=== PATIENT | female | born 1980 | race Caucasian/White ===

== ENCOUNTER 2016-12-23 12:50 | Outpatient (CLI) | payer BC ==
[~2016-12-23] VITALS: Ht 165.1 cm; Wt 92.6 kg
[~2016-12-23 12:50] MED LIST: AC500T PO; ALBU17AE23 IH; AMOX500C2 PO; BPR75T PO; CEFD300C3 PO; CYCL10TA9 PO; D-ME118S7; FERR-57 PO; FRS325T PO; GABA600T2 PO; GBPN300C; HYDR1TAB PO; IBP600T1 PO; LRT10T PO; MMT17NA NS; NITR-65 PO; ONDAN4ODT PO; OXYC-12 PO; PREN1TAB39 PO; TRAM-21 PO; [UNRECOGNIZED DRUG - CODE] PO; [UNRECOGNIZED DRUG - OTHER] INH
[2016-12-23 13:03] VITALS: BP 130/94
[2016-12-23] MEDS ORDERED: FEXO180T84 PO (13:10)
[2016-12-23] MEDS ORDERED: PHEN37.53 PO (13:10)
[2016-12-23 13:37] LABS: BILIRUBIN,URINE NEGATIVE (NEGATIVE); KETONES,URINE NEGATIVE (NEGATIVE); LEUKOCYTE ESTERASE ,URINE NEGATIVE (NEGATIVE); NITRITE,URINE NEGATIVE (NEGATIVE); PH,URINE 7 (5-9); PROTEIN,URINE NEGATIVE (NEGATIVE); UROBILINOGEN,URINE NORMAL (NORMAL)
[2016-12-23 13:38] LABS: BASOPHILS % (AUTO) 0 % (0-10); EOSINOPHILS # (AUTO) 0.1 10^3/uL (0.0-0.3); EOSINOPHILS % (AUTO) 2 % (0-10); LYMPHOCYTES # (AUTO) 2.2 X 10^3 (1.0-4.0); LYMPHOCYTES % (AUTO) 31 % (12-44); MEAN CORPUSCULAR HEMOGLOBIN 33 PG (25-34); MEAN CORPUSCULAR HGB CONC 34 G/DL (32-36); MEAN CORPUSCULAR VOLUME 96 FL (80-99); MEAN PLATELET VOLUME 10.2 FL (7.4-10.4); MONOCYTES # (AUTO) 0.4 X 10^3 (0.0-1.0); MONOCYTES % (AUTO) 6 % (0-12); NEUTROPHILS # (AUTO) 4.5 X 10^3 (1.8-7.8); NEUTROPHILS % (AUTO) 61 % (42-75); PLATELET COUNT 243 10^3/uL (130-400); RED BLOOD COUNT 4.59 10^6/uL (4.35-5.85); RED CELL DISTRIBUTION WIDTH 13.1 % (10.0-14.5); WHITE BLOOD COUNT 7.3 10^3/uL (4.3-11.0)
[2016-12-23] MEDS ORDERED: ALPR0.254 PO (14:00)
[2016-12-23] MEDS ORDERED: ESCI20TA45 PO (14:00)
[2016-12-28] MEDS ORDERED: OXYC-471 PO (16:10)
[2016-12-28] MEDS ORDERED: DOCU100C37 PO (16:10)
[2016-12-28] MEDS ORDERED: IBUP-1773 PO (16:10)
== END 2016-12-23 13:30 | disposition home or self-care (01) ==
LOC: PREOP 12:50
PROVIDERS: ATTEND Obstetrics & Gynecology
DX: Z01.812 Encounter for preprocedural laboratory examination (principal); Z11.2 Encounter for screening for other bacterial diseases; N92.0 Excessive and frequent menstruation with regular cycle
CPT/HCPCS: 36415; 81000; 85025; 86850; 86900; 86901; 87081

== ENCOUNTER 2016-12-28 06:10 | Day surgery (SDC) | payer BC ==
[2016-12-28] VITALS (8 sets, daily range): BP systolic 106–126; BP diastolic 68–81
[~2016-12-28] VITALS: Ht 165.1 cm; Wt 92.6 kg
[~2016-12-28 06:10] MED LIST changes: +ALPR0.254 PO; +ESCI20TA45 PO; +FEXO180T84 PO; +PHEN37.53 PO
[2016-12-28] MEDS ORDERED: ONDANSETRON 4 MG/2 ML (SDV) Z0FRAN IV ONE (06:45)
[2016-12-28] MEDS ORDERED: SCOPOLAMINE 1.5 MG (TRANSDERM-SCOP) PATCH TOP ONE (06:45)
[2016-12-28] MEDS ORDERED: FAMOTIDINE 20MG/2ML IV (PEPCID) IV ONE (06:45)
[2016-12-28] MEDS ORDERED: NS (IVPB) 50 ML ONE (06:56)
[2016-12-28] MEDS ORDERED: ceFAZolin 1,000 MG (ANCEF) VIAL ONE (06:56)
[2016-12-28] MEDS ORDERED: metroNIDAZOLE 500MG/100ML IVPB 100 ML ONE (06:56)
[2016-12-28] MEDS ORDERED: proPOfol 200 MG/20 ML (DIPRIVAN) VIAL IV ONE (07:07)
[2016-12-28] MEDS ORDERED: ROCURONIUM 50 MG/5 ML (ZEMURON) VIAL IV ONE (07:07)
[2016-12-28] MEDS ORDERED: MIDAZOLAM 2 MG/2 ML (VERSED) VIAL ONE (07:08)
[2016-12-28] MEDS ORDERED: fentaNYL INJECTION 250 MCG/5 ML AMP ONE (07:08)
[2016-12-28] MEDS: LACTATED RINGERS 1,000 ML IV PRN ×2 (07:14→08:50)
[2016-12-28] MEDS ORDERED: CATHETER FLUSH 10 ML SYR IV PRN (07:15)
[2016-12-28] MEDS ORDERED: metroNIDAZOLE 500 MG/100 ML IVPB (PRE-MIX) IV ONE (07:15)
[2016-12-28] MEDS ORDERED: ceFAZolin 1 GM/NS 50 ML IVPB IV ONE ×2 (07:15)
[2016-12-28] MEDS ORDERED: BUP/EPI 0.25% 1:200,000 (MARCAINE) 30 ML VIAL ONE (07:41)
--- NOTE | 2016-12-28 07:56 | Progress Note-Pre Operative ---
Pre-Operative Progress Note H&P Reviewed The H&P was reviewed, patient examined and no changes noted. Date H&P Reviewed: Dec 28, 2016 Time H&P Reviewed: 07:15 Pre-Operative Diagnosis: menorrhagia, complex right ovarian cyst GARETT GIRARD DO Dec 28, 2016 07:56
[2016-12-28] MEDS ORDERED: DEXAMETHASONE PF 10 MG/ML (DECADRON) VIAL ONE (09:40)
[2016-12-28] MEDS ORDERED: SEVOFLURANE (ULTANE) 15 ML INHAL SOLN ONE (09:40)
[2016-12-28] MEDS ORDERED: LACTATED RINGERS 2,000 ML IV ONE (09:40)
[2016-12-28] MEDS ORDERED: NEOSTIGMINE (BLOXIVERZ ) 1 MG/1ML 10 ML VIAL ONE (09:40)
[2016-12-28] MEDS ORDERED: GLYCOPYRROLATE 0.2 MG/ML (ROBINUL) 2 ML VIAL ONE ×2 (09:40)
[2016-12-28] MEDS ORDERED: KETOROLAC 30 MG/ML VIAL ONE (09:40)
[2016-12-28] MEDS ORDERED: morphine INJ 10 MG/ML 1ML (SYR OR VIAL) ONE ×2 (09:49→10:12)
[2016-12-28] MEDS ORDERED: LACTATED RINGERS 1,000 ML IV SCH (09:59)
[2016-12-28] MEDS ORDERED: ANTACID SUSP 30 ML UDC (MYLANTA) PO PRN (10:00)
[2016-12-28] MEDS ORDERED: ONDANSETRON 4 MG/2 ML (SDV) Z0FRAN IV PRN ×2 (10:00→10:30)
[2016-12-28] MEDS ORDERED: HYDROcodone/APAP 7.5 MG/325 MG (LORTAB, LORCET PLUS) TABLET PO PRN (10:00)
[2016-12-28] MEDS ORDERED: DOCUSATE SODIUM 100 MG (COLACE) CAP PO PRN (10:00)
[2016-12-28] MEDS ORDERED: KETOROLAC 30 MG/ML VIAL IV PRN (10:00)
[2016-12-28] MEDS ORDERED: SIMETHICONE 80 MG (MYLICON) CHEW PO PRN (10:00)
--- NOTE | 2016-12-28 10:06 | Operative Report ---
Operative Report Date of Procedure/Surgery Dec 28, 2016 Surgeon (s) GARETT GIRARD DO Patrol Captain (s): Jamila MICHAELS. who was instrumental in retraction for protection of import Post-Operative Diagnosis same, enteropelvic adhesions, peritubal adhesions Procedure Performed RaTH, bilateral salpingectomy, lysis of peritubal adhesions and enteropelvic adhesions (20 mintues) Description of Procedure Anesthesia Type: General Estimated blood loss (mL): 25 Specimen(s) collected/removed uterus, bilateral tubes Description of the Procedure An kennel assistant was necessary for the retraction and protection of important neurovascular structures and the procedure could not be performed without this assistance. Procedure. the patient was taken to the operating room where general anesthesia was found to be adequate. She was then placed in the dorsal lithotomy position, prepped and draped in the normal sterile fashion. The Solis catheter was placed using sterile technique. A weighted speculum was inserted in the patient's vagina. A right angle retractor is used visualizing the cervix, was grasped at the 12 o'clock position using a single tooth tenaculum. I then placed a 0 Vicryl suture through the anterior lip of the cervix and removed the single tooth tenaculum; this provided retraction. I then placed the ANTONIO uterine manipulator. The uterus sounds to 8 cm. An 8 cm ANTONIO uterine manipulator tip and a 3.5 cm colpotomy ring were placed and advance the ANTONIO uterine manipulator into the endometrial cavity, deploy the balloon and advancing the colpotomy ring around the vaginal fornix. Once this is in place, attention was now turned to the abdomen I placed a supraumbilical incisions after infiltrating with 0.25% Marcaine. I then made a 1 cm incision and placed the Veress needle. Intraabdominal placement was confirmed with the use of the saline drop test and a drop in pressure. The abdomen was now insufflated to a maximum pressure of 15 mmHg with warmed CO2 gas. A 10 mm trocar was now placed. And intraabdominal placement was confirmed with the Da Yanci laparoscopy. The patient was now placed into steep Trendelenburg. The above mentioned findings were seen. I placed 2 lateral trocars, on the right side and the left side, approximately 12 cm lateral to my infraumbilical trocar. I infiltrate the skin using 0.25% Marcaine and make an 8 mm incisions and I direct trocars under direct visualization of the laparoscope into the peritoneal cavity. As assist port was placed in the right upper quadrant. This is a 10 mm port. Once these trocars are in place, I bring in the da Yanci robot and dock it in the appropriate fashion. I place the bi polar graspers in the left hand. And the monopolar marge in my right hand. The adhesions in the left pelvis were taken down slowly and carefully using the monopolar marge and my graspers. I now take down the adhesions of the left tube to the ovary. I now take down the adhesions of the omentum to the right tube and ovary. I now perform bilateral salpingectomies by grasping the tube and then incising along the mesovarium and then grasp the tube at the cornu and transect. Once these are removed from the pelvis and sent for pathology, I am able to perform the following dissection bilaterally; I grasp the infundibulopelvic ligament using the bipolar da Yanci grasped and bipolar cauterize and transect it using the monopolar marge. I then grasp the round ligament, bipolar cauterize this and transect it using the marge. I then grasp the entire broad ligament, bipolar cauterize it and transect it using the marge down to the level lower uterine segment. This allows me to skeletonize the uterine vessels which are bipolar cauterized and transected using the marge. During this dissection, I trace the ureter all the way down to its crossing point across the uterine artery and very careful to stay clear of this area as I dissect. I then am able to take my anterior dissection from previously and find the anterior vaginal fornix using blunt dissection. I create a colpotomy to the 12 o'clock position using the monopolar marge and take this circumferentially amputating the cervix away from the vaginal fornix. The cervix, uterus are then removed through the vagina. I then proceed with closing the vaginal cuff using a V-Lock 2-0 in a running fashion from each apex and overlapping in the midline. This incorporating the lateral vaginal apices. There is no active bleeding noted from any my dissection planes. The Da Yanci is now undocked. The remainder of the case is continued laparoscopically. I copiously irrigate the pelvis using normal saline. There is no active bleeding noted from any my dissection planes. I place FloSeal over all of my planes of dissection to ensure postoperative hemostasis. I then have the patient taken out of steep Trendelenburg and remove all the lateral trocars under direct visualization of the laparoscope. The supraumbilical trocar is then used to release insufflation and introduce 10 mL 0.25% Marcaine. I then remove this trocar and close the fascial incision using 0 Monocryl in figure of eight fashion. The right upper quadrant fascial incision is also closed with 0-Vicryl. I then close the other incisions with 4-0 Monocryl. Dermabond is applied to the incision and dressings are placed over these. The patient tolerated the procedure well and was taken to the recovery area in stable condition with Solis catheter in place. Lap and sponge counts correct the end of the procedure, instrument count is correct as well. 2 grams of Ancef 500 mg Flagyl given preoperatively for infection prophylaxis. Findings of the Procedure enlarged boggy uterus. Ovaries normal in appearance with follicular cysts present. left peritubal cyst. Extensive adhesions of left tube to bowel and omentum. Omentum adherent to left pelvic side wall and left tube. Right tube adherent to right ovary. Ileum adherent to right pelvic side wall. Allergies and Home Medications Allergies Coded Allergies: codeine (Unverified Allergy, Mild, PT HAS RECEIVED MORPHINE & TRAMADOL W/ O ISSUE, 12/28/16) Penicillins (Unverified Allergy, Unknown, RASH, HAS HAD ANCEF W/O PROBLEMS , 12/28/16) erythromycin base (Unverified Allergy, Unknown, RASH, 12/28/16) Home Medications Alprazolam 0.25 Mg Tablet, 0.25 MG PO Q4H PRN for ANXIETY, (Reported) Docusate Sodium 100 Mg Capsule, 100 MG PO BID PRN for CONSTIPATION, #60 Prescribed by: GARETT GIRARD on 12/28/16 1610 Escitalopram Oxalate 20 Mg Tablet, 20 MG PO HS, (Reported) Fexofenadine HCl 180 Mg Tablet, 180 MG PO HS, (Reported) Ibuprofen 600 Mg Tablet, 600 MG PO Q6H PRN for MILD PAIN, #40 Prescribed by: GARETT GIRARD on 12/28/16 1610 Mometasone Furoate 17 Gm [place], 1 SPRAY NS HS, (Reported) Oxycodone HCl/Acetaminophen 1 Each Tablet, 1 TAB PO Q4H PRN for MODERATE PAIN, # 45 Prescribed by: GARETT GIRARD on 12/28/16 1610 Phentermine HCl 37.5 Mg Tablet, 37.5 MG PO HS, (Reported) GARETT GIRARD DO Dec 28, 2016 10:06 am
[2016-12-28] MEDS ORDERED: morphine INJ 10 MG/ML 1ML (SYR OR VIAL) IV PRN (10:30)
[2016-12-28] MEDS ORDERED: PROMETHAZINE INJ 25 MG/ML (PHENERGAN) AMP IV PRN (10:30)
[2016-12-28] MEDS ORDERED: HYDROmorphone (DILAUDID) 2 MG/ML VIAL IV PRN (10:30)
[2016-12-28] MEDS ORDERED: FLU TRIvalent (5 YOA+) 2016-17 (AFLURIA) 0.5 ML IM ONE ×2 (13:15→16:28)
[2016-12-28] MEDS ORDERED: DOCU100C37 PO (16:10)
[2016-12-28] MEDS ORDERED: OXYC-471 PO (16:10)
[2016-12-28] MEDS ORDERED: IBUP-1773 PO (16:10)
[2016-12-28] MEDS ORDERED: oxyCODONE/APAP 5/325MG (PERCOCET 5) TABLET PO PRN (16:15)
--- NOTE | 2016-12-28 16:15 | Discharge Inst-Women's Service ---
Discharge Inst-Women's Serv Depart Medication/Instructions New, Converted or Re-Newed RX: RX on Chart Instructions nothing per vagina for 10-12 weeks (until released), no lifting over 25 lbs no driving for 1 week Final Diagnosis menorrhagia enteropelvic adhesions peritubal adhesions adenomyosis IUD in place Consults/Follow Up Additional Follow Up: Yes (1 week with Jazmin, 10-12 weeks for pelvic exam) Activity Activity: Activity as Tolerated Driving Instructions: No Driving for 1 Week NO SMOKING: NO SMOKING Nothing Inside Vagina: No Douching, No [place], No Tampons Diet Discharge Diet: No Restrictions Symptoms to Report to : Swelling Increased, Bleeding Excessive, Fever Over 101 Degrees F, Vaginal Bleeding Increase, Vaginal Discharge Foul For Any Problems or Questions: Contact Your Physician Skin/Wound Care Operative Area Clean and Dry: You May Remove Bandage (in 3-4 days or if soiled or wet) Stitches/Flori/Dermabond: Dermabond Bathing Instructions: GARETT Hernandez DO Dec 28, 2016 16:15
[2016-12-29] MEDS ORDERED: IBUPROFEN 600 MG (MOTRIN) TAB PO PRN (02:45)
--- NOTE | 2016-12-29 14:50 | Anesthesia-General Post-Op ---
General Patient Condition Mental Status/LOC: Same as Preop Cardiovascular: Satisfactory Nausea/Vomiting: Absent Respiratory: Satisfactory Pain: Controlled Complications: Absent Post Op Complications Complications None Follow Up Care/Instructions Patient Instructions None needed. Anesthesia/Patient Condition Patient Condition Patient is doing well, no complaints, stable vital signs, no apparent adverse anesthesia problems. No complications reported per nursing. JEFERSON GONZALEZ CRNA Dec 29, 2016 14:50
--- OUTSIDE RECORDS SUMMARY | 2017-01-11 20:12 | XMS REPORT | Continuity of Care Document ---
Author Author [facility] Organization [facility] Address Unknown Phone Unavailable Care Team Providers Care Wildlife Officer Name Role Phone Self, Referral PCP Unavailable Source Comments Some departments are not documenting in the electronic medical record. If you do not see the information that you expected, contact Release of Information in the Health Information Management department at [phone] for further assistance in locating additional records.[facility] Active Allergies and Adverse Reactions Allergen Noted Date Severity Reactions Comments Codeine 10/20/2011 NAUSEA AND VOMITING Erythromycin 10/20/2011 RASH Penicillins 10/20/2011 RASH Current Medications Prescription Sig. Disp. Refills Start End Date Status Date gabapentin (NEURONTIN) Take 600 mg by mouth Active 600 mg tablet three times daily. gabapentin (NEURONTIN) Take 1,200 mg by mouth at Active 600 mg tablet bedtime daily. baclofen (LIORESAL) 10 mg Take 10 mg by mouth three Active tablet times daily. mometasone (NASONEX) 50 Insert 2 Sprays into nose Active mcg/Actuation nasal spray as directed daily. PV W-O JOEL/FERROUS Take by mouth daily. Active FUMARATE/FA (M-VIT PO) MEDROXYPROGESTERONE ACET Inject to area(s) as Active (DEPO-PROVERA IM) directed every 90 days. oxyCODONE/acetaminophen Take 1-2 Tabs by mouth 60 Tab 0 10/22/20 Active (PERCOCET; ENDOCET; every 4 hours as needed 12 ROXICET) 5/325 mg tablet for Pain. Max 12 tabs/day diazepam (VALIUM) 5 mg Take 0.5-1 Tabs by mouth 60 Tab 0 10/22/20 Active tablet every 6 hours as needed. 12 senna/docusate Take 1 Tab by mouth twice 10/22/19 Active (SENOKOT-S) 8.6/50 mg daily. Take while taking 12 tablet pain medication lidocaine (LIDODERM) 5 % daily. 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 Status post lumbar discectomy 10/22/2011 Social History Tobacco Use Types Packs/Day Years Used Date Current Every Day Smoker Cigarettes 0.5 10 Alcohol Use Drinks/Week oz/Week Comments Yes occasional Last Filed Vital Signs Vital Sign Reading Time Taken Blood Pressure 123/86 10/22/2011 7:54 AM [employer] Pulse 87 10/22/2011 8:00 AM [employer] Temperature 36.8 C (98.3 F) 10/22/2011 7:54 AM [employer] Respiratory Rate - - Height 1.651 m (5' 5") 10/21/2011 9:38 AM [employer] Weight 90.719 kg (200 lb) 10/21/2011 9:38 AM [employer] Body Mass Index 33.28 10/21/2011 9:38 AM [employer] Oxygen Saturation 98% 10/22/2011 7:54 AM [employer] Plan of Care Health Maintenance Due Date Last Done Comments Physical (Comprehensive) 12/05/1987 Exam Pertussis Vaccine 12/05/1991 Tetanus Vaccine 1997 Cervical Cancer Screening 2001 Influenza Vaccine 06/03/2017 Results from Last 3 Months Not on file
== END 2016-12-28 17:00 | disposition home or self-care (01) ==
LOC: DELPENDDIS → SDC 06:10 → WS 11:05 → SDC 17:00
PROVIDERS: ATTEND Obstetrics & Gynecology
DX: N92.0 Excessive and frequent menstruation with regular cycle (principal); N80.0 Endometriosis of uterus; N83.01 Follicular cyst of right ovary; N83.8 Other noninflammatory disorders of ovary, fallopian tube and broad ligament; N73.6 Female pelvic peritoneal adhesions (postinfective); Z23 Encounter for immunization
CPT/HCPCS: 84703; 88300; 88307; 90471; 94664; 96361; 96375

== ENCOUNTER → 2018-03-10 | Outpatient (CLI) | payer BC ==
[~2018-03-10] MED LIST changes: +DOCU100C37 PO; +IBUP-1773 PO; +OXYC-471 PO
--- NOTE | 2018-03-10 19:25 | Diagnostic Imaging Report ---
PROCEDURE: US left lower extremity venous. TECHNIQUE: Multiple real-time grayscale images were obtained over the left lower extremity in various projections. Additional duplex Doppler and color Doppler images were also obtained. INDICATION: Leg swelling COMPARISON: None FINDINGS: The left common femoral vein, superficial femoral vein and popliteal veins appear patent and compressible. No visible thrombus is seen. There is normal variability of the waveform with augmentation. IMPRESSION: There is no evidence of deep venous thrombosis in the left lower extremity. Dictated by: Dictated on workstation # [id number]
== END ==
LOC: RAD 15:32
PROVIDERS: ATTEND Nurse Practitioner Family
DX: M79.89 Other specified soft tissue disorders (principal)

== ENCOUNTER 2018-09-26 02:55 | Emergency (ER) | payer BC ==
[~2018-09-26] VITALS: Ht 165.1 cm; Wt 74.9 kg
--- OUTSIDE RECORDS SUMMARY | 2018-09-26 02:59 | XMS REPORT | Clinical Summary ---
Author Author [facility] Organization [facility] Address Unknown Phone Unavailable Care Team Providers Care Shell Worker Name Role Phone Self, Referral PCP Unavailable Mario Moody MD Unavailable Unavailable Inna Hwang RN Unavailable Source Comments Some departments are not documenting in the electronic medical record. If you do not see the information that you expected, contact Release of Information in the Health Information Management department at [phone] for further assistance in locating additional records.[facility] Allergies Comments Active Allergy Reactions Severity Noted Date Codeine NAUSEA AND 10/20/2011 VOMITING Erythromycin RASH 10/20/2011 Penicillins RASH 10/20/2011 Medications End Date Status Medication Sig Dispensed Refills Start Date Active gabapentin (NEURONTIN) Take 600 mg 0 600 mg tablet by mouth three times daily. Active gabapentin (NEURONTIN) Take 1,200 mg 0 600 mg tablet by mouth at bedtime daily. Active baclofen (LIORESAL) 10 mg Take 10 mg by 0 tablet mouth three times daily. Active mometasone (NASONEX) 50 Insert 2 0 mcg/Actuation nasal spray Sprays into nose as directed daily. Active PV W-O JOEL/FERROUS Take by 0 FUMARATE/FA (M-VIT PO) mouth daily. Active MEDROXYPROGESTERONE ACET Inject to 0 (DEPO-PROVERA IM) area(s) as directed every 90 days. Active oxyCODONE/acetaminophen Take 1-2 Tabs 60 Tab 0 (PERCOCET; ENDOCET; by mouth 2 ROXICET) 5/325 mg tablet every 4 hours as needed for Pain. Max 12 tabs/day Active diazepam (VALIUM) 5 mg Take 0.5-1 60 Tab 0 01/20/201 tablet Tabs by mouth 2 every 6 hours as needed. Active senna/docusate Take 1 Tab by 0 (SENOKOT-S) 8.6/50 mg mouth twice 2 tablet daily. Take while taking pain medication Active lidocaine (LIDODERM) 5 % daily. 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 Last Filed Vital Signs Time Taken Vital Sign Reading 10/22/2011 7:54 AM [employer] Blood Pressure 123/86 10/22/2011 8:00 AM [employer] Pulse 87 10/22/2011 7:54 AM [employer] Temperature 36.8 C (98.3 F) - Respiratory Rate - 10/22/2011 7:54 AM [employer] Oxygen Saturation 98% - Inhaled Oxygen - Concentration 10/21/2011 9:38 AM [employer] Weight 90.7 kg (200 lb) 10/21/2011 9:38 AM [employer] Height 165.1 cm (5' 5") 10/21/2011 9:38 AM [employer] Body Mass Index 33.28 Plan of Treatment Health Maintenance Due Date Last Done Comments PHYSICAL (COMPREHENSIVE) 12/05/1987 EXAM HIV SCREENING 12/05/1995 DTAP/TDAP VACCINES (1 - 1998 Tdap) CERVICAL CANCER SCREENING 2010 INFLUENZA VACCINE 05/03/2018 Results Not on filefrom Last 3 Months Advance Directives For more information, please contact: [facility] [address] [place] [address] Date Inactivated Comments Code Status Date Activated 10/22/2011 12:00 PM Full Code 10/21/2011 4:47 PM Provider has discussed Code Status Yes w/Patient or Family?
--- OUTSIDE RECORDS SUMMARY | 2018-09-26 02:59 | XMS REPORT | Clinical Summary ---
Author Author [facility] Organization [facility] Address Unknown Phone Unavailable Care Team Providers Care Bottom Bleacher Name Role Phone PCP Unavailable Allergies Not on File Current Medications Not on file Active Problems Not on file Social History Tobacco Use Types Packs/Day Years Used Date Never Assessed Sex Assigned at Date Recorded Not on file Last Filed Vital Signs Not on file Plan of Treatment Not on file Results Not on filefrom Last 3 Months
--- OUTSIDE RECORDS SUMMARY | 2018-09-26 03:02 | XMS REPORT | CCD ---
Author Author [facility] Address [address] [place] [address] Phone Care Team Providers Care Dental Office Assistant Name Role Phone PP Unavailable CCM Unavailable Summary Purpose Interface Exchange Insurance Providers Payer name Policy type / Coverage type Covered green party ID Effective Begin Date Effective End Date Blue Cross [facility] Blue Cross/Blue [facility] [id number] 2018 Unknown Family history Brother Diagnosis Age At Onset No Family Disease Entered N/A Daughter Diagnosis Age At Onset No Family Disease Entered N/A Mother Diagnosis Age At Onset No Family Disease Entered N/A Father Diagnosis Age At Onset No Family Disease Entered N/A Social History Social History Element Codes Description Effective Dates Tobacco history SNOMED CT: 83067986 Current every day smoker 1 ppd 05/05/[address]: 230558224 Never drinks alcohol 05/27/2011 Has the patient ever used illegal drugs? Unknown Has never used illegal drugs 05/27/2011 Allergies, Adverse Reactions, Alerts Substance Reaction Codes Entered Date Inactivated Date Status CODEINE RxNorm: 2670 05/27/2011 No Inactive Date Active cephalexin RxNorm: 2231 05/28/2011 No Inactive Date Active Erythromycin RxNorm: 4053 05/27/2011 No Inactive Date Active Penicillin Unknown 05/27/2011 No Inactive Date Active Past Medical History Illness Codes Condition Status Onset Date Resolved Date Dysuria ICD-9: 788.1 ICD-10: R30.0 Active 04/18/2018 Unknown Generalized anxiety disorder ICD-9: 300.00 ICD-10: F41.1 Active 08/04/2018 Unknown Family history of ischemic heart disease and other diseases of the circulatory system ICD-9: V17.3 ICD-10: Z82.49 Active 05/05/2018 Unknown Generalized anxiety disorder ICD-9: 300.02 ICD-10: F41.1 Active 10/01/2015 Unknown Localized edema ICD-9 : 782.3 ICD-10: R60.0 Active 04/18/2018 Unknown Pain in left ankle and joints of left foot ICD-9: 719.47 ICD-10: M25.572 Active 05/05/2018 Unknown Pain in right ankle and joints of right foot ICD-9: 719.47 ICD-10: M25.571 Active 05/05/2018 Unknown Mixed obsessional thoughts and acts ICD-9: 300.3 ICD-10: F42.2 Active 11/25/2016 Unknown Obsessive-compulsive disorder ICD-9: 300.3 ICD-10: F42 Active 10/01/2015 Unknown Other fatigue ICD-9: 780.79 ICD-10: R53.83 Active 04/18/2018 Unknown Other malaise ICD-9: 780.79 ICD-10: R53.81 Active 04/18/2018 Unknown Other muscle spasm ICD -9: 728.85 ICD-10: M62.838 Active 04/18/2018 Unknown Localized swelling, mass and lump, left lower limb ICD-9: 782.2 ICD-10: R22.42 Active 03/10/2018 Unknown Pain in left lower leg ICD-9: 729.5 ICD-10: M79.662 Active 03/10/2018 Unknown Other obesity due to excess calories ICD-9: 278.00 ICD-10: E66.09 Active 11/25/2016 Unknown Other acute sinusitis ICD-9: 461.8 ICD-10: J01.80 Active 11/17/2017 Unknown Other allergic rhinitis ICD-9: 477.8 ICD-10: J30.89 Active 11/17/2017 Unknown Pelvic and perineal pain ICD-9: 625.9 ICD-10: R10.2 Active 11/17/2017 Unknown Acute recurrent maxillary sinusitis ICD-9: 461.0 ICD-10: J01.01 Active 05/31/2016 Unknown Allergic rhinitis due to pollen ICD-9: 477.9 ICD-10: J30.1 Active 05/31/2016 Unknown Migraine, unspecified, not intractable, without status migrainosus ICD-9: 346.90 ICD-10: G43.909 Active 05/31/2016 Unknown Acute maxillary sinusitis ICD-9: 461.0 Active 05/17/2013 Unknown COUGH ICD-9: 786.2 Active 05/17/2013 Unknown Anxiety, generalized ICD-9: 300.02 Active 05/09/2013 Unknown Obsessive compulsive disorder ICD-9: 300.3 Active 05/09/2013 Unknown Back muscle spasm ICD- 9: 724.8 Active 09/01/2011 Unknown Sciatica Unknown Active 08/04/2011 Unknown Leg pain ICD-9: 729.5 Active 08/04/2011 Unknown Sciatica ICD-9: 724.3 Active 08/04/2011 Unknown ACUTE SINUSITIS ICD-9 : 461.9 Active 05/28/2011 Unknown Allergic rhinitis ICD- 9: 477.9 Active 05/28/2011 Unknown Lumbago ICD-9: 724.2 Active 05/28/2011 Unknown OBESITY ICD-9: 278.00 Active 05/28/2011 Unknown sinusitis Unknown Active 05/27/2011 Unknown Problems Condition Codes Effective Dates Condition Status Dysuria ICD-9: 788.1 ICD-10: R30.0 04/18/2018 Active Generalized anxiety disorder ICD-9: 300.00 ICD-10: F41.1 08/04/2018 Active Family history of ischemic heart disease and other diseases of the circulatory system ICD-9: V17.3 ICD-10: Z82.49 05/05/2018 Active Generalized anxiety disorder ICD-9: 300.02 ICD-10: F41.1 10/01/2015 Active Localized edema ICD-9 : 782.3 ICD-10: R60.0 04/18/2018 Active Pain in left ankle and joints of left foot ICD-9: 719.47 ICD-10: M25.572 05/05/2018 Active Pain in right ankle and joints of right foot ICD-9: 719.47 ICD-10: M25.571 05/05/2018 Active Mixed obsessional thoughts and acts ICD-9: 300.3 ICD-10: F42.2 11/25/2016 Active Obsessive-compulsive disorder ICD-9: 300.3 ICD-10: F42 10/01/2015 Active Other fatigue ICD-9: 780.79 ICD-10: R53.83 04/18/2018 Active Other malaise ICD-9: 780.79 ICD-10: R53.81 04/18/2018 Active Other muscle spasm ICD -9: 728.85 ICD-10: M62.838 04/18/2018 Active Localized swelling, mass and lump, left lower limb ICD-9: 782.2 ICD-10: R22.42 03/10/2018 Active Pain in left lower leg ICD-9: 729.5 ICD-10: M79.662 03/10/2018 Active Other obesity due to excess calories ICD-9: 278.00 ICD-10: E66.09 11/25/2016 Active Other acute sinusitis ICD-9: 461.8 ICD-10: J01.80 11/17/2017 Active Other allergic rhinitis ICD-9: 477.8 ICD-10: J30.89 11/17/2017 Active Pelvic and perineal pain ICD-9: 625.9 ICD-10: R10.2 11/17/2017 Active Acute recurrent maxillary sinusitis ICD-9: 461.0 ICD-10: J01.01 05/31/2016 Active Allergic rhinitis due to pollen ICD-9: 477.9 ICD-10: J30.1 05/31/2016 Active Migraine, unspecified, not intractable, without status migrainosus ICD-9: 346.90 ICD-10: G43.909 05/31/2016 Active Acute maxillary sinusitis ICD-9: 461.0 05/17/2013 Active COUGH ICD-9: 786.2 05/17/2013 Active Anxiety, generalized ICD-9: 300.02 05/09/2013 Active Obsessive compulsive disorder ICD-9: 300.3 05/09/2013 Active Back muscle spasm ICD- 9: 724.8 09/01/2011 Active Sciatica Unknown 08/04/2011 Active Leg pain ICD-9: 729.5 08/04/2011 Active Sciatica ICD-9: 724.3 08/04/2011 Active ACUTE SINUSITIS ICD-9 : 461.9 05/28/2011 Active Allergic rhinitis ICD- 9: 477.9 05/28/2011 Active Lumbago ICD-9: 724.2 05/28/2011 Active OBESITY ICD-9: 278.00 05/28/2011 Active sinusitis Unknown 05/27/2011 Active Medications Medication Codes Instructions Start Date Stop Date Status Fill Instructions Xanax 0.25 mg tablet RxNorm: 331936 Tablet(s) PO TAKE 1 TABLET BY MOUTH EVERY 4-6 HOURS NEEDED FOR ANXIETY 08/04/2018 No Stop Date Active (Appended: Controlled substance eRx refill - RxReferenceNumber: [id number]|1|0|1) Cipro 500 mg tablet RxNorm: 783269 1 Tablet(s) PO BID 201708/13/2018 Active Xanax 0.25 mg tablet RxNorm: 131167 Tablet(s) PO TAKE 1 TABLET BY MOUTH EVERY 4-6 HOURS NEEDED FOR ANXIETY 08/02/201810/2017 Inactive (Appended: Controlled substance eRx refill - RxReferenceNumber: [id number]|1|0|1) Bactrim DS 800 mg-160 mg tablet RxNorm: 368754 1 Tablet(s) PO BID 07/26/2018 08/04/2018 Inactive potassium chloride ER 10 mEq tablet,extended release RxNorm: 353495 1 Tablet(s) PO daily while on lasix 05/02/20182017 Inactive Lasix 20 mg tablet RxNorm: 957176 1 Tablet(s) PO daily 201705/06/2018 Inactive Cipro 500 mg tablet RxNorm: 021300 1 Tablet(s) PO BID 201705/07/2018 Inactive Cipro 500 mg tablet RxNorm: 029006 1 Tablet(s) PO BID 201704/27/2018 Inactive Bactrim DS 800 mg-160 mg tablet RxNorm: 885845 1 Tablet(s) PO BID 04/24/2018 04/30/2018 Inactive Colcrys 0.6 mg tablet RxNorm: 091417 2 now=1.2mg once then take 0.6mg 1 hour later x 1 Tablet(s) PO 04/18/2018 No Stop Date Active fluvoxamine 100 mg tablet RxNorm: 678374 1/2 Tablet(s) PO BID 04/18/2018 04/12/2019 Active Generic For:LUVOX 100 MG TABLET 10/21/2016 2:32:39 PM potassium chloride ER 10 mEq tablet,extended release RxNorm: 261511 1 Tablet(s) PO daily while on lasix 04/18/20182017 Inactive Xanax 0.25 mg tablet RxNorm: 968754 Tablet(s) PO TAKE 1 TABLET BY MOUTH EVERY 4-6 HOURS NEEDED FOR ANXIETY 04/18/2018 Inactive (Appended: Controlled substance eRx refill - RxReferenceNumber: [id number]|1|0|1) Lasix 20 mg tablet RxNorm: 224426 1 Tablet(s) PO daily 201704/22/2018 Inactive prednisone 20 mg tablet RxNorm: 542760 2 Tablet(s) PO daily 05/201803/14/2018 Inactive phentermine 37.5 mg tablet RxNorm: 526580 1 Tablet(s) PO daily 01/20/2018 02/18/2018 Inactive Levaquin 500 mg tablet RxNorm: 292732 1 Tablet(s) PO daily 12/25/2017 Inactive levocetirizine 5 mg tablet RxNorm: 113622 1 Tablet(s) PO QPM 01/17/2018 Inactive Diflucan 150 mg tablet RxNorm: 667381 1 Tablet(s) PO daily 12/25/2017 Inactive phentermine 37.5 mg tablet RxNorm: 794485 1 Tablet(s) PO daily 11/17/2017 12/16/2017 Inactive prednisone 20 mg tablet RxNorm: 625183 2 Tablet(s) PO daily 11/21/2017 Inactive doxycycline hyclate 100 mg capsule RxNorm: 7744680 1 Capsule(s) PO BID 11/17/2017 11/26/2017 Inactive Kenalog 40 mg/mL suspension for injection RxNorm: 9338867 1 Milliliter(s) Inj 11/17/2017 11/17/2017 Inactive Lexapro 20 mg tablet RxNorm: 396254 Tablet(s) 1 Tablet(s) PO daily 03/15/2017 11/16/2017 Inactive phentermine 37.5 mg tablet RxNorm: 382374 1 Tablet(s) PO daily 03/09/2017 11/16/2017 Inactive Lexapro 20 mg tablet RxNorm: 241718 1 Tablet(s) PO daily 201603/14/2017 Inactive phentermine 37.5 mg tablet RxNorm: 665240 1 Tablet(s) PO daily 12/23/2016 01/21/2017 Inactive phentermine 37.5 mg tablet RxNorm: 778401 1 Tablet(s) PO daily 11/25/2016 12/22/2016 Inactive Lexapro 20 mg tablet RxNorm: 065460 1 Tablet(s) PO daily 201612/24/2016 Inactive Xanax 0.25 mg tablet RxNorm: 610541 Tablet(s) PO TAKE 1 TABLET BY MOUTH EVERY 4-6 HOURS NEEDED FOR ANXIETY 11/25/2016 Inactive (Appended: Controlled substance eRx refill - RxReferenceNumber: [id number]|1|0|1) Lexapro 10 mg tablet RxNorm: 409219 1 Tablet(s) PO daily 201611/24/2016 Inactive fluvoxamine 100 mg tablet RxNorm: 842795 TAKE 1/2 OF A TABLET BY MOUTH TWICE A DAY 10/21/2016 10/25/2016 Inactive Generic For:LUVOX 100 MG TABLET 10/21/2016 2:32 :39 PM Onzetra Xsail 11 mg powder for nasal inhalation RxNorm: 0652539 1 nosepiece in each nostril NASAL as needed migraine May repeat another full dose 2 hours after first. 06/16/2016 04/03/2018 Inactive Onzetra Xsail 11 mg powder for nasal inhalation RxNorm: 2191491 1 nosepiece in each nostril NASAL as needed migraine May repeat another full dose 2 hours after first. 06/11/2016 06/15/2016 Inactive Kenalog 40 mg/mL suspension for injection RxNorm: 8858334 Milliliter(s) Inj 06/01/2016 06/01/2016 Inactive Zithromax Z-Maikel 250 mg tablet RxNorm: 457292 1 Tablet(s) PO UD take zpack as directed 06/01/2016 06/10/2016 Inactive fluvoxamine 100 mg tablet RxNorm: 302139 TAKE 1/2 OF A TABLET BY MOUTH TWICE A DAY 05/31/2016 09/27/2016 Inactive Generic For:LUVOX 100 MG TABLET 05/31/2016 12: 42:28 PM Xanax 0.25 mg tablet RxNorm: 894809 Tablet(s) PO TAKE 1 TABLET BY MOUTH EVERY 4-6 HOURS NEEDED FOR ANXIETY 04/08/2016 Inactive (Appended: Controlled substance eRx refill - RxReferenceNumber: [id number]|1|0|1) fluvoxamine 100 mg tablet RxNorm: 022842 TAKE 1/2 OF A TABLET BY MOUTH TWICE A DAY 01/05/2016 05/03/2016 Inactive Generic For:LUVOX 100 MG TABLET 01/05/2016 9:37 :27 AM fluvoxamine 100 mg tablet RxNorm: 972210 TAKE 1/2 OF A TABLET BY MOUTH TWICE A DAY 12/02/2015 12/31/2015 Inactive Generic For:LUVOX 100 MG TABLET 12/02/2015 9:02 :44 AM N O T I C E PRESCRIPTION PREVIOUSLY AUTHORIZED BY DOCTOR:INDU ARAUZ Kenalog 40 mg/mL suspension for injection RxNorm: 2261029 1 Milliliter(s) Inj 11/10/2015 11/10/2015 Inactive doxycycline hyclate 100 mg tablet RxNorm: 639605 1 Tablet(s) PO BID 11/10/2015 10/25/2016 Inactive fluvoxamine 100 mg tablet RxNorm: 625602 TAKE 1/2 TABLET BY MOUTH TWICE DAILY 10/06/2015 11/04/2015 Inactive Generic For:LUVOX 100 MG TABLET text when ready 4:32:56 PM fluvoxamine 100 mg tablet RxNorm: 252890 Tablet(s) TAKE 1/2 TABLET BY MOUTH TWICE DAILY 10/02/2015 10/05/2015 Inactive 08/25/2015 5:28:36 PM fluvoxamine 100 mg tablet RxNorm: 284561 TAKE 1/2 TABLET BY MOUTH TWICE DAILY 08/26/2015 09/24/2015 Inactive 08/25/2015 5:28:36 PM fluvoxamine 100 mg tablet RxNorm: 143515 TAKE 1/2 TABLET BY MOUTH TWICE DAILY 07/24/2015 08/22/2015 Inactive 07/23/2015 1:15:44 PM Xanax 0.25 mg tablet RxNorm: 986743 Tablet(s) PO TAKE 1 TABLET BY MOUTH EVERY 4-6 HOURS NEEDED FOR ANXIETY 03/11/201503/2016 Inactive (Appended: Controlled substance eRx refill - RxReferenceNumber: [id number]|1|0|1) fluvoxamine 100 mg tablet RxNorm: 818227 1/2 Tablet(s) PO BID 03/11/2015 07/08/2015 Inactive fluvoxamine ER 100 mg capsule,extended release 24 hr RxNorm: 745444 1 Tablet(s) PO BID 02/05/2015 03/10/2015 Inactive fluvoxamine 100 mg tablet RxNorm: 887289 1 Tablet(s) PO BID 06/201502/04/2015 Inactive fluvoxamine ER 100 mg capsule,extended release 24 hr RxNorm: 373304 TAKE ONE CAPSULE BY MOUTH EVERY DAY 07/17/201405/2015 Inactive fluvoxamine ER 100 mg capsule,extended release 24 hr RxNorm: 623562 TAKE ONE CAPSULE BY MOUTH EVERY DAY 04/15/201408/2014 Inactive Xanax 0.25 mg tablet RxNorm: 087685 1 Tablet(s) PO Q4-6H TAKE 1 TABLET BY MOUTH EVERY 4 TO 6 HOURS NEEDED FOR ANXIETY 01/28/2014 No Stop Date Active (Appended: Controlled substance eRx refill - RxReferenceNumber: [id number]|1|0|1) Xanax 0.25 mg tablet RxNorm: 241947 Tablet(s) PO TAKE 1 TABLET BY MOUTH EVERY 4-6 HOURS NEEDED FOR ANXIETY 01/28/201405/2015 Inactive (Appended: Controlled substance eRx refill - RxReferenceNumber: [id number]|1|0|1) fluvoxamine ER 100 mg capsule,extended release 24 hr RxNorm: 103630 1 Capsule(s) PO daily TAKE ONE CAPSULE BY MOUTH EVERY DAY 12/13/2013 04/11/2014 Inactive fluvoxamine ER 100 mg capsule,extended release 24 hr RxNorm: 243437 Capsule(s) PO TAKE ONE CAPSULE BY MOUTH EVERY DAY 12/13/2013 12/12/2013 Inactive Tessalon 200 mg capsule RxNorm: 700006 1 Capsule(s) PO Q8 PRN 11/19/2013 11/09/2015 Inactive fluvoxamine ER 100 mg capsule,extended release 24 hr RxNorm: 327521 1 Capsule(s) PO daily TAKE ONE CAPSULE BY MOUTH EVERY DAY 11/07/2013 12/12/2013 Inactive Zithromax Z-Maikel 250 mg tablet RxNorm: 184931 1 Tablet(s) PO as doctor directed take zpack as directed 11/07/2013 No Stop Date Active Xanax 0.25 mg tablet RxNorm: 219610 Tablet(s) PO TAKE 1 TABLET BY MOUTH EVERY 4 TO 6 HOURS NEEDED FOR ANXIETY 09/24/2013 01/28/2014 Inactive (Appended: Controlled substance eRx refill - RxReferenceNumber: [id number]|1|0|1) fluvoxamine ER 100 mg capsule,extended release 24 hr RxNorm: 040680 1 Capsule(s) PO daily 09/06/2013 09/05/2013 Inactive fluvoxamine ER 100 mg capsule,extended release 24 hr RxNorm: 820887 Capsule(s) PO TAKE ONE CAPSULE BY MOUTH EVERY DAY 09/06/2013 11/06/2013 Inactive Kenalog 40 mg/mL Susp for Injection RxNorm: 1354623 Milliliter(s) Inj 05/17/2013 05/17/2013 Inactive Zithromax Z-Maikel 250 mg tablet RxNorm: 765562 Tablet(s) PO UD No Stop Date Active fluvoxamine ER 100 mg capsule,extended release 24 hr RxNorm: 110911 1 Capsule(s) PO daily 05/09/2013 09/05/2013 Inactive Kenalog 40 mg/mL Susp for Injection RxNorm: 6618469 1 Milliliter(s) Inj 10/06/2012 10/06/2012 Inactive Zithromax Z-Maikel 250 mg tablet RxNorm: 167450 Tablet(s) PO UD No Stop Date Active baclofen 10 mg Tab RxNorm: 079700 1 Tablet(s) PO TID PRN 02/27/2012 Inactive hydrocodone-acetaminophen 7.5 mg-325 mg Tab RxNorm: 3119574 1 Tablet(s) PO Q6 PRN 1 tab q 6hrs prn 09/01/2011 09/15/2011 Inactive Butrans 10 mcg/hour Transderm Patch RxNorm: 577909 1 Patch TD QW 09/01/2011 11/29/2011 Inactive hydrocodone-acetaminophen 7.5 mg-325 mg Tab RxNorm: 8168959 1 Tablet(s) PO Q6 PRN 1 tab q 6hrs prn 08/25/2011 08/31/2011 Inactive Neurontin 600 mg Tab RxNorm: 894407 Tablet(s) PO 1 tab tid and 2 at hs 08/24/2011 11/09/2015 Inactive TAKE 1 TABLET BY MOUTH THREE TIMES DAILY AND 2 TABLETS BY MOUTH EVERY NIGHT AT BEDTIME Neurontin 600 mg Tab RxNorm: 546237 1 Tablet(s) PO TID 1 tab tid and 2 at hs 08/24/2011 08/23/2011 Inactive Neurontin 600 mg Tab RxNorm: 386852 1 Tablet(s) PO TID 1 tab tid and 2 at hs 08/24/2011 08/23/2011 Inactive hydrocodone-acetaminophen 7.5 mg-325 mg Tab RxNorm: 3417337 1 Tablet(s) PO Q6 PRN 1 tab q 6hrs prn 08/05/2011 08/19/2011 Inactive Vimovo 500 mg-20 mg multiphase, immed & delay rel Tab RxNorm: 041277 1 Tablet(s) PO BID 08/04/2011 07/23/2013 Inactive hydrocodone-acetaminophen 7.5 mg-325 mg Tab RxNorm: 8813208 1 Tablet(s) PO Q6 PRN 1 tab q 6hrs prn 07/20/2011 08/03/2011 Inactive hydrocodone-acetaminophen 7.5 mg-325 mg Tab RxNorm: 1488074 1 Tablet(s) PO Q6 PRN 1 tab q 6hrs prn 06/28/2011 07/12/2011 Inactive Bactrim DS 800 mg-160 mg Tab RxNorm: 688303 1 Tablet(s) PO BID 06/10/2011 06/16/2011 Inactive hydrocodone-acetaminophen 7.5 mg-325 mg Tab RxNorm: 3469825 1 Tablet(s) PO Q6 PRN 1 tab q 6hrs prn 06/02/2011 06/01/2011 Inactive hydrocodone-acetaminophen 7.5 mg-325 mg Tab RxNorm: 8200013 1 Tablet(s) PO Q6 PRN 1 tab q 6hrs prn 06/02/2011 06/16/2011 Inactive triamcinolone acetonide 40 mg/mL Susp for Injection RxNorm: 1285283 2 Milliliter(s ) Inj 05/28/2011 05/28/2011 Inactive Nasonex 50 mcg/Actuation [place] RxNorm: 302968 1 [place] NASAL daily No Start Date Active Tessalon 200 mg capsule RxNorm: 367016 1 Capsule(s) PO Q8 PRN No Start Date 11/18/2013 Inactive hydrocodone-acetaminophen 7.5 mg-325 mg Tab RxNorm: 8154006 1 Tablet(s) PO Q6 PRN 1 tab q 6hrs prn No Start Date 06/01/2011 Inactive Neurontin 600 mg Tab RxNorm: 509337 1 Tablet(s) PO TID 1 tab tid and 2 at hs No Start Date 08/23/2011 Inactive Xanax 0.25 mg tablet RxNorm: 687892 Tablet(s) PO PRN No Start Date 09/24/2013 Inactive niacin ER 500 mg Tab RxNorm: 047773 1 Tablet(s) PO QHS No Start Date 11/09/2015 Inactive Colcrys 0.6 mg tablet RxNorm: 133212 2 now=1.2mg once then take 0.6mg 1 hour later x 1 Tablet(s) PO No Start Date 04/17/2018 Inactive Onzetra Xsail 11 mg powder for nasal inhalation RxNorm: 2733747 1 nosepiece in each nostril NASAL as needed migraine May repeat another full dose 2 hours after first. No Start Date 06/10/2016 Inactive Zithromax Z-Maikel 250 mg tablet RxNorm: 423488 Tablet(s) PO No Start Date 06/01/2011 Inactive melatonin 3 mg Tab RxNorm: 961244 1 Tablet(s) PO QHS No Start Date 11/09/2015 Inactive Medication Administered Medication Codes Instructions Start Date Status Kenalog 40 mg/mL suspension for injection RxNorm: 8417013 1Milliliter 11/17/2017 No longer Active Kenalog 40 mg/mL suspension for injection RxNorm: 3669061 Milliliter 06/01/2016 No longer Active Kenalog 40 mg/mL suspension for injection RxNorm: 5786885 1Milliliter 11/10/2015 No longer Active Kenalog 40 mg/mL Susp for Injection RxNorm: 0386343 Milliliter 05/17/2013 No longer Active Kenalog 40 mg/mL Susp for Injection RxNorm: 8368574 1Milliliter 10/06/2012 No longer Active triamcinolone acetonide 40 mg/mL Susp for Injection RxNorm: 3103596 2Milliliter 05/28/2011 No longer Active Immunizations No Immunization data Assessments Condition Codes Effective Dates Dysuria ICD-10: R30.0 ICD-9: 788.1 08/04/2018 Generalized anxiety disorder ICD-10: F41.1 ICD-9: 300.00 08/04/2018 Generalized anxiety disorder ICD-10: F41.1 ICD-9: 300.02 05/05/2018 Family history of ischemic heart disease and other diseases of the circulatory system ICD-10: Z82.49 ICD-9: V17.3 05/05/2018 Pain in right ankle and joints of right foot ICD-10: M25.571 ICD-9: 719.47 05/05/2018 Localized edema ICD-10: R60.0 ICD-9: 782.3 05/05/2018 Pain in left ankle and joints of left foot ICD-10: M25.572 ICD-9: 719.47 05/05/2018 Other muscle spasm ICD-10: M62.838 ICD-9: 728.85 04/18/2018 Other malaise ICD-10: R53.81 ICD-9: 780.79 04/18/2018 Other fatigue ICD-10: R53.83 ICD-9: 780.79 04/18/2018 Other obsessive-compulsive disorder ICD-10: F42.8 ICD-9: 300.3 04/18/2018 Localized swelling, mass and lump, left lower limb ICD-10: R22.42 ICD-9: 782.2 03/10/2018 Pain in left lower leg ICD-10: M79.662 ICD-9: 729.5 03/10/2018 Other obesity due to excess calories ICD-10: E66.09 ICD-9: 278.00 01/20/2018 Other allergic rhinitis ICD-10: J30.89 ICD-9: 477.8 12/19/2017 Other acute sinusitis ICD-10: J01.80 ICD-9: 461.8 12/19/2017 Pelvic and perineal pain ICD-10: R10.2 ICD-9: 625.9 11/17/2017 Mixed obsessional thoughts and acts ICD-10: F42.2 ICD-9: 300.3 11/25/2016 Migraine, unspecified, not intractable, without status migrainosus ICD-10: G43.909 ICD-9: 346.90 06/01/2016 Allergic rhinitis due to pollen ICD-10: J30.1 ICD-9: 477.9 06/01/2016 Acute recurrent maxillary sinusitis ICD-10: J01.01 ICD-9: 461.0 06/01/2016 Obsessive-compulsive disorder ICD-10: F42 ICD-9: 300.3 10/02/2015 ACUTE SINUSITIS ICD-9: 461.9 11/07/2013 COUGH ICD-9: 786.2 11/07/2013 Acute maxillary sinusitis ICD-9: 461.0 Anxiety, generalized ICD-9: 300.02 2012 Obsessive compulsive disorder ICD-9: 300.3 05/09/2013 ALLERGIC RHINITIS ICD-9: 477.9 2012 Back muscle spasm ICD-9: 724.8 2010 Sciatica ICD-9: 724.3 09/01/2011 LUMBAGO ICD-9: 724.2 09/01/2011 Leg pain ICD-9: 729.5 09/01/2011 Reason For Visit Reason For Visit Effective Dates Notes urinary urgency 08/04/2018 edema 05/05/2018 edema 04/18/2018 edema 03/10/2018 sinus congestion 12/19/2017 sinus congestion 11/17/2017 medication follow up 11/25/2016 anxiety 10/26/2016 cough 06/01/2016 sore throat 11/10/2015 medication follow up 10/02/2015 medication follow up 11/07/2013 cough 05/17/2013 anxiety 05/09/2013 cough 10/06/2012 spasms/spasticity 09/01/2011 hip pain 08/04/2011 sore throat 05/28/2011 Results Observation Observation Code Item Item Code Result Date Rae [id number] RAE (SRINIVASAN) SCREEN NONE DETECTED 05/08/2018 Cbc With Differential Ord2 WBC 8.92 K/ul 05/05/2018 Cbc With Differential Ord2 RBC 4.70 M/ul 05/05/2018 Cbc With Differential Ord2 HGB 15.3 g/dl 05/05/2018 Cbc With Differential Ord2 Neut% 62.8 % 05/05/2018 Cbc With Differential Ord2 HCT 45.6 % 05/05/2018 Cbc With Differential Ord2 MCV 97.0 fl 05/05/2018 Cbc With Differential Ord2 Lymph% 30.3 % 05/05/2018 Cbc With Differential Ord2 MCH 32.6 pg 05/05/2018 Cbc With Differential Ord2 [place]% 5.2 % 05/05/2018 Cbc With Differential Ord2 MCHC 33.6 pg 05/05/2018 Cbc With Differential Ord2 Eos% 1.5 % 05/05/2018 Cbc With Differential Ord2 PLT 267 K/ul 05/05/2018 Cbc With Differential Ord2 Baso% 0.2 % 05/05/2018 Cbc With Differential Ord2 RDW 12.5 % 05/05/2018 Cbc With Differential Ord2 Neut ABS# 5.61 K/ul 05/05/2018 Cbc With Differential Ord2 Lymph ABS# 2.70 K/ul 05/05/2018 Cbc With Differential Ord2 [place] ABS# 0.5 K/ul 05/05/2018 Cbc With Differential Ord2 Eos ABS# 0.1 K/ul 05/05/2018 Cbc With Differential Ord2 Baso ABS# 0.0 K/ul 05/05/2018 Ra Factor Tug223 RA FACTOR <10 IU/ml 05/05/2018 Sed Rate Ord21 ESR 3 mm/hr 05/05/2018 Comp Metabolic Xye488 NA 139 mEq/L 05/05/2018 Comp Metabolic Ixb806 K 3.5 mEq/L 05/05/2018 Comp Metabolic Agr450 CL 101 mEq/L 05/05/2018 Comp Metabolic Dtc638 CO2 30.0 mEq/L 05/05/2018 Comp Metabolic Bco005 ANION GAP 12 05/05/2018 Comp Metabolic Jif119 GLUCOSE 104 mg/dL 05/05/2018 Comp Metabolic Dxm853 Creat 0.9 mg/dL 05/05/2018 Comp Metabolic Xyv495 eGFR 77 ml/min/1.73m2 05/05/2018 Comp Metabolic Mhw125 BUN 6 mg/dL 05/05/2018 Comp Metabolic Qze559 B/C Ratio 6.8 Ratio 05/05/2018 Comp Metabolic Hoq668 CALCIUM 9.3 mg/dL 05/05/2018 Comp Metabolic Jlm386 ALK PHOS 71 U/L 05/05/2018 Comp Metabolic Tvd764 AST(SGOT) 20 U/L 05/05/2018 Comp Metabolic Puk926 ALT(SGPT) 21 U/L 05/05/2018 Comp Metabolic Yio582 BILI T 0.4 mg/dL 05/05/2018 Comp Metabolic Rvc574 ALBUMIN 4.2 g/dL 05/05/2018 Comp Metabolic Dez587 TPRO 6.6 g/dL 05/05/2018 Comp Metabolic Alw375 GLOB 2.4 g/dL 05/05/2018 Comp Metabolic Mpe297 A/G Ratio 1.8 Ratio 05/05/2018 Comp Metabolic Csi489 Osmo 275 mOsmo 05/05/2018 C-Reactive Protein Qnt Crqnt CRP 0.2 mg/dl 05/05/2018 Culture Urine [id number] URINE CULTURE SEE NOTES 04/27/2018 Culture Urine [id number] Continued Results 04/27/2018 [place] Spotted Fever Igg/Igm [id number] DARLENE [place] SPOTTED FEVER IGM EIA . 04/25/2018 [place] Spotted Fever Igg/Igm [id number] RMSF, IGM 0.56 index 04/25/2018 [place] Spotted Fever Igg/Igm [id number] DARLENE MT SPOTTED FEVER IGG EIA FLEX . 04/25/2018 [place] Spotted Fever Igg/Igm 265575 RMSF, IGG SCREEN-FLEX Negative 04/25/2018 Urine Culture Ucult Complete >100,000 col/ml aerobic growth sent to ref lab 04/25/2018 Ehrlichia Chaffeensis Antibody Igm [id number] EHRLICHIA CHAFFEENSIS IGM < 1:16 04/24/2018 Ehrlichia Chaffeensis Antibody Igg [id number] EHRLICHIA CHAFFEENSIS IGG <1:64 04/24/2018 Lymes Disease Total Antibodies With Western Blot Reflex [id number] B. BURGDORFERI, IGG/IGM 0.34 04/20/2018 Lymes Disease Total Antibodies With Western Blot Reflex [id number] INTERPRETATION 04/20/2018 Magnesium Ord90 Mag 1.9 mg/dL 04/19/2018 Tsh Ord6 TSH (3rd IS) 0.76 uIU/mL 04/19/2018 Cbc With Differential Ord2 WBC 8.57 K/ul 04/19/2018 Cbc With Differential Ord2 RBC 4.62 M/ul 04/19/2018 Cbc With Differential Ord2 HGB 15.1 g/dl 04/19/2018 Cbc With Differential Ord2 HCT 43.5 % 04/19/2018 Cbc With Differential Ord2 Neut% 54.2 % 04/19/2018 Cbc With Differential Ord2 MCV 94.2 fl 04/19/2018 Cbc With Differential Ord2 Lymph% 35.5 % 04/19/2018 Cbc With Differential Ord2 MCH 32.7 pg 04/19/2018 Cbc With Differential Ord2 [place]% 8.3 % 04/19/2018 Cbc With Differential Ord2 MCHC 34.7 pg 04/19/2018 Cbc With Differential Ord2 Eos% 1.6 % 04/19/2018 Cbc With Differential Ord2 Baso% 0.4 % 04/19/2018 Cbc With Differential Ord2 PLT 225 K/ul 04/19/2018 Cbc With Differential Ord2 RDW 12.4 % 04/19/2018 Cbc With Differential Ord2 Neut ABS# 4.65 K/ul 04/19/2018 Cbc With Differential Ord2 Lymph ABS# 3.04 K/ul 04/19/2018 Cbc With Differential Ord2 [place] ABS# 0.7 K/ul 04/19/2018 Cbc With Differential Ord2 Eos ABS# 0.1 K/ul 04/19/2018 Cbc With Differential Ord2 Baso ABS# 0.0 K/ul 04/19/2018 Comp Metabolic Ona780 NA 136 mEq/L 04/19/2018 Comp Metabolic Miz507 K 3.4 mEq/L 04/19/2018 Comp Metabolic Dsm770 CL 104 mEq/L 04/19/2018 Comp Metabolic Htu898 CO2 23.0 mEq/L 04/19/2018 Comp Metabolic Vrk750 ANION GAP 12 04/19/2018 Comp Metabolic Obf460 GLUCOSE 89 mg/dL 04/19/2018 Comp Metabolic Qji737 Creat 0.6 mg/dL 04/19/2018 Comp Metabolic Dct056 eGFR 129 ml/min/1.73m2 04/19/2018 Comp Metabolic Uif260 BUN 7 mg/dL 04/19/2018 Comp Metabolic Scb885 B/C Ratio 12.5 Ratio 04/19/2018 Comp Metabolic Hyy294 CALCIUM 9.2 mg/dL 04/19/2018 Comp Metabolic Caj434 ALK PHOS 62 U/L 04/19/2018 Comp Metabolic Uft139 AST(SGOT) 23 U/L 04/19/2018 Comp Metabolic Aoh092 ALT(SGPT) 27 U/L 04/19/2018 Comp Metabolic Qed567 BILI T 0.6 mg/dL 04/19/2018 Comp Metabolic Hrt361 ALBUMIN 4.1 g/dL 04/19/2018 Comp Metabolic Zti485 TPRO 6.5 g/dL 04/19/2018 Comp Metabolic Npq431 GLOB 2.4 g/dL 04/19/2018 Comp Metabolic All670 A/G Ratio 1.7 Ratio 04/19/2018 Comp Metabolic Xdu137 Osmo 269 mOsmo 04/19/2018 Uric Acid Ord77 Uric A 4.7 mg/dL 04/19/2018 Free T4 Tqy756 FREE T4 0.95 ng/dL 04/19/2018 Review of Systems System Result Effective Dates Constitutional No recent illness 2017 Constitutional No chills 08/04/2018 Constitutional No diaphoresis 08/04/2018 Constitutional No fever 08/04/2018 Eyes No eye erythema 08/04/2018 Ears/Nose/Throat/Neck No nasal discharge 08/04/2018 Cardiovascular No chest pain/pressure 11/2017 Cardiovascular No dyspnea 08/04/2018 Respiratory No cough 08/04/2018 Gastrointestinal No abdominal pain 2017 Genitourinary/Nephrology dysuria 2017 Genitourinary/Nephrology urinary urgency 08/04/2018 Genitourinary/Nephrology urinary frequency 08/04/2018 Neurologic No alteration of consciousness 08/04/2018 Neurologic No mental status change 2017 Psychiatric anxiety 08/04/2018 Psychiatric No depression 08/04/2018 Psychiatric No suicidality 08/04/2018 Constitutional recent illness 05/05/2018 Constitutional No anorexia 05/05/2018 Constitutional No night sweats 2017 Constitutional chills 05/05/2018 Constitutional diaphoresis 05/05/2018 Constitutional fatigue 05/05/2018 Constitutional No fever 05/05/2018 Constitutional No insomnia 05/05/2018 Constitutional No malaise 05/05/2018 Constitutional weight loss 05/05/2018 Eyes No eye discharge 05/05/2018 Eyes No eye erythema 05/05/2018 Ears/Nose/Throat/Neck dizziness 2017 Ears/Nose/Throat/Neck headache 2017 Cardiovascular No chest pain/pressure 12/2017 Cardiovascular edema 05/05/2018 Respiratory No cough 05/05/2018 Gastrointestinal No abdominal pain 2017 Gastrointestinal No constipation 2017 Gastrointestinal No diarrhea 05/05/2018 Ears/Nose/Throat/Neck nasal allergies 12/2017 Ears/Nose/Throat/Neck nasal discharge 12/2017 Genitourinary/Nephrology No dysuria 05/05 Gastrointestinal No gastroesophageal reflux 05/05/2018 Gastrointestinal No vomiting 05/05/2018 Gastrointestinal nausea 05/05/2018 Musculoskeletal joint complaint 2017 Musculoskeletal arthralgia(s) 05/05/2018 Dermatologic No rash 05/05/2018 Dermatologic No sores 05/05/2018 Neurologic No alteration of consciousness 05/05/2018 Psychiatric anxiety 05/05/2018 Constitutional recent illness 04/18/2018 Constitutional No chills 04/18/2018 Constitutional No diaphoresis 04/18/2018 Constitutional fatigue 04/18/2018 Constitutional malaise 04/18/2018 Constitutional No fever 04/18/2018 Eyes No eye erythema 04/18/2018 Ears/Nose/Throat/Neck No nasal discharge 04/18/2018 Ears/Nose/Throat/Neck No nasal allergies 04/18/2018 Cardiovascular No chest pain/pressure Cardiovascular edema 04/18/2018 Cardiovascular fatigue 04/18/2018 Cardiovascular No near-syncope/dizziness 04/18/2018 Respiratory No cough 04/18/2018 Respiratory No chest congestion 2017 Gastrointestinal No abdominal pain 2017 Gastrointestinal No constipation 2017 Gastrointestinal No diarrhea 04/18/2018 Genitourinary/Nephrology dysuria 2017 Genitourinary/Nephrology flank pain 04/18 Musculoskeletal back pain 04/18/2018 Dermatologic No rash 04/18/2018 Neurologic No alteration of consciousness 04/18/2018 Psychiatric anxiety 04/18/2018 Psychiatric depression 04/18/2018 Psychiatric No suicidality 04/18/2018 Constitutional No recent illness 2017 Constitutional No chills 03/10/2018 Constitutional No diaphoresis 03/10/2018 Constitutional No fever 03/10/2018 Eyes No eye erythema 03/10/2018 Ears/Nose/Throat/Neck No nasal discharge 03/10/2018 Cardiovascular No chest pain/pressure 05/2018 Cardiovascular No dyspnea 03/10/2018 Cardiovascular edema 03/10/2018 Respiratory No daytime hypersomnolence Respiratory No chest congestion 2017 Gastrointestinal No abdominal pain 2017 Musculoskeletal arthralgia(s) 03/10/2018 Dermatologic No rash 03/10/2018 Neurologic No alteration of consciousness 03/10/2018 Neurologic No mental status change 2017 Constitutional recent illness 12/19/2017 Constitutional No chills 12/19/2017 Constitutional No diaphoresis 12/19/2017 Constitutional No fever 12/19/2017 Eyes No eye erythema 12/19/2017 Ears/Nose/Throat/Neck nasal allergies Ears/Nose/Throat/Neck nasal discharge Ears/Nose/Throat/Neck postnasal drip Ears/Nose/Throat/Neck sinus congestion Ears/Nose/Throat/Neck No sore throat Cardiovascular No chest pain/pressure Cardiovascular No dyspnea 12/19/2017 Respiratory No chest congestion 2017 Respiratory cough 12/19/2017 Respiratory No dyspnea 12/19/2017 Gastrointestinal No abdominal pain 2017 Gastrointestinal No constipation 2017 Gastrointestinal No diarrhea 12/19/2017 Gastrointestinal No nausea 12/19/2017 Gastrointestinal No vomiting 12/19/2017 Dermatologic No rash 12/19/2017 Neurologic No alteration of consciousness 12/19/2017 Neurologic No mental status change 2017 Constitutional recent illness 11/17/2017 Constitutional No chills 11/17/2017 Constitutional No diaphoresis 11/17/2017 Constitutional No fever 11/17/2017 Eyes No eye erythema 11/17/2017 Ears/Nose/Throat/Neck nasal allergies Ears/Nose/Throat/Neck nasal discharge Ears/Nose/Throat/Neck postnasal drip Ears/Nose/Throat/Neck sinus congestion Ears/Nose/Throat/Neck No sore throat Cardiovascular No chest pain/pressure Cardiovascular No dyspnea 11/17/2017 Respiratory No chest congestion 2017 Respiratory cough 11/17/2017 Respiratory No dyspnea 11/17/2017 Gastrointestinal No abdominal pain 2017 Gastrointestinal No constipation 2017 Gastrointestinal No diarrhea 11/17/2017 Gastrointestinal No nausea 11/17/2017 Gastrointestinal No vomiting 11/17/2017 Dermatologic No rash 11/17/2017 Neurologic No alteration of consciousness 11/17/2017 Neurologic No mental status change 2017 Genitourinary/Nephrology pelvic pain Constitutional No night sweats 2016 Constitutional No chills 11/25/2016 Constitutional No fatigue 11/25/2016 Constitutional No fever 11/25/2016 Eyes No eye erythema 11/25/2016 Ears/Nose/Throat/Neck No nasal discharge 11/25/2016 Cardiovascular No chest pain/pressure Cardiovascular No dyspnea 11/25/2016 Respiratory No cough 11/25/2016 Respiratory No dyspnea 11/25/2016 Gastrointestinal No abdominal pain 2016 Gastrointestinal No constipation 2016 Gastrointestinal No diarrhea 11/25/2016 Musculoskeletal No joint complaint 2016 Neurologic No alteration of consciousness 11/25/2016 Neurologic No mental status change 2016 Psychiatric anxiety 11/25/2016 Psychiatric depression 11/25/2016 Constitutional No night sweats 2016 Constitutional No chills 10/26/2016 Constitutional No fatigue 10/26/2016 Constitutional No fever 10/26/2016 Cardiovascular No chest pain/pressure Cardiovascular No dyspnea 10/26/2016 Respiratory No cough 10/26/2016 Gastrointestinal No abdominal pain 2016 Gastrointestinal No constipation 2016 Eyes No eye erythema 10/26/2016 Ears/Nose/Throat/Neck No nasal discharge 10/26/2016 Respiratory No dyspnea 10/26/2016 Gastrointestinal No diarrhea 10/26/2016 Musculoskeletal No joint complaint 2016 Neurologic No alteration of consciousness 10/26/2016 Neurologic No mental status change 2016 Psychiatric anxiety 10/26/2016 Psychiatric depression 10/26/2016 Constitutional recent illness 06/01/2016 Constitutional No anorexia 06/01/2016 Constitutional No night sweats 2015 Constitutional chills 06/01/2016 Constitutional fatigue 06/01/2016 Constitutional diaphoresis 06/01/2016 Constitutional fever 06/01/2016 Constitutional No insomnia 06/01/2016 Constitutional No malaise 06/01/2016 Eyes No eye discharge 06/01/2016 Eyes No eye erythema 06/01/2016 Ears/Nose/Throat/Neck No dizziness 2015 Ears/Nose/Throat/Neck headache 2015 Ears/Nose/Throat/Neck nasal allergies Ears/Nose/Throat/Neck nasal discharge Ears/Nose/Throat/Neck No otalgia 2015 Ears/Nose/Throat/Neck sinus congestion Ears/Nose/Throat/Neck sore throat 2015 Respiratory cough 06/01/2016 Cardiovascular No chest pain/pressure Gastrointestinal No abdominal pain 2015 Genitourinary/Nephrology No dysuria 06/01 Musculoskeletal No joint complaint 2015 Dermatologic No rash 06/01/2016 Constitutional recent illness 11/10/2015 Constitutional No anorexia 11/10/2015 Constitutional No night sweats 2015 Constitutional No chills 11/10/2015 Constitutional No diaphoresis 11/10/2015 Constitutional No fatigue 11/10/2015 Constitutional fever 11/10/2015 Constitutional No insomnia 11/10/2015 Constitutional No malaise 11/10/2015 Constitutional No weight loss 11/10/2015 Constitutional No weight gain 11/10/2015 Eyes No eye erythema 11/10/2015 Eyes No eye discharge 11/10/2015 Ears/Nose/Throat/Neck nasal allergies 05/2016 Ears/Nose/Throat/Neck otalgia 11/10/2015 Ears/Nose/Throat/Neck sore throat 2015 Ears/Nose/Throat/Neck nasal discharge 05/2016 Cardiovascular No chest pain/pressure 05/2016 Respiratory No productive sputum 2015 Respiratory cough 11/10/2015 Gastrointestinal No abdominal pain 2015 Gastrointestinal No constipation 2015 Gastrointestinal No diarrhea 11/10/2015 Genitourinary/Nephrology No dysuria 11/10 Musculoskeletal No joint complaint 2015 Dermatologic No rash 11/10/2015 Dermatologic No sores 11/10/2015 Neurologic No alteration of consciousness 11/10/2015 Constitutional No recent illness 2014 Constitutional No insomnia 10/02/2015 Constitutional No night sweats 2014 Constitutional No diaphoresis 10/02/2015 Constitutional No chills 10/02/2015 Constitutional No fatigue 10/02/2015 Eyes No eye discharge 10/02/2015 Eyes No eye erythema 10/02/2015 Ears/Nose/Throat/Neck nasal allergies Ears/Nose/Throat/Neck nasal discharge Ears/Nose/Throat/Neck headache 2014 Cardiovascular No chest pain/pressure Cardiovascular No dyspnea 10/02/2015 Cardiovascular No edema 10/02/2015 Respiratory No cough 10/02/2015 Gastrointestinal No constipation 2014 Gastrointestinal No diarrhea 10/02/2015 Gastrointestinal No abdominal pain 2014 Gastrointestinal No gastroesophageal reflux 10/02/2015 Gastrointestinal No nausea 10/02/2015 Genitourinary/Nephrology No dysuria 10/02 Genitourinary/Nephrology No flank pain Musculoskeletal back pain 10/02/2015 Dermatologic No rash 10/02/2015 Dermatologic No sores 10/02/2015 Neurologic No alteration of consciousness 10/02/2015 Constitutional recent illness 11/07/2013 Constitutional No anorexia 11/07/2013 Constitutional No night sweats 2013 Constitutional No chills 11/07/2013 Constitutional No diaphoresis 11/07/2013 Constitutional No fatigue 11/07/2013 Constitutional No fever 11/07/2013 Constitutional No insomnia 11/07/2013 Constitutional No malaise 11/07/2013 Eyes No eye discharge 11/07/2013 Eyes No eye erythema 11/07/2013 Cardiovascular No chest pain/pressure 01/2014 Respiratory No productive sputum 2013 Respiratory No chest congestion 2013 Respiratory cough 11/07/2013 Respiratory dyspnea 11/07/2013 Gastrointestinal No abdominal pain 2013 Gastrointestinal No constipation 2013 Gastrointestinal No diarrhea 11/07/2013 Gastrointestinal No nausea 11/07/2013 Genitourinary/Nephrology No dysuria 11/07 Musculoskeletal No joint complaint 2013 Dermatologic No rash 11/07/2013 Dermatologic No sores 11/07/2013 Neurologic No alteration of consciousness 11/07/2013 Constitutional recent illness 05/17/2013 Constitutional No anorexia 05/17/2013 Constitutional No night sweats 2012 Constitutional No diaphoresis 05/17/2013 Constitutional No chills 05/17/2013 Constitutional No fatigue 05/17/2013 Constitutional No fever 05/17/2013 Constitutional No insomnia 05/17/2013 Constitutional No malaise 05/17/2013 Eyes No eye discharge 05/17/2013 Eyes No eye erythema 05/17/2013 Cardiovascular No chest pain/pressure Respiratory No productive sputum 2012 Respiratory No chest congestion 2012 Respiratory cough 05/17/2013 Respiratory dyspnea 05/17/2013 Gastrointestinal No abdominal pain 2012 Gastrointestinal No constipation 2012 Gastrointestinal No diarrhea 05/17/2013 Gastrointestinal No nausea 05/17/2013 Genitourinary/Nephrology No dysuria 05/17 Musculoskeletal No joint complaint 2012 Dermatologic No sores 05/17/2013 Dermatologic No rash 05/17/2013 Neurologic No alteration of consciousness 05/17/2013 Constitutional No night sweats 2012 Constitutional No chills 05/09/2013 Constitutional No fatigue 05/09/2013 Constitutional No fever 05/09/2013 Cardiovascular No chest pain/pressure 04/2013 Cardiovascular No dyspnea 05/09/2013 Cardiovascular No fatigue 05/09/2013 Respiratory No chest congestion 2012 Respiratory No cough 05/09/2013 Gastrointestinal No abdominal pain 2012 Gastrointestinal No constipation 2012 Gastrointestinal No diarrhea 05/09/2013 Genitourinary/Nephrology No urinary incontinence 05/09/2013 Neurologic No ataxia 05/09/2013 Neurologic No dizziness 05/09/2013 Neurologic No gait abnormality 2012 Neurologic No headache 05/09/2013 Neurologic paresthesia 05/09/2013 Musculoskeletal No stiffness 05/09/2013 Musculoskeletal No arthralgia(s) 2012 Constitutional recent illness 10/06/2012 Constitutional No anorexia 10/06/2012 Constitutional No night sweats 2012 Constitutional No chills 10/06/2012 Constitutional No fatigue 10/06/2012 Constitutional No diaphoresis 10/06/2012 Constitutional No fever 10/06/2012 Constitutional No insomnia 10/06/2012 Eyes No eye discharge 10/06/2012 Eyes No eye erythema 10/06/2012 Cardiovascular No chest pain/pressure 01/2013 Gastrointestinal No abdominal pain 2012 Gastrointestinal No constipation 2012 Gastrointestinal No diarrhea 10/06/2012 Gastrointestinal No nausea 10/06/2012 Gastrointestinal No vomiting 10/06/2012 Genitourinary/Nephrology No dysuria 10/06 Dermatologic No rash 10/06/2012 Dermatologic No sores 10/06/2012 Constitutional No night sweats 2010 Constitutional No chills 09/01/2011 Constitutional No fatigue 09/01/2011 Constitutional No fever 09/01/2011 Cardiovascular No chest pain/pressure Cardiovascular No dyspnea 09/01/2011 Cardiovascular No fatigue 09/01/2011 Respiratory No chest congestion 2010 Respiratory No cough 09/01/2011 Gastrointestinal No abdominal pain 2010 Gastrointestinal No constipation 2010 Gastrointestinal No diarrhea 09/01/2011 Neurologic No ataxia 09/01/2011 Neurologic No dizziness 09/01/2011 Neurologic No gait abnormality 2010 Neurologic No headache 09/01/2011 Neurologic pain, back 09/01/2011 Neurologic pain, limb 09/01/2011 Neurologic paresthesia 09/01/2011 Psychiatric No anxiety 09/01/2011 Psychiatric No depression 09/01/2011 Genitourinary/Nephrology No urinary incontinence 09/01/2011 Constitutional No night sweats 2010 Constitutional No chills 08/04/2011 Constitutional No fatigue 08/04/2011 Constitutional No fever 08/04/2011 Cardiovascular No chest pain/pressure 11/2010 Cardiovascular No fatigue 08/04/2011 Cardiovascular No dyspnea 08/04/2011 Respiratory No chest congestion 2010 Respiratory No cough 08/04/2011 Gastrointestinal No abdominal pain 2010 Gastrointestinal No constipation 2010 Gastrointestinal No diarrhea 08/04/2011 Neurologic No ataxia 08/04/2011 Neurologic No dizziness 08/04/2011 Neurologic No gait abnormality 2010 Neurologic No headache 08/04/2011 Neurologic pain, back 08/04/2011 Neurologic pain, limb 08/04/2011 Neurologic paresthesia 08/04/2011 Psychiatric No anxiety 08/04/2011 Psychiatric No depression 08/04/2011 Ears/Nose/Throat/Neck No dizziness 2010 Ears/Nose/Throat/Neck facial pain 2010 Ears/Nose/Throat/Neck No facial swelling 05/28/2011 Ears/Nose/Throat/Neck headache 2010 Ears/Nose/Throat/Neck hoarseness 2010 Ears/Nose/Throat/Neck nasal allergies Ears/Nose/Throat/Neck nasal discharge Ears/Nose/Throat/Neck No oral pain 2010 Ears/Nose/Throat/Neck No oral lesion Ears/Nose/Throat/Neck sinus congestion Ears/Nose/Throat/Neck sore throat 2010 Cardiovascular No chest pain/pressure Cardiovascular No edema 05/28/2011 Cardiovascular No fatigue 05/28/2011 Cardiovascular No syncope 05/28/2011 Respiratory No productive sputum 2010 Respiratory No chest congestion 2010 Respiratory No chest tightness 2010 Respiratory No cough 05/28/2011 Respiratory No dyspnea 05/28/2011 Gastrointestinal No abdominal pain 2010 Gastrointestinal No nausea 05/28/2011 Gastrointestinal No vomiting 05/28/2011 Dermatologic No rash 05/28/2011 Constitutional No chills 05/28/2011 Constitutional No diaphoresis 05/28/2011 Constitutional No fatigue 05/28/2011 Constitutional No fever 05/28/2011 Constitutional No malaise 05/28/2011 Constitutional No insomnia 05/28/2011 Eyes eye tearing 05/28/2011 Eyes No eye pain 05/28/2011 Eyes No eye erythema 05/28/2011 Eyes No eye discharge 05/28/2011 Ears/Nose/Throat/Neck No dental pain Physical Exam Exam Name System Name Item Name Status Result Effective Dates Notes Full Exam - General 1994 Constitutional general appearance Overall: well developed 08/04/2018 None Full Exam - General 1994 Constitutional general appearance Overall: in no acute distress 08/04/2018 None Full Exam - General 1994 Constitutional general appearance Overall: well nourished 08/04/2018 None Full Exam - General 1994 Eyes conjunctiva /eyelids Overall: cornea clear 08/04/2018 None Full Exam - General 1994 Eyes conjunctiva /eyelids Overall: eyelids normal 08/04/2018 None Full Exam - General 1994 Ears/Nose/Throat lips/teeth/gingiva Overall: benign lips 08/04/2018 None Full Exam - General 1994 Ears/Nose/Throat oral cavity/pharynx/larynx Overall: oral mucosa clear 08/04/2018 None Full Exam - General 1994 Respiratory respiratory effort/rhythm Overall: no retractions 08/04/2018 None Full Exam - General 1994 Respiratory respiratory effort/rhythm Overall: normal rate 08/04/2018 None Full Exam - General 1994 Musculoskeletal gait and station Overall: normal gait 08/04/2018 None Full Exam - General 1994 Musculoskeletal gait and station Overall: normal station 08/04/2018 None Full Exam - General 1994 Musculoskeletal head and neck Overall: head atraumatic 08/04/2018 None Full Exam - General 1994 Neurologic cranial nerves Overall: crainial nerves 2 - 12 grossly intact 08/04/2018 None Full Exam - General 1994 Psychiatric orientation/consciousness Overall: oriented to person, place and time 08/04/2018 None Full Exam - General 1994 Psychiatric mood and affect Overall: normal mood and affect 08/04/2018 None Full Exam - General 1994 Constitutional general appearance Overall: well developed 05/05/2018 None Full Exam - General 1994 Constitutional general appearance Overall: well nourished 05/05/2018 None Full Exam - General 1994 Eyes conjunctiva /eyelids Overall: conjunctiva clear 05/05/2018 None Full Exam - General 1994 Eyes conjunctiva /eyelids Overall: cornea clear 05/05/2018 None Full Exam - General 1994 Eyes conjunctiva /eyelids Overall: eyelids normal 05/05/2018 None Full Exam - General 1994 Ears/Nose/Throat lips/teeth/gingiva Overall: benign lips 05/05/2018 None Full Exam - General 1994 Ears/Nose/Throat oral cavity/pharynx/larynx Overall: oral mucosa clear 05/05/2018 None Full Exam - General 1994 Respiratory auscultation Overall: breath sounds clear bilaterally 05/05/2018 None Full Exam - General 1994 Respiratory respiratory effort/rhythm Overall: no retractions 05/05/2018 None Full Exam - General 1994 Respiratory respiratory effort/rhythm Overall: normal rate 05/05/2018 None Full Exam - General 1994 Cardiovascular extremities Edema present: pitting 05/05/2018 None Full Exam - General 1994 Cardiovascular extremities Edema present: bilateral 05/05/2018 None Full Exam - General 1994 Cardiovascular extremities Edema present: to knees 05/05/2018 None Full Exam - General 1994 Cardiovascular auscultation of heart Overall: regular rate 05/05/2018 None Full Exam - General 1994 Cardiovascular auscultation of heart Overall: normal heart sounds 05/05/2018 None Full Exam - General 1994 Musculoskeletal head and neck Overall: head atraumatic 05/05/2018 None Full Exam - General 1994 Neurologic cranial nerves Overall: crainial nerves 2 - 12 grossly intact 05/05/2018 None Full Exam - General 1994 Psychiatric orientation/consciousness Overall: oriented to person, place and time 05/05/2018 None Full Exam - General 1995 Psychiatric behavior/psychomotor activity Behavior: gestures 05/05/2018 None Full Exam - General 1995 Psychiatric behavior/psychomotor activity Behavior: hyperactivity 05/05/2018 None Full Exam - General 1995 Psychiatric behavior/psychomotor activity Behavior: agitation/restlessness 05/05/2018 None Full Exam - General 1995 Psychiatric behavior/psychomotor activity Psychomotor activity: psychomotor agitation 05/05/2018 None Full Exam - General 1995 Psychiatric mood and affect Mood: anxious 05/05/2018 None Full Exam - General 1994 Psychiatric mood and affect Mood: irritable 05/05/2018 None Full Exam - General 1995 Psychiatric mood and affect Mood: labile mood 05/05/2018 None Full Exam - General 1995 Psychiatric mood and affect Appropriateness: inappropriate emotional responses 05/05/2018 None Full Exam - General 1994 Psychiatric appearance Grooming: disheveled 05/05/2018 None Full Exam - General 1994 Psychiatric speech Quantity: excessive speech 05/05/2018 None Full Exam - General 1994 Psychiatric speech Rate of production: rapid 05/05/2018 None Full Exam - General 1994 Psychiatric thought Form of thought: flight of ideas 05/05/2018 None Full Exam - General 1994 Psychiatric cognition/memory Overall: immediate, recent, remote memory intact 05/05/2018 None Full Exam - General 1994 Constitutional general appearance Overall: in no acute distress 05/05/2018 None Full Exam - General 1994 Neurologic gait Overall: no ataxia, no unsteadiness 05/05/2018 None Full Exam - General 1994 Psychiatric mood and affect Overall: normal mood and affect 05/05/2018 None Full Exam - General 1994 Psychiatric appearance Overall: well-groomed, good eye contact 05/05/2018 None Full Exam - General 1994 Cardiovascular extremities Edema present: severity 1+ - 4 +: 1+ 05/05/2018 None Full Exam - General 1994 Constitutional general appearance Overall: well developed 04/18/2018 None Full Exam - General 1994 Constitutional general appearance Overall: well nourished 04/18/2018 None Full Exam - General 1994 Constitutional general appearance Evidence of Distress: anxious 04/18/2018 None Full Exam - General 1994 Constitutional general appearance Evidence of Distress: agitated 04/18/2018 None Full Exam - General 1994 Eyes conjunctiva /eyelids Overall: eyelids normal 04/18/2018 None Full Exam - General 1994 Eyes conjunctiva /eyelids Overall: cornea clear 04/18/2018 None Full Exam - General 1994 Eyes conjunctiva /eyelids Overall: conjunctiva clear 04/18/2018 None Full Exam - General 1995 Ears/Nose/Throat lips/teeth/gingiva Overall: benign lips 04/18/2018 None Full Exam - General 1995 Ears/Nose/Throat oral cavity/pharynx/larynx Overall: oral mucosa clear 04/18/2018 None Full Exam - General 1994 Respiratory respiratory effort/rhythm Overall: normal rate 04/18/2018 None Full Exam - General 1994 Respiratory respiratory effort/rhythm Overall: no retractions 04/18/2018 None Full Exam - General 1994 Respiratory auscultation Overall: breath sounds clear bilaterally 04/18/2018 None Full Exam - General 1994 Cardiovascular auscultation of heart Overall: regular rate 04/18/2018 None Full Exam - General 1994 Cardiovascular auscultation of heart Overall: normal heart sounds 04/18/2018 None Full Exam - General 1994 Cardiovascular extremities Edema present: pitting 04/18/2018 None Full Exam - General 1994 Cardiovascular extremities Edema present: severity 1+ - 4 +: 1-2+ 04/18/2018 None Full Exam - General 1994 Cardiovascular extremities Edema present: bilateral 04/18/2018 None Full Exam - General 1994 Cardiovascular extremities Edema present: to knees 04/18/2018 None Full Exam - General 1994 Musculoskeletal head and neck Overall: head atraumatic 04/18/2018 None Full Exam - General 1994 Neurologic cranial nerves Overall: crainial nerves 2 - 12 grossly intact 04/18/2018 None Full Exam - General 1994 Psychiatric orientation/consciousness Overall: oriented to person, place and time 04/18/2018 None Full Exam - General 1994 Psychiatric behavior/psychomotor activity Behavior: hyperactivity 04/18/2018 None Full Exam - General 1994 Psychiatric behavior/psychomotor activity Behavior: agitation/restlessness 04/18/2018 None Full Exam - General 1994 Psychiatric behavior/psychomotor activity Behavior: gestures 04/18/2018 None Full Exam - General 1994 Psychiatric behavior/psychomotor activity Psychomotor activity: psychomotor agitation 04/18/2018 None Full Exam - General 1994 Psychiatric mood and affect Mood: anxious 04/18/2018 None Full Exam - General 1994 Psychiatric mood and affect Mood: irritable 04/18/2018 None Full Exam - General 1994 Psychiatric mood and affect Mood: labile mood 04/18/2018 None Full Exam - General 1994 Psychiatric mood and affect Appropriateness: inappropriate emotional responses 04/18/2018 None Full Exam - General 1994 Psychiatric appearance Grooming: disheveled 04/18/2018 None Full Exam - General 1995 Psychiatric speech Quantity: excessive speech 04/18/2018 None Full Exam - General 1994 Psychiatric speech Rate of production: rapid 04/18/2018 None Full Exam - General 1994 Psychiatric thought Form of thought: flight of ideas 04/18/2018 None Full Exam - General 1994 Psychiatric cognition/memory Overall: immediate, recent, remote memory intact 04/18/2018 None Full Exam - General 1995 Constitutional general appearance Overall: well developed 03/10/2018 None Full Exam - General 1994 Constitutional general appearance Overall: in no acute distress 03/10/2018 None Full Exam - General 1994 Constitutional general appearance Overall: well nourished 03/10/2018 None Full Exam - General 1994 Eyes conjunctiva /eyelids Overall: conjunctiva clear 03/10/2018 None Full Exam - General 1994 Eyes conjunctiva /eyelids Overall: cornea clear 03/10/2018 None Full Exam - General 1994 Eyes conjunctiva /eyelids Overall: eyelids normal 03/10/2018 None Full Exam - General 1994 Ears/Nose/Throat lips/teeth/gingiva Overall: benign lips 03/10/2018 None Full Exam - General 1994 Ears/Nose/Throat oral cavity/pharynx/larynx Overall: oral mucosa clear 03/10/2018 None Full Exam - General 1994 Respiratory respiratory effort/rhythm Overall: normal rate 03/10/2018 None Full Exam - General 1994 Respiratory respiratory effort/rhythm Overall: no retractions 03/10/2018 None Full Exam - General 1994 Respiratory auscultation Overall: breath sounds clear bilaterally 03/10/2018 None Full Exam - General 1994 Cardiovascular auscultation of heart Overall: regular rate 03/10/2018 None Full Exam - General 1994 Cardiovascular auscultation of heart Overall: normal heart sounds 03/10/2018 None Full Exam - General 1994 Cardiovascular extremities Edema present: pitting 03/10/2018 None Full Exam - General 1994 Cardiovascular extremities Edema present: severity 1+ - 4 +: 1-2+ 03/10/2018 None Full Exam - General 1994 Cardiovascular extremities Edema present: unilateral 03/10/2018 left Full Exam - General 1994 Cardiovascular extremities Edema present: to knees 03/10/2018 None Full Exam - General 1994 Musculoskeletal gait and station Overall: normal station 03/10/2018 None Full Exam - General 1994 Musculoskeletal gait and station Overall: normal gait 03/10/2018 None Full Exam - General 1994 Musculoskeletal head and neck Overall: head atraumatic 03/10/2018 None Full Exam - General 1994 Neurologic cranial nerves Overall: crainial nerves 2 - 12 grossly intact 03/10/2018 None Full Exam - General 1994 Psychiatric orientation/consciousness Overall: oriented to person, place and time 03/10/2018 None Full Exam - General 1994 Psychiatric mood and affect Overall: normal mood and affect 03/10/2018 None Full Exam - ENT Constitutional general appearance Overall: well nourished 12/19/2017 None Full Exam - ENT Constitutional general appearance Overall: well developed 12/19/2017 None Full Exam - ENT Constitutional general appearance Overall: in no acute distress 12/19/2017 None Full Exam - ENT Ears/Nose/Throat otoscopic exam Overall: external auditory canals normal 12/19/2017 None Full Exam - ENT Ears/Nose/Throat otoscopic exam Left tympanic membrane: air -fluid level 12/19/2017 None Full Exam - ENT Ears/Nose/Throat otoscopic exam Right tympanic membrane: air-fluid level 12/19/2017 None Full Exam - ENT Ears/Nose/Throat nasal mucosa, septum, turbinates Drainage: clear 12/19/2017 None Full Exam - ENT Ears/Nose/Throat nasal mucosa, septum, turbinates Drainage: yellow 12/19/2017 None Full Exam - ENT Ears/Nose/Throat lips/ teeth/gingiva Overall: benign lips 12/19/2017 None Full Exam - ENT Ears/Nose/Throat oropharynx Posterior Pharynx: clear post nasal drainage 12/19/2017 None Full Exam - ENT Face and Head palpation Left maxillary sinus: tender 12/19/2017 None Full Exam - ENT Face and Head palpation Right maxillary sinus: tender 12/19/2017 None Full Exam - ENT Respiratory inspection Overall: no retractions 12/19/2017 None Full Exam - ENT Respiratory inspection Overall: normal rate None Full Exam - ENT Respiratory auscultation Overall: breath sounds clear bilaterally 12/19/2017 None Full Exam - ENT Cardiovascular auscultation of heart Overall: regular rate 12/19/2017 None Full Exam - ENT Cardiovascular auscultation of heart Overall: normal heart sounds 12/19/2017 None Full Exam - ENT Lymphatic palpation of lymph nodes Overall: anterior cervical chain benign 12/19/2017 None Full Exam - ENT Lymphatic palpation of lymph nodes Overall: posterior cervical chain benign 12/19/2017 None Full Exam - ENT Neurologic mood and affect Overall: normal mood 12/19/2017 None Full Exam - ENT Neurologic mood and affect Overall: normal affect 12/19/2017 None Full Exam - ENT Neurologic orientation Overall: oriented to person, place and time 12/19/2017 None Full Exam - ENT Constitutional general appearance Overall: well nourished 11/17/2017 None Full Exam - ENT Constitutional general appearance Overall: well developed 11/17/2017 None Full Exam - ENT Constitutional general appearance Overall: in no acute distress 11/17/2017 None Full Exam - ENT Ears/Nose/Throat otoscopic exam Overall: external auditory canals normal 11/17/2017 None Full Exam - ENT Ears/Nose/Throat otoscopic exam Left tympanic membrane: air -fluid level 11/17/2017 None Full Exam - ENT Ears/Nose/Throat otoscopic exam Right tympanic membrane: air-fluid level 11/17/2017 None Full Exam - ENT Ears/Nose/Throat nasal mucosa, septum, turbinates Drainage: clear 11/17/2017 None Full Exam - ENT Ears/Nose/Throat nasal mucosa, septum, turbinates Drainage: yellow 11/17/2017 None Full Exam - ENT Ears/Nose/Throat lips/ teeth/gingiva Overall: benign lips 11/17/2017 None Full Exam - ENT Ears/Nose/Throat oropharynx Posterior Pharynx: clear post nasal drainage 11/17/2017 None Full Exam - ENT Face and Head palpation Left maxillary sinus: tender 11/17/2017 None Full Exam - ENT Face and Head palpation Right maxillary sinus: tender 11/17/2017 None Full Exam - ENT Respiratory inspection Overall: no retractions 11/17/2017 None Full Exam - ENT Respiratory inspection Overall: normal rate None Full Exam - ENT Respiratory auscultation Overall: breath sounds clear bilaterally 11/17/2017 None Full Exam - ENT Cardiovascular auscultation of heart Overall: regular rate 11/17/2017 None Full Exam - ENT Cardiovascular auscultation of heart Overall: normal heart sounds 11/17/2017 None Full Exam - ENT Lymphatic palpation of lymph nodes Overall: anterior cervical chain benign 11/17/2017 None Full Exam - ENT Lymphatic palpation of lymph nodes Overall: posterior cervical chain benign 11/17/2017 None Full Exam - ENT Neurologic mood and affect Overall: normal mood 11/17/2017 None Full Exam - ENT Neurologic mood and affect Overall: normal affect 11/17/2017 None Full Exam - ENT Neurologic orientation Overall: oriented to person, place and time 11/17/2017 None Full Exam - ENT Genitourinary labia and vagina Labia: tender varicose vein - left labia Full Exam - General 1994 Constitutional general appearance Overall: well developed 11/25/2016 None Full Exam - General 1994 Constitutional general appearance Overall: in no acute distress 11/25/2016 None Full Exam - General 1994 Constitutional general appearance Overall: well nourished 11/25/2016 None Full Exam - General 1994 Eyes conjunctiva /eyelids Overall: conjunctiva clear 11/25/2016 None Full Exam - General 1994 Eyes conjunctiva /eyelids Overall: eyelids normal 11/25/2016 None Full Exam - General 1994 Ears/Nose/Throat lips/teeth/gingiva Overall: benign lips 11/25/2016 None Full Exam - General 1994 Ears/Nose/Throat oral cavity/pharynx/larynx Overall: oral mucosa clear 11/25/2016 None Full Exam - General 1994 Respiratory auscultation Overall: breath sounds clear bilaterally 11/25/2016 None Full Exam - General 1994 Respiratory respiratory effort/rhythm Overall: no retractions 11/25/2016 None Full Exam - General 1994 Respiratory respiratory effort/rhythm Overall: normal rate 11/25/2016 None Full Exam - General 1994 Cardiovascular auscultation of heart Overall: regular rate 11/25/2016 None Full Exam - General 1994 Cardiovascular auscultation of heart Overall: normal heart sounds 11/25/2016 None Full Exam - General 1994 Musculoskeletal head and neck Overall: head atraumatic 11/25/2016 None Full Exam - General 1994 Neurologic gait Overall: no ataxia, no unsteadiness 11/25/2016 None Full Exam - General 1994 Neurologic cranial nerves Overall: crainial nerves 2 - 12 grossly intact 11/25/2016 None Full Exam - General 1994 Psychiatric orientation/consciousness Overall: oriented to person, place and time 11/25/2016 None Full Exam - General 1994 Psychiatric mood and affect Overall: normal mood and affect 11/25/2016 None Full Exam - General 1994 Psychiatric appearance Overall: well-groomed, good eye contact 11/25/2016 None Full Exam - General 1994 Constitutional general appearance Overall: well developed 10/26/2016 None Full Exam - General 1994 Constitutional general appearance Overall: in no acute distress 10/26/2016 None Full Exam - General 1994 Constitutional general appearance Overall: well nourished 10/26/2016 None Full Exam - General 1994 Respiratory auscultation Overall: breath sounds clear bilaterally 10/26/2016 None Full Exam - General 1994 Respiratory respiratory effort/rhythm Overall: no retractions 10/26/2016 None Full Exam - General 1994 Respiratory respiratory effort/rhythm Overall: normal rate 10/26/2016 None Full Exam - General 1994 Cardiovascular auscultation of heart Overall: regular rate 10/26/2016 None Full Exam - General 1994 Cardiovascular auscultation of heart Overall: normal heart sounds 10/26/2016 None Full Exam - General 1994 Musculoskeletal head and neck Overall: head atraumatic 10/26/2016 None Full Exam - General 1994 Psychiatric orientation/consciousness Overall: oriented to person, place and time 10/26/2016 None Full Exam - General 1994 Psychiatric mood and affect Overall: normal mood and affect 10/26/2016 None Full Exam - General 1994 Eyes conjunctiva /eyelids Overall: conjunctiva clear 10/26/2016 None Full Exam - General 1994 Eyes conjunctiva /eyelids Overall: eyelids normal 10/26/2016 None Full Exam - General 1994 Ears/Nose/Throat lips/teeth/gingiva Overall: benign lips 10/26/2016 None Full Exam - General 1994 Ears/Nose/Throat oral cavity/pharynx/larynx Overall: oral mucosa clear 10/26/2016 None Full Exam - General 1994 Neurologic gait Overall: no ataxia, no unsteadiness 10/26/2016 None Full Exam - General 1994 Neurologic cranial nerves Overall: crainial nerves 2 - 12 grossly intact 10/26/2016 None Full Exam - General 1994 Psychiatric appearance Overall: well-groomed, good eye contact 10/26/2016 None Full Exam - ENT Constitutional general appearance Overall: well nourished 06/01/2016 None Full Exam - ENT Constitutional general appearance Overall: well developed 06/01/2016 None Full Exam - ENT Constitutional general appearance Overall: in no acute distress 06/01/2016 None Full Exam - ENT Ears/Nose/Throat nasal mucosa, septum, turbinates Drainage: bilateral 06/01/2016 None Full Exam - ENT Ears/Nose/Throat oropharynx Overall: oral mucosa clear 06/01/2016 None Full Exam - ENT Face and Head inspection of face/head Overall: no scars, lesions, masses 06/01/2016 None Full Exam - ENT Face and Head palpation Left maxillary sinus: tender 06/01/2016 None Full Exam - ENT Face and Head palpation Right maxillary sinus: tender 06/01/2016 None Full Exam - ENT Respiratory auscultation Overall: breath sounds clear bilaterally 06/01/2016 None Full Exam - ENT Cardiovascular auscultation of heart Overall: normal heart sounds 06/01/2016 None Full Exam - ENT Lymphatic palpation of lymph nodes Overall: anterior cervical chain benign 06/01/2016 None Full Exam - ENT Lymphatic palpation of lymph nodes Overall: posterior cervical chain benign 06/01/2016 None Full Exam - ENT Integument inspection of skin Overall: no rash, lesions 06/01/2016 None Full Exam - ENT Neurologic orientation Overall: oriented to person, place and time 06/01/2016 None Full Exam - ENT Constitutional general appearance Overall: well nourished 11/10/2015 None Full Exam - ENT Constitutional general appearance Overall: well developed 11/10/2015 None Full Exam - ENT Constitutional general appearance Overall: in no acute distress 11/10/2015 None Full Exam - ENT Ears/Nose/Throat nasal mucosa, septum, turbinates Drainage: bilateral 11/10/2015 None Full Exam - ENT Ears/Nose/Throat oropharynx Overall: oral mucosa clear 11/10/2015 None Full Exam - ENT Face and Head inspection of face/head Overall: no scars, lesions, masses 11/10/2015 None Full Exam - ENT Face and Head palpation Left maxillary sinus: tender 11/10/2015 None Full Exam - ENT Face and Head palpation Right maxillary sinus: tender 11/10/2015 None Full Exam - ENT Respiratory auscultation Overall: breath sounds clear bilaterally 11/10/2015 None Full Exam - ENT Cardiovascular auscultation of heart Overall: normal heart sounds 11/10/2015 None Full Exam - ENT Lymphatic palpation of lymph nodes Overall: anterior cervical chain benign 11/10/2015 None Full Exam - ENT Lymphatic palpation of lymph nodes Overall: posterior cervical chain benign 11/10/2015 None Full Exam - ENT Integument inspection of skin Overall: no rash, lesions 11/10/2015 None Full Exam - ENT Neurologic orientation Overall: oriented to person, place and time 11/10/2015 None Full Exam - General 1994 Constitutional general appearance Overall: well developed 10/02/2015 None Full Exam - General 1994 Constitutional general appearance Overall: in no acute distress 10/02/2015 None Full Exam - General 1994 Constitutional general appearance Overall: well nourished 10/02/2015 None Full Exam - General 1994 Eyes pupils and irises Overall: pupils equal, round, reactive to light and accomodation 10/02/2015 None Full Exam - General 1994 Respiratory auscultation Overall: breath sounds clear bilaterally 10/02/2015 None Full Exam - General 1994 Respiratory respiratory effort/rhythm Overall: no retractions 10/02/2015 None Full Exam - General 1994 Respiratory respiratory effort/rhythm Overall: normal rate 10/02/2015 None Full Exam - General 1994 Cardiovascular auscultation of heart Overall: regular rate 10/02/2015 None Full Exam - General 1994 Cardiovascular auscultation of heart Overall: normal heart sounds 10/02/2015 None Full Exam - General 1994 Abdomen abdominal exam Overall: no tenderness 10/02/2015 None Full Exam - General 1994 Abdomen abdominal exam Overall: normal bowel sounds 10/02/2015 None Full Exam - General 1994 Musculoskeletal spine, ribs and pelvis Posture: lordosis 10/02/2015 None Full Exam - General 1994 Musculoskeletal head and neck Overall: head atraumatic 10/02/2015 None Full Exam - General 1994 Musculoskeletal head and neck Overall: cervical spine benign 10/02/2015 None Full Exam - General 1994 Neurologic gait Overall: no ataxia, no unsteadiness 10/02/2015 None Full Exam - General 1994 Psychiatric orientation/consciousness Overall: oriented to person, place and time 10/02/2015 None Full Exam - General 1994 Psychiatric mood and affect Overall: normal mood and affect 10/02/2015 None Full Exam - ENT Constitutional general appearance Overall: well nourished 11/07/2013 None Full Exam - ENT Constitutional general appearance Overall: well developed 11/07/2013 None Full Exam - ENT Constitutional general appearance Overall: in no acute distress 11/07/2013 None Full Exam - ENT Ears/Nose/Throat nasal mucosa, septum, turbinates Drainage: bilateral 11/07/2013 None Full Exam - ENT Ears/Nose/Throat oropharynx Overall: oral mucosa clear 11/07/2013 None Full Exam - ENT Face and Head inspection of face/head Overall: no scars, lesions, masses 11/07/2013 None Full Exam - ENT Face and Head palpation Left maxillary sinus: tender 11/07/2013 None Full Exam - ENT Face and Head palpation Right maxillary sinus: tender 11/07/2013 None Full Exam - ENT Respiratory auscultation Overall: breath sounds clear bilaterally 11/07/2013 None Full Exam - ENT Cardiovascular auscultation of heart Overall: normal heart sounds 11/07/2013 None Full Exam - ENT Lymphatic palpation of lymph nodes Overall: anterior cervical chain benign 11/07/2013 None Full Exam - ENT Lymphatic palpation of lymph nodes Overall: posterior cervical chain benign 11/07/2013 None Full Exam - ENT Integument inspection of skin Overall: no rash, lesions 11/07/2013 None Full Exam - ENT Constitutional general appearance Overall: well nourished 05/17/2013 None Full Exam - ENT Constitutional general appearance Overall: well developed 05/17/2013 None Full Exam - ENT Constitutional general appearance Overall: in no acute distress 05/17/2013 None Full Exam - ENT Ears/Nose/Throat nasal mucosa, septum, turbinates Drainage: bilateral 05/17/2013 None Full Exam - ENT Ears/Nose/Throat oropharynx Overall: oral mucosa clear 05/17/2013 None Full Exam - ENT Face and Head inspection of face/head Overall: no scars, lesions, masses 05/17/2013 None Full Exam - ENT Face and Head palpation Left maxillary sinus: tender 05/17/2013 None Full Exam - ENT Face and Head palpation Right maxillary sinus: tender 05/17/2013 None Full Exam - ENT Neck inspection of neck Overall: normal appearance 05/17/2013 None Full Exam - ENT Neck inspection of neck Overall: no masses None Full Exam - ENT Respiratory auscultation Overall: breath sounds clear bilaterally 05/17/2013 None Full Exam - ENT Cardiovascular auscultation of heart Overall: normal heart sounds 05/17/2013 None Full Exam - ENT Lymphatic palpation of lymph nodes Overall: anterior cervical chain benign 05/17/2013 None Full Exam - ENT Lymphatic palpation of lymph nodes Overall: posterior cervical chain benign 05/17/2013 None Full Exam - ENT Integument inspection of skin Overall: no rash, lesions 05/17/2013 None Full Exam - General 1994 Constitutional general appearance Overall: well nourished 05/09/2013 None Full Exam - General 1994 Constitutional general appearance Overall: well developed 05/09/2013 None Full Exam - General 1994 Constitutional general appearance Overall: in no acute distress 05/09/2013 None Full Exam - General 1994 Eyes pupils and irises Overall: pupils equal, round, reactive to light and accomodation 05/09/2013 None Full Exam - General 1995 Respiratory auscultation Overall: breath sounds clear bilaterally 05/09/2013 None Full Exam - General 1995 Respiratory respiratory effort/rhythm Overall: no retractions 05/09/2013 None Full Exam - General 1994 Respiratory respiratory effort/rhythm Overall: normal rate 05/09/2013 None Full Exam - General 1994 Cardiovascular auscultation of heart Overall: regular rate 05/09/2013 None Full Exam - General 1994 Cardiovascular auscultation of heart Overall: normal heart sounds 05/09/2013 None Full Exam - General 1994 Abdomen abdominal exam Overall: no tenderness 05/09/2013 None Full Exam - General 1995 Abdomen abdominal exam Overall: normal bowel sounds 05/09/2013 None Full Exam - General 1994 Musculoskeletal head and neck Overall: head atraumatic 05/09/2013 None Full Exam - General 1994 Musculoskeletal head and neck Overall: cervical spine benign 05/09/2013 None Full Exam - General 1994 Musculoskeletal spine, ribs and pelvis Posture: lordosis 05/09/2013 None Full Exam - General 1994 Musculoskeletal spine, ribs and pelvis Spine: tender @ lumbar spine 05/09/2013 None Full Exam - General 1994 Musculoskeletal spine, ribs and pelvis Spine: decreased flexion 05/09/2013 None Full Exam - General 1994 Musculoskeletal spine, ribs and pelvis Spine: decreased extension 05/09/2013 None Full Exam - General 1994 Musculoskeletal spine, ribs and pelvis Sacroiliac joints: tender right sacroiliac joint 05/09/2013 None Full Exam - General 1994 Musculoskeletal spine, ribs and pelvis Sacroiliac joints: tender left sacroiliac joint 05/09/2013 None Full Exam - General 1994 Neurologic gait Overall: no ataxia, no unsteadiness 05/09/2013 None Full Exam - General 1994 Psychiatric orientation/consciousness Overall: oriented to person, place and time 05/09/2013 None Full Exam - General 1994 Psychiatric mood and affect Overall: normal mood and affect 05/09/2013 None Full Exam - ENT Constitutional general appearance Overall: well nourished 10/06/2012 None Full Exam - ENT Constitutional general appearance Overall: well developed 10/06/2012 None Full Exam - ENT Constitutional general appearance Overall: in no acute distress 10/06/2012 None Full Exam - ENT Ears/Nose/Throat nasal mucosa, septum, turbinates Drainage: bilateral 10/06/2012 None Full Exam - ENT Ears/Nose/Throat oropharynx Overall: oral mucosa clear 10/06/2012 None Full Exam - ENT Face and Head inspection of face/head Overall: no scars, lesions, masses 10/06/2012 None Full Exam - ENT Face and Head palpation Left maxillary sinus: tender 10/06/2012 None Full Exam - ENT Face and Head palpation Right maxillary sinus: tender 10/06/2012 None Full Exam - ENT Face and Head palpation Left frontal sinus: tender 10/06/2012 None Full Exam - ENT Face and Head palpation Right frontal sinus: tender 10/06/2012 None Full Exam - ENT Neck inspection of neck Overall: normal appearance 10/06/2012 None Full Exam - ENT Neck inspection of neck Overall: no masses 01/2013 None Full Exam - ENT Respiratory auscultation Overall: breath sounds clear bilaterally 10/06/2012 None Full Exam - ENT Cardiovascular auscultation of heart Overall: normal heart sounds 10/06/2012 None Full Exam - ENT Lymphatic palpation of lymph nodes Overall: anterior cervical chain benign 10/06/2012 None Full Exam - ENT Lymphatic palpation of lymph nodes Overall: posterior cervical chain benign 10/06/2012 None Full Exam - ENT Integument inspection of skin Overall: no rash, lesions 10/06/2012 None Full Exam - General 1994 Constitutional general appearance Overall: well nourished 09/01/2011 None Full Exam - General 1994 Constitutional general appearance Overall: well developed 09/01/2011 None Full Exam - General 1994 Constitutional general appearance Overall: in no acute distress 09/01/2011 None Full Exam - General 1994 Respiratory auscultation Overall: breath sounds clear bilaterally 09/01/2011 None Full Exam - General 1994 Respiratory respiratory effort/rhythm Overall: no retractions 09/01/2011 None Full Exam - General 1994 Respiratory respiratory effort/rhythm Overall: normal rate 09/01/2011 None Full Exam - General 1994 Cardiovascular auscultation of heart Overall: regular rate 09/01/2011 None Full Exam - General 1994 Cardiovascular auscultation of heart Overall: normal heart sounds 09/01/2011 None Full Exam - General 1994 Musculoskeletal spine, ribs and pelvis Posture: lordosis 09/01/2011 None Full Exam - General 1994 Musculoskeletal spine, ribs and pelvis Spine: tender @ lumbar spine 09/01/2011 None Full Exam - General 1994 Musculoskeletal spine, ribs and pelvis Spine: decreased flexion 09/01/2011 None Full Exam - General 1994 Musculoskeletal spine, ribs and pelvis Spine: decreased extension 09/01/2011 None Full Exam - General 1994 Musculoskeletal spine, ribs and pelvis Sacroiliac joints: tender right sacroiliac joint 09/01/2011 None Full Exam - General 1994 Neurologic gait Overall: no ataxia, no unsteadiness 09/01/2011 None Full Exam - General 1994 Psychiatric orientation/consciousness Overall: oriented to person, place and time 09/01/2011 None Full Exam - General 1994 Psychiatric mood and affect Overall: normal mood and affect 09/01/2011 None Full Exam - General 1994 Musculoskeletal head and neck Overall: head atraumatic 09/01/2011 None Full Exam - General 1994 Musculoskeletal head and neck Overall: cervical spine benign 09/01/2011 None Full Exam - General 1994 Musculoskeletal spine, ribs and pelvis Sacroiliac joints: tender left sacroiliac joint 09/01/2011 None Full Exam - General 1994 Eyes pupils and irises Overall: pupils equal, round, reactive to light and accomodation 09/01/2011 None Full Exam - General 1994 Abdomen abdominal exam Overall: no tenderness 09/01/2011 None Full Exam - General 1994 Abdomen abdominal exam Overall: normal bowel sounds 09/01/2011 None Full Exam - General 1994 Respiratory auscultation Overall: breath sounds clear bilaterally 08/04/2011 None Full Exam - General 1994 Respiratory respiratory effort/rhythm Overall: normal rate 08/04/2011 None Full Exam - General 1994 Respiratory respiratory effort/rhythm Overall: no retractions 08/04/2011 None Full Exam - General 1994 Cardiovascular auscultation of heart Overall: regular rate 08/04/2011 None Full Exam - General 1994 Cardiovascular auscultation of heart Overall: normal heart sounds 08/04/2011 None Full Exam - General 1994 Psychiatric orientation/consciousness Overall: oriented to person, place and time 08/04/2011 None Full Exam - General 1994 Psychiatric mood and affect Overall: normal mood and affect 08/04/2011 None Full Exam - General 1994 Neurologic gait Overall: no ataxia, no unsteadiness 08/04/2011 None Full Exam - General 1994 Musculoskeletal spine, ribs and pelvis Sacroiliac joints: tender right sacroiliac joint 08/04/2011 None Full Exam - General 1994 Musculoskeletal spine, ribs and pelvis Spine: tender @ lumbar spine 08/04/2011 None Full Exam - General 1994 Musculoskeletal spine, ribs and pelvis Spine: decreased flexion 08/04/2011 None Full Exam - General 1994 Musculoskeletal spine, ribs and pelvis Spine: decreased extension 08/04/2011 None Full Exam - General 1994 Musculoskeletal spine, ribs and pelvis Posture: lordosis 08/04/2011 None Full Exam - General 1994 Constitutional general appearance Overall: well nourished 08/04/2011 None Full Exam - General 1994 Constitutional general appearance Overall: well developed 08/04/2011 None Full Exam - General 1994 Constitutional general appearance Overall: in no acute distress 08/04/2011 None Full Exam - ENT Ears/Nose/Throat nasal mucosa, septum, turbinates Drainage: bilateral 05/28/2011 None Full Exam - ENT Ears/Nose/Throat oropharynx Overall: oral mucosa clear 05/28/2011 None Full Exam - ENT Face and Head inspection of face/head Overall: no scars, lesions, masses 05/28/2011 None Full Exam - ENT Face and Head palpation Left maxillary sinus: tender 05/28/2011 None Full Exam - ENT Face and Head palpation Right maxillary sinus: tender 05/28/2011 None Full Exam - ENT Face and Head palpation Left frontal sinus: tender 05/28/2011 None Full Exam - ENT Face and Head palpation Right frontal sinus: tender 05/28/2011 None Full Exam - ENT Neck inspection of neck Overall: normal appearance 05/28/2011 None Full Exam - ENT Neck inspection of neck Overall: no masses None Full Exam - ENT Respiratory auscultation Overall: breath sounds clear bilaterally 05/28/2011 None Full Exam - ENT Cardiovascular auscultation of heart Overall: normal heart sounds 05/28/2011 None Full Exam - ENT Lymphatic palpation of lymph nodes Overall: anterior cervical chain benign 05/28/2011 None Full Exam - ENT Lymphatic palpation of lymph nodes Overall: posterior cervical chain benign 05/28/2011 None Full Exam - ENT Integument inspection of skin Overall: no rash, lesions 05/28/2011 None Full Exam - ENT Constitutional general appearance Overall: well nourished 05/28/2011 None Full Exam - ENT Constitutional general appearance Overall: well developed 05/28/2011 None Full Exam - ENT Constitutional general appearance Overall: in no acute distress 05/28/2011 None Procedures Procedure Codes Date URINALYSIS NONAUTO W/O SCOPE CPT-4: 84289 04/24/2018 THER/PROPH/DIAG INJ SC/IM CPT-4: 17440 11/17/2017 TRIAMCINOLONE ACET INJ NOS CPT-4: J3301 11/17/2017 TRIAMCINOLONE ACET INJ NOS CPT-4: J3301 06/01/2016 TRIAMCINOLONE ACET INJ NOS CPT-4: J3301 11/10/2015 TRIAMCINOLONE ACET INJ NOS CPT-4: J3301 05/17/2013 TRIAMCINOLONE ACET INJ NOS CPT-4: J3301 10/06/2012 TRIAMCINOLONE ACET INJ NOS CPT-4: J3301 08/04/2011 THER/PROPH/DIAG INJ SC/IM CPT-4: 87555 08/04/2011 THER/PROPH/DIAG INJ SC/IM CPT-4: 27793 05/28/2011 TRIAMCINOLONE ACET INJ NOS CPT-4: J3301 05/28/2011 Vital Signs Date Vital 08/04/2018 Blood Pressure 1: 122/88 Code : 8480-6 BMI: 30.0 Code : 75526-0 Heart Rate 1 : 107 bpm Height: 5'4" SpO2: 98% Weight: 175 lbs 05/05/2018 Blood Pressure 1: 110/74 Code : 8480-6 BMI: 34.7 Code : 13604-8 Heart Rate 1 : 83 bpm Height: 5'4" SpO2: 99% Weight: 202 lbs 04/18/2018 Blood Pressure 1: 124/74 Code : 8480-6 Heart Rate 1: 98 bpm Height: SpO2: 98% Weight: 03/10/2018 Blood Pressure 1: 124/72 Code : 8480-6 BMI: 38.1 Code : 03055-7 Heart Rate 1 : 82 bpm Height: 5'4" SpO2: 98% Weight: 222 lbs 01/20/2018 Blood Pressure 1: 116/78 Code : 8480-6 BMI: 38.3 Code : 43857-7 Heart Rate 1 : 97 bpm Height: 5'4" SpO2: 97% Weight: 223 lbs 12/19/2017 Blood Pressure 1: 126/74 Code : 8480-6 BMI: 39.3 Code : 03963-3 Heart Rate 1 : 84 bpm Height: 5'4" SpO2: 97% Weight: 229 lbs 11/17/2017 Blood Pressure 1: 122/82 Code : 8480-6 BMI: 38.8 Code : 74345-4 Heart Rate 1 : 87 bpm Height: 5'4" SpO2: 98% Weight: 226 lbs 03/09/2017 Blood Pressure 1: 116/72 Code : 8480-6 BMI: 35.9 Code : 07637-0 Heart Rate 1 : 90 bpm Height: 5'4" Weight: 209 lbs 12/23/2016 Blood Pressure 1: 132/86 Code : 8480-6 BMI: 34.7 Code : 89020-3 Heart Rate 1 : 83 bpm Height: 5'4" SpO2: 98% Weight: 202 lbs 11/25/2016 Blood Pressure 1: 102/68 Code : 8480-6 BMI: 34.3 Code : 52845-9 Heart Rate 1 : 80 bpm Height: 5'4" SpO2: 97% Weight: 200 lbs 10/26/2016 Blood Pressure 1: 138/78 Code : 8480-6 BMI: 33.6 Code : 38729-7 Heart Rate 1 : 80 bpm Height: 5'4" SpO2: 99% Weight: 196 lbs 06/01/2016 Blood Pressure 1: 130/80 Code : 8480-6 BMI: 31.1 Code : 04792-3 Heart Rate 1 : 97 bpm Height: 5'4" SpO2: 99% Temperature: 36.9 (C) / 98.5 (F) Weight: 181 lbs 11/10/2015 Blood Pressure 1: 122/74 Code : 8480-6 BMI: 30.4 Code : 52216-3 Heart Rate 1 : 72 bpm Height: 5'4" Temperature: 36.8 (C) / 98.3 (F) Weight: 177 lbs 10/02/2015 Blood Pressure 1: 106/68 Code : 8480-6 BMI: 30.4 Code : 71404-0 Heart Rate 1 : 90 bpm Height: 5'4" SpO2: 96% Weight: 177 lbs 11/07/2013 Blood Pressure 1: 136/78 Code : 8480-6 Heart Rate 1: 72 bpm Temperature: 36.1 (C) / 96.9 (F) Weight: 219 lbs 05/17/2013 Blood Pressure 1: 112/68 Code : 8480-6 BMI: 35.0 Code : 93675-0 Heart Rate 1 : 80 bpm Height: 5'4" Temperature: 36.6 (C) / 97.9 (F) Weight: 204 lbs 05/09/2013 Blood Pressure 1: 106/66 Code : 8480-6 BMI: 34.8 Code : 90982-0 Heart Rate 1 : 88 bpm Height: 5'4" Weight: 203 lbs 10/06/2012 Blood Pressure 1: 108/68 Code : 8480-6 Heart Rate 1: 80 bpm Respiratory Rate : 16 bpm Temperature: 36.6 (C) / 97.9 (F) Weight: 204 lbs 09/01/2011 Blood Pressure 1: 140/94 Code : 8480-6 BMI: 34.8 Code : 64757-8 Heart Rate 1 : 76 bpm Height: 5'4" Respiratory Rate: 16 bpm Weight: 203 lbs 08/04/2011 Blood Pressure 1: 112/84 Code : 8480-6 BMI: 32.8 Code : 40981-4 Heart Rate 1 : 76 bpm Height: 5'6" Respiratory Rate: 16 bpm Weight: 200 lbs 05/28/2011 Blood Pressure 1: 107/74 Code : 8480-6 BMI: 34.1 Code : 45379-4 Heart Rate 1 : 80 bpm Height: 5'4" Weight: 202 lbs Functional Status No Functional Status data History of Present Illness Symptom Name Status Result Effective Date Notes urinary urgency Quality intermittent 08/04/2018 None urinary urgency Onset and Resolution ongoing 08/04/2018 None urinary urgency Onset of Symptom _ months ago 08/04/2018 symptoms are recurrent urinary urgency Pertinent Findings bladder pain 08/04/2018 None urinary urgency Pertinent Findings pelvic pain 08/04/2018 None urinary frequency Quality constant 08/04/2018 None urinary frequency Onset and Resolution sudden in onset 08/04/2018 None urinary frequency Onset of Symptom _ days ago 08/04/2018 None urinary urgency Quality constant 08/04/2018 None urinary urgency Onset and Resolution sudden in onset 08/04/2018 None urinary urgency Onset of Symptom _ days ago 08/04/2018 None edema Onset and Resolution ongoing 05/05/2018 None edema Limitation on Activities moderately limits activities 05/05/2018 None edema Triggers recumbent position 05/05/2018 None edema Triggers standing position 05/05/2018 None edema Pertinent Findings dark urine 05/05/2018 None edema Quality worsening 05/05/2018 None dysuria Quality acute 05/05/2018 None dysuria Onset and Resolution sudden in onset 05/05/2018 None dysuria Pertinent Findings Denies fever 05/05/2018 None edema Onset of Symptom 3 months ago 05/05/2018 None edema Frequency of Episodes unchanged 05/05/2018 None edema Onset and Resolution ongoing 04/18/2018 None edema Limitation on Activities moderately limits activities 04/18/2018 None edema Triggers recumbent position 04/18/2018 None edema Triggers standing position 04/18/2018 None edema Quality worsening 04/18/2018 None edema Pertinent Findings dark urine 04/18/2018 None dysuria Quality acute 04/18/2018 None dysuria Onset and Resolution sudden in onset 04/18/2018 None dysuria Pertinent Findings Denies fever 04/18/2018 None edema Onset and Resolution sudden in onset 03/10/2018 None edema Limitation on Activities does not limit activities 03/10/2018 None edema Pertinent Findings Denies dyspnea 03/10/2018 None edema Pertinent Findings Denies dyspnea on exertion 03/10/2018 None edema Location on the left leg 03/10/2018 None sinus congestion Location frontal sinuses 12/19/2017 None sinus congestion Quality constant 12/19/2017 None sinus congestion Quality fullness 12/19/2017 None sinus congestion Quality pressure 12/19/2017 None sinus congestion Onset and Resolution sudden in onset 12/19/2017 None sinus congestion Onset of Symptom 3 days ago 12/19/2017 None sinus congestion Frequency of Episodes daily 12/19/2017 None cough Location in the throat 12/19/2017 None cough Quality constant 12/19/2017 None cough Quality hacking 12/19/2017 None cough Onset and Resolution sudden in onset 12/19/2017 None cough Onset of Symptom 3 days ago 12/19/2017 None cough Frequency of Episodes daily 12/19/2017 None sinus congestion Location on both sides 11/17/2017 None sinus congestion Quality acute 11/17/2017 None sinus congestion Quality fullness 11/17/2017 None sinus congestion Onset and Resolution ongoing 11/17/2017 None sinus congestion Onset of Symptom 1 months ago 11/17/2017 None sinus congestion Frequency of Episodes daily 11/17/2017 None sinus congestion Triggers allergens 11/17/2017 None sinus congestion Pertinent Findings cough 11/17/2017 None sinus congestion Pertinent Findings Denies fever 11/17/2017 None skin lesion Quality acute 11/17/2017 None skin lesion Onset and Resolution sudden in onset 11/17/2017 None skin lesion Onset of Symptom 6 days ago 11/17/2017 None skin lesion Triggers no known associated factors 11/17/2017 None medication follow up Additional Comments medication use 11/25/2016 None medication follow up Location oral intake 11/25/2016 None anxiety Quality acute 10/26/2016 None anxiety Quality worsening 10/26/2016 None anxiety Onset and Resolution gradual in onset 10/26/2016 None anxiety Onset and Resolution ongoing 10/26/2016 None anxiety Triggers stress 10/26/2016 None anxiety Triggers crowds and public places 10/26/2016 None anxiety Alleviating Factors rest 10/26/2016 None anxiety Pertinent Findings insomnia 10/26/2016 None anxiety Pertinent Findings restlessness 10/26/2016 None anxiety Pertinent Findings sweating 10/26/2016 patient states she gets extremely hot, tunnel vision, has broken jewelry, pulled hair out during these attacks anxiety Pertinent Findings tachycardia 10/26/2016 None anxiety Quality panic attacks 10/26/2016 None anxiety Quality chronic 10/26/2016 None anxiety Triggers family discord 10/26/2016 None cough Location in the throat 06/01/2016 None cough Onset and Resolution ongoing 06/01/2016 None cough Frequency of Episodes daily 06/01/2016 None cough Length of Episodes 4 days 06/01/2016 None cough Pertinent Findings Denies dyspnea 06/01/2016 None cough Pertinent Findings fever 06/01/2016 None cough Quality acute None cough Onset of Symptom during adulthood 06/01/2016 None sore throat Location diffusely 11/10/2015 None sore throat Quality aching 11/10/2015 None sore throat Quality constant 11/10/2015 None sore throat Onset and Resolution ongoing 11/10/2015 None sore throat Onset of Symptom 2-3 weeks ago 11/10/2015 None sore throat Limitation on Activities limits oral intake 11/10/2015 None sore throat Pertinent Findings Denies cough 11/10/2015 None sore throat Pertinent Findings Denies decreased energy level 11/10/2015 None sore throat Pertinent Findings Denies fever 11/10/2015 None sore throat Pertinent Findings ill contacts 11/10/2015 daughter has pneumonia sore throat Frequency of Episodes unchanged 11/10/2015 None sore throat Triggers no known associated factors 11/10/2015 None medication follow up Additional Comments medication use 10/02/2015 fluvoxamine medication follow up Location oral intake 10/02/2015 None cough Pertinent Findings chills 11/07/2013 None cough Pertinent Findings fever 11/07/2013 None cough Pertinent Findings hoarseness 11/07/2013 None cough Pertinent Findings ill contacts 11/07/2013 None cough Pertinent Findings lethargy 11/07/2013 None cough Pertinent Findings nasal congestion 11/07/2013 None cough Location in the throat 11/07/2013 None cough Quality acute None cough Quality productive 11/07/2013 None cough Onset and Resolution gradual in onset 11/07/2013 None cough Onset of Symptom 2 days ago 11/07/2013 None cough Limitation on Activities does not limit activities 11/07/2013 None cough Frequency of Episodes increasing 11/07/2013 None cough Triggers no known associated factors 11/07/2013 None cough Pertinent Findings chest discomfort 11/07/2013 None sinus congestion Onset and Resolution ongoing 11/07/2013 None sinus congestion Severity moderate 11/07/2013 None sinus congestion Significant Medical Conditions allergic rhinitis 11/07/2013 None sinus congestion Significant Medications decongestants 11/07/2013 None sinus congestion Pertinent Findings cough 11/07/2013 None sinus congestion Pertinent Findings decreased energy level 11/07/2013 None sinus congestion Pertinent Findings facial pain 11/07/2013 None sinus congestion Pertinent Findings Denies vomiting 11/07/2013 None cough Location in the throat 05/17/2013 None cough Quality productive 05/17/2013 None cough Quality acute None cough Onset and Resolution gradual in onset 05/17/2013 None cough Onset of Symptom 2 days ago 05/17/2013 None cough Pertinent Findings nasal congestion 05/17/2013 None cough Pertinent Findings hoarseness 05/17/2013 None cough Pertinent Findings chest discomfort 05/17/2013 None cough Limitation on Activities does not limit activities 05/17/2013 None cough Frequency of Episodes increasing 05/17/2013 None cough Triggers no known associated factors 05/17/2013 None anxiety Quality acute 05/09/2013 None anxiety Quality worsening 05/09/2013 None anxiety Quality panic attacks 05/09/2013 would rather not be around large crowds, worries about others excessively anxiety Onset and Resolution ongoing 05/09/2013 None anxiety Pertinent Findings insomnia 05/09/2013 None anxiety Pertinent Findings restlessness 05/09/2013 None anxiety Pertinent Findings sweating 05/09/2013 patient states she gets extremely hot, tunnel vision, has broken jewelry, pulled hair out during these attacks anxiety Pertinent Findings tachycardia 05/09/2013 None anxiety Pertinent Findings feeling of dread 05/09/2013 None anxiety Triggers crowds and public places 05/09/2013 None anxiety Triggers stress 05/09/2013 None anxiety Onset and Resolution gradual in onset 05/09/2013 started about 1-2 years ago anxiety Alleviating Factors rest 05/09/2013 None cough Onset and Resolution gradual in onset 10/06/2012 None cough Onset of Symptom 2 weeks ago 10/06/2012 None cough Quality acute None cough Limitation on Activities does not limit activities 10/06/2012 None cough Triggers known allergens 10/06/2012 None cough Alleviating Factors OTC medications 10/06/2012 None cough Pertinent Findings Denies nausea 10/06/2012 None cough Pertinent Findings nasal congestion 10/06/2012 None sinus congestion Onset and Resolution ongoing 10/06/2012 None sinus congestion Onset of Symptom 2 weeks ago 10/06/2012 None sinus congestion Severity moderate 10/06/2012 None sinus congestion Significant Medical Conditions allergic rhinitis 10/06/2012 None sinus congestion Significant Medications decongestants 10/06/2012 None sinus congestion Pertinent Findings cough 10/06/2012 None sinus congestion Pertinent Findings decreased energy level 10/06/2012 None sinus congestion Pertinent Findings facial pain 10/06/2012 None sinus congestion Pertinent Findings Denies vomiting 10/06/2012 None spasms/spasticity Quality painful 09/01/2011 None weight gain/obesity Quality worsening 09/01/2011 None spasms/spasticity Location on the right leg 09/01/2011 Pt states that she has been on antiinflammatories in the past, did. ot seem to help. She states she cannot remember being on medication for muscle spasms. spasms/spasticity Onset and Resolution ongoing 09/01/2011 None spasms/spasticity Location diffusely 09/01/2011 from bra to right lower leg spasms/spasticity Triggers exertion 09/01/2011 None hip pain Location in the buttocks 08/04/2011 on the right side. pt calls it sciatica menstrual irregularity Quality worsening 08/04/2011 pt states has had a period for 2 months. has appt with Dr Lisa today hip pain Quality sharp pain 08/04/2011 None hip pain Quality tenderness 08/04/2011 None hip pain Quality chronic 08/04/2011 None hip pain Quality worsening 08/04/2011 None hip pain Quality numbness 08/04/2011 None hip pain Onset and Resolution gradual in onset 08/04/2011 None hip pain Onset and Resolution ongoing 08/04/2011 None hip pain Onset of Symptom 2-3 months ago 08/04/2011 None hip pain Frequency of Episodes increasing 08/04/2011 None hip pain Severity moderate 08/04/2011 None hip pain Significant Medications NSAID's 08/04/2011 None hip pain Significant Medications narcotic medications 08/04/2011 None hip pain Mechanism of injury unknown 08/04/2011 None hip pain Alleviating Factors rest 08/04/2011 None hip pain Alleviating Factors NSAID's 08/04/2011 None hip pain Exacerbating Factors activity 08/04/2011 None hip pain Exacerbating Factors exertion 08/04/2011 None hip pain Radiating the leg and foot 08/04/2011 None sore throat Onset and Resolution gradual in onset 05/28/2011 None sore throat Onset and Resolution improved during the day 05/28/2011 None sore throat Onset of Symptom 2 weeks ago 05/28/2011 None sore throat Limitation on Activities does not limit oral intake 05/28/2011 None sore throat Significant Medical Conditions allergic rhinitis 05/28/2011 None sore throat Triggers weather change 05/28/2011 None sore throat Triggers allergens 05/28/2011 None nasal allergies Location in both nares 05/28/2011 None nasal allergies Onset and Resolution ongoing 05/28/2011 None nasal allergies Onset of Symptom 2 weeks ago 05/28/2011 None nasal allergies Severity moderate 05/28/2011 None nasal allergies Significant Medical Conditions allergic rhinitis 05/28/2011 None nasal allergies Significant Medications antihistamines 05/28/2011 None nasal allergies Significant Medications nasal spray 05/28/2011 None nasal allergies Triggers exposure to grass/pollens 05/28/2011 None nasal allergies Triggers known allergens 05/28/2011 None nasal allergies Triggers season change 05/28/2011 None sore throat Quality scratchy 05/28/2011 None sore throat Quality worsening 05/28/2011 None nasal allergies Alleviating Factors medication 05/28/2011 None nasal allergies Pertinent Findings facial pain 05/28/2011 None Advance Directives No Advance Directive data Encounters Encounter Performer Location Codes Date [id number] EST. PATIENT, LEVEL III Diagnosis: Dysuria[ICD10: R30.0] Diagnosis: Generalized anxiety disorder[ICD10: F41.1] [facility] CPT-4: 06521 08/04/2018 ([id number]) [id number] EST. PATIENT, LEVEL III Diagnosis: Localized edema[ICD10: R60.0] Diagnosis: Pain in right ankle and joints of right foot[ICD10: M25.571] Diagnosis: Pain in left ankle and joints of left foot[ICD10: M25.572] Diagnosis: Generalized anxiety disorder[ICD10: F41.1] Diagnosis: Family history of ischemic heart disease and other diseases of the circulatory system[ICD10: Z82.49] Zoey Jay MD, [facility] CPT-4: 51391 05/05/2018 [id number] EST. PATIENT, LEVEL IV Diagnosis: Localized edema[ICD10: R60.0] Diagnosis: Other muscle spasm[ICD10: M62.838] Diagnosis: Other fatigue[ICD10: R53.83] Diagnosis: Other malaise[ICD10: R53.81] Diagnosis: Dysuria[ICD10: R30.0] Diagnosis: Other obsessive-compulsive disorder[ICD10: F42.8] Diagnosis: Generalized anxiety disorder[ICD10: F41.1] Indu Jay MD, [facility] CPT-4: 32675 04/18/2018 [id number] EST. PATIENT, LEVEL IV Diagnosis: Pain in left lower leg[ICD10: M79.662] Diagnosis: Localized swelling, mass and lump, left lower limb[ICD10: R22.42] Indu Jay MD, [facility] CPT-4: 87031 03/10/2018 ([id number]) Miscellaneous no charge Diagnosis: Other obesity due to excess calories[ICD10: E66.09] Indu Jay MD, [facility] CPT-4: 29657 01/20/2018 [id number] EST. PATIENT, LEVEL IV Diagnosis: Other acute sinusitis[ICD10: J01.80] Diagnosis: Other allergic rhinitis[ICD10: J30.89] Indu Jay MD, [facility] CPT-4: 97006 12/19/2017 [id number] EST. PATIENT, LEVEL IV Diagnosis: Other acute sinusitis[ICD10: J01.80] Diagnosis: Other allergic rhinitis[ICD10: J30.89] Diagnosis: Pelvic and perineal pain[ICD10: R10.2] Indu Jay MD, [facility] CPT-4: 18827 11/17/2017 ([id number]) Miscellaneous no charge Diagnosis: Other obesity due to excess calories[ICD10: E66.09] Indu Jay MD, [facility] CPT-4: 61553 03/09/2017 ([id number]) Miscellaneous no charge Diagnosis: Other obesity due to excess calories[ICD10: E66.09] Indu Jay MD, [facility] CPT-4: 20735 12/23/2016 13427 EST. PATIENT, LEVEL III Diagnosis: Generalized anxiety disorder[ICD10: F41.1] Diagnosis: Other obesity due to excess calories[ICD10: E66.09] Diagnosis: Mixed obsessional thoughts and acts[ICD10: F42.2] Indu Jay MD, [facility] CPT-4: 57697 11/25/2016 18591 EST. PATIENT, LEVEL IV Diagnosis: Generalized anxiety disorder[ICD10: F41.1] Diagnosis: Mixed obsessional thoughts and acts[ICD10: F42.2] Indu Jay MD, [facility] CPT-4: 76826 10/26/2016 ([id number]) 41646 EST. PATIENT, LEVEL III Diagnosis: Allergic rhinitis due to pollen[ICD10: J30.1] Diagnosis: Migraine, unspecified, not intractable, without status migrainosus[ ICD10: G43.909] Diagnosis: Acute recurrent maxillary sinusitis[ICD10: J01.01] Zoey Jay MD, [facility] CPT-4: 70547 06/01/2016 ([id number]) 27879 EST. PATIENT, LEVEL III Diagnosis: Acute recurrent maxillary sinusitis[ICD10: J01.01] Zoey Jay MD, [facility] CPT-4: 87657 11/10/2015 94938 EST. PATIENT, LEVEL III Diagnosis: Obsessive-compulsive disorder[ICD10: F42] Diagnosis: Generalized anxiety disorder[ICD10: F41.1] Indu Jay MD, [facility] CPT-4: 84646 10/02/2015 ([id number]) 82115 EST. PATIENT, LEVEL III Diagnosis: ACUTE SINUSITIS[ICD9: 461.9] Diagnosis: COUGH[ICD9: 786.2] Lachelle Jay MD, [facility] CPT-4: 43460 11/07/2013 ([id number]) 40932 EST. PATIENT, LEVEL III Diagnosis: Acute maxillary sinusitis[ICD9: 461.0] Diagnosis: COUGH[ICD9: 786.2] Lachelle Jay MD, [facility] CPT-4: 14578 05/17/2013 ([id number]) 18230 EST. PATIENT, LEVEL III Diagnosis: Obsessive compulsive disorder[ICD9: 300.3] Diagnosis: Anxiety, generalized[ICD9: 300.02] Lachelle Jay MD, [facility] CPT-4: 26571 05/09/2013 ([id number]) 15679 EST. PATIENT, LEVEL III Diagnosis: ACUTE SINUSITIS[ICD9: 461.9] Zoey Jay MD, [facility] CPT-4: 56578 10/06/2012 67105 EST. PATIENT, LEVEL IV Diagnosis: Leg pain[ICD9: 729.5] Diagnosis: Sciatica[ICD9: 724.3] Diagnosis: LUMBAGO[ICD9: 724.2] Diagnosis: Back muscle spasm[ICD9: 724.8] Lachelle Jay MD, [facility] CPT- 4: 21165 09/01/2011 42128 EST. PATIENT, LEVEL III Diagnosis: LUMBAGO[ICD9: 724.2] Diagnosis: Sciatica[ICD9: 724.3] Diagnosis: Leg pain[ICD9: 729.5] aLchelle Jay MD, [facility] CPT-4: 60487 08/04/2011 42073 EST. PATIENT, LEVEL III Diagnosis: ACUTE SINUSITIS[ICD9: 461.9] Diagnosis: Allergic rhinitis[ICD9: 477.9] Zoey Jay MD, [facility] CPT-4: 18729 05/28/2011 Plan of Care Planned Activity Notes Codes Status Date Visit Plan: UTI - pt with positive urinalysis - culture sent if appropriate. Antibiotic electronically prescribed to pt's pharmacy of choice. Pt to call if symptoms do not improve. Chronic anxiety - the pt has symptoms of chronic anxiety that have been fairly well controlled since the last office visit. The pt has expected periods of exacerbation with abatement of the symptoms with change in situational exposure. No change in current medications. 08/04/2018 Visit Plan: UTI - pt with positive urinalysis - culture sent if appropriate. Antibiotic electronically prescribed to pt's pharmacy of choice. Pt to call if symptoms do not improve. Chronic anxiety - the pt has symptoms of chronic anxiety that have been fairly well controlled since the last office visit. The pt has expected periods of exacerbation with abatement of the symptoms with change in situational exposure. No change in current medications. 08/04/2018 Patient Education: Patient Medication Summary Completed 08/04/2018 Care Plan: C URINE RT Pending 08/04/2018 Appointment: Indu Arauz WPtel: [phone] [facility] [place] (15 min) Moderate 05/11/2018 Visit Plan: Edema -joint pain-will check inflammatory markers-continue lasix as directed-consider cardiology referral for uncontrolled swelling and family history of cardiac disease 05/05/2018 Appointment: Zoey Sinha WPtel: [phone] [phone] [place] (15 min) Moderate 05/05/2018 Patient Education: Patient Medication Summary Completed 05/05/2018 Appointment: Lab Draw 04/24/2018 Patient Education: Patient Medication Summary Completed 04/24/2018 Visit Plan: Edema - pt has been advised to elevate legs to prevent dependent edema, compression has been recommended to help to naturally decrease peripheral edema. Diuretic use has been discussed and pt has been instructed in appropriate use of such medication as necessary to further attempt to reduce peripheral edema. Chronic Depression and anxiety - the pt has symptoms of chronic anxiety and depression that have been fairly well controlled since the last office visit. The pt has expected periods of exacerbation with abatement of the symptoms with change in situational exposure. No change in current medications. Fatigue, Malaise - will check labs and treat as indicated 04/18/2018 Visit Plan: Edema - pt has been advised to elevate legs to prevent dependent edema, compression has been recommended to help to naturally decrease peripheral edema. Diuretic use has been discussed and pt has been instructed in appropriate use of such medication as necessary to further attempt to reduce peripheral edema. Chronic Depression and anxiety - the pt has symptoms of chronic anxiety and depression that have been fairly well controlled since the last office visit. The pt has expected periods of exacerbation with abatement of the symptoms with change in situational exposure. No change in current medications. Fatigue, Malaise - will check labs and treat as indicated 04/18/2018 Appointment: Indu Arauz WPtel: [address] [place], [place] [id number] (30 min) Complex 04/18/2018 Patient Education: Patient Medication Summary Completed 04/18/2018 Care Plan: VASCULAR STUDY Pending 04/12/2018 Visit Plan: Left leg pain and swelling - pt recently on a long road trip in the car from [place] to [place] - will order US and treat as indicated - pt is to notify clinic if symptoms do not improve, if they worsen, or with any changes, questions, or concerns. 03/10/2018 Appointment: Indu Arauz WPtel: [facility] (15 min) Moderate 03/10/2018 Patient Education: Patient Medication Summary Completed 03/10/2018 Appointment: (15 min) Moderate 02/14/2018 Appointment: Nurse Visit 01/23/2018 Appointment: Nurse Visit 01/20/2018 Patient Education: Patient Medication Summary Completed 01/20/2018 Visit Plan: Sinusitis - Pt has acute infection - pain in face, maxillary region, Pt informed to use decongestant, RX given to patient, sinus rinses also recommended. Call if symptoms do not show improvement. Allergies - chronic - recommended pt to use allergy medication as prescribed. Pt has been counseled as to the appropriate use of the medication. Pt to call if allergy symptoms are not controlled with the medication. If using nasal spray , instructions as follows: Nasal spray- use twice daily, one spray per nostril twice daily, after 30 minutes, rinse out nose with saline spray.. Use opposite hand per nostril to spray in the nasal steroid allergy spray. 12/19/2017 Appointment: Indu Arauz WPtel: [facility] (15 min) Moderate 12/19/2017 Patient Education: Patient Medication Summary Completed 12/19/2017 Visit Plan: Sinusitis - Pt has acute infection - pain in face, maxillary region, Pt informed to use decongestant, RX given to patient, sinus rinses also recommended. Call if symptoms do not show improvement. Allergies - chronic - recommended pt to use allergy medication as prescribed. Pt has been counseled as to the appropriate use of the medication. Pt to call if allergy symptoms are not controlled with the medication. If using nasal spray , instructions as follows: Nasal spray- use twice daily, one spray per nostril twice daily, after 30 minutes, rinse out nose with saline spray.. Use opposite hand per nostril to spray in the nasal steroid allergy spray. 11/17/2017 Appointment: [phone] (30 min) Complex 11/17/2017 Patient Education: Patient Medication Summary Completed 11/17/2017 Appointment: Nurse Visit 03/09/2017 Patient Education: Patient Medication Summary Completed 03/09/2017 Patient Education: Obesity Completed 03/09/2017 Appointment: Nurse Visit 12/23/2016 Patient Education: Patient Medication Summary Completed 12/23/2016 Patient Education: Obesity Completed 12/23/2016 Visit Plan: Chronic Depression and anxiety - the pt has symptoms of chronic anxiety and depression that have been fairly well controlled since the last office visit. The pt has expected periods of exacerbation with abatement of the symptoms with change in situational exposure. Pt states that she would like to got to the higher dose due to some lingering anxiety issues. Will increase dose. Obesity - chronic issue with this patient. The pt has been counseled about diet changes, calorie restriction, and need to exercise. Pt will RTC in one month for weight check. 11/25/2016 Visit Plan: Chronic Depression and anxiety - the pt has symptoms of chronic anxiety and depression that have been fairly well controlled since the last office visit. The pt has expected periods of exacerbation with abatement of the symptoms with change in situational exposure. Pt states that she would like to got to the higher dose due to some lingering anxiety issues. Will increase dose. Obesity - chronic issue with this patient. The pt has been counseled about diet changes, calorie restriction, and need to exercise. Pt will RTC in one month for weight check. 11/25/2016 Appointment: [phone] (30 min) Complex 11/25/2016 Patient Education: Patient Medication Summary Completed 11/25/2016 Patient Education: Obesity Completed 11/25/2016 Visit Plan: Anxiety/OCD - the patient has uncontrolled anxiety and will benefit from an SSRI on a daily basis to attempt control of the symptoms of anxiety (tachycardia, overwhelming sensations, stress, insomnia , etc). I also believe that the patient will benefit from very low dose of prn benzodiazepine. Pt is aware of the risks and benefits of treatment with the above medications. 10/26/2016 Visit Plan: Anxiety/OCD - the patient has uncontrolled anxiety and will benefit from an SSRI on a daily basis to attempt control of the symptoms of anxiety (tachycardia, overwhelming sensations, stress, insomnia , etc). I also believe that the patient will benefit from very low dose of prn benzodiazepine. Pt is aware of the risks and benefits of treatment with the above medications. 10/26/2016 Appointment: Indu Arauz WPtel: [phone] [facility] (30 min) Complex 10/26/2016 Patient Education: Patient Medication Summary Completed 10/26/2016 Visit Plan: Allergies - chronic - recommended pt to use allergy medication as prescribed. Pt has been counseled as to the appropriate use of the medication. Pt to call if allergy symptoms are not controlled with the medication. If using nasal spray, instructions as follows: Nasal spray- use twice daily, one spray per nostril twice daily, after 30 minutes, rinse out nose with saline spray.. Use opposite hand per nostril to spray in the nasal steroid allergy spray. Migraines-sample of onzetra for prn use provided and instructed on use Sinusitis - Pt has acute infection - pain in face, maxillary region, Pt informed to use decongestant, RX given to patient, sinus rinses also recommended. Call if symptoms do not show improvement. 06/01/2016 Patient Education: Patient Medication Summary Completed 06/01/2016 Visit Plan: Sinusitis - Pt has acute infection - pain in face, maxillary region, Pt informed to use decongestant, RX given to patient, sinus rinses also recommended. Call if symptoms do not show improvement. Kenalog injection today in the office 11/10/2015 Appointment: Zoey Sinha WPtel: [phone] [phone] [place] (10 min) Simple 11/10/2015 Patient Education: Patient Medication Summary Completed 11/10/2015 Visit Plan: Obsessive compulsive disorder and anxiety - the pt has symptoms of chronic anxiety and obsessive compulsive disorder that have been fairly well controlled since the last office visit. The pt has expected periods of exacerbation with abatement of the symptoms with change in situational exposure. No change in current medications. 10/02/2015 Appointment: (30 min) Complex 10/02/2015 Patient Education: Patient Medication Summary Completed 10/02/2015 Appointment: Follow up 11/14/2014 Visit Plan: Bronchitis - acute case of bronchitis identified. Pt has been given antibiotics, breathing treatments as appropriate, and pt has been instructed to call if symptoms are not improved, or if symptoms acutely worsen. zpack use nyquil or robitussin Pt needs a well visit - needs labs 11/07/2013 Appointment: Lachelle Jay WPtel: [address] [place] [address] Follow up 11/07/2013 Patient Education: Patient Medication Summary Completed 11/07/2013 Appointment: Lachelle Jay WPtel: [address] [place] [address] Sick 11/01/2013 Visit Plan: Sinusitis - Pt has acute infection - pain in face, maxillary region, Pt informed to use decongestant, RX given to patient, sinus rinses also recommended. Recommend take start on probiotic while on antibiotics. Call if symptoms do not show improvement. Kenalog injection today in the office for acute symptoms. 05/17/2013 Appointment: Zoey Sinha WPtel: [address] [place] [phone] Sick 05/17/2013 Patient Education: Patient Medication Summary Completed 05/17/2013 Visit Plan: OCD/Anxiety - pt to start on generic luvox 100mg daily, and use prn xanax at 0.25mg q 6 hours as needed for anxiety attacks. 05/09/2013 Appointment: Lachelle Jay WPtel: [facility] [place] [id number] Other 05/09/2013 Patient Education: Patient Medication Summary Completed 05/09/2013 Visit Plan: Sinusitis - Pt has acute infection - pain in face, maxillary region, Pt informed to use decongestant, RX given to patient, sinus rinses also recommended. Call if symptoms do not show improvement. Allergies - chronic - recommended pt to use allergy medication as prescribed. Pt has been counseled as the the appropriate use of the medication. Pt to call if allergy symptoms are not controlled with the medication. Kenalog injection today in the office 10/06/2012 Appointment: Zoey Sinha WPtel: [address] [place] [address] Other 10/06/2012 Patient Education: Patient Medication Summary Completed 10/06/2012 Visit Plan: Chronic Back pain - the patient was counseled to always first attempt to use modalities other than pain medication for alleviation of the muscle spasms and pain. The patient was also encouraged to continue with back exercises as previously directed. Pt is to use pain medication as directed. If pain medications are used inappropriately or early refills are requested, the patient understands that is a breech of trust/ contract and could result in the patient's termination from this medical practice. For the pain- recommend starting on the butrans - slowly wean down on the hydrocodone. Muscle spasms - start the baclofen for muscle spasms. Call if not improved. 09/01/2011 Appointment: Lachelle Jay WPtel: [address] [place] [address] Other 09/01/2011 Appointment: Lachelle Jay WPtel: [address] [place] [address] Other 09/01/2011 Patient Education: Patient Medication Summary Completed 09/01/2011 Visit Plan: Sciatica- exercises discussed with the patient , pt to continue with antiinflammatories. Pt is to call if the symptoms do not improve or if they worsen. Leg pain - discussed need for pt to loose weight, this will help with some of the back pain she is experiencing, may need to consider to go to another physician for epidural injections. injection- [id number] 08/04/2011 Appointment: Lachelle Jay WPtel: [address] [place] [address] Other 08/04/2011 Patient Education: Patient Medication Summary Completed 08/04/2011 Patient Education: Sciatica Completed 08/04/2011 Visit Plan: Allergies - Advised avoidance of allergens if possible, we discussed natural and expected course of this diagnosis and need to alert me if symtpoms do not follow expected course, or if any worse. Kenalog injection today in the office. Pt given samples and script for zyrtec daily. Sinusitis - Pt has acute infection - pain in face, maxillary region, Pt informed to use decongestant, RX given to patient, sinus rinses also recommended. Call if symptoms do not show improvement. 05/28/2011 Appointment: Zoey Sinha WPtel: [address] [place], [place] [id number] Other 05/28/2011 Patient Education: Patient Medication Summary Completed 05/28/2011 Instructions Comment . Sciatica- exercises discussed with the patient, pt to continue with antiinflammatories. Pt is to call if the symptoms do not improve or if they worsen. Leg pain - discussed need for pt to loose weight, this will help with some of the back pain she is experiencing, may need to consider to go to another physician for epidural injections. [id number] . Allergies - chronic - recommended pt to use allergy medication as prescribed. Pt has been counseled as to the appropriate use of the medication. Pt to call if allergy symptoms are not controlled with the medication. If using nasal spray, instructions as follows: Nasal spray- use twice daily, one spray per nostril twice daily, after 30 minutes, rinse out nose with saline spray.. Use opposite hand per nostril to spray in the nasal steroid allergy spray. Migraines-sample of onzetra for prn use provided and instructed on use Sinusitis - Pt has acute infection - pain in face, maxillary region, Pt informed to use decongestant, RX given to patient, sinus rinses also recommended. Call if symptoms do not show improvement. . Bronchitis - acute case of bronchitis identified. Pt has been given antibiotics, breathing treatments as appropriate, and pt has been instructed to call if symptoms are not improved, or if symptoms acutely worsen. zpack use nyquil or robitussin Pt needs a well visit - needs labs . Chronic Back pain - the patient was counseled to always first attempt to use modalities other than pain medication for alleviation of the muscle spasms and pain. The patient was also encouraged to continue with back exercises as previously directed. Pt is to use pain medication as directed. If pain medications are used inappropriately or early refills are requested, the patient understands that is a breech of trust/contract and could result in the patient's termination from this medical practice. For the pain- recommend starting on the butrans - slowly wean down on the hydrocodone. Muscle spasms - start the baclofen for muscle spasms. Call if not improved. Lasix and potassium for swelling. Get some compression stockings to wear during the day while you are on your feet. Keep your feet elevated while you are sitting. Will send fluvoxamine and xanax. Will check labs and a UA to make sure you dont have an infection. Let me know if your symptoms do not improve or with any changes, questions, or concerns. . Edema - pt has been advised to elevate legs to prevent dependent edema, compression has been recommended to help to naturally decrease peripheral edema. Diuretic use has been discussed and pt has been instructed in appropriate use of such medication as necessary to further attempt to reduce peripheral edema. Chronic Depression and anxiety - the pt has symptoms of chronic anxiety and depression that have been fairly well controlled since the last office visit. The pt has expected periods of exacerbation with abatement of the symptoms with change in situational exposure. No change in current medications. Fatigue, Malaise - will check labs and treat as indicated Lasix and potassium for swelling. Get some compression stockings to wear during the day while you are on your feet. Keep your feet elevated while you are sitting. Will send fluvoxamine and xanax. Will check labs and a UA to make sure you dont have an infection. Let me know if your symptoms do not improve or with any changes, questions, or concerns. . Edema - pt has been advised to elevate legs to prevent dependent edema, compression has been recommended to help to naturally decrease peripheral edema. Diuretic use has been discussed and pt has been instructed in appropriate use of such medication as necessary to further attempt to reduce peripheral edema. Chronic Depression and anxiety - the pt has symptoms of chronic anxiety and depression that have been fairly well controlled since the last office visit. The pt has expected periods of exacerbation with abatement of the symptoms with change in situational exposure. No change in current medications. Fatigue, Malaise - will check labs and treat as indicated . Left leg pain and swelling - pt recently on a long road trip in the car from [place] to [place] - will order US and treat as indicated - pt is to notify clinic if symptoms do not improve, if they worsen, or with any changes, questions, or concerns. . Obsessive compulsive disorder and anxiety - the pt has symptoms of chronic anxiety and obsessive compulsive disorder that have been fairly well controlled since the last office visit. The pt has expected periods of exacerbation with abatement of the symptoms with change in situational exposure. No change in current medications. . Anxiety/OCD - the patient has uncontrolled anxiety and will benefit from an SSRI on a daily basis to attempt control of the symptoms of anxiety (tachycardia, overwhelming sensations, stress, insomnia, etc). I also believe that the patient will benefit from very low dose of prn benzodiazepine. Pt is aware of the risks and benefits of treatment with the above medications. . Anxiety/OCD - the patient has uncontrolled anxiety and will benefit from an SSRI on a daily basis to attempt control of the symptoms of anxiety (tachycardia, overwhelming sensations, stress, insomnia, etc). I also believe that the patient will benefit from very low dose of prn benzodiazepine. Pt is aware of the risks and benefits of treatment with the above medications. . Sinusitis - Pt has acute infection - pain in face, maxillary region, Pt informed to use decongestant, RX given to patient, sinus rinses also recommended. Recommend take start on probiotic while on antibiotics. Call if symptoms do not show improvement. Kenalog injection today in the office for acute symptoms. . OCD/Anxiety - pt to start on generic luvox 100mg daily, and use prn xanax at 0.25mg q 6 hours as needed for anxiety attacks. . Sinusitis - Pt has acute infection - pain in face, maxillary region, Pt informed to use decongestant, RX given to patient, sinus rinses also recommended. Call if symptoms do not show improvement. Kenalog injection today in the office . Sinusitis - Pt has acute infection - pain in face, maxillary region, Pt informed to use decongestant, RX given to patient, sinus rinses also recommended. Call if symptoms do not show improvement. Allergies - chronic - recommended pt to use allergy medication as prescribed. Pt has been counseled as to the appropriate use of the medication. Pt to call if allergy symptoms are not controlled with the medication. If using nasal spray, instructions as follows: Nasal spray- use twice daily, one spray per nostril twice daily, after 30 minutes, rinse out nose with saline spray.. Use opposite hand per nostril to spray in the nasal steroid allergy spray. . UTI - pt with positive urinalysis - culture sent if appropriate. Antibiotic electronically prescribed to pt's pharmacy of choice. Pt to call if symptoms do not improve. Chronic anxiety - the pt has symptoms of chronic anxiety that have been fairly well controlled since the last office visit. The pt has expected periods of exacerbation with abatement of the symptoms with change in situational exposure. No change in current medications. . UTI - pt with positive urinalysis - culture sent if appropriate. Antibiotic electronically prescribed to pt's pharmacy of choice. Pt to call if symptoms do not improve. Chronic anxiety - the pt has symptoms of chronic anxiety that have been fairly well controlled since the last office visit. The pt has expected periods of exacerbation with abatement of the symptoms with change in situational exposure. No change in current medications. . Chronic Depression and anxiety - the pt has symptoms of chronic anxiety and depression that have been fairly well controlled since the last office visit. The pt has expected periods of exacerbation with abatement of the symptoms with change in situational exposure. Pt states that she would like to got to the higher dose due to some lingering anxiety issues. Will increase dose. Obesity - chronic issue with this patient. The pt has been counseled about diet changes, calorie restriction, and need to exercise. Pt will RTC in one month for weight check. . Chronic Depression and anxiety - the pt has symptoms of chronic anxiety and depression that have been fairly well controlled since the last office visit. The pt has expected periods of exacerbation with abatement of the symptoms with change in situational exposure. Pt states that she would like to got to the higher dose due to some lingering anxiety issues. Will increase dose. Obesity - chronic issue with this patient. The pt has been counseled about diet changes, calorie restriction, and need to exercise. Pt will RTC in one month for weight check. . Sinusitis - Pt has acute infection - pain in face, maxillary region, Pt informed to use decongestant, RX given to patient, sinus rinses also recommended. Call if symptoms do not show improvement. Allergies - chronic - recommended pt to use allergy medication as prescribed. Pt has been counseled as the the appropriate use of the medication. Pt to call if allergy symptoms are not controlled with the medication. Kenalog injection today in the office DX sinusitis - discussed expected course with the patient, pt advised to call for worsening symptoms, or lack of improvement on prescribed treatment course. . Allergies - Advised avoidance of allergens if possible, we discussed natural and expected course of this diagnosis and need to alert me if symtpoms do not follow expected course, or if any worse. Kenalog injection today in the office. Pt given samples and script for zyrtec daily. Sinusitis - Pt has acute infection - pain in face, maxillary region, Pt informed to use decongestant, RX given to patient, sinus rinses also recommended. Call if symptoms do not show improvement. . Edema -joint pain-will check inflammatory markers- continue lasix as directed-consider cardiology referral for uncontrolled swelling and family history of cardiac disease . Sinusitis - Pt has acute infection - pain in face, maxillary region, Pt informed to use decongestant, RX given to patient, sinus rinses also recommended. Call if symptoms do not show improvement. Allergies - chronic - recommended pt to use allergy medication as prescribed. Pt has been counseled as to the appropriate use of the medication. Pt to call if allergy symptoms are not controlled with the medication. If using nasal spray, instructions as follows: Nasal spray- use twice daily, one spray per nostril twice daily, after 30 minutes, rinse out nose with saline spray.. Use opposite hand per nostril to spray in the nasal steroid allergy spray.
--- OUTSIDE RECORDS SUMMARY | 2018-09-26 03:04 | XMS REPORT | CCD ---
Author Author [facility] Address [address] [place] [address] Phone Care Team Providers Care Preventative Maintenance Technician Name Role Phone PP Unavailable CCM Unavailable Summary Purpose Interface Exchange Insurance Providers Payer name Policy type / Coverage type Covered green party ID Effective Begin Date Effective End Date Blue Cross [facility] Blue Cross/[facility] [place] [id number] 2018 Unknown Family history Brother Diagnosis Age At Onset No Family Disease Entered N/A Daughter Diagnosis Age At Onset No Family Disease Entered N/A Mother Diagnosis Age At Onset No Family Disease Entered N/A Father Diagnosis Age At Onset No Family Disease Entered N/A Social History Social History Element Codes Description Effective Dates Tobacco history SNOMED CT: 05687210 Current every day smoker 1 ppd 05/05/[address]: 940418063 Never drinks alcohol 05/27/2011 Has the patient [...] Fill Instructions Xanax 0.25 mg tablet RxNorm: 653116 Tablet(s) PO TAKE 1 TABLET BY MOUTH EVERY 4-6 HOURS NEEDED FOR ANXIETY 08/04/2018 No Stop Date Active (Appended: Controlled substance eRx refill - RxReferenceNumber: [id number]|1|0|1) Cipro 500 mg tablet RxNorm: 824090 1 Tablet(s) PO BID 201708/13/2018 Active Xanax 0.25 mg tablet RxNorm: 578610 Tablet(s) PO TAKE 1 TABLET BY MOUTH EVERY 4-6 HOURS NEEDED FOR ANXIETY 08/02/201810/2017 Inactive (Appended: Controlled substance eRx refill - RxReferenceNumber: [id number]|1|0|1) Bactrim DS 800 mg-160 mg tablet RxNorm: 677684 1 Tablet(s) PO BID 07/26/2018 08/04/2018 Inactive potassium chloride ER 10 mEq tablet,extended release RxNorm: 348786 1 Tablet(s) PO daily while on lasix 05/02/20182017 Inactive Lasix 20 mg tablet RxNorm: 538747 1 Tablet(s) PO daily 201705/06/2018 Inactive Cipro 500 mg tablet RxNorm: 665426 1 Tablet(s) PO BID 201705/07/2018 Inactive Cipro 500 mg tablet RxNorm: 143310 1 Tablet(s) PO BID 201704/27/2018 Inactive Bactrim DS 800 mg-160 mg tablet RxNorm: 076384 1 Tablet(s) PO BID 04/24/2018 04/30/2018 Inactive Colcrys 0.6 mg tablet RxNorm: 784244 2 now=1.2mg once then take 0.6mg 1 hour later x 1 Tablet(s) PO 04/18/2018 No Stop Date Active fluvoxamine 100 mg tablet RxNorm: 213163 1/2 Tablet(s) PO BID 04/18/2018 04/12/2019 Active Generic For:LUVOX 100 MG TABLET 10/21/2016 2:32:39 PM potassium chloride ER 10 mEq tablet,extended release RxNorm: 123171 1 Tablet(s) PO daily while on lasix 04/18/20182017 Inactive Xanax 0.25 mg tablet RxNorm: 560016 Tablet(s) PO TAKE 1 TABLET BY MOUTH EVERY 4-6 HOURS NEEDED FOR ANXIETY 04/18/2018 Inactive (Appended: Controlled substance eRx refill - RxReferenceNumber: [id number]|1|0|1) Lasix 20 mg tablet RxNorm: 478771 1 Tablet(s) PO daily 201704/22/2018 Inactive prednisone 20 mg tablet RxNorm: 709018 2 Tablet(s) PO daily 05/201803/14/2018 Inactive phentermine 37.5 mg tablet RxNorm: 649395 1 Tablet(s) PO daily 01/20/2018 02/18/2018 Inactive Levaquin 500 mg tablet RxNorm: 073013 1 Tablet(s) PO daily 12/25/2017 Inactive levocetirizine 5 mg tablet RxNorm: 755053 1 Tablet(s) PO QPM 01/17/2018 Inactive Diflucan 150 mg tablet RxNorm: 816833 1 Tablet(s) PO daily 12/25/2017 Inactive phentermine 37.5 mg tablet RxNorm: 790472 1 Tablet(s) PO daily 11/17/2017 12/16/2017 Inactive prednisone 20 mg tablet RxNorm: 707837 2 Tablet(s) PO daily 11/21/2017 Inactive doxycycline hyclate 100 mg capsule RxNorm: 0333140 1 Capsule(s) PO BID 11/17/2017 11/26/2017 Inactive Kenalog 40 mg/mL suspension for injection RxNorm: 2949121 1 Milliliter(s) Inj 11/17/2017 11/17/2017 Inactive Lexapro 20 mg tablet RxNorm: 515448 Tablet(s) 1 Tablet(s) PO daily 03/15/2017 11/16/2017 Inactive phentermine 37.5 mg tablet RxNorm: 609640 1 Tablet(s) PO daily 03/09/2017 11/16/2017 Inactive Lexapro 20 mg tablet RxNorm: 647611 1 Tablet(s) PO daily 201603/14/2017 Inactive phentermine 37.5 mg tablet RxNorm: 438878 1 Tablet(s) PO daily 12/23/2016 01/21/2017 Inactive phentermine 37.5 mg tablet RxNorm: 579541 1 Tablet(s) PO daily 11/25/2016 12/22/2016 Inactive Lexapro 20 mg tablet RxNorm: 388632 1 Tablet(s) PO daily 201612/24/2016 Inactive Xanax 0.25 mg tablet RxNorm: 078844 Tablet(s) PO TAKE 1 TABLET BY MOUTH EVERY 4-6 HOURS NEEDED FOR ANXIETY 11/25/2016 Inactive (Appended: Controlled substance eRx refill - RxReferenceNumber: [id number]|1|0|1) Lexapro 10 mg tablet RxNorm: 677710 1 Tablet(s) PO daily 201611/24/2016 Inactive fluvoxamine 100 mg tablet RxNorm: 586893 TAKE 1/2 OF A TABLET BY MOUTH TWICE A DAY 10/21/2016 10/25/2016 Inactive Generic For:LUVOX 100 MG TABLET 10/21/2016 2:32 :39 PM Onzetra Xsail 11 mg powder for nasal inhalation RxNorm: 8059824 1 nosepiece in each nostril NASAL as needed migraine May repeat another full dose 2 hours after first. 06/16/2016 04/03/2018 Inactive Onzetra Xsail 11 mg powder for nasal inhalation RxNorm: 0486703 1 nosepiece in each nostril NASAL as needed migraine May repeat another full dose 2 hours after first. 06/11/2016 06/15/2016 Inactive Kenalog 40 mg/mL suspension for injection RxNorm: 7108701 Milliliter(s) Inj 06/01/2016 06/01/2016 Inactive Zithromax Z-Maikel 250 mg tablet RxNorm: 318123 1 Tablet(s) PO UD take zpack as directed 06/01/2016 06/10/2016 Inactive fluvoxamine 100 mg tablet RxNorm: 402948 TAKE 1/2 OF A TABLET BY MOUTH TWICE A DAY 05/31/2016 09/27/2016 Inactive Generic For:LUVOX 100 MG TABLET 05/31/2016 12: 42:28 PM Xanax 0.25 mg tablet RxNorm: 267041 Tablet(s) PO TAKE 1 TABLET BY MOUTH EVERY 4-6 HOURS NEEDED FOR ANXIETY 04/08/2016 Inactive (Appended: Controlled substance eRx refill - RxReferenceNumber: [id number]|1|0|1) fluvoxamine 100 mg tablet RxNorm: 869560 TAKE 1/2 OF A TABLET BY MOUTH TWICE A DAY 01/05/2016 05/03/2016 Inactive Generic For:LUVOX 100 MG TABLET 01/05/2016 9:37 :27 AM fluvoxamine 100 mg tablet RxNorm: 132481 TAKE 1/2 OF A TABLET BY MOUTH TWICE A DAY 12/02/2015 12/31/2015 Inactive Generic For:LUVOX 100 MG TABLET 12/02/2015 9:02 :44 AM N O T I C E PRESCRIPTION PREVIOUSLY AUTHORIZED BY DOCTOR:INDU ARAUZ Kenalog 40 mg/mL suspension for injection RxNorm: 4876860 1 Milliliter(s) Inj 11/10/2015 11/10/2015 Inactive doxycycline hyclate 100 mg tablet RxNorm: 186265 1 Tablet(s) PO BID 11/10/2015 10/25/2016 Inactive fluvoxamine 100 mg tablet RxNorm: 728463 TAKE 1/2 TABLET BY MOUTH TWICE DAILY 10/06/2015 11/04/2015 Inactive Generic For:LUVOX 100 MG TABLET text when ready 4:32:56 PM fluvoxamine 100 mg tablet RxNorm: 071309 Tablet(s) TAKE 1/2 TABLET BY MOUTH TWICE DAILY 10/02/2015 10/05/2015 Inactive 08/25/2015 5:28:36 PM fluvoxamine 100 mg tablet RxNorm: 624816 TAKE 1/2 TABLET BY MOUTH TWICE DAILY 08/26/2015 09/24/2015 Inactive 08/25/2015 5:28:36 PM fluvoxamine 100 mg tablet RxNorm: 415196 TAKE 1/2 TABLET BY MOUTH TWICE DAILY 07/24/2015 08/22/2015 Inactive 07/23/2015 1:15:44 PM Xanax 0.25 mg tablet RxNorm: 464902 Tablet(s) PO TAKE 1 TABLET BY MOUTH EVERY 4-6 HOURS NEEDED FOR ANXIETY 03/11/201503/2016 Inactive (Appended: Controlled substance eRx refill - RxReferenceNumber: [id number]|549775|1|0|1) fluvoxamine 100 mg tablet RxNorm: 642011 1/2 Tablet(s) PO BID 03/11/2015 07/08/2015 Inactive fluvoxamine ER 100 mg capsule,extended release 24 hr RxNorm: 623426 1 Tablet(s) PO BID 02/05/2015 03/10/2015 Inactive fluvoxamine 100 mg tablet RxNorm: 398512 1 Tablet(s) PO BID 06/201502/04/2015 Inactive fluvoxamine ER 100 mg capsule,extended release 24 hr RxNorm: 164104 TAKE ONE CAPSULE BY MOUTH EVERY DAY 07/17/201405/2015 Inactive fluvoxamine ER 100 mg capsule,extended release 24 hr RxNorm: 823898 TAKE ONE CAPSULE BY MOUTH EVERY DAY 04/15/201408/2014 Inactive Xanax 0.25 mg tablet RxNorm: 647753 1 Tablet(s) PO Q4-6H TAKE 1 TABLET BY MOUTH EVERY 4 TO 6 HOURS NEEDED FOR ANXIETY 01/28/2014 No Stop Date Active (Appended: Controlled substance eRx refill - RxReferenceNumber: [id number]|1|0|1) Xanax 0.25 mg tablet RxNorm: 976874 Tablet(s) PO TAKE 1 TABLET BY MOUTH EVERY 4-6 HOURS NEEDED FOR ANXIETY 01/28/201405/2015 Inactive (Appended: Controlled substance eRx refill - RxReferenceNumber: [id number]|[id number]|1|0|1) fluvoxamine ER 100 mg capsule,extended release 24 hr RxNorm: 168993 1 Capsule(s) PO daily TAKE ONE CAPSULE BY MOUTH EVERY DAY 12/13/2013 04/11/2014 Inactive fluvoxamine ER 100 mg capsule,extended release 24 hr RxNorm: 535015 Capsule(s) PO TAKE ONE CAPSULE BY MOUTH EVERY DAY 12/13/2013 12/12/2013 Inactive Tessalon 200 mg capsule RxNorm: 293434 1 Capsule(s) PO Q8 PRN 11/19/2013 11/09/2015 Inactive fluvoxamine ER 100 mg capsule,extended release 24 hr RxNorm: 240946 1 Capsule(s) PO daily TAKE ONE CAPSULE BY MOUTH EVERY DAY 11/07/2013 12/12/2013 Inactive Zithromax Z-Maikel 250 mg tablet RxNorm: 575580 1 Tablet(s) PO as doctor directed take zpack as directed 11/07/2013 No Stop Date Active Xanax 0.25 mg tablet RxNorm: 617186 Tablet(s) PO TAKE 1 TABLET BY MOUTH EVERY 4 TO 6 HOURS NEEDED FOR ANXIETY 09/24/2013 01/28/2014 Inactive (Appended: Controlled substance eRx refill - RxReferenceNumber: [id number]|[id number]|1|0|1) fluvoxamine ER 100 mg capsule,extended release 24 hr RxNorm: 840148 1 Capsule(s) PO daily 09/06/2013 09/05/2013 Inactive fluvoxamine ER 100 mg capsule,extended release 24 hr RxNorm: 819664 Capsule(s) PO TAKE ONE CAPSULE BY MOUTH EVERY DAY 09/06/2013 11/06/2013 Inactive Kenalog 40 mg/mL Susp for Injection RxNorm: 1825455 Milliliter(s) Inj 05/17/2013 05/17/2013 Inactive Zithromax Z-Maikel 250 mg tablet RxNorm: 084840 Tablet(s) PO UD No Stop Date Active fluvoxamine ER 100 mg capsule,extended release 24 hr RxNorm: 219788 1 Capsule(s) PO daily 05/09/2013 09/05/2013 Inactive Kenalog 40 mg/mL Susp for Injection RxNorm: 0626495 1 Milliliter(s) Inj 10/06/2012 10/06/2012 Inactive Zithromax Z-Maikel 250 mg tablet RxNorm: 529488 Tablet(s) PO UD No Stop Date Active baclofen 10 mg Tab RxNorm: 458630 1 Tablet(s) PO TID PRN 02/27/2012 Inactive hydrocodone-acetaminophen 7.5 mg-325 mg Tab RxNorm: 9718708 1 Tablet(s) PO Q6 PRN 1 tab q 6hrs prn 09/01/2011 09/15/2011 Inactive Butrans 10 mcg/hour Transderm Patch RxNorm: 119528 1 Patch TD QW 09/01/2011 11/29/2011 Inactive hydrocodone-acetaminophen 7.5 mg-325 mg Tab RxNorm: 6318344 1 Tablet(s) PO Q6 PRN 1 tab q 6hrs prn 08/25/2011 08/31/2011 Inactive Neurontin 600 mg Tab RxNorm: 334547 Tablet(s) PO 1 tab tid and 2 at hs 08/24/2011 11/09/2015 Inactive TAKE 1 TABLET BY MOUTH THREE TIMES DAILY AND 2 TABLETS BY MOUTH EVERY NIGHT AT BEDTIME Neurontin 600 mg Tab RxNorm: 573916 1 Tablet(s) PO TID 1 tab tid and 2 at hs 08/24/2011 08/23/2011 Inactive Neurontin 600 mg Tab RxNorm: 507340 1 Tablet(s) PO TID 1 tab tid and 2 at hs 08/24/2011 08/23/2011 Inactive hydrocodone-acetaminophen 7.5 mg-325 mg Tab RxNorm: 9175297 1 Tablet(s) PO Q6 PRN 1 tab q 6hrs prn 08/05/2011 08/19/2011 Inactive Vimovo 500 mg-20 mg multiphase, immed & delay rel Tab RxNorm: 986466 1 Tablet(s) PO BID 08/04/2011 07/23/2013 Inactive hydrocodone-acetaminophen 7.5 mg-325 mg Tab RxNorm: 6178936 1 Tablet(s) PO Q6 PRN 1 tab q 6hrs prn 07/20/2011 08/03/2011 Inactive hydrocodone-acetaminophen 7.5 mg-325 mg Tab RxNorm: 8353394 1 Tablet(s) PO Q6 PRN 1 tab q 6hrs prn 06/28/2011 07/12/2011 Inactive Bactrim DS 800 mg-160 mg Tab RxNorm: 278487 1 Tablet(s) PO BID 06/10/2011 06/16/2011 Inactive hydrocodone-acetaminophen 7.5 mg-325 mg Tab RxNorm: 3249448 1 Tablet(s) PO Q6 PRN 1 tab q 6hrs prn 06/02/2011 06/01/2011 Inactive hydrocodone-acetaminophen 7.5 mg-325 mg Tab RxNorm: 3827280 1 Tablet(s) PO Q6 PRN 1 tab q 6hrs prn 06/02/2011 06/16/2011 Inactive triamcinolone acetonide 40 mg/mL Susp for Injection RxNorm: 9889462 2 Milliliter(s ) Inj 05/28/2011 05/28/2011 Inactive Nasonex 50 mcg/Actuation [place] RxNorm: 088966 1 [place] NASAL daily No Start Date Active Tessalon 200 mg capsule RxNorm: 672891 1 Capsule(s) PO Q8 PRN No Start Date 11/18/2013 Inactive hydrocodone-acetaminophen 7.5 mg-325 mg Tab RxNorm: 9184182 1 Tablet(s) PO Q6 PRN 1 tab q 6hrs prn No Start Date 06/01/2011 Inactive Neurontin 600 mg Tab RxNorm: 570728 1 Tablet(s) PO TID 1 tab tid and 2 at hs No Start Date 08/23/2011 Inactive Xanax 0.25 mg tablet RxNorm: 273752 Tablet(s) PO PRN No Start Date 09/24/2013 Inactive niacin ER 500 mg Tab RxNorm: 063610 1 Tablet(s) PO QHS No Start Date 11/09/2015 Inactive Colcrys 0.6 mg tablet RxNorm: 275577 2 now=1.2mg once then take 0.6mg 1 hour later x 1 Tablet(s) PO No Start Date 04/17/2018 Inactive Onzetra Xsail 11 mg powder for nasal inhalation RxNorm: 5997541 1 nosepiece in each nostril NASAL as needed migraine May repeat another full dose 2 hours after first. No Start Date 06/10/2016 Inactive Zithromax Z-Maikel 250 mg tablet RxNorm: 078116 Tablet(s) PO No Start Date 06/01/2011 Inactive melatonin 3 mg Tab RxNorm: 898538 1 Tablet(s) PO QHS No Start Date 11/09/2015 Inactive Medication Administered Medication Codes Instructions Start Date Status Kenalog 40 mg/mL suspension for injection RxNorm: 8098718 1Milliliter 11/17/2017 No longer Active Kenalog 40 mg/mL suspension for injection RxNorm: 3263844 Milliliter 06/01/2016 No longer Active Kenalog 40 mg/mL suspension for injection RxNorm: 1754039 1Milliliter 11/10/2015 No longer Active Kenalog 40 mg/mL Susp for Injection RxNorm: 1239097 Milliliter 05/17/2013 No longer Active Kenalog 40 mg/mL Susp for Injection RxNorm: 7579629 1Milliliter 10/06/2012 No longer Active triamcinolone acetonide 40 mg/mL Susp for Injection RxNorm: 6772527 2Milliliter 05/28/2011 No longer Active Immunizations No [...] Code Item Item Code Result Date Rae [id number] RAE (SRINIVASAN) SCREEN NONE DETECTED 05/08/2018 Cbc [...] 32.6 pg 05/05/2018 Cbc With Differential Ord2 [place]% 5.2 % 05/05/2018 Cbc With Differential Ord2 [...] 2.70 K/ul 05/05/2018 Cbc With Differential Ord2 [place] ABS# 0.5 K/ul 05/05/2018 Cbc With Differential Ord2 Eos ABS# 0.1 K/ul 05/05/2018 Cbc With Differential Ord2 Baso ABS# 0.0 K/ul 05/05/2018 Ra Factor Jfm100 RA FACTOR <10 IU/ml 05/05/2018 Sed Rate Ord21 ESR 3 mm/hr 05/05/2018 Comp Metabolic Uzv787 NA 139 mEq/L 05/05/2018 Comp Metabolic Ido794 K 3.5 mEq/L 05/05/2018 Comp Metabolic Krs111 CL 101 mEq/L 05/05/2018 Comp Metabolic Ddz155 CO2 30.0 mEq/L 05/05/2018 Comp Metabolic Qeh410 ANION GAP 12 05/05/2018 Comp Metabolic Nqk297 GLUCOSE 104 mg/dL 05/05/2018 Comp Metabolic Kqb069 Creat 0.9 mg/dL 05/05/2018 Comp Metabolic Zsw640 eGFR 77 ml/min/1.73m2 05/05/2018 Comp Metabolic Ipl773 BUN 6 mg/dL 05/05/2018 Comp Metabolic Pvr857 B/C Ratio 6.8 Ratio 05/05/2018 Comp Metabolic Wyh795 CALCIUM 9.3 mg/dL 05/05/2018 Comp Metabolic Pru128 ALK PHOS 71 U/L 05/05/2018 Comp Metabolic Umw778 AST(SGOT) 20 U/L 05/05/2018 Comp Metabolic Frz087 ALT(SGPT) 21 U/L 05/05/2018 Comp Metabolic Qbk329 BILI T 0.4 mg/dL 05/05/2018 Comp Metabolic Rhp774 ALBUMIN 4.2 g/dL 05/05/2018 Comp Metabolic Sik024 TPRO 6.6 g/dL 05/05/2018 Comp Metabolic Fqg723 GLOB 2.4 g/dL 05/05/2018 Comp Metabolic Trk002 A/G Ratio 1.8 Ratio 05/05/2018 Comp Metabolic Trp587 Osmo 275 mOsmo 05/05/2018 C-Reactive Protein Qnt Crqnt CRP 0.2 mg/dl 05/05/2018 Culture Urine [id number] URINE CULTURE SEE NOTES 04/27/2018 Culture Urine [id number] Continued Results 04/27/2018 [place] Spotted Fever Igg/Igm [id number] DARLENE MT SPOTTED FEVER IGM EIA . 04/25/2018 [place] Spotted Fever Igg/Igm 145927 RMSF, IGM 0.56 index 04/25/2018 [place] Spotted Fever Igg/Igm [id number] DARLENE MT SPOTTED FEVER IGG EIA FLEX . 04/25/2018 [place] Spotted Fever Igg/Igm 154417 RMSF, IGG SCREEN-FLEX Negative 04/25/2018 Urine Culture Ucult Complete >100,000 col/ml aerobic growth sent to ref lab 04/25/2018 Ehrlichia Chaffeensis Antibody Igm [id number] EHRLICHIA CHAFFEENSIS IGM < 1:16 04/24/2018 Ehrlichia Chaffeensis Antibody Igg [id number] EHRLICHIA CHAFFEENSIS IGG <1:64 04/24/2018 Lymes Disease Total Antibodies With Western Blot Reflex [id number] B. BURGDORFERI, IGG/IGM 0.34 04/20/2018 Lymes Disease Total Antibodies With Western Blot Reflex [id number] INTERPRETATION 04/20/2018 Magnesium Ord90 Mag 1.9 mg/dL [...] 32.7 pg 04/19/2018 Cbc With Differential Ord2 [place]% 8.3 % 04/19/2018 Cbc With Differential Ord2 [...] 3.04 K/ul 04/19/2018 Cbc With Differential Ord2 [place] ABS# 0.7 K/ul 04/19/2018 Cbc With Differential Ord2 Eos ABS# 0.1 K/ul 04/19/2018 Cbc With Differential Ord2 Baso ABS# 0.0 K/ul 04/19/2018 Comp Metabolic Cub842 NA 136 mEq/L 04/19/2018 Comp Metabolic Xlx121 K 3.4 mEq/L 04/19/2018 Comp Metabolic Vgc841 CL 104 mEq/L 04/19/2018 Comp Metabolic Lgz535 CO2 23.0 mEq/L 04/19/2018 Comp Metabolic Qub872 ANION GAP 12 04/19/2018 Comp Metabolic Fow135 GLUCOSE 89 mg/dL 04/19/2018 Comp Metabolic Lno946 Creat 0.6 mg/dL 04/19/2018 Comp Metabolic Ydm093 eGFR 129 ml/min/1.73m2 04/19/2018 Comp Metabolic Bof595 BUN 7 mg/dL 04/19/2018 Comp Metabolic Ifr794 B/C Ratio 12.5 Ratio 04/19/2018 Comp Metabolic Hwb117 CALCIUM 9.2 mg/dL 04/19/2018 Comp Metabolic Zzy260 ALK PHOS 62 U/L 04/19/2018 Comp Metabolic Erg150 AST(SGOT) 23 U/L 04/19/2018 Comp Metabolic Voj252 ALT(SGPT) 27 U/L 04/19/2018 Comp Metabolic Jrn429 BILI T 0.6 mg/dL 04/19/2018 Comp Metabolic Vwl707 ALBUMIN 4.1 g/dL 04/19/2018 Comp Metabolic Yrt787 TPRO 6.5 g/dL 04/19/2018 Comp Metabolic Yzy279 GLOB 2.4 g/dL 04/19/2018 Comp Metabolic Lml971 A/G Ratio 1.7 Ratio 04/19/2018 Comp Metabolic Uwp026 Osmo 269 mOsmo 04/19/2018 Uric Acid Ord77 Uric A 4.7 mg/dL 04/19/2018 Free T4 Ako330 FREE T4 0.95 ng/dL 04/19/2018 Review of [...] Codes Date URINALYSIS NONAUTO W/O SCOPE CPT-4: 58310 04/24/2018 THER/PROPH/DIAG INJ SC/IM CPT-4: 67847 11/17/2017 TRIAMCINOLONE ACET INJ NOS CPT-4: J3301 11/17/2017 TRIAMCINOLONE ACET INJ NOS CPT-4: J3301 06/01/2016 TRIAMCINOLONE ACET INJ NOS CPT-4: J3301 11/10/2015 TRIAMCINOLONE ACET INJ NOS CPT-4: J3301 05/17/2013 TRIAMCINOLONE ACET INJ NOS CPT-4: J3301 10/06/2012 TRIAMCINOLONE ACET INJ NOS CPT-4: J3301 08/04/2011 THER/PROPH/DIAG INJ SC/IM CPT-4: 51000 08/04/2011 THER/PROPH/DIAG INJ SC/IM CPT-4: 63146 05/28/2011 TRIAMCINOLONE ACET INJ NOS CPT-4: J3301 05/28/2011 Vital Signs Date Vital 08/04/2018 Blood Pressure 1: 122/88 Code : 8480-6 BMI: 30.0 Code : 44750-2 Heart Rate 1 : 107 bpm Height: 5'4" SpO2: 98% Weight: 175 lbs 05/05/2018 Blood Pressure 1: 110/74 Code : 8480-6 BMI: 34.7 Code : 47476-4 Heart Rate 1 : 83 bpm Height: 5'4" SpO2: 99% Weight: 202 lbs 04/18/2018 Blood Pressure 1: 124/74 Code : 8480-6 Heart Rate 1: 98 bpm Height: SpO2: 98% Weight: 03/10/2018 Blood Pressure 1: 124/72 Code : 8480-6 BMI: 38.1 Code : 23713-4 Heart Rate 1 : 82 bpm Height: 5'4" SpO2: 98% Weight: 222 lbs 01/20/2018 Blood Pressure 1: 116/78 Code : 8480-6 BMI: 38.3 Code : 51950-7 Heart Rate 1 : 97 bpm Height: 5'4" SpO2: 97% Weight: 223 lbs 12/19/2017 Blood Pressure 1: 126/74 Code : 8480-6 BMI: 39.3 Code : 75013-0 Heart Rate 1 : 84 bpm Height: 5'4" SpO2: 97% Weight: 229 lbs 11/17/2017 Blood Pressure 1: 122/82 Code : 8480-6 BMI: 38.8 Code : 03622-9 Heart Rate 1 : 87 bpm Height: 5'4" SpO2: 98% Weight: 226 lbs 03/09/2017 Blood Pressure 1: 116/72 Code : 8480-6 BMI: 35.9 Code : 06547-9 Heart Rate 1 : 90 bpm Height: 5'4" Weight: 209 lbs 12/23/2016 Blood Pressure 1: 132/86 Code : 8480-6 BMI: 34.7 Code : 21205-4 Heart Rate 1 : 83 bpm Height: 5'4" SpO2: 98% Weight: 202 lbs 11/25/2016 Blood Pressure 1: 102/68 Code : 8480-6 BMI: 34.3 Code : 55532-8 Heart Rate 1 : 80 bpm Height: 5'4" SpO2: 97% Weight: 200 lbs 10/26/2016 Blood Pressure 1: 138/78 Code : 8480-6 BMI: 33.6 Code : 01093-1 Heart Rate 1 : 80 bpm Height: 5'4" SpO2: 99% Weight: 196 lbs 06/01/2016 Blood Pressure 1: 130/80 Code : 8480-6 BMI: 31.1 Code : 60389-8 Heart Rate 1 : 97 bpm Height: 5'4" SpO2: 99% Temperature: 36.9 (C) / 98.5 (F) Weight: 181 lbs 11/10/2015 Blood Pressure 1: 122/74 Code : 8480-6 BMI: 30.4 Code : 52088-6 Heart Rate 1 : 72 bpm Height: 5'4" Temperature: 36.8 (C) / 98.3 (F) Weight: 177 lbs 10/02/2015 Blood Pressure 1: 106/68 Code : 8480-6 BMI: 30.4 Code : 77675-0 Heart Rate 1 : 90 bpm Height: 5'4" SpO2: 96% Weight: 177 lbs 11/07/2013 Blood Pressure 1: 136/78 Code : 8480-6 Heart Rate 1: 72 bpm Temperature: 36.1 (C) / 96.9 (F) Weight: 219 lbs 05/17/2013 Blood Pressure 1: 112/68 Code : 8480-6 BMI: 35.0 Code : 71744-6 Heart Rate 1 : 80 bpm Height: 5'4" Temperature: 36.6 (C) / 97.9 (F) Weight: 204 lbs 05/09/2013 Blood Pressure 1: 106/66 Code : 8480-6 BMI: 34.8 Code : 70926-7 Heart Rate 1 : 88 bpm Height: 5'4" Weight: 203 lbs 10/06/2012 Blood Pressure 1: 108/68 Code : 8480-6 Heart Rate 1: 80 bpm Respiratory Rate : 16 bpm Temperature: 36.6 (C) / 97.9 (F) Weight: 204 lbs 09/01/2011 Blood Pressure 1: 140/94 Code : 8480-6 BMI: 34.8 Code : 12178-8 Heart Rate 1 : 76 bpm Height: 5'4" Respiratory Rate: 16 bpm Weight: 203 lbs 08/04/2011 Blood Pressure 1: 112/84 Code : 8480-6 BMI: 32.8 Code : 16194-6 Heart Rate 1 : 76 bpm Height: 5'6" Respiratory Rate: 16 bpm Weight: 200 lbs 05/28/2011 Blood Pressure 1: 107/74 Code : 8480-6 BMI: 34.1 Code : 20613-3 Heart Rate 1 : 80 bpm Height: [...] data Encounters Encounter Performer Location Codes Date 65088 EST. PATIENT, LEVEL III Diagnosis: Dysuria[ICD10: R30.0] Diagnosis: Generalized anxiety disorder[ICD10: F41.1] [facility] CPT-4: 29506 08/04/2018 ([id number]) 83077 EST. PATIENT, LEVEL III Diagnosis: Localized edema[ICD10: R60.0] Diagnosis: Pain in right ankle and joints of right foot[ICD10: M25.571] Diagnosis: Pain in left ankle and joints of left foot[ICD10: M25.572] Diagnosis: Generalized anxiety disorder[ICD10: F41.1] Diagnosis: Family history of ischemic heart disease and other diseases of the circulatory system[ICD10: Z82.49] Zoey Jay MD, [facility] CPT-4: 02878 05/05/2018 [id number] EST. PATIENT, LEVEL IV Diagnosis: Localized edema[ICD10: R60.0] Diagnosis: Other muscle spasm[ICD10: M62.838] Diagnosis: Other fatigue[ICD10: R53.83] Diagnosis: Other malaise[ICD10: R53.81] Diagnosis: Dysuria[ICD10: R30.0] Diagnosis: Other obsessive-compulsive disorder[ICD10: F42.8] Diagnosis: Generalized anxiety disorder[ICD10: F41.1] Indu Jay MD, [facility] CPT-4: 85980 04/18/2018 [id number] EST. PATIENT, LEVEL IV Diagnosis: Pain in left lower leg[ICD10: M79.662] Diagnosis: Localized swelling, mass and lump, left lower limb[ICD10: R22.42] Indu Jay MD, [facility] CPT-4: 18706 03/10/2018 ([id number]) Miscellaneous no charge Diagnosis: Other obesity due to excess calories[ICD10: E66.09] Indu Jay MD, [facility] CPT-4: 68939 01/20/2018 61140 EST. PATIENT, LEVEL IV Diagnosis: Other acute sinusitis[ICD10: J01.80] Diagnosis: Other allergic rhinitis[ICD10: J30.89] Indu Jay MD, [facility] CPT-4: 41865 12/19/2017 20029 EST. PATIENT, LEVEL IV Diagnosis: Other acute sinusitis[ICD10: J01.80] Diagnosis: Other allergic rhinitis[ICD10: J30.89] Diagnosis: Pelvic and perineal pain[ICD10: R10.2] Indu Jay MD, [facility] CPT-4: 47240 11/17/2017 ([id number]) Miscellaneous no charge Diagnosis: Other obesity due to excess calories[ICD10: E66.09] Indu Jay MD, [facility] CPT-4: 87947 03/09/2017 ([id number]) Miscellaneous no charge Diagnosis: Other obesity due to excess calories[ICD10: E66.09] Indu Jay MD, [facility] CPT-4: 01984 12/23/2016 [id number] EST. PATIENT, LEVEL III Diagnosis: Generalized anxiety disorder[ICD10: F41.1] Diagnosis: Other obesity due to excess calories[ICD10: E66.09] Diagnosis: Mixed obsessional thoughts and acts[ICD10: F42.2] Indu Jay MD, [facility] CPT-4: 53136 11/25/2016 [id number] EST. PATIENT, LEVEL IV Diagnosis: Generalized anxiety disorder[ICD10: F41.1] Diagnosis: Mixed obsessional thoughts and acts[ICD10: F42.2] Indu Jay MD, [facility] CPT-4: 72118 10/26/2016 ([id number]) 16148 EST. PATIENT, LEVEL III Diagnosis: Allergic rhinitis due to pollen[ICD10: J30.1] Diagnosis: Migraine, unspecified, not intractable, without status migrainosus[ ICD10: G43.909] Diagnosis: Acute recurrent maxillary sinusitis[ICD10: J01.01] Zoey Jay MD, [facility] CPT-4: 16953 06/01/2016 ([id number]) 10121 EST. PATIENT, LEVEL III Diagnosis: Acute recurrent maxillary sinusitis[ICD10: J01.01] Zoey Jay MD, [facility] CPT-4: 92058 11/10/2015 [id number] EST. PATIENT, LEVEL III Diagnosis: Obsessive-compulsive disorder[ICD10: F42] Diagnosis: Generalized anxiety disorder[ICD10: F41.1] Indu Jay MD, [facility] CPT-4: 82619 10/02/2015 ([id number]) 35610 EST. PATIENT, LEVEL III Diagnosis: ACUTE SINUSITIS[ICD9: 461.9] Diagnosis: COUGH[ICD9: 786.2] Lachelle Jay MD, [facility] CPT-4: 71322 11/07/2013 ([id number]) 09111 EST. PATIENT, LEVEL III Diagnosis: Acute maxillary sinusitis[ICD9: 461.0] Diagnosis: COUGH[ICD9: 786.2] Lachelle Jay MD, [facility] CPT-4: 69802 05/17/2013 ([id number]) 02545 EST. PATIENT, LEVEL III Diagnosis: Obsessive compulsive disorder[ICD9: 300.3] Diagnosis: Anxiety, generalized[ICD9: 300.02] Lachelle Jay MD, [facility] CPT-4: 21323 05/09/2013 ([id number]) 00009 EST. PATIENT, LEVEL III Diagnosis: ACUTE SINUSITIS[ICD9: 461.9] Zoey Jay MD, [facility] CPT-4: 22360 10/06/2012 [id number] EST. PATIENT, LEVEL IV Diagnosis: Leg pain[ICD9: 729.5] Diagnosis: Sciatica[ICD9: 724.3] Diagnosis: LUMBAGO[ICD9: 724.2] Diagnosis: Back muscle spasm[ICD9: 724.8] Lachelle Jay MD, [facility] CPT- 4: 82021 09/01/2011 [id number] EST. PATIENT, LEVEL III Diagnosis: LUMBAGO[ICD9: 724.2] Diagnosis: Sciatica[ICD9: 724.3] Diagnosis: Leg pain[ICD9: 729.5] Lachelle Jay MD, [facility] CPT-4: 80135 08/04/2011 [id number] EST. PATIENT, LEVEL III Diagnosis: ACUTE SINUSITIS[ICD9: 461.9] Diagnosis: Allergic rhinitis[ICD9: 477.9] Zoey Jay MD, [facility] CPT-4: 09247 05/28/2011 Plan of Care Planned Activity Notes [...] RT Pending 08/04/2018 Appointment: Indu Arauz WPtel: [phone] [facility] [place] (15 min) Moderate 05/11/2018 Visit Plan: Edema -joint pain-will check inflammatory markers-continue lasix as directed-consider cardiology referral for uncontrolled swelling and family history of cardiac disease 05/05/2018 Appointment: [id number] [place] (15 min) Moderate 05/05/2018 Patient Education: [...] as indicated 04/18/2018 Appointment: Indu [phone] [place] (30 min) Complex 04/18/2018 Patient Education: Patient Medication Summary Completed 04/18/2018 Care Plan: VASCULAR STUDY Pending 04/12/2018 Visit Plan: Left leg pain and swelling - pt recently on a long road trip in the car from [place] to [place] - will order US and treat as indicated - pt is to notify clinic if symptoms do not improve, if they worsen, or with any changes, questions, or concerns. 03/10/2018 Appointment: Indu Arauz [phone] [place] (15 min) Moderate 03/10/2018 Patient Education: Patient [...] allergy spray. 12/19/2017 Appointment: Indu [facility]uz [phone] (15 min) Moderate 12/19/2017 Patient Education: Patient [...] spray. 11/17/2017 Appointment: Indu Arauz [phone] (30 min) Complex 11/17/2017 Patient Education: Patient [...] weight check. 11/25/2016 Appointment: Indu Arauz [phone] ([place] min) Complex 11/25/2016 Patient Education: Patient [...] above medications. 10/26/2016 Appointment: Indu Arauz WPtel: [phone] [facility] (30 min) Complex 10/26/2016 Patient Education: [...] the office 11/10/2015 Appointment: [phone] (10 min) Simple 11/10/2015 Patient Education: Patient [...] needs labs 11/07/2013 Appointment: Lachelle Jay WPtel: [address] [place] [address] Follow up 11/07/2013 Patient Education: Patient Medication Summary Completed 11/07/2013 Appointment: Lachelle Jay WPtel: [address] [place] [address] Sick 11/01/2013 Visit Plan: Sinusitis - Pt has acute infection - pain in face, maxillary region, Pt informed to use decongestant, RX given to patient, sinus rinses also recommended. Recommend take start on probiotic while on antibiotics. Call if symptoms do not show improvement. Kenalog injection today in the office for acute symptoms. 05/17/2013 Appointment: Zoey Sinha WPtel: [facility] 05/17/2013 Patient Education: Patient Medication Summary Completed 05/17/2013 Visit Plan: OCD/Anxiety - pt to start on generic luvox 100mg daily, and use prn xanax at 0.25mg q 6 hours as needed for anxiety attacks. 05/09/2013 Appointment: Lachelle Jay WPtel: [address] [place], [place] [phone] Other 05/09/2013 Patient Education: Patient Medication Summary [...] today in the office 10/06/2012 Appointment: Zoey Sinhatel: [facility] Other 10/06/2012 Patient Education: Patient Medication Summary [...] not improved. 09/01/2011 Appointment: Lachelle Jay WPtel: [address] [place] [address] Other 09/01/2011 Appointment: Lachelle Jay WPtel: [address] [place] [address] Other 09/01/2011 Patient Education: Patient Medication Summary [...] to another physician for epidural injections. injection- [id number] 08/04/2011 Appointment: Lachelle Jay WPtel: [address] [place] [address] Other 08/04/2011 Patient Education: Patient Medication Summary [...] show improvement. 05/28/2011 Appointment: [facility] Sin[id number] Other 05/28/2011 Patient Education: Patient Medication Summary [...] go to another physician for epidural injections. [id number] . Allergies - chronic - recommended pt [...] long road trip in the car from [place] to [place] - will order US and treat as [...]
--- OUTSIDE RECORDS SUMMARY | 2018-09-26 03:07 | XMS REPORT | CCD ---
Author Author [facility] Address [address] [place] [address] Phone Care Team Providers Care Rn Radiation Name Role Phone PP Unavailable CCM Unavailable Summary Purpose Interface Exchange Insurance Providers Payer name Policy type / Coverage type Covered libertarian ID Effective Begin Date Effective End Date [facility] [employer]/[facility] [id number] 2018 Unknown Family history Brother Diagnosis Age At Onset No Family Disease Entered N/A Daughter Diagnosis Age At Onset No Family Disease Entered N/A Mother Diagnosis Age At Onset No Family Disease Entered N/A Father Diagnosis Age At Onset No Family Disease Entered N/A Social History Social History Element Codes Description Effective Dates Tobacco history SNOMED CT: 18675264 Current every day smoker 1 ppd 05/05/[address]: 455029989 Never drinks alcohol 05/27/2011 Has the patient [...] Codes Condition Status Onset Date Resolved Date Family history of ischemic heart disease and [...] ICD-9: 719.47 ICD-10: M25.571 Active 05/05/2018 Unknown Dysuria ICD-9: 788.1 ICD-10: R30.0 Active 04/18/2018 Unknown Mixed obsessional thoughts and acts ICD-9: [...] Problems Condition Codes Effective Dates Condition Status Family history of ischemic heart disease and [...] foot ICD-9: 719.47 ICD-10: M25.571 05/05/2018 Active Dysuria ICD-9: 788.1 ICD-10: R30.0 04/18/2018 Active Mixed obsessional thoughts and acts ICD-9: [...] Fill Instructions Xanax 0.25 mg tablet RxNorm: 226638 Tablet(s) PO TAKE 1 TABLET BY MOUTH EVERY 4-6 HOURS NEEDED FOR ANXIETY 08/02/2018 No Stop Date Active (Appended: Controlled substance eRx refill - RxReferenceNumber: [id number]|1|0|1) Bactrim DS 800 mg-160 mg tablet RxNorm: 959240 1 Tablet(s) PO BID 07/26/2018 08/04/2018 Active potassium chloride ER 10 mEq tablet,extended release RxNorm: 130322 1 Tablet(s) PO daily while on lasix 05/02/20182017 Inactive Lasix 20 mg tablet RxNorm: 727070 1 Tablet(s) PO daily 201705/06/2018 Inactive Cipro 500 mg tablet RxNorm: 684785 1 Tablet(s) PO BID 201705/07/2018 Inactive Cipro 500 mg tablet RxNorm: 626930 1 Tablet(s) PO BID 201704/27/2018 Inactive Bactrim DS 800 mg-160 mg tablet RxNorm: 750755 1 Tablet(s) PO BID 04/24/2018 04/30/2018 Inactive Colcrys 0.6 mg tablet RxNorm: 410253 2 now=1.2mg once then take 0.6mg 1 hour later x 1 Tablet(s) PO 04/18/2018 No Stop Date Active fluvoxamine 100 mg tablet RxNorm: 866292 1/2 Tablet(s) PO BID 04/18/2018 04/12/2019 Active Generic For:LUVOX 100 MG TABLET 10/21/2016 2:32:39 PM potassium chloride ER 10 mEq tablet,extended release RxNorm: 598014 1 Tablet(s) PO daily while on lasix 04/18/20182017 Inactive Xanax 0.25 mg tablet RxNorm: 197189 Tablet(s) PO TAKE 1 TABLET BY MOUTH EVERY 4-6 HOURS NEEDED FOR ANXIETY 04/18/2018 Inactive (Appended: Controlled substance eRx refill - RxReferenceNumber: [id number]|1|0|1) Lasix 20 mg tablet RxNorm: 1 Tablet(s) PO daily 201704/22/2018 Inactive prednisone 20 mg tablet RxNorm: 700584 2 Tablet(s) PO daily 05/201803/14/2018 Inactive phentermine 37.5 mg tablet RxNorm: 477403 1 Tablet(s) PO daily 01/20/2018 02/18/2018 Inactive Levaquin 500 mg tablet RxNorm: 567424 1 Tablet(s) PO daily 12/25/2017 Inactive levocetirizine 5 mg tablet RxNorm: 386990 1 Tablet(s) PO QPM 01/17/2018 Inactive Diflucan 150 mg tablet RxNorm: 261231 1 Tablet(s) PO daily 12/25/2017 Inactive phentermine 37.5 mg tablet RxNorm: 899584 1 Tablet(s) PO daily 11/17/2017 12/16/2017 Inactive prednisone 20 mg tablet RxNorm: 125146 2 Tablet(s) PO daily 11/21/2017 Inactive doxycycline hyclate 100 mg capsule RxNorm: 0987520 1 Capsule(s) PO BID 11/17/2017 11/26/2017 Inactive Kenalog 40 mg/mL suspension for injection RxNorm: 9654496 1 Milliliter(s) Inj 11/17/2017 11/17/2017 Inactive Lexapro 20 mg tablet RxNorm: 905414 Tablet(s) 1 Tablet(s) PO daily 03/15/2017 11/16/2017 Inactive phentermine 37.5 mg tablet RxNorm: 907407 1 Tablet(s) PO daily 03/09/2017 11/16/2017 Inactive Lexapro 20 mg tablet RxNorm: 592637 1 Tablet(s) PO daily 201603/14/2017 Inactive phentermine 37.5 mg tablet RxNorm: 743531 1 Tablet(s) PO daily 12/23/2016 01/21/2017 Inactive phentermine 37.5 mg tablet RxNorm: 070271 1 Tablet(s) PO daily 11/25/2016 12/22/2016 Inactive Lexapro 20 mg tablet RxNorm: 247681 1 Tablet(s) PO daily 201612/24/2016 Inactive Xanax 0.25 mg tablet RxNorm: 372402 Tablet(s) PO TAKE 1 TABLET BY MOUTH EVERY 4-6 HOURS NEEDED FOR ANXIETY 11/25/2016 Inactive (Appended: Controlled substance eRx refill - RxReferenceNumber: [id number]|1|0|1) Lexapro 10 mg tablet RxNorm: 696436 1 Tablet(s) PO daily 201611/24/2016 Inactive fluvoxamine 100 mg tablet RxNorm: 246696 TAKE 1/2 OF A TABLET BY MOUTH TWICE A DAY 10/21/2016 10/25/2016 Inactive Generic For:LUVOX 100 MG TABLET 10/21/2016 2:32 :39 PM Onzetra Xsail 11 mg powder for nasal inhalation RxNorm: 7210279 1 nosepiece in each nostril NASAL as needed migraine May repeat another full dose 2 hours after first. 06/16/2016 04/03/2018 Inactive Onzetra Xsail 11 mg powder for nasal inhalation RxNorm: 5583440 1 nosepiece in each nostril NASAL as needed migraine May repeat another full dose 2 hours after first. 06/11/2016 06/15/2016 Inactive Kenalog 40 mg/mL suspension for injection RxNorm: 1356388 Milliliter(s) Inj 06/01/2016 06/01/2016 Inactive Zithromax Z-Maikel 250 mg tablet RxNorm: 928886 1 Tablet(s) PO UD take zpack as directed 06/01/2016 06/10/2016 Inactive fluvoxamine 100 mg tablet RxNorm: 662324 TAKE 1/2 OF A TABLET BY MOUTH TWICE A DAY 05/31/2016 09/27/2016 Inactive Generic For:LUVOX 100 MG TABLET 05/31/2016 12: 42:28 PM Xanax 0.25 mg tablet RxNorm: 630064 Tablet(s) PO TAKE 1 TABLET BY MOUTH EVERY 4-6 HOURS NEEDED FOR ANXIETY 04/08/2016 Inactive (Appended: Controlled substance eRx refill - RxReferenceNumber: [id number]|1|0|1) fluvoxamine 100 mg tablet RxNorm: 167834 TAKE 1/2 OF A TABLET BY MOUTH TWICE A DAY 01/05/2016 05/03/2016 Inactive Generic For:LUVOX 100 MG TABLET 01/05/2016 9:37 :27 AM fluvoxamine 100 mg tablet RxNorm: 192426 TAKE 1/2 OF A TABLET BY MOUTH TWICE A DAY 12/02/2015 12/31/2015 Inactive Generic For:LUVOX 100 MG TABLET 12/02/2015 9:02 :44 AM N O T I C E PRESCRIPTION PREVIOUSLY AUTHORIZED BY DOCTOR:INDU ARAUZ Kenalog 40 mg/mL suspension for injection RxNorm: 7631702 1 Milliliter(s) Inj 11/10/2015 11/10/2015 Inactive doxycycline hyclate 100 mg tablet RxNorm: 683507 1 Tablet(s) PO BID 11/10/2015 10/25/2016 Inactive fluvoxamine 100 mg tablet RxNorm: 329635 TAKE 1/2 TABLET BY MOUTH TWICE DAILY 10/06/2015 11/04/2015 Inactive Generic For:LUVOX 100 MG TABLET text when ready 4:32:56 PM fluvoxamine 100 mg tablet RxNorm: 188746 Tablet(s) TAKE 1/2 TABLET BY MOUTH TWICE DAILY 10/02/2015 10/05/2015 Inactive 08/25/2015 5:28:36 PM fluvoxamine 100 mg tablet RxNorm: 405897 TAKE 1/2 TABLET BY MOUTH TWICE DAILY 08/26/2015 09/24/2015 Inactive 08/25/2015 5:28:36 PM fluvoxamine 100 mg tablet RxNorm: 104811 TAKE 1/2 TABLET BY MOUTH TWICE DAILY 07/24/2015 08/22/2015 Inactive 07/23/2015 1:15:44 PM Xanax 0.25 mg tablet RxNorm: 936287 Tablet(s) PO TAKE 1 TABLET BY MOUTH EVERY 4-6 HOURS NEEDED FOR ANXIETY 03/11/201503/2016 Inactive (Appended: Controlled [id number]|[id number]|1|0|1) fluvoxamine 100 mg tablet RxNorm: 701416 1/2 Tablet(s) PO BID 03/11/2015 07/08/2015 Inactive fluvoxamine ER 100 mg capsule,extended release 24 hr RxNorm: 426011 1 Tablet(s) PO BID 02/05/2015 03/10/2015 Inactive fluvoxamine 100 mg tablet RxNorm: 400416 1 Tablet(s) PO BID 06/201502/04/2015 Inactive fluvoxamine ER 100 mg capsule,extended release 24 hr RxNorm: 148556 TAKE ONE CAPSULE BY MOUTH EVERY DAY 07/17/201405/2015 Inactive fluvoxamine ER 100 mg capsule,extended release 24 hr RxNorm: 690949 TAKE ONE CAPSULE BY MOUTH EVERY DAY 04/15/201408/2014 Inactive Xanax 0.25 mg tablet RxNorm: 171410 1 Tablet(s) PO Q4-6H TAKE 1 TABLET BY MOUTH EVERY 4 TO 6 HOURS NEEDED FOR ANXIETY 01/28/2014 No Stop Date Active (Appended: Controlled substance eRx refill - RxReferenceNumber: [id number]|[id number]|1|0|1) Xanax 0.25 mg tablet RxNorm: 248781 Tablet(s) PO TAKE 1 TABLET BY MOUTH EVERY 4-6 HOURS NEEDED FOR ANXIETY 01/28/201405/2015 Inactive (Appended: Controlled substance eRx refill - RxReferenceNumber: [id number]|1|0|1) fluvoxamine ER 100 mg capsule,extended release 24 hr RxNorm: 251488 1 Capsule(s) PO daily TAKE ONE CAPSULE BY MOUTH EVERY DAY 12/13/2013 04/11/2014 Inactive fluvoxamine ER 100 mg capsule,extended release 24 hr RxNorm: 201417 Capsule(s) PO TAKE ONE CAPSULE BY MOUTH EVERY DAY 12/13/2013 12/12/2013 Inactive Tessalon 200 mg capsule RxNorm: 119649 1 Capsule(s) PO Q8 PRN 11/19/2013 11/09/2015 Inactive fluvoxamine ER 100 mg capsule,extended release 24 hr RxNorm: 156664 1 Capsule(s) PO daily TAKE ONE CAPSULE BY MOUTH EVERY DAY 11/07/2013 12/12/2013 Inactive Zithromax Z-Maikel 250 mg tablet RxNorm: 331841 1 Tablet(s) PO as doctor directed take zpack as directed 11/07/2013 No Stop Date Active Xanax 0.25 mg tablet RxNorm: 593580 Tablet(s) PO TAKE 1 TABLET BY MOUTH EVERY 4 TO 6 HOURS NEEDED FOR ANXIETY 09/24/2013 01/28/2014 Inactive (Appended: Controlled substance eRx refill - RxReferenceNumber: [id number]|1|0|1) fluvoxamine ER 100 mg capsule,extended release 24 hr RxNorm: 889706 1 Capsule(s) PO daily 09/06/2013 09/05/2013 Inactive fluvoxamine ER 100 mg capsule,extended release 24 hr RxNorm: 254324 Capsule(s) PO TAKE ONE CAPSULE BY MOUTH EVERY DAY 09/06/2013 11/06/2013 Inactive Kenalog 40 mg/mL Susp for Injection RxNorm: 2659373 Milliliter(s) Inj 05/17/2013 05/17/2013 Inactive Zithromax Z-Maikel 250 mg tablet RxNorm: 098053 Tablet(s) PO UD No Stop Date Active fluvoxamine ER 100 mg capsule,extended release 24 hr RxNorm: 334714 1 Capsule(s) PO daily 05/09/2013 09/05/2013 Inactive Kenalog 40 mg/mL Susp for Injection RxNorm: 0111323 1 Milliliter(s) Inj 10/06/2012 10/06/2012 Inactive Zithromax Z-Maikel 250 mg tablet RxNorm: 269804 Tablet(s) PO UD No Stop Date Active baclofen 10 mg Tab RxNorm: 145837 1 Tablet(s) PO TID PRN 02/27/2012 Inactive hydrocodone-acetaminophen 7.5 mg-325 mg Tab RxNorm: 2703052 1 Tablet(s) PO Q6 PRN 1 tab q 6hrs prn 09/01/2011 09/15/2011 Inactive Butrans 10 mcg/hour Transderm Patch RxNorm: 271944 1 Patch TD QW 09/01/2011 11/29/2011 Inactive hydrocodone-acetaminophen 7.5 mg-325 mg Tab RxNorm: 3220550 1 Tablet(s) PO Q6 PRN 1 tab q 6hrs prn 08/25/2011 08/31/2011 Inactive Neurontin 600 mg Tab RxNorm: 995716 Tablet(s) PO 1 tab tid and 2 at hs 08/24/2011 11/09/2015 Inactive TAKE 1 TABLET BY MOUTH THREE TIMES DAILY AND 2 TABLETS BY MOUTH EVERY NIGHT AT BEDTIME Neurontin 600 mg Tab RxNorm: 963321 1 Tablet(s) PO TID 1 tab tid and 2 at hs 08/24/2011 08/23/2011 Inactive Neurontin 600 mg Tab RxNorm: 340722 1 Tablet(s) PO TID 1 tab tid and 2 at hs 08/24/2011 08/23/2011 Inactive hydrocodone-acetaminophen 7.5 mg-325 mg Tab RxNorm: 2036367 1 Tablet(s) PO Q6 PRN 1 tab q 6hrs prn 08/05/2011 08/19/2011 Inactive Vimovo 500 mg-20 mg multiphase, immed & delay rel Tab RxNorm: 995201 1 Tablet(s) PO BID 08/04/2011 07/23/2013 Inactive hydrocodone-acetaminophen 7.5 mg-325 mg Tab RxNorm: 7763502 1 Tablet(s) PO Q6 PRN 1 tab q 6hrs prn 07/20/2011 08/03/2011 Inactive hydrocodone-acetaminophen 7.5 mg-325 mg Tab RxNorm: 8294645 1 Tablet(s) PO Q6 PRN 1 tab q 6hrs prn 06/28/2011 07/12/2011 Inactive Bactrim DS 800 mg-160 mg Tab RxNorm: 414253 1 Tablet(s) PO BID 06/10/2011 06/16/2011 Inactive hydrocodone-acetaminophen 7.5 mg-325 mg Tab RxNorm: 0277329 1 Tablet(s) PO Q6 PRN 1 tab q 6hrs prn 06/02/2011 06/01/2011 Inactive hydrocodone-acetaminophen 7.5 mg-325 mg Tab RxNorm: 1816006 1 Tablet(s) PO Q6 PRN 1 tab q 6hrs prn 06/02/2011 06/16/2011 Inactive triamcinolone acetonide 40 mg/mL Susp for Injection RxNorm: 4014193 2 Milliliter(s ) Inj 05/28/2011 05/28/2011 Inactive Nasonex 50 mcg/Actuation [place] RxNorm: 040047 1 [place] NASAL daily No Start Date Active Tessalon 200 mg capsule RxNorm: 970852 1 Capsule(s) PO Q8 PRN No Start Date 11/18/2013 Inactive hydrocodone-acetaminophen 7.5 mg-325 mg Tab RxNorm: 3254582 1 Tablet(s) PO Q6 PRN 1 tab q 6hrs prn No Start Date 06/01/2011 Inactive Neurontin 600 mg Tab RxNorm: 357937 1 Tablet(s) PO TID 1 tab tid and 2 at hs No Start Date 08/23/2011 Inactive Xanax 0.25 mg tablet RxNorm: 156279 Tablet(s) PO PRN No Start Date 09/24/2013 Inactive niacin ER 500 mg Tab RxNorm: 792224 1 Tablet(s) PO QHS No Start Date 11/09/2015 Inactive Colcrys 0.6 mg tablet RxNorm: 331343 2 now=1.2mg once then take 0.6mg 1 hour later x 1 Tablet(s) PO No Start Date 04/17/2018 Inactive Onzetra Xsail 11 mg powder for nasal inhalation RxNorm: 9405451 1 nosepiece in each nostril NASAL as needed migraine May repeat another full dose 2 hours after first. No Start Date 06/10/2016 Inactive Zithromax Z-Maikel 250 mg tablet RxNorm: 194685 Tablet(s) PO No Start Date 06/01/2011 Inactive melatonin 3 mg Tab RxNorm: 305892 1 Tablet(s) PO QHS No Start Date 11/09/2015 Inactive Medication Administered Medication Codes Instructions Start Date Status Kenalog 40 mg/mL suspension for injection RxNorm: 0696592 1Milliliter 11/17/2017 No longer Active Kenalog 40 mg/mL suspension for injection RxNorm: 2012768 Milliliter 06/01/2016 No longer Active Kenalog 40 mg/mL suspension for injection RxNorm: 6543832 1Milliliter 11/10/2015 No longer Active Kenalog 40 mg/mL Susp for Injection RxNorm: 3504718 Milliliter 05/17/2013 No longer Active Kenalog 40 mg/mL Susp for Injection RxNorm: 0295189 1Milliliter 10/06/2012 No longer Active triamcinolone acetonide 40 mg/mL Susp for Injection RxNorm: 8971085 2Milliliter 05/28/2011 No longer Active Immunizations No Immunization data Assessments Condition Codes Effective Dates Generalized anxiety disorder ICD-10: F41.1 ICD-9: 300.02 05/05/2018 Family history of ischemic heart disease and other diseases of the circulatory system ICD-10: Z82.49 ICD-9: V17.3 05/05/2018 Pain in right ankle and joints of right foot ICD-10: M25.571 ICD-9: 719.47 05/05/2018 Localized edema ICD-10: R60.0 ICD-9: 782.3 05/05/2018 Pain in left ankle and joints of left foot ICD-10: M25.572 ICD-9: 719.47 05/05/2018 Dysuria ICD-10: R30.0 ICD-9: 788.1 04/24/2018 Other muscle spasm ICD-10: M62.838 ICD-9: 728.85 [...] Visit Reason For Visit Effective Dates Notes edema 05/05/2018 edema 04/18/2018 edema 03/10/2018 sinus congestion 12/19/2017 sinus congestion 11/17/2017 medication follow up 11/25/2016 anxiety 10/26/2016 cough 06/01/2016 sore throat 11/10/2015 medication follow up 10/02/2015 medication follow up 11/07/2013 cough 05/17/2013 anxiety 05/09/2013 cough 10/06/2012 spasms/spasticity 09/01/2011 hip pain 08/04/2011 sore throat 05/28/2011 Results Observation Observation Code Item Item Code Result Date Rae 164079 RAE (SRINIVASAN) SCREEN NONE DETECTED 05/08/2018 Cbc With Differential Ord2 WBC 8.92 K/ul 05/05/2018 Cbc With Differential Ord2 RBC 4.70 M/ul 05/05/2018 Cbc With Differential Ord2 HGB 15.3 g/dl 05/05/2018 Cbc With Differential Ord2 HCT 45.6 % 05/05/2018 Cbc With Differential Ord2 Neut% 62.8 % 05/05/2018 Cbc With Differential Ord2 MCV 97.0 fl 05/05/2018 Cbc With Differential Ord2 Lymph% 30.3 % 05/05/2018 Cbc With Differential Ord2 [place]% 5.2 % 05/05/2018 Cbc With Differential Ord2 MCH 32.6 pg 05/05/2018 Cbc With Differential Ord2 Eos% 1.5 % 05/05/2018 Cbc With Differential Ord2 MCHC 33.6 pg 05/05/2018 Cbc With Differential Ord2 Baso% 0.2 % 05/05/2018 Cbc With Differential Ord2 PLT 267 K/ul 05/05/2018 Cbc With Differential Ord2 RDW 12.5 % 05/05/2018 Cbc With Differential Ord2 Neut ABS# 5.61 K/ul 05/05/2018 Cbc With Differential Ord2 Lymph ABS# 2.70 K/ul 05/05/2018 Cbc With Differential Ord2 [place] ABS# 0.5 K/ul 05/05/2018 Cbc With Differential Ord2 Eos ABS# 0.1 K/ul 05/05/2018 Cbc With Differential Ord2 Baso ABS# 0.0 K/ul 05/05/2018 Ra Factor Zdx215 RA FACTOR <10 IU/ml 05/05/2018 Sed Rate Ord21 ESR 3 mm/hr 05/05/2018 Comp Metabolic Qvb953 NA 139 mEq/L 05/05/2018 Comp Metabolic Svw621 K 3.5 mEq/L 05/05/2018 Comp Metabolic Tmr488 CL 101 mEq/L 05/05/2018 Comp Metabolic Mje143 CO2 30.0 mEq/L 05/05/2018 Comp Metabolic Kjt722 ANION GAP 12 05/05/2018 Comp Metabolic Bdx500 GLUCOSE 104 mg/dL 05/05/2018 Comp Metabolic Auj451 Creat 0.9 mg/dL 05/05/2018 Comp Metabolic Oab637 eGFR 77 ml/min/1.73m2 05/05/2018 Comp Metabolic Qvv286 BUN 6 mg/dL 05/05/2018 Comp Metabolic Jmc108 B/C Ratio 6.8 Ratio 05/05/2018 Comp Metabolic Ubn452 CALCIUM 9.3 mg/dL 05/05/2018 Comp Metabolic Agr971 ALK PHOS 71 U/L 05/05/2018 Comp Metabolic Oqf450 AST(SGOT) 20 U/L 05/05/2018 Comp Metabolic Qjo355 ALT(SGPT) 21 U/L 05/05/2018 Comp Metabolic Izm721 BILI T 0.4 mg/dL 05/05/2018 Comp Metabolic Dpb035 ALBUMIN 4.2 g/dL 05/05/2018 Comp Metabolic Dpp174 TPRO 6.6 g/dL 05/05/2018 Comp Metabolic Jam378 GLOB 2.4 g/dL 05/05/2018 Comp Metabolic Fcc346 A/G Ratio 1.8 Ratio 05/05/2018 Comp Metabolic Nib559 Osmo 275 mOsmo 05/05/2018 C-Reactive Protein Qnt Crqnt CRP 0.2 mg/dl 05/05/2018 Culture Urine [id number] URINE CULTURE SEE NOTES 04/27/2018 Culture Urine [id number] Continued Results 04/27/2018 Steele Spotted Fever Igg/Igm [id number] DARLENE MT SPOTTED FEVER IGM EIA . 04/25/2018 [place] Spotted Fever Igg/Igm [id number] RMSF, IGM 0.56 index 04/25/2018 [place] Spotted Fever Igg/Igm 388784 DARLENE MT SPOTTED FEVER IGG EIA FLEX . 04/25/2018 [place] Spotted Fever Igg/Igm [id number] RMSF, IGG SCREEN-FLEX Negative 04/25/2018 Urine Culture Ucult Complete >100,000 col/ml aerobic growth sent to ref lab 04/25/2018 Ehrlichia Chaffeensis Antibody Igm [id number] EHRLICHIA CHAFFEENSIS IGM < 1:16 04/24/2018 Ehrlichia Chaffeensis Antibody Igg [id number] EHRLICHIA CHAFFEENSIS IGG <1:64 04/24/2018 Lymes Disease Total Antibodies With Western Blot Reflex [id number] B. BURGDORFERI, IGG/IGM 0.34 04/20/2018 Lymes Disease Total Antibodies With Western Blot Reflex [id number] INTERPRETATION 04/20/2018 Magnesium Ord90 Mag 1.9 mg/dL 04/19/2018 Tsh Ord6 TSH (3rd IS) 0.76 uIU/mL 04/19/2018 Cbc With Differential Ord2 WBC 8.57 K/ul 04/19/2018 Cbc With Differential Ord2 RBC 4.62 M/ul 04/19/2018 Cbc With Differential Ord2 HGB 15.1 g/dl 04/19/2018 Cbc With Differential Ord2 Neut% 54.2 % 04/19/2018 Cbc With Differential Ord2 HCT 43.5 % 04/19/2018 Cbc With Differential Ord2 MCV 94.2 fl 04/19/2018 Cbc With Differential Ord2 Lymph% 35.5 % 04/19/2018 Cbc With Differential Ord2 MCH 32.7 pg 04/19/2018 Cbc With Differential Ord2 [place]% 8.3 % 04/19/2018 Cbc With Differential Ord2 Eos% 1.6 % 04/19/2018 Cbc With Differential Ord2 MCHC 34.7 pg 04/19/2018 Cbc With Differential Ord2 PLT 225 K/ul 04/19/2018 Cbc With Differential Ord2 Baso% 0.4 % 04/19/2018 Cbc With Differential Ord2 Neut ABS# 4.65 K/ul 04/19/2018 Cbc With Differential Ord2 RDW 12.4 % 04/19/2018 Cbc With Differential Ord2 Lymph ABS# 3.04 K/ul 04/19/2018 Cbc With Differential Ord2 [place] ABS# 0.7 K/ul 04/19/2018 Cbc With Differential Ord2 Eos ABS# 0.1 K/ul 04/19/2018 Cbc With Differential Ord2 Baso ABS# 0.0 K/ul 04/19/2018 Uric Acid Ord77 Uric A 4.7 mg/dL 04/19/2018 Free T4 Kfb063 FREE T4 0.95 ng/dL 04/19/2018 Comp Metabolic Vqz548 NA 136 mEq/L 04/19/2018 Comp Metabolic Ylw563 K 3.4 mEq/L 04/19/2018 Comp Metabolic Jey402 CL 104 mEq/L 04/19/2018 Comp Metabolic Kpe351 CO2 23.0 mEq/L 04/19/2018 Comp Metabolic Zej006 ANION GAP 12 04/19/2018 Comp Metabolic Ngu550 GLUCOSE 89 mg/dL 04/19/2018 Comp Metabolic Ebb097 Creat 0.6 mg/dL 04/19/2018 Comp Metabolic Bli125 eGFR 129 ml/min/1.73m2 04/19/2018 Comp Metabolic Wyo764 BUN 7 mg/dL 04/19/2018 Comp Metabolic Tqq566 B/C Ratio 12.5 Ratio 04/19/2018 Comp Metabolic Roo555 CALCIUM 9.2 mg/dL 04/19/2018 Comp Metabolic Sbq191 ALK PHOS 62 U/L 04/19/2018 Comp Metabolic Ffj286 AST(SGOT) 23 U/L 04/19/2018 Comp Metabolic Eue974 ALT(SGPT) 27 U/L 04/19/2018 Comp Metabolic Uks892 BILI T 0.6 mg/dL 04/19/2018 Comp Metabolic Tdz417 ALBUMIN 4.1 g/dL 04/19/2018 Comp Metabolic Stu358 TPRO 6.5 g/dL 04/19/2018 Comp Metabolic Jnd022 GLOB 2.4 g/dL 04/19/2018 Comp Metabolic Ufq546 A/G Ratio 1.7 Ratio 04/19/2018 Comp Metabolic Pnp378 Osmo 269 mOsmo 04/19/2018 Review of Systems System Result Effective Dates Constitutional recent illness 05/05/2018 Constitutional No anorexia [...] normal 05/05/2018 None Full Exam - General 1995 Ears/Nose/Throat lips/teeth/gingiva Overall: benign lips 05/05/2018 None [...] time 05/05/2018 None Full Exam - General 1994 Psychiatric behavior/psychomotor activity Behavior: gestures 05/05/2018 None Full Exam - General 1994 Psychiatric behavior/psychomotor activity Behavior: hyperactivity 05/05/2018 None Full Exam - General 1994 Psychiatric behavior/psychomotor activity Behavior: agitation/restlessness 05/05/2018 None Full Exam - General 1994 Psychiatric behavior/psychomotor activity Psychomotor activity: psychomotor agitation 05/05/2018 None Full Exam - General 1994 Psychiatric mood and affect Mood: anxious 05/05/2018 None Full Exam - General 1994 Psychiatric mood and affect Mood: irritable 05/05/2018 None Full Exam - General 1994 Psychiatric mood and affect Mood: labile mood 05/05/2018 None Full Exam - General 1994 [...] 04/18/2018 None Full Exam - General 1994 Ears/Nose/Throat lips/teeth/gingiva Overall: benign lips 04/18/2018 None Full Exam - General 1994 Ears/Nose/Throat [...] disheveled 04/18/2018 None Full Exam - General 1994 Psychiatric speech Quantity: excessive speech 04/18/2018 None Full Exam - General 1994 Psychiatric speech Rate of production: rapid 04/18/2018 None Full Exam - General 1994 Psychiatric thought Form of thought: flight of ideas 04/18/2018 None Full Exam - General 1994 Psychiatric cognition/memory Overall: immediate, recent, remote memory intact 04/18/2018 None Full Exam - General 1994 Constitutional general appearance Overall: well developed 03/10/2018 [...] accomodation 05/09/2013 None Full Exam - General 1994 Respiratory auscultation Overall: breath sounds clear bilaterally 05/09/2013 None Full Exam - General 1994 Respiratory respiratory effort/rhythm Overall: no retractions 05/09/2013 [...] tenderness 05/09/2013 None Full Exam - General 1994 [...] Codes Date URINALYSIS NONAUTO W/O SCOPE CPT-4: 20218 04/24/2018 THER/PROPH/DIAG INJ SC/IM CPT-4: 53089 11/17/2017 TRIAMCINOLONE ACET INJ NOS CPT-4: J3301 11/17/2017 TRIAMCINOLONE ACET INJ NOS CPT-4: J3301 06/01/2016 TRIAMCINOLONE ACET INJ NOS CPT-4: J3301 11/10/2015 TRIAMCINOLONE ACET INJ NOS CPT-4: J3301 05/17/2013 TRIAMCINOLONE ACET INJ NOS CPT-4: J3301 10/06/2012 TRIAMCINOLONE ACET INJ NOS CPT-4: J3301 08/04/2011 THER/PROPH/DIAG INJ SC/IM CPT-4: 85294 08/04/2011 THER/PROPH/DIAG INJ SC/IM CPT-4: 45553 05/28/2011 TRIAMCINOLONE ACET INJ NOS CPT-4: J3301 05/28/2011 Vital Signs Date Vital 05/05/2018 Blood Pressure 1: 11074 Code : 8480-6 BMI: 34.7 Code : 41431-5 Heart Rate 1 : 83 bpm Height: 5'4" SpO2: 99% Weight: 202 lbs 04/18/2018 Blood Pressure 1: 124/74 Code : 8480-6 Heart Rate 1: 98 bpm Height: SpO2: 98% Weight: 03/10/2018 Blood Pressure 1: 12472 Code : 8480-6 BMI: 38.1 Code : 42811-2 Heart Rate 1 : 82 bpm Height: 5'4" SpO2: 98% Weight: 222 lbs 01/20/2018 Blood Pressure 1: 11678 Code : 8480-6 BMI: 38.3 Code : 83018-7 Heart Rate 1 : 97 bpm Height: 5'4" SpO2: 97% Weight: 223 lbs 12/19/2017 Blood Pressure 1: 12674 Code : 8480-6 BMI: 39.3 Code : 58649-7 Heart Rate 1 : 84 bpm Height: 5'4" SpO2: 97% Weight: 229 lbs 11/17/2017 Blood Pressure 1: 122/82 Code : 8480-6 BMI: 38.8 Code : 64862-6 Heart Rate 1 : 87 bpm Height: 5'4" SpO2: 98% Weight: 226 lbs 03/09/2017 Blood Pressure 1: 116/72 Code : 8480-6 BMI: 35.9 Code : 30763-2 Heart Rate 1 : 90 bpm Height: 5'4" Weight: 209 lbs 12/23/2016 Blood Pressure 1: 132/86 Code : 8480-6 BMI: 34.7 Code : 36894-6 Heart Rate 1 : 83 bpm Height: 5'4" SpO2: 98% Weight: 202 lbs 11/25/2016 Blood Pressure 1: 102/68 Code : 8480-6 BMI: 34.3 Code : 13351-4 Heart Rate 1 : 80 bpm Height: 5'4" SpO2: 97% Weight: 200 lbs 10/26/2016 Blood Pressure 1: 138/78 Code : 8480-6 BMI: 33.6 Code : 24104-2 Heart Rate 1 : 80 bpm Height: 5'4" SpO2: 99% Weight: 196 lbs 06/01/2016 Blood Pressure 1: 130/80 Code : 8480-6 BMI: 31.1 Code : 60120-7 Heart Rate 1 : 97 bpm Height: 5'4" SpO2: 99% Temperature: 36.9 (C) / 98.5 (F) Weight: 181 lbs 11/10/2015 Blood Pressure 1: 122/74 Code : 8480-6 BMI: 30.4 Code : 21165-8 Heart Rate 1 : 72 bpm Height: 5'4" Temperature: 36.8 (C) / 98.3 (F) Weight: 177 lbs 10/02/2015 Blood Pressure 1: 106/68 Code : 8480-6 BMI: 30.4 Code : 96568-6 Heart Rate 1 : 90 bpm Height: 5'4" SpO2: 96% Weight: 177 lbs 11/07/2013 Blood Pressure 1: 136/78 Code : 8480-6 Heart Rate 1: 72 bpm Temperature: 36.1 (C) / 96.9 (F) Weight: 219 lbs 05/17/2013 Blood Pressure 1: 112/68 Code : 8480-6 BMI: 35.0 Code : 20075-9 Heart Rate 1 : 80 bpm Height: 5'4" Temperature: 36.6 (C) / 97.9 (F) Weight: 204 lbs 05/09/2013 Blood Pressure 1: 106/66 Code : 8480-6 BMI: 34.8 Code : 00675-6 Heart Rate 1 : 88 bpm Height: 5'4" Weight: 203 lbs 10/06/2012 Blood Pressure 1: 108/68 Code : 8480-6 Heart Rate 1: 80 bpm Respiratory Rate : 16 bpm Temperature: 36.6 (C) / 97.9 (F) Weight: 204 lbs 09/01/2011 Blood Pressure 1: 140/94 Code : 8480-6 BMI: 34.8 Code : 04746-9 Heart Rate 1 : 76 bpm Height: 5'4" Respiratory Rate: 16 bpm Weight: 203 lbs 08/04/2011 Blood Pressure 1: 112/84 Code : 8480-6 BMI: 32.8 Code : 58543-4 Heart Rate 1 : 76 bpm Height: 5'6" Respiratory Rate: 16 bpm Weight: 200 lbs 05/28/2011 Blood Pressure 1: 107/74 Code : 8480-6 BMI: 34.1 Code : 61428-2 Heart Rate 1 : 80 bpm Height: 5'4" Weight: 202 lbs Functional Status No Functional Status data History of Present Illness Symptom Name Status Result Effective Date Notes edema Onset and Resolution ongoing 05/05/2018 None [...] data Encounters Encounter Performer Location Codes Date () EST. PATIENT, LEVEL III Diagnosis: Localized edema[ICD10: R60.0] Diagnosis: Pain in right ankle and joints of right foot[ICD10: M25.571] Diagnosis: Pain in left ankle and joints of left foot[ICD10: M25.572] Diagnosis: Generalized anxiety disorder[ICD10: F41.1] Diagnosis: Family history of ischemic heart disease and other diseases of the circulatory system[ICD10: Z82.49] Zoey Jay MD, [facility] CPT-4: 47558 05/05/2018 22101 EST. PATIENT, LEVEL IV Diagnosis: Localized edema[ICD10: R60.0] Diagnosis: Other muscle spasm[ICD10: M62.838] Diagnosis: Other fatigue[ICD10: R53.83] Diagnosis: Other malaise[ICD10: R53.81] Diagnosis: Dysuria[ICD10: R30.0] Diagnosis: Other obsessive-compulsive disorder[ICD10: F42.8] Diagnosis: Generalized anxiety disorder[ICD10: F41.1] Indu Jay MD, [facility] CPT-4: 07826 04/18/2018 30179 EST. PATIENT, LEVEL IV Diagnosis: Pain in left lower leg[ICD10: M79.662] Diagnosis: Localized swelling, mass and lump, left lower limb[ICD10: R22.42] Indu Jay MD, [facility] CPT-4: 11332 03/10/2018 ([id number]) Miscellaneous no charge Diagnosis: Other obesity due to excess calories[ICD10: E66.09] Indu Jay MD, [facility] CPT-4: 27076 01/20/2018 59047 EST. PATIENT, LEVEL IV Diagnosis: Other acute sinusitis[ICD10: J01.80] Diagnosis: Other allergic rhinitis[ICD10: J30.89] Indu Jay MD, [facility] CPT-4: 85591 12/19/2017 71649 EST. PATIENT, LEVEL IV Diagnosis: Other acute sinusitis[ICD10: J01.80] Diagnosis: Other allergic rhinitis[ICD10: J30.89] Diagnosis: Pelvic and perineal pain[ICD10: R10.2] Indu Jay MD, [facility] CPT-4: 57997 11/17/2017 ([id number]) Miscellaneous no charge Diagnosis: Other obesity due to excess calories[ICD10: E66.09] Indu Jay MD, [facility] CPT-4: 48711 03/09/2017 ([id number]) Miscellaneous no charge Diagnosis: Other obesity due to excess calories[ICD10: E66.09] Indu Jay MD, [facility] CPT-4: 39123 12/23/2016 11392 EST. PATIENT, LEVEL III Diagnosis: Generalized anxiety disorder[ICD10: F41.1] Diagnosis: Other obesity due to excess calories[ICD10: E66.09] Diagnosis: Mixed obsessional thoughts and acts[ICD10: F42.2] Indu Jay MD, [facility] CPT-4: 41901 11/25/2016 16406 EST. PATIENT, LEVEL IV Diagnosis: Generalized anxiety disorder[ICD10: F41.1] Diagnosis: Mixed obsessional thoughts and acts[ICD10: F42.2] Indu Jay MD, [facility] CPT-4: 59496 10/26/2016 ([id number]) 36219 EST. PATIENT, LEVEL III Diagnosis: Allergic rhinitis due to pollen[ICD10: J30.1] Diagnosis: Migraine, unspecified, not intractable, without status migrainosus[ ICD10: G43.909] Diagnosis: Acute recurrent maxillary sinusitis[ICD10: J01.01] Zoey Jay MD, [facility] CPT-4: 34197 06/01/2016 ([id number]) 23116 EST. PATIENT, LEVEL III Diagnosis: Acute recurrent maxillary sinusitis[ICD10: J01.01] Zoey Jay MD, [facility] CPT-4: 60587 11/10/2015 73083 EST. PATIENT, LEVEL III Diagnosis: Obsessive-compulsive disorder[ICD10: F42] Diagnosis: Generalized anxiety disorder[ICD10: F41.1] Indu Jay MD, [facility] CPT-4: 33839 10/02/2015 ([id number]) 47759 EST. PATIENT, LEVEL III Diagnosis: ACUTE SINUSITIS[ICD9: 461.9] Diagnosis: COUGH[ICD9: 786.2] Lachelle Jay MD, [facility] CPT-4: 47221 11/07/2013 ([id number]) 48378 EST. PATIENT, LEVEL III Diagnosis: Acute maxillary sinusitis[ICD9: 461.0] Diagnosis: COUGH[ICD9: 786.2] Lachelle Jay MD, [facility] CPT-4: 92045 05/17/2013 ([id number]) 36310 EST. PATIENT, LEVEL III Diagnosis: Obsessive compulsive disorder[ICD9: 300.3] Diagnosis: Anxiety, generalized[ICD9: 300.02] Lachelle Jay MD, [facility] CPT-4: 82086 05/09/2013 ([id number]) 58440 EST. PATIENT, LEVEL III Diagnosis: ACUTE SINUSITIS[ICD9: 461.9] Zoey Jay MD, [facility] CPT-4: 38201 10/06/2012 75546 EST. PATIENT, LEVEL IV Diagnosis: Leg pain[ICD9: 729.5] Diagnosis: Sciatica[ICD9: 724.3] Diagnosis: LUMBAGO[ICD9: 724.2] Diagnosis: Back muscle spasm[ICD9: 724.8] Lachelle Jay MD, [facility] CPT- 4: 71958 09/01/2011 57057 EST. PATIENT, LEVEL III Diagnosis: LUMBAGO[ICD9: 724.2] Diagnosis: Sciatica[ICD9: 724.3] Diagnosis: Leg pain[ICD9: 729.5] [facility] CPT-4: 83724 08/04/2011 79766 EST. PATIENT, LEVEL III Diagnosis: ACUTE SINUSITIS[ICD9: 461.9] Diagnosis: Allergic rhinitis[ICD9: 477.9] Zoey Jay MD, [facility] CPT-4: 45931 05/28/2011 Plan of Care Planned Activity Notes Codes Status Date Appointment: Indu Arauz WPtel: [address] [place], [place] [phone] [place] (15 min) Moderate 05/11/2018 Appointment: Zoey Sinha WPtel: [phone] [phone] [place] (15 min) Moderate 05/05/2018 Patient Education: Patient Medication Summary Completed 05/05/2018 Appointment: Lab Draw 04/24/2018 Patient Education: Patient Medication Summary Completed 04/24/2018 Appointment: Indu Arauz WPtel: [facility] [place] (30 min) Complex 04/18/2018 Patient Education: Patient Medication Summary Completed 04/18/2018 Care Plan: VASCULAR STUDY Pending 04/12/2018 Appointment: Indu Aruaz WPtel: [address] [place], [place] [phone] [place] (15 min) Moderate 03/10/2018 Patient Education: Patient Medication Summary Completed 03/10/2018 Appointment: (15 min) Moderate 02/14/2018 Appointment: Nurse Visit 01/23/2018 Appointment: Nurse Visit 01/20/2018 Patient Education: Patient Medication Summary Completed 01/20/2018 Appointment: Indu Arauz WPtel: [facility] [place] (15 min) Moderate 12/19/2017 Patient Education: Patient Medication Summary Completed 12/19/2017 Appointment: Indu Arauz WPtel: [address] [place], [place] [phone] (30 min) Complex 11/17/2017 Patient Education: Patient Medication Summary Completed 11/17/2017 Appointment: Nurse Visit 03/09/2017 Patient Education: Patient Medication Summary Completed 03/09/2017 Patient Education: Obesity Completed 03/09/2017 Appointment: Nurse Visit 12/23/2016 Patient Education: Patient Medication Summary Completed 12/23/2016 Patient Education: Obesity Completed 12/23/2016 Appointment: Indu Arauz WPtel: [facility] [place] (30 min) Complex 11/25/2016 Patient Education: Patient Medication Summary Completed 11/25/2016 Patient Education: Obesity Completed 11/25/2016 [phone] ([facility]) Complex 10/26/2016 Patient Education: Patient Medication Summary Completed 10/26/2016 Patient Education: Patient Medication Summary Completed 06/01/2016 Appointment: Zoey Sinha WPtel: [phone] [phone] (10 min) Simple 11/10/2015 Patient Education: Patient Medication Summary Completed 11/10/2015 Appointment: (30 min) Complex 10/02/2015 Patient Education: Patient Medication Summary Completed 10/02/2015 Appointment: Follow up 11/14/2014 Appointment: Lachelle Jay WPtel: [address] [place], [place] [phone] Follow up 11/07/2013 Patient Education: Patient Medication Summary Completed 11/07/2013 Appointment: Lachelle Jay WPtel: [address] [place], [place] [phone] Sick 11/01/2013 Appointment: Zoey Sinha WPtel: [phone] Sick 05/17/2013 Patient Education: Patient Medication Summary Completed 05/17/2013 Appointment: Lachelle Jay WPtel: [address] [place], [place] [phone] Other 05/09/2013 Patient Education: Patient Medication Summary Completed 05/09/2013 Appointment: Zoey Sinha WPtel: [address] [place], [place] [phone] Other 10/06/2012 Patient Education: Patient Medication Summary Completed 10/06/2012 Appointment: Lachelle Jay WPtel: [address] [place], [place] [phone] Other 09/01/2011 Appointment: Lachelle Jay WPtel: [address] [place], [place] [phone] Other 09/01/2011 Patient Education: Patient Medication Summary Completed 09/01/2011 [phone] [facility] 08/04/2011 Patient Education: Patient Medication Summary Completed 08/04/2011 Patient Education: Sciatica Completed 08/04/2011 [facility]ment[phone] [phone] Other 05/28/2011 Patient Education: Patient Medication Summary Completed 05/28/2011 Instructions No Instructions
[2018-09-26 03:14] LABS: BASOPHILS % (AUTO) 0 % (0-10); EOSINOPHILS # (AUTO) 0.1 10^3/uL (0.0-0.3); EOSINOPHILS % (AUTO) 1 % (0-10); HEMATOCRIT 41 % (35-52); HEMOGLOBIN 13.8 G/DL (11.5-16.0); LYMPHOCYTES # (AUTO) 3.1 X 10^3 (1.0-4.0); LYMPHOCYTES % (AUTO) 35 % (12-44); MEAN CORPUSCULAR HEMOGLOBIN 31 PG (25-34); MEAN CORPUSCULAR HGB CONC 34 G/DL (32-36); MEAN CORPUSCULAR VOLUME 91 FL (80-99); MEAN PLATELET VOLUME 9.5 FL (7.4-10.4); MONOCYTES # (AUTO) 0.7 X 10^3 (0.0-1.0); MONOCYTES % (AUTO) 8 % (0-12); NEUTROPHILS # (AUTO) 4.9 X 10^3 (1.8-7.8); NEUTROPHILS % (AUTO) 56 % (42-75); PLATELET COUNT 286 10^3/uL (130-400); RED CELL DISTRIBUTION WIDTH 12.7 % (10.0-14.5); WHITE BLOOD COUNT 8.7 10^3/uL (4.3-11.0)
[2018-09-26 03:25] LABS: BILIRUBIN,URINE NEGATIVE (NEGATIVE); CLARITY,URINE SLIGHTLY CLOUDY; COLOR,URINE YELLOW; GLUCOSE, URINE (UA) NEGATIVE (NEGATIVE); KETONES,URINE NEGATIVE (NEGATIVE); LEUKOCYTE ESTERASE ,URINE 1+ (NEGATIVE); NITRITE,URINE NEGATIVE (NEGATIVE); PH,URINE 6 (5-9); PROTEIN,URINE 1+ (NEGATIVE); UROBILINOGEN,URINE 1 MG/DL (NORMAL)
[2018-09-26 03:35] LABS: ALANINE AMINOTRANSFERASE 11 U/L (0-55); ALKALINE PHOSPHATASE 92 U/L (40-136); BILIRUBIN,TOTAL 0.4 MG/DL (0.1-1.0); BUN/CREATININE RATIO 13; CALCIUM 9.2 MG/DL (8.5-10.1); CARBON DIOXIDE 24 MMOL/L (21-32); CHLORIDE 105 MMOL/L (98-107); CREATININE SERUM 0.78 MG/DL (0.60-1.30); GFR ESTIMATED > 60; GLUCOSE 91 MG/DL (70-105); POTASSIUM 3.2 MMOL/L (3.6-5.0); SALICYLATE < 5.0 MG/DL (5.0-20.0); SODIUM 141 MMOL/L (135-145); TOTAL PROTEIN 6.6 GM/DL (6.4-8.2)
[2018-09-26 03:42] LABS: ACETAMINOPHEN < 10 UG/ML (10-30)
[2018-09-26 03:43] LABS: BACTERIA,URINE FEW /HPF; CALCIUM OXALATE CRYSTALS,UR MODERATE /LPF; WBC,URINE RARE /HPF
[2018-09-26 03:44] LABS: AMPHETAMINE SCREEN, URINE POSITIVE (NEGATIVE); BARBITURATE SCREEN URINE NEGATIVE (NEGATIVE); BENZODIAZEPINES SCREEN URINE NEGATIVE (NEGATIVE); CANNABINOID SCREEN, URINE NEGATIVE (NEGATIVE); COCAINE SCREEN URINE NEGATIVE (NEGATIVE); METHADONE STAT NEGATIVE (NEGATIVE); METHAMPHETAMINE SCREEN URINE S POSITIVE (NEGATIVE); OPIATE SCREEN URINE NEGATIVE (NEGATIVE); OXYCODONE STAT NEGATIVE (NEGATIVE); PROPOXYPHENE STAT NEGATIVE (NEGATIVE); TRICYCLIC ANTIDEPRESSANTS SCRE NEGATIVE (NEGATIVE)
[2018-09-26 03:54] LABS: TSH (THYROID ANALYZER) 1.19 UIU/ML (0.35-4.94)
[2018-09-26 04:00] VITALS: BP 133/110
[2018-09-26] MEDS ORDERED: LORazepam INJ 2 MG/ML (ATIVAN) VIAL IVP ONE (04:00)
--- NOTE | 2018-09-26 04:42 | ED General ---
General Chief Complaint: Altered Mental Status Stated Complaint: OVERDOSE Nursing Triage Note: ALTERED MENTAL STATUS Nursing Sepsis Screen: No Definite Risk Allergies and Home Medications Allergies Coded Allergies: codeine (Unverified Allergy, Mild, PT HAS RECEIVED MORPHINE & TRAMADOL W/ O ISSUE, 12/28/16) Penicillins (Unverified Allergy, Unknown, RASH, HAS HAD ANCEF W/O PROBLEMS , 12/28/16) erythromycin base (Unverified Allergy, Unknown, RASH, 12/28/16) Home Medications Alprazolam 0.25 Mg Tablet, 0.25 MG PO Q4H PRN for ANXIETY, (Reported) Docusate Sodium 100 Mg Capsule, 100 MG PO BID PRN for CONSTIPATION Prescribed by: GARETT GIRARD on 12/28/16 1610 Escitalopram Oxalate 20 Mg Tablet, 20 MG PO HS, (Reported) Fexofenadine HCl 180 Mg Tablet, 180 MG PO HS, (Reported) Ibuprofen 600 Mg Tablet, 600 MG PO Q6H PRN for MILD PAIN Prescribed by: GARETT GIRARD on 12/28/16 1610 Mometasone Furoate 17 Gm [place], 1 SPRAY NS HS, (Reported) Oxycodone HCl/Acetaminophen 1 Each Tablet, 1 TAB PO Q4H PRN for MODERATE PAIN Prescribed by: GARETT GIRARD on 12/28/16 1610 Phentermine HCl 37.5 Mg Tablet, 37.5 MG PO HS, (Reported) Past Gsrndrk-Lribui-Faqcgv Hx Patient Social History Alcohol Use: Denies Use Recreational Drug Use: Yes Drug of Choice: METH Smoking Status: Current Everyday Smoker Type Used: Cigarettes 2nd Hand Smoke Exposure: Yes Recent Foreign Travel: No Contact w/Someone Who Travel: No Recent Infectious Disease Expo: No Recent Hopitalizations: No Immunizations Up To Date Tetanus Booster (TDap): Unknown Date of Pneumonia Vaccine: Oct 03, 2011 Seasonal Allergies Seasonal Allergies: Yes Past Medical History Surgeries: Yes ( X2, RHINOPLASTY, OVARY CYST, bladder stretched, back, D&C) Appendectomy, Gallbladder, Tonsillectomy Respiratory: No Cardiac: No Neurological: Yes Headaches /Migraines : No 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 Disorders: Yes (MENORRHAGIA) Sexually Transmitted Disease: Yes (HPV) Genitourinary: Yes UTI-Chronic Gastrointestinal: No Musculoskeletal: Yes Arthritis Endocrine: No HEENT: No Cancer: No Psychosocial: Yes (OCD) Anxiety, Depression Integumentary: No Blood Disorders: No Family Medical History Arthritis 19 FATHER 19 MOTHER Hypertension 19 FATHER Physical Exam Vital Signs Vital Signs - First Documented 09/26/18 02:55 Temp 97.8 Pulse 99 Resp 22 B/P (MAP) 126/93 (104) Pulse Ox 99 O2 Delivery Room Air Capillary Refill : Less Than 3 Seconds Height, Weight, BMI Height: 5'5.00" Weight: 165lbs. 3.0oz. 74.983727de; 34.0 BMI Method:Estimated Progress/Results/Core Measures Suspected Sepsis Recent Fever Within 48 Hours: No Infection Criteria Present: None New/Unexplained Altered Menta: No Sepsis Screen: No Definite Risk SIRS Temperature:97.8 Pulse: 74 Respiratory Rate: 14 Laboratory Tests 09/26/18 03:05: White Blood Count 8.7 Blood Pressure 133 /110 Mean: 118 Laboratory Tests 09/26/18 03:05: Creatinine 0.78, Platelet Count 286, Total Bilirubin 0.4 Results/Orders Lab Results Laboratory Tests Test 09/26/18 03:05 09/26/18 03:10 Range/Units White Blood Count 8.7 4.3-11.0 10^3/uL Red Blood Count 4.50 4.35-5.85 10^6/uL Hemoglobin 13.8 11.5-16.0 G/DL Hematocrit 41 35-52 % Mean Corpuscular Volume 91 80-99 FL Mean Corpuscular Hemoglobin 31 25-34 PG Mean Corpuscular Hemoglobin Concent 34 32-36 G/DL Red Cell Distribution Width 12.7 10.0-14.5 % Platelet Count 286 130-400 10^3/uL Mean Platelet Volume 9.5 7.4-10.4 FL Neutrophils (%) (Auto) 56 42-75 % Lymphocytes (%) (Auto) 35 12-44 % Monocytes (%) (Auto) 8 0-12 % Eosinophils (%) (Auto) 1 0-10 % Basophils (%) (Auto) 0 0-10 % Neutrophils # (Auto) 4.9 1.8-7.8 X 10^3 Lymphocytes # (Auto) 3.1 1.0-4.0 X 10^3 Monocytes # (Auto) 0.7 0.0-1.0 X 10^3 Eosinophils # (Auto) 0.1 0.0-0.3 10^3/uL Basophils # (Auto) 0.0 0.0-0.1 10^3/uL Sodium Level 141 135-145 MMOL/L Potassium Level 3.2 L 3.6-5.0 MMOL/L Chloride Level 105 98-107 MMOL/L Carbon Dioxide Level 24 21-32 MMOL/L Anion Gap 12 5-14 MMOL/L Blood Urea Nitrogen 10 7-18 MG/DL Creatinine 0.78 0.60-1.30 MG/DL Estimat Glomerular Filtration Rate > 60 BUN/Creatinine Ratio 13 Glucose Level 91 70-105 MG/DL Calcium Level 9.2 8.5-10.1 MG/DL Corrected Calcium 9.2 8.5-10.1 MG/DL Total Bilirubin 0.4 0.1-1.0 MG/DL Aspartate Amino Transf (AST/SGOT) 16 5-34 U/L Alanine Aminotransferase (ALT/SGPT) 11 0-55 U/L Alkaline Phosphatase 92 40-136 U/L Total Protein 6.6 6.4-8.2 GM/DL Albumin 4.0 3.2-4.5 GM/DL TSH [place] Testing 1.19 0.35-4.94 UIU/ML Salicylates Level < 5.0 L 5.0-20.0 MG/DL Acetaminophen Level < 10 L 10-30 UG/ML Serum Alcohol < 10 <10 MG/DL Urine Color YELLOW Urine Clarity SLIGHTLY CLOUDY Urine pH 6 5-9 Urine Specific [place] 1.025 H 1.016-1.022 Urine Protein 1+ H NEGATIVE Urine Glucose (UA) NEGATIVE NEGATIVE Urine Ketones NEGATIVE NEGATIVE Urine Nitrite NEGATIVE NEGATIVE Urine Bilirubin NEGATIVE NEGATIVE Urine Urobilinogen 1 NORMAL MG/DL Urine Leukocyte Esterase 1+ H NEGATIVE Urine RBC (Auto) NEGATIVE NEGATIVE Urine RBC NONE /HPF Urine WBC RARE /HPF Urine Squamous Epithelial Cells 10-25 H /HPF Urine Crystals PRESENT H /LPF Urine Calcium Oxalate Crystals MODERATE H /LPF Urine Bacteria FEW H /HPF Urine Casts NONE /LPF Urine Mucus LARGE H /LPF Urine Culture Indicated NO Urine Opiates Screen NEGATIVE NEGATIVE Urine Oxycodone Screen NEGATIVE NEGATIVE Urine Methadone Screen NEGATIVE NEGATIVE Urine Propoxyphene Screen NEGATIVE NEGATIVE Urine Barbiturates Screen NEGATIVE NEGATIVE Ur Tricyclic Antidepressants Screen NEGATIVE NEGATIVE Urine Phencyclidine Screen NEGATIVE NEGATIVE Urine Amphetamines Screen POSITIVE H NEGATIVE Urine Methamphetamines Screen POSITIVE H NEGATIVE Urine Benzodiazepines Screen NEGATIVE NEGATIVE Urine Cocaine Screen NEGATIVE NEGATIVE Urine Cannabinoids Screen NEGATIVE NEGATIVE My Orders Orders - PAIGE ABDI DO Ua Culture If Indicated (09/26/18 03:08) Thyroid Analyzer (09/26/18 03:08) Drug Screen Stat (Urine) (09/26/18 03:08) Cbc With Automated Diff (09/26/18 03:08) Comprehensive Metabolic Panel (09/26/18 03:08) Alcohol (09/26/18 03:08) Acetaminophen (09/26/18 03:08) Salicylate (09/26/18 03:08) Ekg Tracing (09/26/18 03:08) Monitor-Rhythm Ecg Trace Only (09/26/18 03:08) Lorazepam Injection (Ativan Injection) (09/26/18 04:00) Medications Given in ED Current Medications Medications Dose Ordered Sig/Kirill Route Start Time Stop Time Status Last Admin Dose Admin Lorazepam 2 mg ONCE ONCE IVP 09/26/18 04:00 09/26/18 04:01 DC 09/26/18 03:57 2 MG Vital Signs/I&O 09/26/18 09/26/18 02:55 04:00 Temp 97.8 Pulse 99 74 Resp 22 14 B/P (MAP) 126/93 (104) 133/110 (118) Pulse Ox 99 99 O2 Delivery Room Air Room Air Capillary Refill : Less Than 3 Seconds Blood Pressure Mean: 118 Departure Impression Primary Impression: Methamphetamine abuse Disposition: 01 HOME, SELF-CARE Condition: Improved Departure-Patient Inst. Referrals: YENI MOORE MD (PCP/Family) Primary Care Physician Patient Instructions: Drug Abuse and Drug Addiction (DC), Methamphetamine Add. Discharge Instructions: NO DRUGS!! FOLLOW UP WITH YOUR DR THIS WEEK FOR FURTHER CARE YOU MAY CONTACT RAOU[facility] CHAPA FOR SUBSTANCE ABUSE TREATMENT, OR [facility] All discharge instructions reviewed with patient and/or family. Voiced understanding. PAIGE ABDI DO Sep 26, 2018 04:42
[2018-09-26 05:33] VITALS: BP 128/67
== END 2018-09-26 05:33 | disposition home or self-care (01) ==
LOC: EDUNIT# 02:55 → ER 02:56
DX: F15.10 Other stimulant abuse, uncomplicated (principal); G43.909 Migraine, unspecified, not intractable, without status migrainosus; F41.9 Anxiety disorder, unspecified; F32.9 Major depressive disorder, single episode, unspecified; F42.9 Obsessive-compulsive disorder, unspecified; F17.210 Nicotine dependence, cigarettes, uncomplicated; Z88.5 Allergy status to narcotic agent; Z82.49 Family history of ischemic heart disease and other diseases of the circulatory system; Z87.440 Personal history of urinary (tract) infections; Z86.19 Personal history of other infectious and parasitic diseases; Z90.49 Acquired absence of other specified parts of digestive tract; Z90.89 Acquired absence of other organs; Z98.890 Other specified postprocedural states; Z87.448 Personal history of other diseases of urinary system; Z88.0 Allergy status to penicillin; Z79.51 Long term (current) use of inhaled steroids
CPT/HCPCS: 36415; 80053; 80306; 80320; 80329; 81000; 84443; 85025; 93005; 93041; 96374

== ENCOUNTER 2018-12-14 21:08 | Emergency (ER) | payer BC ==
[~2018-12-14] VITALS: Ht 167.6 cm; Wt 72.6 kg
[2018-12-14 21:09] VITALS: BP 131/95
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
--- NOTE | 2018-12-14 21:40 | NUR ---
OFFICER KRISTOFER, FROM [employer], IN ROOM VISITING WITH
--- OUTSIDE RECORDS SUMMARY | 2018-12-14 21:40 | XMS REPORT | Clinical Summary ---
Author Author [facility] Organization [facility] Address Unknown Phone Unavailable Care Team Providers Care Psych Rn Name Role Phone Self, Referral PCP Unavailable Mario Moody MD Unavailable Unavailable Inna Hwang RN Unavailable Source Comments Some departments are not documenting in the electronic medical record. If you do not see the information that you expected, contact Release of Information in the Health Information Management department at [phone] for further assistance in locating additional records.[facility] Allergies Comments Active Allergy Reactions Severity Noted [...] Taken Vital Sign Reading 10/22/2011 7:54 AM HARVEST SUPERVISOR Blood Pressure 123/86 10/22/2011 8:00 AM HARVEST SUPERVISOR Pulse 87 10/22/2011 7:54 AM HARVEST SUPERVISOR Temperature 36.8 C (98.3 F) - Respiratory Rate - 10/22/2011 7:54 AM HARVEST SUPERVISOR Oxygen Saturation 98% - Inhaled Oxygen - Concentration 10/21/2011 9:38 AM HARVEST SUPERVISOR Weight 90.7 kg (200 lb) 10/21/2011 9:38 AM HARVEST SUPERVISOR Height 165.1 cm (5' 5") 10/21/2011 9:38 AM HARVEST SUPERVISOR Body Mass Index 33.28 Plan of Treatment Health Maintenance Due Date Last Done Comments PHYSICAL (COMPREHENSIVE) 12/05/1987 EXAM HIV SCREENING 12/05/1995 DTAP/TDAP VACCINES (1 - 1998 Tdap) CERVICAL CANCER SCREENING 2010 INFLUENZA VACCINE 05/03/2018 Results Not on filefrom Last 3 Months Advance Directives For more information, please contact: [facility] [address] [place] [address] Date Inactivated Comments Code Status Date Activated 10/22/2011 12:00 PM Full Code 10/21/2011 4:47 PM Provider has discussed Code Status Yes w/Patient or Family?
--- OUTSIDE RECORDS SUMMARY | 2018-12-14 21:40 | XMS REPORT | Clinical Summary ---
Author Author [facility] Organization [facility] Address Unknown Phone Unavailable Care Team Providers Care Colon Therapist Name Role Phone PCP Unavailable Allergies Not [...]
[2018-12-14] MEDS ORDERED: GABA-488 PO (21:44)
--- NOTE | 2018-12-14 21:56 | NUR ---
REVIEWED DC INSTRUCTIONS WITH PT WHILE OFFICER KRISTOFER PRESENT IN ROOM. PT STATES, "THIS ISN'T RIGHT, ALL THIS IS A SET UP!" PT FOLDED SIGNED DC PAPER AND PUT PAPER INTO HER PURSE. PT REFUSED TO RETURN SIGNED DC PAPERS TO THIS RN OR OFFICER KRISTOFER. PT REFUSED TO HAVE DC VITALS TAKEN.
--- NOTE | 2018-12-14 22:04 | NUR ---
PT REFUSES TO SIGN AMA PAPER. OFFICER KRISTOFER ESCORTED PT OUT OF ED.
== END 2018-12-14 22:04 | disposition home or self-care (01) ==
LOC: EDUNIT# 21:08 → ER 21:09
DX: S00.83XA Contusion of other part of head, initial encounter (principal); F31.9 Bipolar disorder, unspecified; G43.909 Migraine, unspecified, not intractable, without status migrainosus; F41.9 Anxiety disorder, unspecified; F43.10 Post-traumatic stress disorder, unspecified; F32.9 Major depressive disorder, single episode, unspecified; F42.9 Obsessive-compulsive disorder, unspecified; R40.2142 Coma scale, eyes open, spontaneous, at arrival to emergency department; R40.2252 Coma scale, best verbal response, oriented, at arrival to emergency department; R40.2362 Coma scale, best motor response, obeys commands, at arrival to emergency department; F17.210 Nicotine dependence, cigarettes, uncomplicated; Z90.49 Acquired absence of other specified parts of digestive tract; Z98.890 Other specified postprocedural states; Z87.440 Personal history of urinary (tract) infections; Z86.19 Personal history of other infectious and parasitic diseases; Z90.89 Acquired absence of other organs; Z88.5 Allergy status to narcotic agent; Z88.0 Allergy status to penicillin; Z91.041 Radiographic dye allergy status; Z79.51 Long term (current) use of inhaled steroids; Z90.710 Acquired absence of both cervix and uterus; Y04.8XXA Assault by other bodily force, initial encounter; Y07.01 Husband, perpetrator of maltreatment and neglect
CPT/HCPCS: 99283

== ENCOUNTER 2018-12-15 14:54 | Emergency (ER) | payer BC ==
[~2018-12-15] VITALS: Ht 165.1 cm; Wt 72.6 kg
[~2018-12-15 14:54] MED LIST changes: +GABA-488 PO
--- OUTSIDE RECORDS SUMMARY | 2018-12-15 15:00 | XMS REPORT | Clinical Summary ---
Author Author [facility] Organization [facility] Address Unknown Phone Unavailable Care Team Providers Care Load Dispatcher Name Role Phone PCP Unavailable Allergies Not [...]
--- OUTSIDE RECORDS SUMMARY | 2018-12-15 15:00 | XMS REPORT | Clinical Summary ---
Author Author [facility] Organization [facility] Address Unknown Phone Unavailable Care Team Providers Care Lab Tech Name Role Phone Self, Referral PCP Unavailable Mario Moody MD Unavailable Unavailable Inna Hwang RN Unavailable Source Comments Some departments are not documenting in the electronic medical record. If you do not see the information that you expected, contact Release of Information in the Health Information Management department at [phone] for further assistance in locating additional records.[facility] Allergies Comments Active Allergy Reactions Severity Noted [...] Taken Vital Sign Reading 10/22/2011 7:54 AM FLOOR COVERING CONTRACTOR Blood Pressure 123/86 10/22/2011 8:00 AM FLOOR COVERING CONTRACTOR Pulse 87 10/22/2011 7:54 AM FLOOR COVERING CONTRACTOR Temperature 36.8 C (98.3 F) - Respiratory Rate - 10/22/2011 7:54 AM FLOOR COVERING CONTRACTOR Oxygen Saturation 98% - Inhaled Oxygen - Concentration 10/21/2011 9:38 AM FLOOR COVERING CONTRACTOR Weight 90.7 kg (200 lb) 10/21/2011 9:38 AM FLOOR COVERING CONTRACTOR Height 165.1 cm (5' 5") 10/21/2011 9:38 AM FLOOR COVERING CONTRACTOR Body Mass Index 33.28 Plan of Treatment Health Maintenance Due Date Last Done Comments PHYSICAL (COMPREHENSIVE) 12/05/1987 EXAM HIV SCREENING 12/05/1995 DTAP/TDAP VACCINES (1 - 1998 Tdap) CERVICAL CANCER SCREENING 2010 INFLUENZA VACCINE 05/03/2018 Results Not on filefrom Last 3 Months Advance Directives For more information, please contact: [facility] [address] [place] [address] Date Inactivated Comments Code Status Date Activated 10/22/2011 12:00 PM Full Code 10/21/2011 4:47 PM Provider has discussed Code Status Yes w/Patient or Family?
--- NOTE | 2018-12-15 15:20 | NUR ---
PT PARENTS AT BEDSIDE. PT UNCOOPERATIVE IN ANSWERING QUESTIONAS, HOWEVER WHEN HER PARENTS TALK FOR HER SHE CORRECTS THEM WITHOUT PROBLEMS.
[2018-12-15 15:21] LABS: BASOPHILS % (AUTO) 0 % (0-10); EOSINOPHILS # (AUTO) 0.1 10^3/uL (0.0-0.3); EOSINOPHILS % (AUTO) 2 % (0-10); HEMATOCRIT 43 % (35-52); HEMOGLOBIN 14.4 G/DL (11.5-16.0); LYMPHOCYTES # (AUTO) 2.4 X 10^3 (1.0-4.0); LYMPHOCYTES % (AUTO) 27 % (12-44); MEAN CORPUSCULAR HEMOGLOBIN 31 PG (25-34); MEAN CORPUSCULAR HGB CONC 34 G/DL (32-36); MEAN CORPUSCULAR VOLUME 91 FL (80-99); MEAN PLATELET VOLUME 9.5 FL (7.4-10.4); MONOCYTES # (AUTO) 0.6 X 10^3 (0.0-1.0); MONOCYTES % (AUTO) 7 % (0-12); NEUTROPHILS # (AUTO) 5.6 X 10^3 (1.8-7.8); NEUTROPHILS % (AUTO) 64 % (42-75); PLATELET COUNT 297 10^3/uL (130-400); RED CELL DISTRIBUTION WIDTH 13.2 % (10.0-14.5); WHITE BLOOD COUNT 8.8 10^3/uL (4.3-11.0)
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
[2018-12-15] MEDS ORDERED: OLANZapine 5 MG ODT (ZyPREXA ZYDIS) PO ONE ×2 (15:30→16:30)
[2018-12-15 15:44] LABS: ALANINE AMINOTRANSFERASE 21 U/L (0-55); ALBUMIN 4.1 GM/DL (3.2-4.5); ALKALINE PHOSPHATASE 92 U/L (40-136); BILIRUBIN,TOTAL 0.5 MG/DL (0.1-1.0); BUN/CREATININE RATIO 12; CALCIUM 9.3 MG/DL (8.5-10.1); CARBON DIOXIDE 28 MMOL/L (21-32); CHLORIDE 106 MMOL/L (98-107); CREATININE SERUM 0.75 MG/DL (0.60-1.30); GFR ESTIMATED > 60; GLUCOSE 95 MG/DL (70-105); POTASSIUM 3.4 MMOL/L (3.6-5.0); SALICYLATE < 5.0 MG/DL (5.0-20.0); SODIUM 141 MMOL/L (135-145); TOTAL PROTEIN 6.9 GM/DL (6.4-8.2)
[2018-12-15 15:50] LABS: ACETAMINOPHEN < 10 UG/ML (10-30)
--- NOTE | 2018-12-15 15:51 | Diagnostic Imaging Report ---
PROCEDURE: CT head without contrast. TECHNIQUE: Multiple contiguous axial images were obtained through the brain without the use of intravenous contrast. INDICATION: Altered mental status. COMPARISON: No prior studies are available for comparison. FINDINGS: The ventricles and sulci are within normal limits. No sulcal effacement, midline shift, or hemorrhage is detected. Cisterns are patent. The visualized paranasal sinuses are clear. IMPRESSION: No acute intracranial process is detected. Dictated by: Dictated on workstation # [id number]
--- NOTE | 2018-12-15 16:07 | NUR ---
PT AMBULATES TO RR WITHOUT DIFFICUTLY AT THIS TIME.
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
[2018-12-15 16:38] VITALS: BP 132/87
--- NOTE | 2018-12-15 16:38 | NUR ---
PT AMBULATES TO DISCHARGE WITH FATHER BY SIDE.
== END 2018-12-15 16:38 | disposition left against medical advice (07) ==
LOC: EDUNIT# 14:54 → ER 14:55
DX: F29 Unspecified psychosis not due to a substance or known physiological condition (principal); G43.909 Migraine, unspecified, not intractable, without status migrainosus; F41.9 Anxiety disorder, unspecified; F43.10 Post-traumatic stress disorder, unspecified; F31.9 Bipolar disorder, unspecified; F42.9 Obsessive-compulsive disorder, unspecified; F17.210 Nicotine dependence, cigarettes, uncomplicated; Z90.49 Acquired absence of other specified parts of digestive tract; Z86.19 Personal history of other infectious and parasitic diseases; Z82.49 Family history of ischemic heart disease and other diseases of the circulatory system; Z87.440 Personal history of urinary (tract) infections; Z98.890 Other specified postprocedural states; Z90.710 Acquired absence of both cervix and uterus; Z90.89 Acquired absence of other organs; Z88.5 Allergy status to narcotic agent; Z88.0 Allergy status to penicillin; Z91.041 Radiographic dye allergy status; Z79.51 Long term (current) use of inhaled steroids
CPT/HCPCS: 36415; 70450; 80053; 80320; 80329; 85025

== ENCOUNTER 2019-01-13 15:15 | Emergency (ER) | payer BC ==
[~2019-01-13] VITALS: Ht 165.1 cm; Wt 74.8 kg
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
[2019-01-13] MEDS ORDERED: KETOROLAC 60 MG/2 ML VIAL IM ONE (15:30)
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
--- NOTE | 2019-01-13 16:23 | NUR ---
FAMILY IN ROOM W PT
[2019-01-13 16:41] VITALS: BP 127/88
== END 2019-01-13 16:41 | disposition home or self-care (01) ==
LOC: EDUNIT# 15:17 → ER 15:21
DX: M54.5 Low back pain (principal); G43.909 Migraine, unspecified, not intractable, without status migrainosus; F41.9 Anxiety disorder, unspecified; F43.10 Post-traumatic stress disorder, unspecified; F31.9 Bipolar disorder, unspecified; F42.9 Obsessive-compulsive disorder, unspecified; Z87.440 Personal history of urinary (tract) infections; Z87.448 Personal history of other diseases of urinary system; Z88.5 Allergy status to narcotic agent; Z88.0 Allergy status to penicillin; Z91.041 Radiographic dye allergy status; Z79.51 Long term (current) use of inhaled steroids; Z77.22 Contact with and (suspected) exposure to environmental tobacco smoke (acute) (chronic); Z90.49 Acquired absence of other specified parts of digestive tract; Z98.890 Other specified postprocedural states; Z90.710 Acquired absence of both cervix and uterus; Z90.89 Acquired absence of other organs; Y09 Assault by unspecified means
CPT/HCPCS: 72131

== ENCOUNTER 2019-01-23 10:24 | Emergency (ER) | payer BC ==
[~2019-01-23] VITALS: Ht 162.6 cm; Wt 68.0 kg
--- OUTSIDE RECORDS SUMMARY | 2019-01-23 10:54 | XMS REPORT | Clinical Summary ---
Author Author [facility] Organization [facility] Address Unknown Phone Unavailable Care Team Providers Care Benefits Coordinator Name Role Phone Self, Referral PCP Unavailable Mario Moody MD Unavailable Unavailable Inna Hwang RN Unavailable Source Comments Some departments are not documenting in the electronic medical record. If you do not see the information that you expected, contact Release of Information in the Health Information Management department at [phone] for further assistance in locating additional records.[facility] Allergies Comments Active Allergy Reactions Severity Noted [...] Taken Vital Sign Reading 10/22/2011 7:54 AM PHARMACIST'S AIDE Blood Pressure 123/86 10/22/2011 8:00 AM PHARMACIST'S AIDE Pulse 87 10/22/2011 7:54 AM PHARMACIST'S AIDE Temperature 36.8 C (98.3 F) - Respiratory Rate - 10/22/2011 7:54 AM PHARMACIST'S AIDE Oxygen Saturation 98% - Inhaled Oxygen - Concentration 10/21/2011 9:38 AM PHARMACIST'S AIDE Weight 90.7 kg (200 lb) 10/21/2011 9:38 AM PHARMACIST'S AIDE Height 165.1 cm (5' 5") 10/21/2011 9:38 AM PHARMACIST'S AIDE Body Mass Index 33.28 Plan of Treatment Health Maintenance Due Date Last Done Comments PHYSICAL (COMPREHENSIVE) 12/05/1987 EXAM HIV SCREENING 12/05/1995 DTAP/TDAP VACCINES (1 - 1998 Tdap) CERVICAL CANCER SCREENING 2010 INFLUENZA VACCINE 05/03/2019 Results Not on filefrom Last 3 Months Advance Directives For more information, please contact: [facility] [address] [facility] [place] [address] Date Inactivated Comments Code Status Date Activated 10/22/2011 12:00 PM Full Code 10/21/2011 4:47 PM Provider has discussed Code Status Yes w/Patient or Family?
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
[2019-01-23 11:01] LABS: BILIRUBIN,URINE NEGATIVE (NEGATIVE); CLARITY,URINE SLIGHTLY CLOUDY; COLOR,URINE YELLOW; GLUCOSE, URINE (UA) NEGATIVE (NEGATIVE); KETONES,URINE NEGATIVE (NEGATIVE); LEUKOCYTE ESTERASE ,URINE 1+ (NEGATIVE); NITRITE,URINE NEGATIVE (NEGATIVE); PH,URINE 5 (5-9); PROTEIN,URINE 1+ (NEGATIVE); UROBILINOGEN,URINE 4 MG/DL (NORMAL)
[2019-01-23 11:03] LABS: BASOPHILS % (AUTO) 0 % (0-10); EOSINOPHILS # (AUTO) 0.1 10^3/uL (0.0-0.3); EOSINOPHILS % (AUTO) 1 % (0-10); HEMATOCRIT 41 % (35-52); HEMOGLOBIN 13.5 G/DL (11.5-16.0); LYMPHOCYTES # (AUTO) 2.3 X 10^3 (1.0-4.0); LYMPHOCYTES % (AUTO) 30 % (12-44); MEAN CORPUSCULAR HEMOGLOBIN 31 PG (25-34); MEAN CORPUSCULAR HGB CONC 33 G/DL (32-36); MEAN CORPUSCULAR VOLUME 93 FL (80-99); MEAN PLATELET VOLUME 9.7 FL (7.4-10.4); MONOCYTES # (AUTO) 0.7 X 10^3 (0.0-1.0); MONOCYTES % (AUTO) 9 % (0-12); NEUTROPHILS # (AUTO) 4.6 X 10^3 (1.8-7.8); NEUTROPHILS % (AUTO) 60 % (42-75); PLATELET COUNT 283 10^3/uL (130-400); RED CELL DISTRIBUTION WIDTH 13.1 % (10.0-14.5); WHITE BLOOD COUNT 7.7 10^3/uL (4.3-11.0)
[2019-01-23 11:06] LABS: HCG,QUALITATIVE URINE NEGATIVE (NEGATIVE)
--- OUTSIDE RECORDS SUMMARY | 2019-01-23 11:07 | XMS REPORT | Continuity of Care Document ---
Author Organization Unknown Address Unknown Allergies There is no data. Medications There is no data. Problems There is no data. Procedures There is no data. Results There is no data. Encounters ACCT No. Visit Date/Time Discharge Status Pt. Type Provider Facility Loc./Unit Complaint [id number] 01/05/2019 15:00:00 01/05/2019 23:59:59 CLS Outpatient [facility]
[2019-01-23 11:15] LABS: ALANINE AMINOTRANSFERASE 19 U/L (0-55); ALBUMIN 4.1 GM/DL (3.2-4.5); ALKALINE PHOSPHATASE 77 U/L (40-136); BILIRUBIN,TOTAL 0.4 MG/DL (0.1-1.0); BUN/CREATININE RATIO 9; CALCIUM 9.2 MG/DL (8.5-10.1); CARBON DIOXIDE 29 MMOL/L (21-32); CHLORIDE 104 MMOL/L (98-107); CREATININE SERUM 0.77 MG/DL (0.60-1.30); GFR ESTIMATED > 60; GLUCOSE 101 MG/DL (70-105); POTASSIUM 2.8 MMOL/L (3.6-5.0); SALICYLATE < 5.0 MG/DL (5.0-20.0); SODIUM 141 MMOL/L (135-145)
--- NOTE | 2019-01-23 11:15 | NUR ---
CAME BACK WITH MED BOTTLES OF MEDICATIONS TAKEN. GABAPENTIN 300MG CAPSULES FILLED ON 12/28/18 OF 90. 18 IN THE BOTTLE. VRAYLAR 3MG CAPSULES. 14 CAPSULES GIVEN ON 12/28/18 ET 3 CAPSULES LEFT.
[2019-01-23 11:20] LABS: ACETAMINOPHEN < 10 UG/ML (10-30)
[2019-01-23 11:21] LABS: AMPHETAMINE SCREEN, URINE POSITIVE (NEGATIVE); BARBITURATE SCREEN URINE NEGATIVE (NEGATIVE); BENZODIAZEPINES SCREEN URINE NEGATIVE (NEGATIVE); CANNABINOID SCREEN, URINE NEGATIVE (NEGATIVE); COCAINE SCREEN URINE NEGATIVE (NEGATIVE); METHADONE STAT NEGATIVE (NEGATIVE); METHAMPHETAMINE SCREEN URINE S NEGATIVE (NEGATIVE); OPIATE SCREEN URINE NEGATIVE (NEGATIVE); OXYCODONE STAT NEGATIVE (NEGATIVE); PROPOXYPHENE STAT NEGATIVE (NEGATIVE); TRICYCLIC ANTIDEPRESSANTS SCRE NEGATIVE (NEGATIVE)
--- NOTE | 2019-01-23 11:51 | NUR ---
PT REMAINS DROWSY ET ABS.
[2019-01-23 11:55] LABS: BACTERIA,URINE MODERATE /HPF; RBC,URINE 0-2 /HPF; YEAST,URINE FEW /HPF
--- NOTE | 2019-01-23 12:28 | NUR ---
RESTING WITH EYES CLOSED. VSS. WILL AWAKEN WITH SOFT PAINFUL STIMULATION.
--- NOTE | 2019-01-23 13:32 | NUR ---
PT CONTINUE TO SLEEP. WILL WAKE UP WITH LIGHT TAP BUT REMAINS DROWSY WHILE AWAKE. WARM BLANKET GIVEN. NOT IN BEDSIDE. VSS.
--- NOTE | 2019-01-23 14:26 | NUR ---
CONTINUES TO SLEEP. WILL AWAKEN WHEN TALKED TO BUT REMAINS VERY DROWSY WHEN EVEN AWAKE. BP 130/101. DR STRATTON AWARE.
--- NOTE | 2019-01-23 15:00 | NUR ---
NO CHANGE IN STATUS.
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
--- NOTE | 2019-01-23 16:32 | NUR ---
WOKE PT UP ET ASSISTED HER IN AMBULATING AROUND THE ER. PT STILL DROWSY. SET PT UP IN BED AND TURNED ON THE LIGHTS. MEAL ORDERED FOR PT.
--- NOTE | 2019-01-23 16:41 | NUR ---
MEAL TAKEN TO PT.
--- NOTE | 2019-01-23 16:58 | NUR ---
PT HAS ATE HER MEAL. RAFA CANSECO. PT CALLING TO COME AND GET HER.
[2019-01-23] MEDS ORDERED: CIPROFLOXACIN 500 MG (CIPRO) TABLET PO ONE (17:09)
[2019-01-23] MEDS ORDERED: CIPR500T4 PO (17:09)
[2019-01-23] MEDS ORDERED: KCL 20 MEQ TAB (K-DUR) PO ONE (17:15)
--- NOTE | 2019-01-23 17:15 | NUR ---
PT STATES HER IS ON HIS WAY. CLOTHING GIVEN BACK TO PT FOR HER TO CHANGE.
[2019-01-23 17:22] VITALS: BP 133/91
--- NOTE | 2019-01-23 17:31 | NUR ---
HERE ET PT IS DISCHARGED WITH HIM ET MEDICATIONS GIVEN TO .
[2019-01-23] MEDS ORDERED: CIPROFLOXACIN 500 MG (CIPRO) TABLET PO SCH (21:00)
[2019-01-26] MEDS ORDERED: NITR-65 PO (16:29)
== END 2019-01-23 17:22 | disposition home or self-care (01) ==
LOC: EDUNIT# 10:24 → ER 10:26
DX: T50.991A Poisoning by other drugs, medicaments and biological substances, accidental (unintentional), initial encounter (principal); T42.6X2A Poisoning by other antiepileptic and sedative-hypnotic drugs, intentional self-harm, initial encounter; G43.909 Migraine, unspecified, not intractable, without status migrainosus; F41.9 Anxiety disorder, unspecified; F43.10 Post-traumatic stress disorder, unspecified; F31.9 Bipolar disorder, unspecified; Z87.440 Personal history of urinary (tract) infections; Z86.19 Personal history of other infectious and parasitic diseases; Z88.5 Allergy status to narcotic agent; Z88.0 Allergy status to penicillin; Z91.041 Radiographic dye allergy status; Z77.22 Contact with and (suspected) exposure to environmental tobacco smoke (acute) (chronic); Z90.49 Acquired absence of other specified parts of digestive tract; Z98.890 Other specified postprocedural states; Z90.710 Acquired absence of both cervix and uterus; Z90.89 Acquired absence of other organs
CPT/HCPCS: 36415; 51702; 80053; 80306; 80320; 80329; 81000; 84703; 85025; 87077; 87088; 93005; 93041

== ENCOUNTER 2019-04-29 18:38 | Emergency (ER) | payer BC ==
[~2019-04-29] VITALS: Ht 162.6 cm; Wt 68.1 kg
[~2019-04-29 18:38] MED LIST changes: +CIPR500T4 PO
--- OUTSIDE RECORDS SUMMARY | 2019-04-29 18:52 | XMS REPORT | Clinical Summary ---
Author Author [facility] Organization [facility] Address Unknown Phone Unavailable Care Team Providers Care Supervisor Communications And Signals Name Role Phone Self, Referral PCP Unavailable Mario Moody MD Unavailable Unavailable Inna Hwang RN Unavailable Source Comments Some departments are not documenting in the electronic medical record. If you d o not see the information that you expected, contact Release of Information in [facility] [email or web address] Information Management department at [phone] for further assistan ce in locating additional records.[facility] Allergies Comments Active Allergy Reactions Severity [...] oxyCODONE/acetaminophen Take 1-2 Tabs 60 Tab 0 201 (PERCOCET; ENDOCET; by mouth 2 ROXICET) 5/325 [...] Current Every Day Smoker Cigarettes 0.5 10 Drinks/Week oz/Week Comments Alcohol Use occasional Yes Sex Assigned at Date Recorded Not on file Industry Job Start Date Occupation Not on file Not on file Not on file Travel End Travel History Travel Start No recent travel history available. Last Filed Vital Signs Reading Time Taken Comments Vital Sign 123/86 10/22/2011 7:54 AM CLOTH SHADER Blood Pressure 87 10/22/2011 8:00 AM CLOTH SHADER Pulse 36.8 C (98.3 F) 10/22/2011 7:54 AM CLOTH SHADER Temperature - - Respiratory Rate 98% 10/22/2011 7:54 AM CLOTH SHADER Oxygen Saturation - - Inhaled Oxygen Concentration 90.7 kg (200 lb) 10/21/2011 9:38 AM CLOTH SHADER Weight 165.1 cm (5' 5") 10/21/2011 9:38 AM CLOTH SHADER Height 33.28 10/21/2011 9:38 AM CLOTH SHADER Body Mass Index Plan of Treatment Health Maintenance Due Date Last Done Comments PHYSICAL (COMPREHENSIVE) 12/05/1987 EXAM HIV SCREENING 12/05/1995 DTAP/TDAP VACCINES ( - 1998 Tdap) CERVICAL CANCER SCREENING 2010 INFLUENZA VACCINE 07/03/2019 Results Not on filefrom Last 3 Months Advance Directives Date Inactivated Comments Code Status Date Activated 10/22/2011 12:00 PM Full Code 10/21/2011 4:47 PM Provider has discussed Code Status Yes w/Patient or Family?
--- OUTSIDE RECORDS SUMMARY | 2019-04-29 18:52 | XMS REPORT | Clinical Summary ---
Author Author [facility] Organization [facility] Address Unknown Phone Unavailable Care Team Providers Care Director Volunteer Services Name Role Phone PCP Unavailable Allergies Not on File Medications Not on file Active Problems Not on file Social History Date Tobacco Use Types Packs/Day Years Used Never Assessed Sex Assigned at Date Recorded Not on file Industry Job Start Date Occupation Not on file Not on file Not on file Travel End Travel History Travel Start No recent travel history available. Last Filed Vital Signs Not on file Plan of Treatment Not on file Results Not on filefrom Last 3 Months
--- OUTSIDE RECORDS SUMMARY | 2019-04-29 18:52 | XMS REPORT | Encounter Summary ---
Author Author 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 documented as of this encounter Plan of Treatment Not on filedocumented as of this encounter Visit Diagnoses Not on filedocumented in this encounter
--- OUTSIDE RECORDS SUMMARY | 2019-04-29 18:54 | XMS REPORT | CCD ---
Author Author Zoey Sinha MD, [facility] Address [address] [place] [address] Phone Care Team Providers Care Web Operations Lead Name Role Phone PP Unavailable CCM Unavailable Summary Purpose Interface Exchange Insurance Providers Payer name Policy type / Coverage type Covered alliance party ID Effective Begin Date Effective End Date [facility] Cross/[facility] [id number] Unknown Family history Brother Diagnosis Age At Onset No Family Disease Entered N/A Daughter Diagnosis Age At Onset No Family Disease Entered N/A Mother Diagnosis Age At Onset No Family Disease Entered N/A Father Diagnosis Age At Onset No Family Disease Entered N/A Social History Social History Element Codes Description Effective Dates Tobacco history SNOMED CT: 665531279 Never smoker 05/27/[address]: 976757133 Never drinks alcohol 05/27/2011 Has the patient ever used illegal drugs? Unknown Has never used illegal drugs 05/27/2011 Allergies, Adverse Reactions, Alerts Allergies, Adverse Reactions, Alerts data not found Past Medical History Illness Codes Condition Status Onset Date Resolved Date Other obesity due to excess calories ICD-9: 278.00 ICD-10: E66.09 Active 11/25/2016 Unknown Generalized anxiety disorder ICD-9: 300.02 ICD-10: F41.1 Active 10/01/2015 11/25/2016 Mixed obsessional thoughts and acts ICD-9: 300.3 ICD-10: F42.2 Active 11/25/2016 Unknown Obsessive-compulsive disorder ICD-9: 300.3 ICD-10: F42 Active 10/01/2015 Unknown Acute recurrent maxillary sinusitis ICD-9: 461.0 ICD-10: J01.01 Active 05/31/2016 Unknown Allergic rhinitis due to pollen ICD-9: 477.9 ICD-10: J30.1 Active 05/31/2016 Unknown Migraine, unspecified, not intractable, without status migrainosus ICD-9: 346.90 ICD-10: G43.909 Active 05/31/2016 Unknown Acute maxillary sinusitis ICD-9: 461.0 Active 05/17/2013 Unknown COUGH ICD-9: 786.2 Active 05/17/2013 Unknown Anxiety, generalized ICD- 9: 300.02 Active 05/09/2013 Unknown Obsessive compulsive disorder ICD-9: 300.3 Active 05/09/2013 Unknown Back muscle spasm ICD-9: 724.8 Active 09/01/2011 Unknown Sciatica Unknown Active 08/04/2011 Unknown Leg pain ICD-9: 729.5 Active 08/04/2011 Unknown Sciatica ICD-9: 724.3 Active 08/04/2011 Unknown ACUTE SINUSITIS ICD-9: 461.9 Active 05/28/2011 Unknown Allergic rhinitis ICD-9: 477.9 Active 05/28/2011 Unknown Lumbago ICD-9: 724.2 Active 05/28/2011 Unknown OBESITY ICD-9: 278.00 Active 05/28/2011 Unknown sinusitis Unknown Active 05/27/2011 Unknown Problems Condition Codes Effective Dates Condition Status Other obesity due to excess calories ICD-9: 278.00 ICD-10: E66.09 11/25/2016 Active Generalized anxiety disorder ICD-9: 300.02 ICD-10: F41.1 10/01/2015 Active Mixed obsessional thoughts and acts ICD-9: 300.3 ICD-10: F42.2 11/25/2016 Active Obsessive-compulsive disorder ICD-9: 300.3 ICD-10: F42 10/01/2015 Active Acute recurrent maxillary sinusitis ICD-9: 461.0 ICD-10: J01.01 05/31/2016 Active Allergic rhinitis due to pollen ICD-9: 477.9 ICD-10: J30.1 05/31/2016 Active Migraine, unspecified, not intractable, without status migrainosus ICD-9: 346.90 ICD-10: G43.909 05/31/2016 Active Acute maxillary sinusitis ICD-9: 461.0 05/17/2013 Active COUGH ICD-9: 786.2 05/17/2013 Active Anxiety, generalized ICD- 9: 300.02 05/09/2013 Active Obsessive compulsive disorder ICD-9: 300.3 05/09/2013 Active Back muscle spasm ICD-9: 724.8 09/01/2011 Active Sciatica Unknown 08/04/2011 Active Leg pain ICD-9: 729.5 08/04/2011 Active Sciatica ICD-9: 724.3 08/04/2011 Active ACUTE SINUSITIS ICD-9: 461.9 05/28/2011 Active Allergic rhinitis ICD-9: 477.9 05/28/2011 Active Lumbago ICD-9: 724.2 05/28/2011 Active OBESITY ICD-9: 278.00 05/28/2011 Active sinusitis Unknown 05/27/2011 Active Medications Medication Codes Instructions Start Date Stop Date Status Fill Instructions Lexapro 20 mg tablet RxNorm: 808485 Tablet(s) 1 Tablet(s) PO daily 03/15/2017 03/09/2018 Active phentermine 37.5 mg tablet RxNorm: 076977 1 Tablet(s) PO daily 03/09/2017 04/07/2017 Active Lexapro 20 mg tablet RxNorm: 892144 1 Tablet(s) PO daily 01/14/2017 03/14/2017 Inactive phentermine 37.5 mg tablet RxNorm: 282623 1 Tablet(s) PO daily 12/23/2016 01/21/2017 Inactive Xanax 0.25 mg tablet RxNorm: 493168 Tablet(s) PO TAKE 1 TABLET BY MOUTH EVERY 4-6 HOURS NEEDED FOR ANXIETY 11/25/2016 No Stop Date Active (Appended: Controlled substance eRx refill - RxReferenceNumber: [id number]|1|0|1) phentermine 37.5 mg tablet RxNorm: 460977 1 Tablet(s) PO daily 11/25/2016 12/22/2016 Inactive Lexapro 20 mg tablet RxNorm: 164120 1 Tablet(s) PO daily 11/25/2016 12/24/2016 Inactive Lexapro 10 mg tablet RxNorm: 655684 1 Tablet(s) PO daily 10/26/2016 11/24/2016 Inactive fluvoxamine 100 mg tablet RxNorm: 373485 TAKE 1/2 OF A TABLET BY MOUTH TWICE A DAY 10/21/2016 10/25/2016 Inactive Generic For:LUVOX 100 MG TABLET 10/21/2016 2:32:39 PM Onzetra Xsail 11 mg powder for nasal inhalation RxNorm: 5194898 1 nosepiece in each nostril NASAL as needed migraine May repeat another full dose 2 hours after first. 06/16/2016 No Stop Date Active Onzetra Xsail 11 mg powder for nasal inhalation RxNorm: 4263849 1 nosepiece in each nostril NASAL as needed migraine May repeat another full dose 2 hours after first. 06/11/2016 06/15/2016 Inactive Kenalog 40 mg/mL suspension for injection RxNorm: 9014713 Milliliter(s) Inj 06/01/2016 06/01/2016 Inactive Zithromax Z-Maikel 250 mg tablet RxNorm: 360351 1 Tablet(s) PO UD take zpack as directed 06/01/2016 06/10/2016 Inactive fluvoxamine 100 mg tablet RxNorm: 574965 TAKE 1/2 OF A TABLET BY MOUTH TWICE A DAY 05/31/2016 09/27/2016 Inactive Generic For:LUVOX 100 MG TABLET 05/31/2016 12:42:28 PM Xanax 0.25 mg tablet RxNorm: 092582 Tablet(s) PO TAKE 1 TABLET BY MOUTH EVERY 4-6 HOURS NEEDED FOR ANXIETY 04/08/2016 11/24/2016 Inactive (Appended: Controlled substance eRx refill - RxReferenceNumber: [id number]|1|0|1) fluvoxamine 100 mg tablet RxNorm: 727602 TAKE 1/2 OF A TABLET BY MOUTH TWICE A DAY 01/05/2016 05/03/2016 Inactive Generic For:LUVOX 100 MG TABLET 01/05/2016 9:37:27 AM fluvoxamine 100 mg tablet RxNorm: 106518 TAKE 1/2 OF A TABLET BY MOUTH TWICE A DAY 12/02/2015 12/31/2015 Inactive Generic For:LUVOX 100 MG TABLET 12/02/2015 9:02:44 AM N O T I C E PRESCRIPTION PREVIOUSLY AUTHORIZED BY DOCTOR:INDU ARAUZ Kenalog 40 mg/mL suspension for injection RxNorm: 9740871 1 Milliliter(s) Inj 11/10/2015 11/10/2015 Inactive doxycycline hyclate 100 mg tablet RxNorm: 850004 1 Tablet(s) PO BID 11/10/2015 10/25/2016 Inactive fluvoxamine 100 mg tablet RxNorm: 983054 TAKE 1/2 TABLET BY MOUTH TWICE DAILY 10/06/2015 11/04/2015 Inactive Generic For:LUVOX 100 MG TABLET text when ready 09/29/2015 4:32:56 PM fluvoxamine 100 mg tablet RxNorm: 802598 Tablet(s) TAKE 1/2 TABLET BY MOUTH TWICE DAILY 10/02/2015 10/05/2015 Inactive 08/25/2015 5:28:36 PM fluvoxamine 100 mg tablet RxNorm: 022054 TAKE 1/2 TABLET BY MOUTH TWICE DAILY 08/26/2015 09/24/2015 Inactive 08/25/2015 5:28:36 PM fluvoxamine 100 mg tablet RxNorm: 442336 TAKE 1/2 TABLET BY MOUTH TWICE DAILY 07/24/2015 08/22/2015 Inactive 07/23/2015 1:15:44 PM Xanax 0.25 mg tablet RxNorm: 730118 Tablet(s) PO TAKE 1 TABLET BY MOUTH EVERY 4-6 HOURS NEEDED FOR ANXIETY 03/11/2015 04/07/2016 Inactive (Appended: Controlled substance eRx refill - RxReferenceNumber: [id number]|1|0|1) fluvoxamine 100 mg tablet RxNorm: 156937 1/2 Tablet(s) PO BID 03/11/2015 07/08/2015 Inactive fluvoxamine ER 100 mg capsule,extended release 24 hr RxNorm: 831687 1 Tablet(s) PO BID 02/05/2015 03/10/2015 Inactive fluvoxamine 100 mg tablet RxNorm: 591554 1 Tablet(s) PO BID 11/11/2014 02/04/2015 Inactive fluvoxamine ER 100 mg capsule,extended release 24 hr RxNorm: 015488 TAKE ONE CAPSULE BY MOUTH EVERY DAY 07/17/2014 11/10/2014 Inactive fluvoxamine ER 100 mg capsule,extended release 24 hr RxNorm: 221801 TAKE ONE CAPSULE BY MOUTH EVERY DAY 04/15/2014 07/13/2014 Inactive Xanax 0.25 mg tablet RxNorm: 556563 1 Tablet(s) PO Q4-6H TAKE 1 TABLET BY MOUTH EVERY 4 TO 6 HOURS NEEDED FOR ANXIETY 01/28/2014 No Stop Date Active (Appended: Controlled substance eRx refill - RxReferenceNumber: [id number]|1|0|1) Xanax 0.25 mg tablet RxNorm: 442655 Tablet(s) PO TAKE 1 TABLET BY MOUTH EVERY 4-6 HOURS NEEDED FOR ANXIETY 01/28/2014 03/10/2015 Inactive (Appended: Controlled substance eRx refill - RxReferenceNumber: [id number]|1|0|1) fluvoxamine ER 100 mg capsule,extended release 24 hr RxNorm: 736345 1 Capsule(s) PO daily TAKE ONE CAPSULE BY MOUTH EVERY DAY 12/13/2013 04/11/2014 Inactive fluvoxamine ER 100 mg capsule,extended release 24 hr RxNorm: 688651 Capsule(s) PO TAKE ONE CAPSULE BY MOUTH EVERY DAY 12/13/2013 12/12/2013 Inactive Tessalon 200 mg capsule RxNorm: 993595 1 Capsule(s) PO Q8 PRN 11/19/2013 11/09/2015 Inactive fluvoxamine ER 100 mg capsule,extended release 24 hr RxNorm: 522708 1 Capsule(s) PO daily TAKE ONE CAPSULE BY MOUTH EVERY DAY 11/07/2013 12/12/2013 Inactive Zithromax Z-Maikel 250 mg tablet RxNorm: 669294 1 Tablet(s) PO as doctor directed take zpack as directed 11/07/2013 No Stop Date Active Xanax 0.25 mg tablet RxNorm: 797302 Tablet(s) PO TAKE 1 TABLET BY MOUTH EVERY 4 TO 6 HOURS NEEDED FOR ANXIETY 09/24/2013 01/28/2014 Inactive (Appended: Controlled substance eRx refill - RxReferenceNumber: [id number]|1|0|1) fluvoxamine ER 100 mg capsule,extended release 24 hr RxNorm: 938583 1 Capsule(s) PO daily 09/06/2013 09/05/2013 Inactive fluvoxamine ER 100 mg capsule,extended release 24 hr RxNorm: 617293 Capsule(s) PO TAKE ONE CAPSULE BY MOUTH EVERY DAY 09/06/2013 11/06/2013 Inactive Kenalog 40 mg/mL Susp for Injection RxNorm: 9543015 Milliliter(s) Inj 05/17/2013 05/17/2013 Inactive Zithromax Z-Maikel 250 mg tablet RxNorm: 232855 Tablet(s) PO UD 05/17/2013 No Stop Date Active fluvoxamine ER 100 mg capsule,extended release 24 hr RxNorm: 663822 1 Capsule(s) PO daily 05/09/2013 09/05/2013 Inactive Kenalog 40 mg/mL Susp for Injection RxNorm: 9144132 1 Milliliter(s) Inj 10/06/2012 10/06/2012 Inactive Zithromax Z-Maikel 250 mg tablet RxNorm: 843865 Tablet(s) PO UD 10/06/2012 No Stop Date Active baclofen 10 mg Tab RxNorm: 241951 1 Tablet(s) PO TID PRN 09/01/2011 02/27/2012 Inactive hydrocodone-acetaminophen 7.5 mg-325 mg Tab RxNorm: 8745305 1 Tablet(s) PO Q6 PRN 1 tab q 6hrs prn 09/01/2011 09/15/2011 Inactive Butrans 10 mcg/hour Transderm Patch RxNorm: 574267 1 Patch TD QW 09/01/2011 11/29/2011 Inactive hydrocodone-acetaminophen 7.5 mg-325 mg Tab RxNorm: 0330762 1 Tablet(s) PO Q6 PRN 1 tab q 6hrs prn 08/25/2011 08/31/2011 Inactive Neurontin 600 mg Tab RxNorm: 785537 Tablet(s) PO 1 tab tid and 2 at hs 08/24/2011 11/09/2015 Inactive TAKE 1 TABLET BY MOUTH THREE TIMES DAILY AND 2 TABLETS BY MOUTH EVERY NIGHT AT BEDTIME Neurontin 600 mg Tab RxNorm: 674858 1 Tablet(s) PO TID 1 tab tid and 2 at hs 08/24/2011 08/23/2011 Inactive Neurontin 600 mg Tab RxNorm: 873854 1 Tablet(s) PO TID 1 tab tid and 2 at hs 08/24/2011 08/23/2011 Inactive hydrocodone-acetaminophen 7.5 mg-325 mg Tab RxNorm: 6442968 1 Tablet(s) PO Q6 PRN 1 tab q 6hrs prn 08/05/2011 08/19/2011 Inactive Vimovo 500 mg-20 mg multiphase, immed & delay rel Tab RxNorm: 098797 1 Tablet(s) PO BID 08/04/2011 07/23/2013 Inactive hydrocodone-acetaminophen 7.5 mg-325 mg Tab RxNorm: 2072011 1 Tablet(s) PO Q6 PRN 1 tab q 6hrs prn 07/20/2011 08/03/2011 Inactive hydrocodone-acetaminophen 7.5 mg-325 mg Tab RxNorm: 8750086 1 Tablet(s) PO Q6 PRN 1 tab q 6hrs prn 06/28/2011 07/12/2011 Inactive Bactrim DS 800 mg-160 mg Tab RxNorm: 474473 1 Tablet(s) PO BID 06/10/2011 06/16/2011 Inactive hydrocodone-acetaminophen 7.5 mg-325 mg Tab RxNorm: 9239016 1 Tablet(s) PO Q6 PRN 1 tab q 6hrs prn 06/02/2011 06/01/2011 Inactive hydrocodone-acetaminophen 7.5 mg-325 mg Tab RxNorm: 6649557 1 Tablet(s) PO Q6 PRN 1 tab q 6hrs prn 06/02/2011 06/16/2011 Inactive triamcinolone acetonide 40 mg/mL Susp for Injection RxNorm: 9985739 2 Milliliter(s) Inj 05/28/2011 05/28/2011 Inactive Nasonex 50 mcg/Actuation [place] RxNorm: 795152 1 [place] NASAL daily No Start Date Active Tessalon 200 mg capsule RxNorm: 624872 1 Capsule(s) PO Q8 PRN No Start Date 11/18/2013 Inactive hydrocodone-acetaminophen 7.5 mg-325 mg Tab RxNorm: 5637673 1 Tablet(s) PO Q6 PRN 1 tab q 6hrs prn No Start Date 06/01/2011 Inactive Neurontin 600 mg Tab RxNorm: 854365 1 Tablet(s) PO TID 1 tab tid and 2 at hs No Start Date 08/23/2011 Inactive Xanax 0.25 mg tablet RxNorm: 855746 Tablet(s) PO PRN No Start Date 09/24/2013 Inactive niacin ER 500 mg Tab RxNorm: 270125 1 Tablet(s) PO QHS No Start Date 11/09/2015 Inactive Onzetra Xsail 11 mg powder for nasal inhalation RxNorm: 3753272 1 nosepiece in each nostril NASAL as needed migraine May repeat another full dose 2 hours after first. No Start Date 06/10/2016 Inactive Zithromax Z-Maikel 250 mg tablet RxNorm: 264774 Tablet(s) PO No Start Date 06/01/2011 Inactive melatonin 3 mg Tab RxNorm: 573989 1 Tablet(s) PO QHS No Start Date 11/09/2015 Inactive Medication Administered Medication Codes Instructions Start Date Status Kenalog 40 mg/mL suspension for injection RxNorm: 2250335 Milliliter 06/01/2016 No longer Active Kenalog 40 mg/mL suspension for injection RxNorm: 1387552 1Milliliter 11/10/2015 No longer Active Kenalog 40 mg/mL Susp for Injection RxNorm: 4409170 Milliliter 05/17/2013 No longer Active Kenalog 40 mg/mL Susp for Injection RxNorm: 8466461 1Milliliter 10/06/2012 No longer Active triamcinolone acetonide 40 mg/mL Susp for Injection RxNorm: 4702717 2Milliliter 05/28/2011 No longer Active Immunizations No Immunization data Assessments Condition Codes Effective Dates Other obesity due to excess calories ICD-10: E66.09 ICD-9: 278.00 12/23/2016 Mixed obsessional thoughts and acts ICD-10: F42.2 ICD-9: 300.3 11/25/2016 Generalized anxiety disorder ICD-10: F41.1 ICD-9: 300.02 11/25/2016 Migraine, unspecified, not intractable, without status migrainosus ICD-10: G43.909 ICD-9: 346.90 06/01/2016 Allergic rhinitis due to pollen ICD-10: J30.1 ICD-9: 477.9 06/01/2016 Acute recurrent maxillary sinusitis ICD-10: J01.01 ICD-9: 461.0 06/01/2016 Obsessive-compulsive disorder ICD-10: F42 ICD-9: 300.3 10/02/2015 ACUTE SINUSITIS ICD-9: 461.9 11/07/2013 COUGH ICD-9: 786.2 11/07/2013 Acute maxillary sinusitis ICD-9: 461.0 05/17/2013 Anxiety, generalized ICD-9: 300.02 05/09/2013 Obsessive compulsive disorder ICD-9: 300.3 05/09/2013 ALLERGIC RHINITIS ICD-9: 477.9 10/06/2012 Back muscle spasm ICD-9: 724.8 09/01/2011 Sciatica ICD-9: 724.3 09/01/2011 LUMBAGO ICD-9: 724.2 09/01/2011 Leg pain ICD-9: 729.5 09/01/2011 Reason For Visit Reason For Visit Effective Dates Notes medication follow up 11/25/2016 anxiety 10/26/2016 cough 06/01/2016 sore throat 11/10/2015 medication follow up 10/02/2015 medication follow up 11/07/2013 cough 05/17/2013 anxiety 05/09/2013 cough 10/06/2012 spasms/spasticity 09/01/2011 hip pain 08/04/2011 sore throat 05/28/2011 Results No Results data Review of Systems System Result Effective Dates Constitutional No night sweats 11/25/2016 Constitutional No chills 11/25/2016 Constitutional No fatigue 11/25/2016 Constitutional No fever 11/25/2016 Eyes No eye erythema 11/25/2016 Ears/Nose/Throat/Neck No nasal discharge 11/25/2016 Cardiovascular No chest pain/pressure 11/25/2016 Cardiovascular No dyspnea 11/25/2016 Respiratory No cough 11/25/2016 Respiratory No dyspnea 11/25/2016 Gastrointestinal No abdominal pain 11/25/2016 Gastrointestinal No constipation 11/25/2016 Gastrointestinal No diarrhea 11/25/2016 Musculoskeletal No joint complaint 11/25/2016 Neurologic No alteration of consciousness 11/25/2016 Neurologic No mental status change 11/25/2016 Psychiatric anxiety 11/25/2016 Psychiatric depression 11/25/2016 Constitutional No night sweats 10/26/2016 Constitutional No chills 10/26/2016 Constitutional No fatigue 10/26/2016 Constitutional No fever 10/26/2016 Cardiovascular No chest pain/pressure 10/26/2016 Cardiovascular No dyspnea 10/26/2016 Respiratory No cough 10/26/2016 Gastrointestinal No abdominal pain 10/26/2016 Gastrointestinal No constipation 10/26/2016 Eyes No eye erythema 10/26/2016 Ears/Nose/Throat/Neck No nasal discharge 10/26/2016 Respiratory No dyspnea 10/26/2016 Gastrointestinal No diarrhea 10/26/2016 Musculoskeletal No joint complaint 10/26/2016 Neurologic No alteration of consciousness 10/26/2016 Neurologic No mental status change 10/26/2016 Psychiatric anxiety 10/26/2016 Psychiatric depression 10/26/2016 Constitutional recent illness 06/01/2016 Constitutional No anorexia 06/01/2016 Constitutional No night sweats 06/01/2016 Constitutional chills 06/01/2016 Constitutional fatigue 06/01/2016 Constitutional diaphoresis 06/01/2016 Constitutional fever 06/01/2016 Constitutional No insomnia 06/01/2016 Constitutional No malaise 06/01/2016 Eyes No eye discharge 06/01/2016 Eyes No eye erythema 06/01/2016 Ears/Nose/Throat/Neck No dizziness 06/01/2016 Ears/Nose/Throat/Neck headache 06/01/2016 Ears/Nose/Throat/Neck nasal allergies 06/01/2016 Ears/Nose/Throat/Neck nasal discharge 06/01/2016 Ears/Nose/Throat/Neck No otalgia 06/01/2016 Ears/Nose/Throat/Neck sinus congestion 06/01/2016 Ears/Nose/Throat/Neck sore throat 06/01/2016 Respiratory cough 06/01/2016 Cardiovascular No chest pain/pressure 06/01/2016 Gastrointestinal No abdominal pain 06/01/2016 Genitourinary/Nephrology No dysuria 06/01/2016 Musculoskeletal No joint complaint 06/01/2016 Dermatologic No rash 06/01/2016 Constitutional recent illness 11/10/2015 Constitutional No anorexia 11/10/2015 Constitutional No night sweats 11/10/2015 Constitutional No chills 11/10/2015 Constitutional No diaphoresis 11/10/2015 Constitutional No fatigue 11/10/2015 Constitutional fever 11/10/2015 Constitutional No insomnia 11/10/2015 Constitutional No malaise 11/10/2015 Constitutional No weight loss 11/10/2015 Constitutional No weight gain 11/10/2015 Eyes No eye erythema 11/10/2015 Eyes No eye discharge 11/10/2015 Ears/Nose/Throat/Neck nasal allergies 11/10/2015 Ears/Nose/Throat/Neck otalgia 11/10/2015 Ears/Nose/Throat/Neck sore throat 11/10/2015 Ears/Nose/Throat/Neck nasal discharge 11/10/2015 Cardiovascular No chest pain/pressure 11/10/2015 Respiratory No productive sputum 11/10/2015 Respiratory cough 11/10/2015 Gastrointestinal No abdominal pain 11/10/2015 Gastrointestinal No constipation 11/10/2015 Gastrointestinal No diarrhea 11/10/2015 Genitourinary/Nephrology No dysuria 11/10/2015 Musculoskeletal No joint complaint 11/10/2015 Dermatologic No rash 11/10/2015 Dermatologic No sores 11/10/2015 Neurologic No alteration of consciousness 11/10/2015 Constitutional No recent illness 10/02/2015 Constitutional No insomnia 10/02/2015 Constitutional No night sweats 10/02/2015 Constitutional No diaphoresis 10/02/2015 Constitutional No chills 10/02/2015 Constitutional No fatigue 10/02/2015 Eyes No eye discharge 10/02/2015 Eyes No eye erythema 10/02/2015 Ears/Nose/Throat/Neck nasal allergies 10/02/2015 Ears/Nose/Throat/Neck nasal discharge 10/02/2015 Ears/Nose/Throat/Neck headache 10/02/2015 Cardiovascular No chest pain/pressure 10/02/2015 Cardiovascular No dyspnea 10/02/2015 Cardiovascular No edema 10/02/2015 Respiratory No cough 10/02/2015 Gastrointestinal No constipation 10/02/2015 Gastrointestinal No diarrhea 10/02/2015 Gastrointestinal No abdominal pain 10/02/2015 Gastrointestinal No gastroesophageal reflux 10/02/2015 Gastrointestinal No nausea 10/02/2015 Genitourinary/Nephrology No dysuria 10/02/2015 Genitourinary/Nephrology No flank pain 10/02/2015 Musculoskeletal back pain 10/02/2015 Dermatologic No rash 10/02/2015 Dermatologic No sores 10/02/2015 Neurologic No alteration of consciousness 10/02/2015 Constitutional recent illness 11/07/2013 Constitutional No anorexia 11/07/2013 Constitutional No night sweats 11/07/2013 Constitutional No chills 11/07/2013 Constitutional No diaphoresis 11/07/2013 Constitutional No fatigue 11/07/2013 Constitutional No fever 11/07/2013 Constitutional No insomnia 11/07/2013 Constitutional No malaise 11/07/2013 Eyes No eye discharge 11/07/2013 Eyes No eye erythema 11/07/2013 Cardiovascular No chest pain/pressure 11/07/2013 Respiratory No productive sputum 11/07/2013 Respiratory No chest congestion 11/07/2013 Respiratory cough 11/07/2013 Respiratory dyspnea 11/07/2013 Gastrointestinal No abdominal pain 11/07/2013 Gastrointestinal No constipation 11/07/2013 Gastrointestinal No diarrhea 11/07/2013 Gastrointestinal No nausea 11/07/2013 Genitourinary/Nephrology No dysuria 11/07/2013 Musculoskeletal No joint complaint 11/07/2013 Dermatologic No rash 11/07/2013 Dermatologic No sores 11/07/2013 Neurologic No alteration of consciousness 11/07/2013 Constitutional recent illness 05/17/2013 Constitutional No anorexia 05/17/2013 Constitutional No night sweats 05/17/2013 Constitutional No diaphoresis 05/17/2013 Constitutional No chills 05/17/2013 Constitutional No fatigue 05/17/2013 Constitutional No fever 05/17/2013 Constitutional No insomnia 05/17/2013 Constitutional No malaise 05/17/2013 Eyes No eye discharge 05/17/2013 Eyes No eye erythema 05/17/2013 Cardiovascular No chest pain/pressure 05/17/2013 Respiratory No productive sputum 05/17/2013 Respiratory No chest congestion 05/17/2013 Respiratory cough 05/17/2013 Respiratory dyspnea 05/17/2013 Gastrointestinal No abdominal pain 05/17/2013 Gastrointestinal No constipation 05/17/2013 Gastrointestinal No diarrhea 05/17/2013 Gastrointestinal No nausea 05/17/2013 Genitourinary/Nephrology No dysuria 05/17/2013 Musculoskeletal No joint complaint 05/17/2013 Dermatologic No sores 05/17/2013 Dermatologic No rash 05/17/2013 Neurologic No alteration of consciousness 05/17/2013 Constitutional No night sweats 05/09/2013 Constitutional No chills 05/09/2013 Constitutional No fatigue 05/09/2013 Constitutional No fever 05/09/2013 Cardiovascular No chest pain/pressure 05/09/2013 Cardiovascular No dyspnea 05/09/2013 Cardiovascular No fatigue 05/09/2013 Respiratory No chest congestion 05/09/2013 Respiratory No cough 05/09/2013 Gastrointestinal No abdominal pain 05/09/2013 Gastrointestinal No constipation 05/09/2013 Gastrointestinal No diarrhea 05/09/2013 Genitourinary/Nephrology No urinary incontinence 05/09/2013 Neurologic No ataxia 05/09/2013 Neurologic No dizziness 05/09/2013 Neurologic No gait abnormality 05/09/2013 Neurologic No headache 05/09/2013 Neurologic paresthesia 05/09/2013 Musculoskeletal No stiffness 05/09/2013 Musculoskeletal No arthralgia(s) 05/09/2013 Constitutional recent illness 10/06/2012 Constitutional No anorexia 10/06/2012 Constitutional No night sweats 10/06/2012 Constitutional No chills 10/06/2012 Constitutional No fatigue 10/06/2012 Constitutional No diaphoresis 10/06/2012 Constitutional No fever 10/06/2012 Constitutional No insomnia 10/06/2012 Eyes No eye discharge 10/06/2012 Eyes No eye erythema 10/06/2012 Cardiovascular No chest pain/pressure 10/06/2012 Gastrointestinal No abdominal pain 10/06/2012 Gastrointestinal No constipation 10/06/2012 Gastrointestinal No diarrhea 10/06/2012 Gastrointestinal No nausea 10/06/2012 Gastrointestinal No vomiting 10/06/2012 Genitourinary/Nephrology No dysuria 10/06/2012 Dermatologic No rash 10/06/2012 Dermatologic No sores 10/06/2012 Constitutional No night sweats 09/01/2011 Constitutional No chills 09/01/2011 Constitutional No fatigue 09/01/2011 Constitutional No fever 09/01/2011 Cardiovascular No chest pain/pressure 09/01/2011 Cardiovascular No dyspnea 09/01/2011 Cardiovascular No fatigue 09/01/2011 Respiratory No chest congestion 09/01/2011 Respiratory No cough 09/01/2011 Gastrointestinal No abdominal pain 09/01/2011 Gastrointestinal No constipation 09/01/2011 Gastrointestinal No diarrhea 09/01/2011 Neurologic No ataxia 09/01/2011 Neurologic No dizziness 09/01/2011 Neurologic No gait abnormality 09/01/2011 Neurologic No headache 09/01/2011 Neurologic pain, back 09/01/2011 Neurologic pain, limb 09/01/2011 Neurologic paresthesia 09/01/2011 Psychiatric No anxiety 09/01/2011 Psychiatric No depression 09/01/2011 Genitourinary/Nephrology No urinary incontinence 09/01/2011 Constitutional No night sweats 08/04/2011 Constitutional No chills 08/04/2011 Constitutional No fatigue 08/04/2011 Constitutional No fever 08/04/2011 Cardiovascular No chest pain/pressure 08/04/2011 Cardiovascular No fatigue 08/04/2011 Cardiovascular No dyspnea 08/04/2011 Respiratory No chest congestion 08/04/2011 Respiratory No cough 08/04/2011 Gastrointestinal No abdominal pain 08/04/2011 Gastrointestinal No constipation 08/04/2011 Gastrointestinal No diarrhea 08/04/2011 Neurologic No ataxia 08/04/2011 Neurologic No dizziness 08/04/2011 Neurologic No gait abnormality 08/04/2011 Neurologic No headache 08/04/2011 Neurologic pain, back 08/04/2011 Neurologic pain, limb 08/04/2011 Neurologic paresthesia 08/04/2011 Psychiatric No anxiety 08/04/2011 Psychiatric No depression 08/04/2011 Ears/Nose/Throat/Neck No dizziness 05/28/2011 Ears/Nose/Throat/Neck facial pain 05/28/2011 Ears/Nose/Throat/Neck No facial swelling 05/28/2011 Ears/Nose/Throat/Neck headache 05/28/2011 Ears/Nose/Throat/Neck hoarseness 05/28/2011 Ears/Nose/Throat/Neck nasal allergies 05/28/2011 Ears/Nose/Throat/Neck nasal discharge 05/28/2011 Ears/Nose/Throat/Neck No oral pain 05/28/2011 Ears/Nose/Throat/Neck No oral lesion 05/28/2011 Ears/Nose/Throat/Neck sinus congestion 05/28/2011 Ears/Nose/Throat/Neck sore throat 05/28/2011 Cardiovascular No chest pain/pressure 05/28/2011 Cardiovascular No edema 05/28/2011 Cardiovascular No fatigue 05/28/2011 Cardiovascular No syncope 05/28/2011 Respiratory No productive sputum 05/28/2011 Respiratory No chest congestion 05/28/2011 Respiratory No chest tightness 05/28/2011 Respiratory No cough 05/28/2011 Respiratory No dyspnea 05/28/2011 Gastrointestinal No abdominal pain 05/28/2011 Gastrointestinal No nausea 05/28/2011 Gastrointestinal No vomiting 05/28/2011 Dermatologic No rash 05/28/2011 Constitutional No chills 05/28/2011 Constitutional No diaphoresis 05/28/2011 Constitutional No fatigue 05/28/2011 Constitutional No fever 05/28/2011 Constitutional No malaise 05/28/2011 Constitutional No insomnia 05/28/2011 Eyes eye tearing 05/28/2011 Eyes No eye pain 05/28/2011 Eyes No eye erythema 05/28/2011 Eyes No eye discharge 05/28/2011 Ears/Nose/Throat/Neck No dental pain 05/28/2011 Physical Exam Exam Name System Name Item Name Status Result Effective Dates Notes Full Exam - General 1994 Constitutional general appearance Overall: well developed 11/25/2016 None Full Exam - General 1994 Constitutional general appearance Overall: in no acute distress 11/25/2016 None Full Exam - General 1994 Constitutional general appearance Overall: well nourished 11/25/2016 None Full Exam - General 1994 Eyes conjunctiva/eyelids Overall: conjunctiva clear 11/25/2016 None Full Exam - General 1994 Eyes conjunctiva/eyelids Overall: eyelids normal 11/25/2016 None Full Exam [...] None Full Exam - General 1994 Eyes conjunctiva/eyelids Overall: conjunctiva clear 10/26/2016 None Full Exam - General 1994 Eyes conjunctiva/eyelids Overall: eyelids normal 10/26/2016 None Full Exam [...] Neck inspection of neck Overall: no masses 05/17/2013 None Full Exam - ENT Respiratory auscultation [...] Neck inspection of neck Overall: no masses 10/06/2012 None Full Exam - ENT Respiratory auscultation [...] Neck inspection of neck Overall: no masses 05/28/2011 None Full Exam - ENT Respiratory auscultation [...] distress 05/28/2011 None Procedures Procedure Codes Date TRIAMCINOLONE ACET INJ NOS CPT-4: [id number] 06/01/2016 TRIAMCINOLONE ACET INJ NOS CPT-4: F1501Gukdxhq 11/10/2015 TRIAMCINOLONE ACET INJ NOS CPT-4: X3740Uvgakvq 05/17/2013 TRIAMCINOLONE ACET INJ NOS CPT-4: S9393Oohouuh 10/06/2012 TRIAMCINOLONE ACET INJ NOS CPT-4: F0648Pozgrhd 08/04/2011 THER/PROPH/DIAG INJ SC/IM CPT-4: 67426Rpzyfif 08/04/2011 THER/PROPH/DIAG INJ SC/IM CPT-4: 83362Rlttsxb 05/28/2011 TRIAMCINOLONE ACET INJ NOS CPT-4: S6428Gikwxxt 05/28/2011 Vital Signs Date Vital 03/09/2017 Blood Pressure 1: 116/72 Code: 8480-6 BMI: 35.9 Code: 32680-9 Heart Rate 1: 90 bpm Height: 5'4" Weight: 209 lbs 12/23/2016 Blood Pressure 1: 132/86 Code: 8480-6 BMI: 34.7 Code: 03253-2 Heart Rate 1: 83 bpm Height: 5'4" SpO2: 98% Weight: 202 lbs 11/25/2016 Blood Pressure 1: 102/68 Code: 8480-6 BMI: 34.3 Code: 41910-4 Heart Rate 1: 80 bpm Height: 5'4" SpO2: 97% Weight: 200 lbs 10/26/2016 Blood Pressure 1: 138/78 Code: 8480-6 BMI: 33.6 Code: 93901-0 Heart Rate 1: 80 bpm Height: 5'4" SpO2: 99% Weight: 196 lbs 06/01/2016 Blood Pressure 1: 130/80 Code: 8480-6 BMI: 31.1 Code: 02371-9 Heart Rate 1: 97 bpm Height: 5'4" SpO2: 99% Temperature: 36.9 (C) / 98.5 (F) Weight: 181 lbs 11/10/2015 Blood Pressure 1: 122/74 Code: 8480-6 BMI: 30.4 Code: 83375-2 Heart Rate 1: 72 bpm Height: 5'4" Temperature: 36.8 (C) / 98.3 (F) Weight: 177 lbs 10/02/2015 Blood Pressure 1: 106/68 Code: 8480-6 BMI: 30.4 Code: 36817-0 Heart Rate 1: 90 bpm Height: 5'4" SpO2: 96% Weight: 177 lbs 11/07/2013 Blood Pressure 1: 136/78 Code: 8480-6 Heart Rate 1: 72 bpm Temperature: 36.1 (C) / 96.9 (F) Weight: 219 lbs 05/17/2013 Blood Pressure 1: 112/68 Code: 8480-6 BMI: 35.0 Code: 60105-8 Heart Rate 1: 80 bpm Height: 5'4" Temperature: 36.6 (C) / 97.9 (F) Weight: 204 lbs 05/09/2013 Blood Pressure 1: 106/66 Code: 8480-6 BMI: 34.8 Code: 82087-3 Heart Rate 1: 88 bpm Height: 5'4" Weight: 203 lbs 10/06/2012 Blood Pressure 1: 108/68 Code: 8480-6 Heart Rate 1: 80 bpm Respiratory Rate: 16 bpm Temperature: 36.6 (C) / 97.9 (F) Weight: 204 lbs 09/01/2011 Blood Pressure 1: 140/94 Code: 8480-6 BMI: 34.8 Code: 10510-8 Heart Rate 1: 76 bpm Height: 5'4" Respiratory Rate: 16 bpm Weight: 203 lbs 08/04/2011 Blood Pressure 1: 112/84 Code: 8480-6 BMI: 32.8 Code: 01318-5 Heart Rate 1: 76 bpm Height: 5'6" Respiratory Rate: 16 bpm Weight: 200 lbs 05/28/2011 Blood Pressure 1: 107/74 Code: 8480-6 BMI: 34.1 Code: 53887-3 Heart Rate 1: 80 bpm Height: 5'4" Weight: 202 lbs Functional Status No Functional Status data History of Present Illness Symptom Name Status Result Effective Date Notes medication follow up Additional Comments medication use [...] Findings fever 06/01/2016 None cough Quality acute 06/01/2016 None cough Onset of Symptom during adulthood [...] the throat 11/07/2013 None cough Quality acute 11/07/2013 None cough Quality productive 11/07/2013 None cough [...] Quality productive 05/17/2013 None cough Quality acute 05/17/2013 None cough Onset and Resolution gradual in [...] weeks ago 10/06/2012 None cough Quality acute 10/06/2012 None cough Limitation on Activities does not [...] data Encounters Encounter Performer Location Codes Date ([id number]) Miscellaneous no charge Diagnosis: Other obesity due to excess calories[ICD10: E66.09] [facility] CPT-4: 53170 12/23/2016 [id number] EST. PATIENT, LEVEL III Diagnosis: Generalized anxiety disorder[ICD10: F41.1] Diagnosis: Other obesity due to excess calories[ICD10: E66.09] Diagnosis: Mixed obsessional thoughts and acts[ICD10: F42.2] [facility] CPT-4: 87696 11/25/2016 49673 EST. PATIENT, LEVEL IV Diagnosis: Generalized anxiety disorder[ICD10: F41.1] Diagnosis: Mixed obsessional thoughts and acts[ICD10: F42.2] [facility] CPT-4: 20028 10/26/2016 ([id number]) 59921 EST. PATIENT, LEVEL III Diagnosis: Allergic rhinitis due to pollen[ICD10: J30.1] Diagnosis: Migraine, unspecified, not intractable, without status migrainosus[ICD10: G43.909] Diagnosis: Acute recurrent maxillary sinusitis[ICD10: J01.01] [facility] CPT-4: 69758 06/01/2016 ([id number]) 40432 EST. PATIENT, LEVEL III Diagnosis: Acute recurrent maxillary sinusitis[ICD10: J01.01] Zoey Jay MD, [facility] CPT-4: 43405 11/10/2015 60641 EST. PATIENT, LEVEL III Diagnosis: Obsessive-compulsive disorder[ICD10: F42] Diagnosis: Generalized anxiety disorder[ICD10: F41.1] Indu Jay MD, [facility] CPT-4: 04744 10/02/2015 ([id number]) 06400 EST. PATIENT, LEVEL III Diagnosis: ACUTE SINUSITIS[ICD9: 461.9] Diagnosis: COUGH[ICD9: 786.2] Lachelle Jay MD, [facility] CPT-4: 65962 11/07/2013 ([id number]) 77758 EST. PATIENT, LEVEL III Diagnosis: Acute maxillary sinusitis[ICD9: 461.0] Diagnosis: COUGH[ICD9: 786.2] Lachelle Jay MD, [facility] CPT-4: 80485 05/17/2013 ([id number]) 50861 EST. PATIENT, LEVEL III Diagnosis: Obsessive compulsive disorder[ICD9: 300.3] Diagnosis: Anxiety, generalized[ICD9: 300.02] Lachelle Jay MD, [facility] CPT- 4: 87905 05/09/2013 ([id number]) 51695 EST. PATIENT, LEVEL III Diagnosis: ACUTE SINUSITIS[ICD9: 461.9] Zoey Jay MD, [facility] CPT-4: 19558 10/06/2012 98497 EST. PATIENT, LEVEL IV Diagnosis: Leg pain[ICD9: 729.5] Diagnosis: Sciatica[ICD9: 724.3] Diagnosis: LUMBAGO[ICD9: 724.2] Diagnosis: Back muscle spasm[ICD9: 724.8] Lachelle Jay MD, [facility] CPT-4: 33100 09/01/2011 53875 EST. PATIENT, LEVEL III Diagnosis: LUMBAGO[ICD9: 724.2] Diagnosis: Sciatica[ICD9: 724.3] Diagnosis: Leg pain[ICD9: 729.5] [facility] CPT-4: 61686 08/04/2011 02791 EST. PATIENT, LEVEL III Diagnosis: ACUTE SINUSITIS[ICD9: 461.9] Diagnosis: Allergic rhinitis[ICD9: 477.9] [facility] CPT-4: 60896 05/28/2011 Plan of Care Planned Activity Notes Codes Status Date Appointment: Nurse Visit 03/09/2017 Patient Education: Patient [...] weight check. 11/25/2016 Appointment: Indu Arauz WPtel: [address] [place], [place] [id number] (30 min) [facility] 11/25/2016 Patient Education: Patient Medication Summary Completed [...] above medications. 10/26/2016 Appointment: [facility] [phone] [id number] ([facility] Complex 10/26/2016 Patient Education: Patient Medication Summary Completed 10/26/2016 Visit Plan: Allergies - chronic - recommended pt to use allergy medication as prescribed. Pt has been counseled as to the appropriate use of the medication. Pt to call if allergy symptoms are not controlled with the medication.If using nasal spray, instructions as follows: Nasal spray- use twice daily, one spray per nostril twice daily, after 30 minutes, rinse out nose with saline spray.. Use opposite hand per nostril to spray in the nasal steroid allergy spray.Migraines- sample of onzetra for prn use provided and [...] recommended. Call if symptoms do not show improvement.Kenalog injection today in the office 11/10/2015 Appointment: Zoey Sinha WPtel: [phone] (10 min) Simple 11/10/2015 Patient Education: Patient [...] are not improved, or if symptoms acutely worsen.terra alejandrequil or Veronica needs a well visit - needs labs 11/07/2013 Appointment: Lachelle Jay WPtel: [address] [place] [address] Follow up 11/07/2013 Patient Education: Patient Medication Summary Completed 11/07/2013 Appointment: Lachelle Jay WPtel: [address] [place] [address] Sick 11/01/2013 Visit Plan: Sinusitis - Pt has acute infection - pain in face, maxillary region, Pt informed to use decongestant, RX given to patient, sinus rinses also recommended. Recommend take start on probiotic while on antibiotics. Call if symptoms do not show improvement. Kenalog injection today in the office for acute symptoms. 05/17/2013 Appointment: Zoey Sinha WPtel: [phone] [place] [address] 05/17/2013 Patient Education: Patient Medication Summary Completed 05/17/2013 Visit Plan: OCD/Anxiety - pt to start on generic luvox 100mg daily, and use prn xanax at 0.25mg q 6 hours as needed for anxiety attacks. 05/09/2013 Appointment: Lachelle Jay WPtel: [facility] [place] [phone] Other 05/09/2013 Patient Education: Patient Medication Summary [...] allergy symptoms are not controlled with the medication.Kenalog injection today in the office 10/06/2012 Appointment: Zoey Sinha WPtel: [address] [place] [phone] Other 10/06/2012 Patient Education: Patient Medication Summary [...] butrans - slowly wean down on the hydrocodone.Muscle spasms - start the baclofen for muscle spasms. Call if not improved. 09/01/2011 Appointment: Lachelle Jay WPtel: [address] [place] [address] Other 09/01/2011 Appointment: Lachelle Jay WPtel: [address] [place] [address] Other 09/01/2011 Patient Education: Patient Medication Summary Completed 09/01/2011 Visit Plan: Sciatica- exercises discussed with the patient, pt to continue with antiinflammatories. Pt is to call if the symptoms do not improve or if they worsen.Leg pain - discussed need for pt to loose weight, this will help with some of the back pain she is experiencing, may need to consider to go to another physician for epidural injections.[id number] 08/04/2011 Appointment: Lachelle Jay WPtel: [address] [place] [address] Other 08/04/2011 Patient Education: Patient Medication Summary Completed 08/04/2011 Patient Education: Sciatica Completed 08/04/2011 Visit Plan: Allergies - Advised avoidance of allergens if possible, we discussed natural and expected course of this diagnosis and need to alert me if symtpoms do not follow expected course, or if any worse. Kenalog injection today in the office.Pt given samples and script for zyrtec daily. Sinusitis - Pt has acute infection - pain in face, maxillary region, Pt informed to use decongestant, RX given to patient, sinus rinses also recommended. Call if symptoms do not show improvement. 05/28/2011 Appointment: Zoey Sinha WPtel: [address] [place], [place] [phone] Other 05/28/2011 Patient Education: Patient Medication Summary [...] go to another physician for epidural injections. [id number] . Allergies - chronic - recommended pt [...] for muscle spasms. Call if not improved. . Obsessive compulsive disorder and anxiety - [...] Kenalog injection today in the office . Chronic Depression and anxiety - the [...]
[2019-04-29] MEDS ORDERED: LACTATED RINGERS 1,000 ML IV ONE ×2 (18:55→19:41)
--- OUTSIDE RECORDS SUMMARY | 2019-04-29 18:55 | XMS REPORT | CCD ---
Author Author Zoey Sinha MD, [facility] Address [address] [place] [address] Phone Care Team Providers Care Manager Mental Health Name Role Phone PP Unavailable CCM Unavailable Summary Purpose Interface Exchange Insurance Providers Payer name Policy type / Coverage type Covered republican ID Effective Begin Date Effective End Date [facility] [id number] Unknown Family history Brother Diagnosis Age At Onset No Family Disease Entered N/A Daughter Diagnosis Age At Onset No Family Disease Entered N/A Mother Diagnosis Age At Onset No Family Disease Entered N/A Father Diagnosis Age At Onset No Family Disease Entered N/A Social History Social History Element Codes Description Effective Dates Tobacco history SNOMED CT: 879877360 Never smoker 05/27/[address]: 250421913 Never drinks alcohol 05/27/2011 Has the patient [...] Start Date Stop Date Status Fill Instructions phentermine 37.5 mg tablet RxNorm: 266816 1 Tablet(s) PO daily 03/09/2017 04/07/2017 Active Lexapro 20 mg tablet RxNorm: 412628 1 Tablet(s) PO daily 01/14/2017 04/13/2017 Active phentermine 37.5 mg tablet RxNorm: 078931 1 Tablet(s) PO daily 12/23/2016 01/21/2017 Inactive Xanax 0.25 mg tablet RxNorm: 094486 Tablet(s) PO TAKE 1 TABLET BY MOUTH EVERY 4-6 HOURS NEEDED FOR ANXIETY 11/25/2016 No Stop Date Active (Appended: Controlled substance eRx refill - RxReferenceNumber: [id number]|1|0|1) phentermine 37.5 mg tablet RxNorm: 505231 1 Tablet(s) PO daily 11/25/2016 12/22/2016 Inactive Lexapro 20 mg tablet RxNorm: 078554 1 Tablet(s) PO daily 11/25/2016 12/24/2016 Inactive Lexapro 10 mg tablet RxNorm: 067695 1 Tablet(s) PO daily 10/26/2016 11/24/2016 Inactive fluvoxamine 100 mg tablet RxNorm: 975388 TAKE 1/2 OF A TABLET BY MOUTH TWICE A DAY 10/21/2016 10/25/2016 Inactive Generic For:LUVOX 100 MG TABLET 10/21/2016 2:32:39 PM Onzetra Xsail 11 mg powder for nasal inhalation RxNorm: 1113642 1 nosepiece in each nostril NASAL as needed migraine May repeat another full dose 2 hours after first. 06/16/2016 No Stop Date Active Onzetra Xsail 11 mg powder for nasal inhalation RxNorm: 3615185 1 nosepiece in each nostril NASAL as needed migraine May repeat another full dose 2 hours after first. 06/11/2016 06/15/2016 Inactive Kenalog 40 mg/mL suspension for injection RxNorm: 4757679 Milliliter(s) Inj 06/01/2016 06/01/2016 Inactive Zithromax Z-Maikel 250 mg tablet RxNorm: 772728 1 Tablet(s) PO UD take zpack as directed 06/01/2016 06/10/2016 Inactive fluvoxamine 100 mg tablet RxNorm: 872270 TAKE 1/2 OF A TABLET BY MOUTH TWICE A DAY 05/31/2016 09/27/2016 Inactive Generic For:LUVOX 100 MG TABLET 05/31/2016 12:42:28 PM Xanax 0.25 mg tablet RxNorm: 948837 Tablet(s) PO TAKE 1 TABLET BY MOUTH EVERY 4-6 HOURS NEEDED FOR ANXIETY 04/08/2016 11/24/2016 Inactive (Appended: Controlled substance eRx refill - RxReferenceNumber: [id number]|1|0|1) fluvoxamine 100 mg tablet RxNorm: 981548 TAKE 1/2 OF A TABLET BY MOUTH TWICE A DAY 01/05/2016 05/03/2016 Inactive Generic For:LUVOX 100 MG TABLET 01/05/2016 9:37:27 AM fluvoxamine 100 mg tablet RxNorm: 501485 TAKE 1/2 OF A TABLET BY MOUTH TWICE A DAY 12/02/2015 12/31/2015 Inactive Generic For:LUVOX 100 MG TABLET 12/02/2015 9:02:44 AM N O T I C E PRESCRIPTION PREVIOUSLY AUTHORIZED BY DOCTOR:INDU ARAUZ [phone] Kenalog 40 mg/mL suspension for injection RxNorm: 8818257 1 Milliliter(s) Inj 11/10/2015 11/10/2015 Inactive doxycycline hyclate 100 mg tablet RxNorm: 115940 1 Tablet(s) PO BID 11/10/2015 10/25/2016 Inactive fluvoxamine 100 mg tablet RxNorm: 964994 TAKE 1/2 TABLET BY MOUTH TWICE DAILY 10/06/2015 11/04/2015 Inactive Generic For:LUVOX 100 MG TABLET text when ready 09/29/2015 4:32:56 PM fluvoxamine 100 mg tablet RxNorm: 556691 Tablet(s) TAKE 1/2 TABLET BY MOUTH TWICE DAILY 10/02/2015 10/05/2015 Inactive 08/25/2015 5:28:36 PM fluvoxamine 100 mg tablet RxNorm: 702523 TAKE 1/2 TABLET BY MOUTH TWICE DAILY 08/26/2015 09/24/2015 Inactive 08/25/2015 5:28:36 PM fluvoxamine 100 mg tablet RxNorm: 726864 TAKE 1/2 TABLET BY MOUTH TWICE DAILY 07/24/2015 08/22/2015 Inactive 07/23/2015 1:15:44 PM Xanax 0.25 mg tablet RxNorm: 077709 Tablet(s) PO TAKE 1 TABLET BY MOUTH EVERY 4-6 HOURS NEEDED FOR ANXIETY 03/11/2015 04/07/2016 Inactive (Appended: Controlled substance eRx refill - RxReferenceNumber: [id number]|1|0|1) fluvoxamine 100 mg tablet RxNorm: 910760 1/2 Tablet(s) PO BID 03/11/2015 07/08/2015 Inactive fluvoxamine ER 100 mg capsule,extended release 24 hr RxNorm: 199608 1 Tablet(s) PO BID 02/05/2015 03/10/2015 Inactive fluvoxamine 100 mg tablet RxNorm: 564672 1 Tablet(s) PO BID 11/11/2014 02/04/2015 Inactive fluvoxamine ER 100 mg capsule,extended release 24 hr RxNorm: 730244 TAKE ONE CAPSULE BY MOUTH EVERY DAY 07/17/2014 11/10/2014 Inactive fluvoxamine ER 100 mg capsule,extended release 24 hr RxNorm: 699003 TAKE ONE CAPSULE BY MOUTH EVERY DAY 04/15/2014 07/13/2014 Inactive Xanax 0.25 mg tablet RxNorm: 678992 1 Tablet(s) PO Q4-6H TAKE 1 TABLET BY MOUTH EVERY 4 TO 6 HOURS NEEDED FOR ANXIETY 01/28/2014 No Stop Date Active (Appended: Controlled substance eRx refill - RxReferenceNumber: [id number]|1|0|1) Xanax 0.25 mg tablet RxNorm: 128950 Tablet(s) PO TAKE 1 TABLET BY MOUTH EVERY 4-6 HOURS NEEDED FOR ANXIETY 01/28/2014 03/10/2015 Inactive (Appended: Controlled substance eRx refill - RxReferenceNumber: [id number]|1|0|1) fluvoxamine ER 100 mg capsule,extended release 24 hr RxNorm: 106831 1 Capsule(s) PO daily TAKE ONE CAPSULE BY MOUTH EVERY DAY 12/13/2013 04/11/2014 Inactive fluvoxamine ER 100 mg capsule,extended release 24 hr RxNorm: 841076 Capsule(s) PO TAKE ONE CAPSULE BY MOUTH EVERY DAY 12/13/2013 12/12/2013 Inactive Tessalon 200 mg capsule RxNorm: 577149 1 Capsule(s) PO Q8 PRN 11/19/2013 11/09/2015 Inactive fluvoxamine ER 100 mg capsule,extended release 24 hr RxNorm: 071930 1 Capsule(s) PO daily TAKE ONE CAPSULE BY MOUTH EVERY DAY 11/07/2013 12/12/2013 Inactive Zithromax Z-Maikel 250 mg tablet RxNorm: 271065 1 Tablet(s) PO as doctor directed take zpack as directed 11/07/2013 No Stop Date Active Xanax 0.25 mg tablet RxNorm: 220605 Tablet(s) PO TAKE 1 TABLET BY MOUTH EVERY 4 TO 6 HOURS NEEDED FOR ANXIETY 09/24/2013 01/28/2014 Inactive (Appended: Controlled substance eRx refill - RxReferenceNumber: [id number]|1|0|1) fluvoxamine ER 100 mg capsule,extended release 24 hr RxNorm: 450846 1 Capsule(s) PO daily 09/06/2013 09/05/2013 Inactive fluvoxamine ER 100 mg capsule,extended release 24 hr RxNorm: 593021 Capsule(s) PO TAKE ONE CAPSULE BY MOUTH EVERY DAY 09/06/2013 11/06/2013 Inactive Kenalog 40 mg/mL Susp for Injection RxNorm: 7600300 Milliliter(s) Inj 05/17/2013 05/17/2013 Inactive Zithromax Z-Maikel 250 mg tablet RxNorm: 586992 Tablet(s) PO UD 05/17/2013 No Stop Date Active fluvoxamine ER 100 mg capsule,extended release 24 hr RxNorm: 925160 1 Capsule(s) PO daily 05/09/2013 09/05/2013 Inactive Kenalog 40 mg/mL Susp for Injection RxNorm: 5601825 1 Milliliter(s) Inj 10/06/2012 10/06/2012 Inactive Zithromax Z-Maikel 250 mg tablet RxNorm: 747990 Tablet(s) PO UD 10/06/2012 No Stop Date Active baclofen 10 mg Tab RxNorm: 194775 1 Tablet(s) PO TID PRN 09/01/2011 02/27/2012 Inactive hydrocodone-acetaminophen 7.5 mg-325 mg Tab RxNorm: 1938228 1 Tablet(s) PO Q6 PRN 1 tab q 6hrs prn 09/01/2011 09/15/2011 Inactive Butrans 10 mcg/hour Transderm Patch RxNorm: 490959 1 Patch TD QW 09/01/2011 11/29/2011 Inactive hydrocodone-acetaminophen 7.5 mg-325 mg Tab RxNorm: 4795982 1 Tablet(s) PO Q6 PRN 1 tab q 6hrs prn 08/25/2011 08/31/2011 Inactive Neurontin 600 mg Tab RxNorm: 980750 Tablet(s) PO 1 tab tid and 2 at hs 08/24/2011 11/09/2015 Inactive TAKE 1 TABLET BY MOUTH THREE TIMES DAILY AND 2 TABLETS BY MOUTH EVERY NIGHT AT BEDTIME Neurontin 600 mg Tab RxNorm: 598103 1 Tablet(s) PO TID 1 tab tid and 2 at hs 08/24/2011 08/23/2011 Inactive Neurontin 600 mg Tab RxNorm: 858658 1 Tablet(s) PO TID 1 tab tid and 2 at hs 08/24/2011 08/23/2011 Inactive hydrocodone-acetaminophen 7.5 mg-325 mg Tab RxNorm: 5433121 1 Tablet(s) PO Q6 PRN 1 tab q 6hrs prn 08/05/2011 08/19/2011 Inactive Vimovo 500 mg-20 mg multiphase, immed & delay rel Tab RxNorm: 932442 1 Tablet(s) PO BID 08/04/2011 07/23/2013 Inactive hydrocodone-acetaminophen 7.5 mg-325 mg Tab RxNorm: 6086872 1 Tablet(s) PO Q6 PRN 1 tab q 6hrs prn 07/20/2011 08/03/2011 Inactive hydrocodone-acetaminophen 7.5 mg-325 mg Tab RxNorm: 2412748 1 Tablet(s) PO Q6 PRN 1 tab q 6hrs prn 06/28/2011 07/12/2011 Inactive Bactrim DS 800 mg-160 mg Tab RxNorm: 043457 1 Tablet(s) PO BID 06/10/2011 06/16/2011 Inactive hydrocodone-acetaminophen 7.5 mg-325 mg Tab RxNorm: 8778310 1 Tablet(s) PO Q6 PRN 1 tab q 6hrs prn 06/02/2011 06/01/2011 Inactive hydrocodone-acetaminophen 7.5 mg-325 mg Tab RxNorm: 7826570 1 Tablet(s) PO Q6 PRN 1 tab q 6hrs prn 06/02/2011 06/16/2011 Inactive triamcinolone acetonide 40 mg/mL Susp for Injection RxNorm: 1551999 2 Milliliter(s) Inj 05/28/2011 05/28/2011 Inactive Nasonex 50 mcg/Actuation [place] RxNorm: 752223 1 [place] NASAL daily No Start Date Active Tessalon 200 mg capsule RxNorm: 074112 1 Capsule(s) PO Q8 PRN No Start Date 11/18/2013 Inactive hydrocodone-acetaminophen 7.5 mg-325 mg Tab RxNorm: 2805936 1 Tablet(s) PO Q6 PRN 1 tab q 6hrs prn No Start Date 06/01/2011 Inactive Neurontin 600 mg Tab RxNorm: 060245 1 Tablet(s) PO TID 1 tab tid and 2 at hs No Start Date 08/23/2011 Inactive Xanax 0.25 mg tablet RxNorm: 875040 Tablet(s) PO PRN No Start Date 09/24/2013 Inactive niacin ER 500 mg Tab RxNorm: 266365 1 Tablet(s) PO QHS No Start Date 11/09/2015 Inactive Onzetra Xsail 11 mg powder for nasal inhalation RxNorm: 7057954 1 nosepiece in each nostril NASAL as needed migraine May repeat another full dose 2 hours after first. No Start Date 06/10/2016 Inactive Zithromax Z-Maikel 250 mg tablet RxNorm: 274083 Tablet(s) PO No Start Date 06/01/2011 Inactive melatonin 3 mg Tab RxNorm: 974309 1 Tablet(s) PO QHS No Start Date 11/09/2015 Inactive Medication Administered Medication Codes Instructions Start Date Status Kenalog 40 mg/mL suspension for injection RxNorm: 6828246 Milliliter 06/01/2016 No longer Active Kenalog 40 mg/mL suspension for injection RxNorm: 1902046 1Milliliter 11/10/2015 No longer Active Kenalog 40 mg/mL Susp for Injection RxNorm: 3092465 Milliliter 05/17/2013 No longer Active Kenalog 40 mg/mL Susp for Injection RxNorm: 9025354 1Milliliter 10/06/2012 No longer Active triamcinolone acetonide 40 mg/mL Susp for Injection RxNorm: 9432536 2Milliliter 05/28/2011 No longer Active Immunizations No [...] benign 05/09/2013 None Full Exam - General 1995 Musculoskeletal spine, ribs and pelvis Posture: lordosis [...] Codes Date TRIAMCINOLONE ACET INJ NOS CPT-4: C7616Fqcdhnf 06/01/2016 TRIAMCINOLONE ACET INJ NOS CPT-4: R0428Fevxzpy 11/10/2015 TRIAMCINOLONE ACET INJ NOS CPT-4: F9791Etxgjjg 05/17/2013 TRIAMCINOLONE ACET INJ NOS CPT-4: D9070Fhdqozh 10/06/2012 TRIAMCINOLONE ACET INJ NOS CPT-4: F3262Chhuury 08/04/2011 THER/PROPH/DIAG INJ SC/IM CPT-4: 92042Aamigsx 08/04/2011 THER/PROPH/DIAG INJ SC/IM CPT-4: 79541Xojyybk 05/28/2011 TRIAMCINOLONE ACET INJ NOS CPT-4: W8802Gvppjdc 05/28/2011 Vital Signs Date Vital 03/09/2017 Blood Pressure 1: 116/72 Code: 8480-6 BMI: 35.9 Code: 26536-8 Heart Rate 1: 90 bpm Height: 5'4" Weight: 209 lbs 12/23/2016 Blood Pressure 1: 132/86 Code: 8480-6 BMI: 34.7 Code: 67055-2 Heart Rate 1: 83 bpm Height: 5'4" SpO2: 98% Weight: 202 lbs 11/25/2016 Blood Pressure 1: 102/68 Code: 8480-6 BMI: 34.3 Code: 19150-6 Heart Rate 1: 80 bpm Height: 5'4" SpO2: 97% Weight: 200 lbs 10/26/2016 Blood Pressure 1: 138/78 Code: 8480-6 BMI: 33.6 Code: 94126-5 Heart Rate 1: 80 bpm Height: 5'4" SpO2: 99% Weight: 196 lbs 06/01/2016 Blood Pressure 1: 130/80 Code: 8480-6 BMI: 31.1 Code: 26342-2 Heart Rate 1: 97 bpm Height: 5'4" SpO2: 99% Temperature: 36.9 (C) / 98.5 (F) Weight: 181 lbs 11/10/2015 Blood Pressure 1: 122/74 Code: 8480-6 BMI: 30.4 Code: 56090-0 Heart Rate 1: 72 bpm Height: 5'4" Temperature: 36.8 (C) / 98.3 (F) Weight: 177 lbs 10/02/2015 Blood Pressure 1: 106/68 Code: 8480-6 BMI: 30.4 Code: 03888-5 Heart Rate 1: 90 bpm Height: 5'4" SpO2: 96% Weight: 177 lbs 11/07/2013 Blood Pressure 1: 136/78 Code: 8480-6 Heart Rate 1: 72 bpm Temperature: 36.1 (C) / 96.9 (F) Weight: 219 lbs 05/17/2013 Blood Pressure 1: 112/68 Code: 8480-6 BMI: 35.0 Code: 42118-4 Heart Rate 1: 80 bpm Height: 5'4" Temperature: 36.6 (C) / 97.9 (F) Weight: 204 lbs 05/09/2013 Blood Pressure 1: 106/66 Code: 8480-6 BMI: 34.8 Code: 53791-0 Heart Rate 1: 88 bpm Height: 5'4" Weight: 203 lbs 10/06/2012 Blood Pressure 1: 108/68 Code: 8480-6 Heart Rate 1: 80 bpm Respiratory Rate: 16 bpm Temperature: 36.6 (C) / 97.9 (F) Weight: 204 lbs 09/01/2011 Blood Pressure 1: 140/94 Code: 8480-6 BMI: 34.8 Code: 63903-9 Heart Rate 1: 76 bpm Height: 5'4" Respiratory Rate: 16 bpm Weight: 203 lbs 08/04/2011 Blood Pressure 1: 112/84 Code: 8480-6 BMI: 32.8 Code: 47632-3 Heart Rate 1: 76 bpm Height: 5'6" Respiratory Rate: 16 bpm Weight: 200 lbs 05/28/2011 Blood Pressure 1: 107/74 Code: 8480-6 BMI: 34.1 Code: 46544-7 Heart Rate 1: 80 bpm Height: 5'4" [...] data Encounters Encounter Performer Location Codes Date ([id number]) Miscellaneous no charge Diagnosis: Other obesity due to excess calories[ICD10: E66.09] Indu Jay MD, [facility] CPT-4: 47731 12/23/2016 [id number] EST. PATIENT, LEVEL III Diagnosis: Generalized anxiety disorder[ICD10: F41.1] Diagnosis: Other obesity due to excess calories[ICD10: E66.09] Diagnosis: Mixed obsessional thoughts and acts[ICD10: F42.2] Indu Jay MD, [facility] CPT-4: 67033 11/25/2016 88574 EST. PATIENT, LEVEL IV Diagnosis: Generalized anxiety disorder[ICD10: F41.1] Diagnosis: Mixed obsessional thoughts and acts[ICD10: F42.2] Indu Jay MD, [facility] CPT-4: 42200 10/26/2016 ([id number]) 21528 EST. PATIENT, LEVEL III Diagnosis: Allergic rhinitis due to pollen[ICD10: J30.1] Diagnosis: Migraine, unspecified, not intractable, without status migrainosus[ICD10: G43.909] Diagnosis: Acute recurrent maxillary sinusitis[ICD10: J01.01] Zoey Jay MD, [facility] CPT-4: 67827 06/01/2016 ([id number]) 93217 EST. PATIENT, LEVEL III Diagnosis: Acute recurrent maxillary sinusitis[ICD10: J01.01] Zoey Jay MD, [facility] CPT-4: 27725 11/10/2015 47190 EST. PATIENT, LEVEL III Diagnosis: Obsessive-compulsive disorder[ICD10: F42] Diagnosis: Generalized anxiety disorder[ICD10: F41.1] Indu Jay MD, [facility] CPT-4: 71998 10/02/2015 ([id number]) 07751 EST. PATIENT, LEVEL III Diagnosis: ACUTE SINUSITIS[ICD9: 461.9] Diagnosis: COUGH[ICD9: 786.2] Lachelle Jay MD, [facility] CPT-4: 63785 11/07/2013 ([id number]) 69506 EST. PATIENT, LEVEL III Diagnosis: Acute maxillary sinusitis[ICD9: 461.0] Diagnosis: COUGH[ICD9: 786.2] Lachelle Jay MD, [facility] CPT-4: 17492 05/17/2013 ([id number]) 95112 EST. PATIENT, LEVEL III Diagnosis: Obsessive compulsive disorder[ICD9: 300.3] Diagnosis: Anxiety, generalized[ICD9: 300.02] Lachelle Jay MD, [facility] CPT- 4: 25894 05/09/2013 ([id number]) 52712 EST. PATIENT, LEVEL III Diagnosis: ACUTE SINUSITIS[ICD9: 461.9] Zoey Jay MD, [facility] CPT-4: 11559 10/06/2012 20829 EST. PATIENT, LEVEL IV Diagnosis: Leg pain[ICD9: 729.5] Diagnosis: Sciatica[ICD9: 724.3] Diagnosis: LUMBAGO[ICD9: 724.2] Diagnosis: Back muscle spasm[ICD9: 724.8] Lachelle Jay MD, [facility] CPT-4: 84029 09/01/2011 07784 EST. PATIENT, LEVEL III Diagnosis: LUMBAGO[ICD9: 724.2] Diagnosis: Sciatica[ICD9: 724.3] Diagnosis: Leg pain[ICD9: 729.5] Lachelle Jay MD, [facility] CPT-4: 31310 08/04/2011 39010 EST. PATIENT, LEVEL III Diagnosis: ACUTE SINUSITIS[ICD9: 461.9] Diagnosis: Allergic rhinitis[ICD9: 477.9] Zoey Jay MD, [facility] CPT-4: 44610 05/28/2011 Plan of Care Planned Activity Notes Codes Status Date Patient Education: Patient Medication Summary Completed 03/09/2017 [...] weight check. 11/25/2016 Appointment: Indu Arauz WPtel: [address] [place], [place] [id number] (30 min) [facility] 11/25/2016 Patient Education: Patient Medication Summary Completed [...] medications. 10/26/2016 [facility]ment[facility] [phone] [phone] ([facility] Complex 10/26/2016 Patient Education: Patient [...] the office 11/10/2015 [facility]ointment: [facility] [phone] [phone] (10 min) Simple 11/10/2015 Patient Education: Patient [...] not improved, or if symptoms acutely worsen.terra landaverde or Veronica needs a well visit - needs labs 11/07/2013 Appointment: Lachelle Jay WPtel: [address] [place], [place] [phone] Follow up 11/07/2013 Patient Education: Patient Medication Summary Completed 11/07/2013 Appointment: Lachelle Jay WPtel: [address] [place], [place] [phone] Sick 11/01/2013 Visit Plan: Sinusitis - Pt has acute infection - pain in face, maxillary region, Pt informed to use decongestant, RX given to patient, sinus rinses also recommended. Recommend take start on probiotic while on antibiotics. Call if symptoms do not show improvement. Kenalog injection today in the office for acute symptoms. 05/17/2013 Appointment: Zoey Sinha WPtel: [address] [place], [place] [phone] [place] [address] Sick 05/17/2013 Patient Education: Patient Medication Summary Completed 05/17/2013 Visit Plan: OCD/Anxiety - pt to start on generic luvox 100mg daily, and use prn xanax at 0.25mg q 6 hours as needed for anxiety attacks. 05/09/2013 Appointment: Lachelle Jay WPtel: [address] [place], [place] [phone] Other 05/09/2013 Patient Education: Patient Medication Summary [...] the office 10/06/2012 Appointment: Zoey Sinha WPtel: [phone] [place] Other 10/06/2012 Patient Education: Patient Medication Summary [...] not improved. 09/01/2011 Appointment: Lachelle Jay WPtel: [address] [place] [address] Other 09/01/2011 Appointment: Lachelle Jay WPtel: [address] [place] [address] Other 09/01/2011 Patient Education: Patient Medication Summary [...] to go to another physician for epidural injections.[id number] 08/04/2011 Appointment: Lachelle Jay WPtel: [address] [place], [place] [phone] Other 08/04/2011 Patient Education: Patient Medication Summary [...] show improvement. 05/28/2011 Appointment: Zoey Sinha [facility]el[phone] Other 05/28/2011 Patient Education: Patient Medication Summary [...] go to another physician for epidural injections. [id number] . Allergies - chronic - recommended pt [...]
[2019-04-29] MEDS ORDERED: ONDANSETRON 4 MG/2 ML (SDV) Z0FRAN IVP ONE (19:00)
--- OUTSIDE RECORDS SUMMARY | 2019-04-29 19:01 | XMS REPORT | Continuity of Care Document ---
Author Organization Unknown Address Unknown Phone Unavailable Allergies There is no data. Medications There is no data. Problems There is no data. Procedures There is no data. Results There is no data. Encounters ACCT No. Visit Date/Time Discharge Status Pt. Type Provider Facility Loc./Unit Complaint [id number] 02/19/2019 15:40:00 02/19/2019 23:59:59 CLS Outpatient [facility]
[2019-04-29 19:03] LABS: BASOPHILS % (AUTO) 0 % (0-10); EOSINOPHILS # (AUTO) 0.1 10^3/uL (0.0-0.3); EOSINOPHILS % (AUTO) 1 % (0-10); HEMATOCRIT 40 % (35-52); HEMOGLOBIN 14.1 G/DL (11.5-16.0); LYMPHOCYTES # (AUTO) 3.4 X 10^3 (1.0-4.0); LYMPHOCYTES % (AUTO) 42 % (12-44); MEAN CORPUSCULAR HEMOGLOBIN 32 PG (25-34); MEAN CORPUSCULAR HGB CONC 35 G/DL (32-36); MEAN CORPUSCULAR VOLUME 91 FL (80-99); MEAN PLATELET VOLUME 9.5 FL (7.4-10.4); MONOCYTES # (AUTO) 0.6 X 10^3 (0.0-1.0); MONOCYTES % (AUTO) 8 % (0-12); NEUTROPHILS % (AUTO) 49 % (42-75); PLATELET COUNT 236 10^3/uL (130-400); RED CELL DISTRIBUTION WIDTH 12.1 % (10.0-14.5); WHITE BLOOD COUNT 8.2 10^3/uL (4.3-11.0)
--- NOTE | 2019-04-29 19:04 | ED General ---
General Stated Complaint: DIZZINESS Source of Information: Patient History of Present Illness Date Seen by Provider: Apr 29, 2019 Time Seen by Provider: 18:47 Initial Comments PT ARRIVES VIA POV FROM HOME MULTIPLE COMPLAINTS PT STATES SHE WAS RECENTLY TREATED FOR UTI WITH UNKNOWN ANTIBIOTIC--STATES SHE FINISHED IT A WEEK AGO STATES HER SYMPTOMS GOT BETTER, BUT ARE NOT GONE--STILL HAVING PAIN, BURNING, URGENCY C/O NAUSEA, NO VOMITING OR DIARRHEA STATES WHOLE ABDOMEN TIGHTENS UP AT TIMES--"I THINK IT'S MY ANXIETY" --PT IS BIPOLAR STATES HER HEAD IS THROBBING AND HURTS AND WHEN SHE CLOSES HER EYES SHE SEES FLASHING LIGHTS--HAS HISTORY OF CHRONIC HEADACHES/MIGRAINES C/O DIZZINESS ON STANDING C/O PAIN WITH INTERCOURSE THIS AM--NO VAGINAL DISCHARGE, AND PT HAS HAD A HYSTERECTOMY NO FEVER/SWEATS/CHILLS HX OF METH ABUSE, CLAIMS NONE RECENTLY PT HAS BEEN HERE SEVERAL TIMES FOR PSYCH ISSUES--LAST OVERDOSE 01/2019 PCP: DR. LEWIS Allergies and Home Medications Allergies Coded Allergies: codeine (Unverified Allergy, Mild, PT HAS RECEIVED MORPHINE & TRAMADOL W/O ISSUE, 12/28/16) Penicillins (Unverified Allergy, Unknown, RASH, HAS HAD ANCEF W/O PROBLEMS, 12/28/16) erythromycin base (Unverified Allergy, Unknown, RASH, 12/28/16) Home Medications Alprazolam 0.25 Mg Tablet, 0.25 MG PO Q4H PRN for ANXIETY, (Reported) Ciprofloxacin HCl 500 Mg Tablet, 500 MG PO BID Prescribed by: JANA STRATTON on 01/23/19 1709 Docusate Sodium 100 Mg Capsule, 100 MG PO BID PRN for CONSTIPATION Prescribed by: GARETT GIRARD on 12/28/16 1610 Escitalopram Oxalate 20 Mg Tablet, 20 MG PO HS, (Reported) Fexofenadine HCl 180 Mg Tablet, 180 MG PO HS, (Reported) Gabapentin 300 Mg Capsule, 300 MG PO TID Prescribed by: BALAJI MENJIVAR on 12/14/184 Ibuprofen 600 Mg Tablet, 600 MG PO Q6H PRN for MILD PAIN Prescribed by: GARETT GIRARD on 12/28/16 1610 Mometasone Furoate 17 Gm [place], 1 SPRAY NS HS, (Reported) Nitrofurantoin Monohyd/M-Cryst 100 Mg Capsule, 1 TAB PO BID, (Reported) Oxycodone HCl/Acetaminophen 1 Each Tablet, 1 TAB PO Q4H PRN for MODERATE PAIN Prescribed by: GARETT GIRARD on 12/28/16 1610 Phentermine HCl 37.5 Mg Tablet, 37.5 MG PO HS, (Reported) Review of Systems Review of Systems Constitutional: see HPI, dizziness; No fever; malaise, weakness EENTM: no symptoms reported Respiratory: no symptoms reported Cardiovascular: no symptoms reported Gastrointestinal: see HPI, abdominal pain; No constipation, No diarrhea; nausea; No vomiting Genitourinary: see HPI, dysuria : No Musculoskeletal: no symptoms reported Skin: no symptoms reported Psychiatric/Neurological: See HPI, Headache; Denies Numbness, Denies Paresthesia, Denies Seizure, Denies Tingling Hematologic/Lymphatic: No Symptoms Reported Immunological/Allergic: no symptoms reported Past Trqtdfa-Batjew-Yopirm Hx Patient Social History Alcohol Use: Occasionally Uses Recreational Drug Use: Yes (+ METH USE--DENIES IV USE) Drug of Choice: METH Smoking Status: Current Everyday Smoker Type Used: Cigarettes 2nd Hand Smoke Exposure: Yes Recent Foreign Travel: No Contact w/Someone Who Travel: No Recent Hopitalizations: No Immunizations Up To Date Tetanus Booster (TDap): Unknown Date of Pneumonia Vaccine: Oct 03, 2011 Seasonal Allergies Seasonal Allergies: Yes Past Medical History Surgeries: Yes (BACK SURGERY; HYST/OVARIES INTACT; "BLADDER STRETCHED" / URETHRAL DILATRION CHILD; X 2; RHINOPLASTY; OVARIAN CYST REMOVAL; D&C) Appendectomy, Bladder Surgery, Section, Gallbladder, Hysterectomy, Orthopedic, Tonsillectomy Respiratory: No Cardiac: No Neurological: Yes Headaches /Migraines 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 Disorders: Yes (MENORRHAGIA) Female 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 Disorders: 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 Sexually Transmitted Disease: Yes (HPV) HIV/AIDS: No Genitourinary: Yes UTI-Chronic, UTI (peds) Gastrointestinal: No Musculoskeletal: Yes Arthritis, Chronic Back Pain Endocrine: No HEENT: No Cancer: No Psychosocial: Yes (OCD; SUBSTANCE ABUSE; OVERDOSES; PSYCH ADMITS; ) Anxiety, PTSD, Bipolar, Depression Integumentary: No Blood Disorders: No Family Medical History Arthritis 19 FATHER 19 MOTHER Hypertension 19 FATHER Physical Exam Vital Signs Vital Signs - First Documented 04/29/19 19:00 Temp 97.6 Pulse 76 Resp 18 B/P (MAP) 131/72 (91) Pulse Ox 99 O2 Delivery Room Air Capillary Refill : Height, Weight, BMI Height: 5'4.00" Weight: 150lbs. 3.0oz. 68.430675is; 34.0 BMI Method:Estimated General Appearance: No Apparent Distress, WD/WN, Other (SPEECH RAPID AND SOMEWHAT MUMBLED) HEENT: PERRL/EOMI, TMs Normal, Normal ENT Inspection, Pharynx Normal, Moist Mucous Membranes Neck: Full Range of Motion, Normal Inspection, Non Tender, Supple Respiratory: Normal Breath Sounds, No Accessory Muscle Use, No Respiratory Dis tress Cardiovascular: Regular Rate, Rhythm, No Edema, No JVD, No Murmur, Normal Peripheral Pulses Gastrointestinal: Normal Bowel Sounds, No Organomegaly, No Pulsatile Mass, Soft, Tenderness (MILD EPIGASTRIC AND SUPRAPUBIC TENDERNESS) Back: Normal Inspection, No CVA Tenderness, No Vertebral Tenderness Extremity: Normal Capillary Refill, Normal Inspection, Normal Range of Motion, Non Tender, No Calf Tenderness, No Pedal Edema Neurologic/Psychiatric: Alert, Oriented x3, No Motor/Sensory Deficits, Normal 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/Affect, 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 Norm as Tested Skin: Normal Color, Warm/Dry, Tattoos/Piercings Progress/Results/Core Measures Suspected Sepsis SIRS Temperature: Pulse: Respiratory Rate: Laboratory Tests 04/29/19 18:58: White Blood Count 8.2 Blood Pressure / Mean: Laboratory Tests 04/29/19 18:58: Creatinine 0.77, Platelet Count 236, Total Bilirubin 0.4 Results/Orders Lab Results Laboratory Tests Test 04/29/19 18:58 04/29/19 18:59 Range/Units White Blood Count 8.2 4.3-11.0 10^3/uL Red Blood Count 4.44 4.35-5.85 10^6/uL Hemoglobin 14.1 11.5-16.0 G/DL Hematocrit 40 35-52 % Mean Corpuscular Volume 91 80-99 FL Mean Corpuscular Hemoglobin 32 25-34 PG Mean Corpuscular Hemoglobin Concent 35 32-36 G/DL Red Cell Distribution Width 12.1 10.0-14.5 % Platelet Count 236 130-400 10^3/uL Mean Platelet Volume 9.5 7.4-10.4 FL Neutrophils (%) (Auto) 49 42-75 % Lymphocytes (%) (Auto) 42 12-44 % Monocytes (%) (Auto) 8 0-12 % Eosinophils (%) (Auto) 1 0-10 % Basophils (%) (Auto) 0 0-10 % Neutrophils # (Auto) 4.0 1.8-7.8 X 10^3 Lymphocytes # (Auto) 3.4 1.0-4.0 X 10^3 Monocytes # (Auto) 0.6 0.0-1.0 X 10^3 Eosinophils # (Auto) 0.1 0.0-0.3 10^3/uL Basophils # (Auto) 0.0 0.0-0.1 10^3/uL Sodium Level 140 135-145 MMOL/L Potassium Level 3.2 L 3.6-5.0 MMOL/L Chloride Level 106 98-107 MMOL/L Carbon Dioxide Level 24 21-32 MMOL/L Anion Gap 10 5-14 MMOL/L Blood Urea Nitrogen 8 7-18 MG/DL Creatinine 0.77 0.60-1.30 MG/DL Estimat Glomerular Filtration Rate > 60 BUN/Creatinine Ratio 10 Glucose Level 76 70-105 MG/DL Calcium Level 9.1 8.5-10.1 MG/DL Corrected Calcium 9.3 8.5-10.1 MG/DL Magnesium Level 1.7 L 1.8-2.4 MG/DL Total Bilirubin 0.4 0.1-1.0 MG/DL Aspartate Amino Transf (AST/SGOT) 15 5-34 U/L Alanine Aminotransferase (ALT/SGPT) 11 0-55 U/L Alkaline Phosphatase 73 40-136 U/L Total Protein 6.2 L 6.4-8.2 GM/DL Albumin 3.7 3.2-4.5 GM/DL Amylase Level 53 25-125 U/L Lipase 59 8-78 U/L Serum Alcohol < 10 <10 MG/DL Urine Color YELLOW Urine Clarity CLEAR Urine pH 8 5-9 Urine Specific [place] 1.010 L 1.016-1.022 Urine Protein NEGATIVE NEGATIVE Urine Glucose (UA) NEGATIVE NEGATIVE Urine Ketones NEGATIVE NEGATIVE Urine Nitrite NEGATIVE NEGATIVE Urine Bilirubin NEGATIVE NEGATIVE Urine Urobilinogen NORMAL NORMAL MG/DL Urine Leukocyte Esterase NEGATIVE NEGATIVE Urine RBC (Auto) NEGATIVE NEGATIVE Urine RBC NONE /HPF Urine WBC NONE /HPF Urine Squamous Epithelial Cells 2-5 /HPF Urine Crystals NONE /LPF Urine Bacteria FEW H /HPF Urine Casts NONE /LPF Urine Mucus NEGATIVE /LPF Urine Culture Indicated NO My Orders Orders - PAIGE ABDI DO Ed Iv/Invasive Line Start (04/29/19 18:55) Alcohol (04/29/19 18:55) Amylase (04/29/19 18:55) Cbc With Automated Diff (04/29/19 18:55) Comprehensive Metabolic Panel (04/29/19 18:55) Lipase (04/29/19 18:55) Magnesium (04/29/19 18:55) Ua Culture If Indicated (04/29/19 18:55) Ondansetron Injection (Zofran Injectio (04/29/19 19:00) Ed Iv/Invasive Line Start (04/29/19 18:55) Lactated Ringers (Lr 1000 Ml Iv Solution (04/29/19 18:55) Ed Iv/Invasive Line Start (04/29/19 19:41) Lactated Ringers (Lr 1000 Ml Iv Solution (04/29/19 19:41) Potassium Chloride (Tablet) (K Dur Table (04/29/19 19:45) Magnesium Oxide Tablet (Mag Ox Tablet) (04/29/19 19:45) Medications Given in ED Current Medications Medications Dose Ordered Sig/Kirill Route Start Time Stop Time Status Last Admin Dose Admin Lactated Ringer's 1,000 ml @ 0 mls/hr Q0M ONCE IV 04/29/19 18:55 04/29/19 18:58 DC 04/29/19 19:09 0 MLS/HR Ondansetron HCl 8 mg ONCE ONCE IVP 04/29/19 19:00 04/29/19 19:01 DC 04/29/19 19:09 8 MG Vital Signs/I&O 04/29/19 19:00 Temp 97.6 Pulse 76 Resp 18 B/P (MAP) 131/72 (91) Pulse Ox 99 O2 Delivery Room Air Capillary Refill : Progress Note : Progress Note FEELS MUCH BETTER AFTER IV FLUIDS AND ZOFRAN PT TOLERATING ICE CHIPS AND WATER WITHOUT DIFFICULTY Departure Impression Primary Impression: Gastroenteritis Additional Impressions: Mild dehydration Electrolyte imbalance Dysuria Disposition: 01 HOME, SELF-CARE Condition: Improved Departure-Patient Inst. Referrals: MANJULA LEWIS MD (PCP/Family) Primary Care Physician Patient Instructions: Dehydration, Adult (DC), Dysuria, Adult (DC), [id number] Add. Discharge Instructions: CLEAR LIQUIDS --WATER, BROTH, JELLO, GATORADE TOMORROW IF YOU ARE BETTER, ADD BRATS DIET TO CLEAR LIQUIDS--BANANAS, RICE, APPLESAUCE, TOAST, SALTINES FOLLOW UP WITH OUR DR TOMORROW IF NO BETTER, RETURN TO ER IF SYMPTOMS WORSEN Scripts Ondansetron (Ondansetron Odt) 4 Mg Tab.rapdis 4 MG PO Q4H for Nausea/Vomiting, #10 TAB Prov: PAIGE ABDI DO 04/29/19 PAIGE ABDI DO Apr 29, 2019 19:04
[2019-04-29 19:19] LABS: BILIRUBIN,URINE NEGATIVE (NEGATIVE); CLARITY,URINE CLEAR; COLOR,URINE YELLOW; GLUCOSE, URINE (UA) NEGATIVE (NEGATIVE); KETONES,URINE NEGATIVE (NEGATIVE); LEUKOCYTE ESTERASE ,URINE NEGATIVE (NEGATIVE); NITRITE,URINE NEGATIVE (NEGATIVE); PH,URINE 8 (5-9); PROTEIN,URINE NEGATIVE (NEGATIVE); UROBILINOGEN,URINE NORMAL (NORMAL)
[2019-04-29 19:20] LABS: BACTERIA,URINE FEW /HPF
[2019-04-29 19:27] LABS: ALANINE AMINOTRANSFERASE 11 U/L (0-55); ALBUMIN 3.7 GM/DL (3.2-4.5); ALKALINE PHOSPHATASE 73 U/L (40-136); AMYLASE 53 U/L (25-125); BILIRUBIN,TOTAL 0.4 MG/DL (0.1-1.0); BUN/CREATININE RATIO 10; CALCIUM 9.1 MG/DL (8.5-10.1); CARBON DIOXIDE 24 MMOL/L (21-32); CHLORIDE 106 MMOL/L (98-107); CREATININE SERUM 0.77 MG/DL (0.60-1.30); GFR ESTIMATED > 60; GLUCOSE 76 MG/DL (70-105); LIPASE 59 U/L (8-78); MAGNESIUM 1.7 MG/DL (1.8-2.4); POTASSIUM 3.2 MMOL/L (3.6-5.0); SODIUM 140 MMOL/L (135-145); TOTAL PROTEIN 6.2 GM/DL (6.4-8.2)
--- NOTE | 2019-04-29 19:30 | NUR ---
[facility]IA [facility] NOTIFED TO TRANSPORT PT BACK TO FACILITY.
[2019-04-29] MEDS ORDERED: KCL 20 MEQ TAB (K-DUR) PO ONE (19:45)
[2019-04-29] MEDS ORDERED: MAGNESIUM OXIDE (MAG-OX)400 MG TAB PO ONE (19:45)
[2019-04-29] MEDS ORDERED: RX-ONDANSETRON 4 MG ODT (ZOFRAN) PPK #4 PO STA (19:55)
[2019-04-29] MEDS ORDERED: ONDA4TAB11 PO (19:57)
[2019-04-29 20:12] LABS: AMPHETAMINE SCREEN, URINE NEGATIVE (NEGATIVE); BARBITURATE SCREEN URINE NEGATIVE (NEGATIVE); BENZODIAZEPINES SCREEN URINE NEGATIVE (NEGATIVE); CANNABINOID SCREEN, URINE NEGATIVE (NEGATIVE); COCAINE SCREEN URINE NEGATIVE (NEGATIVE); METHADONE STAT NEGATIVE (NEGATIVE); METHAMPHETAMINE SCREEN URINE S NEGATIVE (NEGATIVE); OPIATE SCREEN URINE NEGATIVE (NEGATIVE); OXYCODONE STAT NEGATIVE (NEGATIVE); PROPOXYPHENE STAT NEGATIVE (NEGATIVE); TRICYCLIC ANTIDEPRESSANTS SCRE NEGATIVE (NEGATIVE)
[2019-04-29 20:49] VITALS: BP 131/72
== END 2019-04-29 20:53 | disposition home or self-care (01) ==
LOC: EDUNIT# 18:38 → ER 18:39
DX: K52.9 Noninfective gastroenteritis and colitis, unspecified (principal); E86.0 Dehydration; E87.8 Other disorders of electrolyte and fluid balance, not elsewhere classified; R30.0 Dysuria; G43.909 Migraine, unspecified, not intractable, without status migrainosus; F15.10 Other stimulant abuse, uncomplicated; F31.9 Bipolar disorder, unspecified; F43.10 Post-traumatic stress disorder, unspecified; F41.9 Anxiety disorder, unspecified; F42.9 Obsessive-compulsive disorder, unspecified; F17.210 Nicotine dependence, cigarettes, uncomplicated; Z82.49 Family history of ischemic heart disease and other diseases of the circulatory system; Z87.440 Personal history of urinary (tract) infections; Z90.49 Acquired absence of other specified parts of digestive tract; Z90.89 Acquired absence of other organs; Z90.710 Acquired absence of both cervix and uterus; Z88.5 Allergy status to narcotic agent; Z88.0 Allergy status to penicillin; Z88.1 Allergy status to other antibiotic agents
CPT/HCPCS: 36415; 80053; 80306; 80320; 81000; 82150; 83690; 83735; 85025; 96361; 96374

== ENCOUNTER 2019-05-16 08:21 | Emergency (ER) | payer BC ==
[~2019-05-16] VITALS: Ht 165.1 cm; Wt 68.0 kg
[~2019-05-16 08:21] MED LIST changes: +LIDOCAINE 1% INJ 20 ML 20 ML VIAL ONE; +ONDA4TAB11 PO
[2019-05-16] MEDS ORDERED: LIDOCAINE 1% INJ 20 ML 20 ML VIAL INJ ONE (08:30)
[2019-05-16] MEDS ORDERED: TETANUS,DIPTH,PERTUSS P/F (BOOSTRIX) 0.5 ML VIAL IM ONE (08:30)
--- NOTE | 2019-05-16 08:59 | ED Upper Extremity ---
General Chief Complaint: Foreign Body Stated Complaint: FISH HOOK IN THUMB Nursing Triage Note: pt presents to ed per ems for fish hook to r thumb. pt reports she was cleanign out the bed of her truck and got stuck in her r thumb and r lower leg. pd was able to remove the hook from her r lower leg on scene. Nursing Sepsis Screen: No Definite Risk Source: patient Exam Limitations: no limitations History of Present Illness Date Seen by Provider: May 16, 2019 Time Seen by Provider: 08:20 Initial Comments The patient presents to ER by EMS from home where she was trying to get a fishing tackle together and put a treble hook through her right thumb pad. Her last tetanus shot was in 2004. Has not taken anything for pain. She was unable to get out herself. She does have a history of recent methamphetamine use but she's not sure exactly when. Allergies and Home Medications Allergies Coded Allergies: codeine (Unverified Allergy, Mild, PT HAS RECEIVED MORPHINE & TRAMADOL W/O ISSUE, 12/28/16) Penicillins (Unverified Allergy, Unknown, RASH, HAS HAD ANCEF W/O PROBLEMS, 12/28/16) erythromycin base (Unverified Allergy, Unknown, RASH, 12/28/16) Home Medications Alprazolam 0.25 Mg Tablet, 0.25 MG PO Q4H PRN for ANXIETY, (Reported) Ciprofloxacin HCl 500 Mg Tablet, 500 MG PO BID Prescribed by: JANA STRATTON on 01/23/19 170 Docusate Sodium 100 Mg Capsule, 100 MG PO BID PRN for CONSTIPATION Prescribed by: GARETT GIRARD on 12/28/16 1610 Escitalopram Oxalate 20 Mg Tablet, 20 MG PO HS, (Reported) Fexofenadine HCl 180 Mg Tablet, 180 MG PO HS, (Reported) Gabapentin 300 Mg Capsule, 300 MG PO TID Prescribed by: BALAJI MENJIVAR on 12/14/18 214 Ibuprofen 600 Mg Tablet, 600 MG PO Q6H PRN for MILD PAIN Prescribed by: GARETT GIRARD on 12/28/16 1610 Mometasone Furoate 17 Gm [place], 1 SPRAY NS HS, (Reported) Nitrofurantoin Monohyd/M-Cryst 100 Mg Capsule, 1 TAB PO BID, (Reported) Ondansetron 4 Mg Tab.rapdis, 4 MG PO Q4H Prescribed by: PAIGE ABDI on 04/29/191956 Oxycodone HCl/Acetaminophen 1 Each Tablet, 1 TAB PO Q4H PRN for MODERATE PAIN Prescribed by: GARETT GIRARD on 12/28/16 1610 Phentermine HCl 37.5 Mg Tablet, 37.5 MG PO HS, (Reported) Patient Home Medication List Home Medication List Reviewed: Yes Review of Systems Constitutional: No chills, No diaphoresis EENTM: No ear discharge, No ear pain Respiratory: No cough, No short of breath Cardiovascular: No chest pain, No edema Gastrointestinal: No abdominal pain, No constipation, No diarrhea Past Yrrrkjb-Nquqkd-Vauepv Hx Patient Social History Alcohol Use: Occasionally Uses Recreational Drug Use: Yes (DRUG ABUSE PROBLEM AROUND 2001) Drug of Choice: METH Smoking Status: Current Everyday Smoker Type Used: Cigarettes 2nd Hand Smoke Exposure: Yes Recent Foreign Travel: No Contact w/Someone Who Travel: No Recent Infectious Disease Expo: No Recent Hopitalizations: No Physical Abuse: No Sexual Abuse: No Mistreated: No Fear: No Immunizations Up To Date Tetanus Booster (TDap): Unknown Date of Pneumonia Vaccine: Oct 03, 2011 Seasonal Allergies Seasonal Allergies: Yes Past Medical History Surgeries: Yes Appendectomy, Bladder Surgery, Section, Gallbladder, Hysterectomy, Orthopedic, Tonsillectomy Respiratory: No Cardiac: No Neurological: Yes Headaches /Migraines 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 Disorders: Yes (MENORRHAGIA) Female 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 Disorders: 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 Sexually Transmitted Disease: Yes (HPV) HIV/AIDS: No Genitourinary: Yes UTI-Chronic, UTI (peds) Gastrointestinal: No Musculoskeletal: Yes Arthritis, Chronic Back Pain Endocrine: No HEENT: No Cancer: No Psychosocial: Yes (OCD; SUBSTANCE ABUSE; OVERDOSES; PSYCH ADMITS; ) Anxiety, PTSD, Bipolar, Depression Integumentary: No Blood Disorders: No Family Medical History Arthritis 19 FATHER 19 MOTHER Hypertension 19 FATHER Physical Exam Vital Signs Vital Signs - First Documented 05/16/19 08:27 Temp 97.3 Pulse 96 Resp 20 B/P (MAP) 141/103 (116) Pulse Ox 97 Capillary Refill : Less Than 3 Seconds Height, Weight, BMI Height: 5'5.00" Weight: 150lbs. 3.0oz. 68.338558uq; 34.0 BMI Method:Stated General Appearance: WD/WN, mild distress HEENT: PERRL/EOMI, pharynx normal Neck: full range of motion, normal inspection Cardiovascular: normal peripheral pulses, regular rate, rhythm Respiratory: no respiratory distress, no accessory muscle use Gastrointestinal: non tender, soft Hand: Right, laceration (single hook in the pad of the right thumb distal phalanx. It does not interrupt the nail or bone.) Procedures/Interventions Wound Location: Upper Extremities Other Wound Location Pad of the distal phalanx of the first digit right hand Wound Length (cm): 0.3 Wound's Depth, Shape: sub Q Wound Explored: contaminated Irrigated w/ Saline (ccs): 10 Betadine Prep?: Yes Anesthesia: 1% Lidocaine Volume Anesthetic (ccs): 3 Wound Debrided: minimal Progress Digital block was applied to the thumb bilaterally with one and half cc each side. When the patient was ascertained to be anesthetized we put 1 cc in the wound itself of 1% lidocaine without epinephrine. We then elevated the fishhook and using an 11 blade scalpel clean just the necessary minimal amount of tissue off of the angel to easily withdraw the fishhook back out of the thumb. We did have to extend the initial wound by about 1 mm using an 11 blade scalpel. Patient tolerated procedure well and was hemostatic. Progress/Results/Core Measures Results/Orders My Orders Orders - BALAJI MENJIVAR Lidocaine 1% Inj 20 Ml (Xylocaine 1% Inj (05/16/19 08:30) Dipht,Pertuss(Acell),Tet Adult (Boostrix (05/16/19 08:30) Lidocaine 1% Inj 20 Ml (Xylocaine 1% Inj (05/16/19 08:19) Vital Signs/I&O 05/16/19 08:27 Temp 97.3 Pulse 96 Resp 20 B/P (MAP) 141/103 (116) Pulse Ox 97 Blood Pressure Mean: 116 Departure Impression Primary Impression: [place] injury to finger Qualified Codes: S69.91XA - Unspecified injury of right wrist, hand and finger(s), initial encounter Disposition: 01 HOME, SELF-CARE Condition: Improved Departure-Patient Inst. Decision time for Depature: 09:36 Referrals: MANJULA LEWIS MD (PCP/Family) Primary Care Physician Patient Instructions: Foreign Body in Skin (DC) Add. Discharge Instructions: Keep the wound clean with regular soap and water only. Do not use Betadine, iodine, hydrogen peroxide or alcohol as this will delayed wound healing. 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 Follow-up with your primary care provider if you notice increasing redness swelling pain or discharge from the wound. For pain use warm moist heat, Tylenol 1000 g every 8 hours as needed and ibuprofen 800 mg every 8 hours as needed. All discharge instructions reviewed with patient and/or family. Voiced understanding. Scripts Sulfamethoxazole/Trimethoprim (Bactrim Ds Tablet) 1 Each Tablet 1 EACH PO BID for 7 Days, #14 TAB 0 Refills Prov: BALAJI MENJIVAR 05/16/19 BALAJI MENJIVAR May 16, 2019 08:59
[2019-05-16] MEDS ORDERED: SULF1TAB35 PO (09:37)
[2019-05-16 10:06] VITALS: BP 126/91
== END 2019-05-16 10:06 | disposition home or self-care (01) ==
LOC: ER 08:21 → EDUNIT# 08:21 → ER 10:06
DX: S60.351A Superficial foreign body of right thumb, initial encounter (principal); G43.909 Migraine, unspecified, not intractable, without status migrainosus; F43.10 Post-traumatic stress disorder, unspecified; F31.9 Bipolar disorder, unspecified; F41.9 Anxiety disorder, unspecified; F42.9 Obsessive-compulsive disorder, unspecified; F17.210 Nicotine dependence, cigarettes, uncomplicated; Z87.440 Personal history of urinary (tract) infections; Z88.5 Allergy status to narcotic agent; Z88.0 Allergy status to penicillin; Z88.1 Allergy status to other antibiotic agents; Z90.49 Acquired absence of other specified parts of digestive tract; Z90.710 Acquired absence of both cervix and uterus; Z90.89 Acquired absence of other organs; Z82.49 Family history of ischemic heart disease and other diseases of the circulatory system; W45.8XXA Other foreign body or object entering through skin, initial encounter
CPT/HCPCS: 64450; 90715

== ENCOUNTER 2019-11-27 07:25 | Inpatient (IN) | payer BC ==
[2019-11-27] VITALS (15 sets, daily range): BP systolic 96–145; BP diastolic 49–97
[~2019-11-27] VITALS: Ht 165 cm; Wt 74.0 kg
[~2019-11-27 07:25] MED LIST changes: -LIDOCAINE 1% INJ 20 ML 20 ML VIAL ONE; +SULF1TAB35 PO
[2019-11-27] MEDS ORDERED: LORazepam INJ 2 MG/ML (ATIVAN) VIAL ONE (07:31)
[2019-11-27] MEDS ORDERED: LACTATED RINGERS 1,000 ML IV ONE (07:36)
[2019-11-27 07:44] LABS: BASOPHILS % (AUTO) 0 % (0-10); EOSINOPHILS # (AUTO) 0.1 10^3/uL (0.0-0.3); EOSINOPHILS % (AUTO) 1 % (0-10); HEMATOCRIT 46 % (35-52); HEMOGLOBIN 15.8 G/DL (11.5-16.0); LYMPHOCYTES # (AUTO) 2.2 X 10^3 (1.0-4.0); LYMPHOCYTES % (AUTO) 42 % (12-44); MEAN CORPUSCULAR HEMOGLOBIN 32 PG (25-34); MEAN CORPUSCULAR HGB CONC 34 G/DL (32-36); MEAN CORPUSCULAR VOLUME 93 FL (80-99); MONOCYTES # (AUTO) 0.4 X 10^3 (0.0-1.0); MONOCYTES % (AUTO) 9 % (0-12); NEUTROPHILS # (AUTO) 2.4 X 10^3 (1.8-7.8); NEUTROPHILS % (AUTO) 47 % (42-75); PLATELET COUNT 222 10^3/uL (130-400); RED CELL DISTRIBUTION WIDTH 12.9 % (10.0-14.5); WHITE BLOOD COUNT 5.1 10^3/uL (4.3-11.0)
--- NOTE | 2019-11-27 07:44 | NUR ---
[employer] [employer] CALLED FOR MIRTAZAPINE OVERDOSE. THEY REPORT MAY HAVE DIZZY, DROWSEY TACHYCARDIA, BRADICARDIA,HYPOTENSION,HYPERTENSION,PSYCOMOTOR AGIATION SIZURE. TEMP COULD SPIKE TREAT SYMPTOMS, DO EKG AND ROUTINE LABS DONE FOR OVERDOSE.
[2019-11-27] MEDS ORDERED: LORazepam INJ 2 MG/ML (ATIVAN) VIAL IVP ONE ×3 (07:45→08:45)
[2019-11-27 08:05] LABS: ALANINE AMINOTRANSFERASE 24 U/L (0-55); ALBUMIN 4.5 GM/DL (3.2-4.5); ALKALINE PHOSPHATASE 77 U/L (40-136); BILIRUBIN,TOTAL 0.8 MG/DL (0.1-1.0); BUN/CREATININE RATIO 9; CARBON DIOXIDE 23 MMOL/L (21-32); CHLORIDE 105 MMOL/L (98-107); CREATININE SERUM 0.81 MG/DL (0.60-1.30); GFR ESTIMATED > 60; GLUCOSE 98 MG/DL (70-105); SALICYLATE < 5.0 MG/DL (5.0-20.0); SODIUM 138 MMOL/L (135-145); TOTAL PROTEIN 8.6 GM/DL (6.4-8.2)
[2019-11-27 08:07] LABS: ACETAMINOPHEN < 10 UG/ML (10-30)
--- NOTE | 2019-11-27 08:07 | NUR ---
LIGHTS TURNED DOWN ET WARM BKLANKEST PLACED.
[2019-11-27 08:09] LABS: POTASSIUM 6.5 MMOL/L (3.6-5.0)
--- NOTE | 2019-11-27 08:22 | NUR ---
LAB IN ROOM DRAWING BLOOD AT THIS TIME. PT FIGHTING ET TAKING SEVERAL TO HOLD HER DOWN.
--- NOTE | 2019-11-27 08:40 | ED Psychosocial ---
General Chief Complaint: Overdose Stated Complaint: OVERDOSE Nursing Triage Note: ARRIVED VIA [facility] FROM HOME AFTER MAKING A HANG UP 911 PHONE CALL. UPON EMS ARRIVAL PT STATES SHE IS GOING TO . MULTIPLE MED BOTTLES FOUND IN HOME. THE ONE THAT IS EMPTY IS REMERON 15MG WHICH SHOULD BE EMPTY IF PT TOOK SHE SHOULD. PT IS VERY RESTLESS ET WILL NOT TALK TO US ET NOT LETTING US TAKE VITALS. DR TANG. Source: patient, EMS Exam Limitations: clinical condition History of Present Illness Date Seen by Provider: Nov 27, 2019 Time Seen by Provider: 07:28 Initial Comments Here by EMS with altered mental status. She apparently called 911 and hung up which resulted in response for check. EMS was summoned when she was found to be mostly unresponsive. EMS reports that the patient doesn't really answer questions and is obviously disoriented. She will go from lying still to suddenly moving extremities and then turning side to side and then she will lay back down. Speech slightly slurred. She was found in her house with empty pill bottles next to her of mirtazapine. She is prescribed this. No obvious injuries otherwise. Does have history of overdose and methamphetamine abuse. Movements are methamphetamine-like. She does not answer questions. She does open eyes spontaneously. She does move all extremities. Timing/Duration: this morning Severity: severe Associated Symptoms: other (unknown but suspect overdose) Allergies and Home Medications Allergies Coded Allergies: codeine (Unverified Allergy, Mild, PT HAS RECEIVED MORPHINE & TRAMADOL W/O ISSUE, 12/28/16) Penicillins (Unverified Allergy, Unknown, RASH, HAS HAD ANCEF W/O PROBLEMS, 12/28/16) erythromycin base (Unverified Allergy, Unknown, RASH, 12/28/16) Home Medications Alprazolam 0.25 Mg Tablet, 0.25 MG PO Q4H PRN for ANXIETY, (Reported) Ciprofloxacin HCl 500 Mg Tablet, 500 MG PO BID Prescribed by: JANA STRATTON on 01/23/19 1709 Docusate Sodium 100 Mg Capsule, 100 MG PO BID PRN for CONSTIPATION Prescribed by: GARETT GIRARD on 12/28/16 1610 Escitalopram Oxalate 20 Mg Tablet, 20 MG PO HS, (Reported) Fexofenadine HCl 180 Mg Tablet, 180 MG PO HS, (Reported) Gabapentin 300 Mg Capsule, 300 MG PO TID Prescribed by: BALAJI MENJIVAR on 12/14/182143 Ibuprofen 600 Mg Tablet, 600 MG PO Q6H PRN for MILD PAIN Prescribed by: GARETT GIRARD on 12/28/16 1610 Mometasone Furoate 17 Gm [place], 1 SPRAY NS HS, (Reported) Nitrofurantoin Monohyd/M-Cryst 100 Mg Capsule, 1 TAB PO BID, (Reported) Ondansetron 4 Mg Tab.rapdis, 4 MG PO Q4H Prescribed by: PAIGE ABDI on 04/29/191956 Oxycodone HCl/Acetaminophen 1 Each Tablet, 1 TAB PO Q4H PRN for MODERATE PAIN Prescribed by: GARETT GIRARD on 12/28/16 1610 Phentermine HCl 37.5 Mg Tablet, 37.5 MG PO HS, (Reported) Sulfamethoxazole/Trimethoprim 1 Each Tablet, 1 EACH PO BID Prescribed by: BALAJI MENJIVAR on 05/16/19 0937 Patient Home Medication List Home Medication List Reviewed: Yes Review of Systems Constitutional: see HPI Unable to complete review of systems due to altered mental status. Past Duitaxr-Rfxows-Ijvhkn Hx Past Med/Social Hx: Reviewed Nursing Past Med/Soc Hx Patient Social History Recreational Drug Use: Yes (by history) Drug of Choice: METH Type Used: Cigarettes 2nd Hand Smoke Exposure: Yes Recent Foreign Travel: No Contact w/Someone Who Travel: No Recent Infectious Disease Expo: No Recent Hopitalizations: No Immunizations Up To Date Tetanus Booster (TDap): Unknown Date of Pneumonia Vaccine: Oct 03, 2011 Seasonal Allergies Seasonal Allergies: Yes Past Medical History Surgeries: Yes Appendectomy, Bladder Surgery, Section, Gallbladder, Hysterectomy, Orthopedic, Tonsillectomy Respiratory: No Cardiac: No Neurological: Yes Headaches /Migraines 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 Disorders: Yes (MENORRHAGIA) Female 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 Disorders: Menstrual Problems 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 Sexually Transmitted Disease: Yes (HPV) HIV/AIDS: No Genitourinary: Yes UTI-Chronic, UTI (peds) Gastrointestinal: No Musculoskeletal: Yes Arthritis, Chronic Back Pain Endocrine: No HEENT: No Cancer: No Psychosocial: Yes (OCD; SUBSTANCE ABUSE; OVERDOSES; PSYCH ADMITS; ) Anxiety, PTSD, Suicide Attempts, Bipolar, Depression Integumentary: No Blood Disorders: No Family Medical History Reviewed Nursing Family Hx Arthritis 19 FATHER 19 MOTHER Hypertension 19 FATHER All per records due to altered mental status Physical Exam Vital Signs - First Documented 11/27/19 07:50 Temp 36.3 Pulse 65 Resp 16 B/P (MAP) 145/97 (113) Pulse Ox 97 O2 Delivery Room Air Capillary Refill : Less Than 3 Seconds Height, Weight, BMI Height: 5'5.00" Weight: 150lbs. 3.0oz. [id number]; 24.00 BMI Method:Stated General Appearance: WD/WN, moderate distress (intermittent) HEENT: PERRL/EOMI, pharynx normal Neck: non-tender, full range of motion, supple, normal inspection Respiratory: lungs clear, normal breath sounds Cardiovascular: regular rate, rhythm, no murmur Peripheral Pulses: 2+ Dorsalis Pedis (R), 2+ Left Dors-Pedis (L), 2+ Radial Pulses (R), 2+ Radial Pulses (L) Gastrointestinal: non tender, soft Extremities: normal range of motion, non-tender, normal inspection Neurologic/Psychiatric: disoriented x 3, other (intermittently unresponsive but certainly disoriented 3) Behavior/Eye Contact: other (not answering and does not follow commands) Thoughts/Hallucinations: other (unable to determine) Skin: normal color, warm/dry Progress/Results/Core Measures Results/Orders Lab Results Laboratory Tests Test 11/27/19 07:30 11/27/19 08:25 11/27/19 08:55 Range/Units White Blood Count 5.1 4.3-11.0 10^3/uL Red Blood Count 4.96 4.35-5.85 10^6/uL Hemoglobin 15.8 11.5-16.0 G/DL Hematocrit 46 35-52 % Mean Corpuscular Volume 93 80-99 FL Mean Corpuscular Hemoglobin 32 25-34 PG Mean Corpuscular Hemoglobin Concent 34 32-36 G/DL Red Cell Distribution Width 12.9 10.0-14.5 % Platelet Count 222 130-400 10^3/uL Mean Platelet Volume 10.0 7.4-10.4 FL Neutrophils (%) (Auto) 47 42-75 % Lymphocytes (%) (Auto) 42 12-44 % Monocytes (%) (Auto) 9 0-12 % Eosinophils (%) (Auto) 1 0-10 % Basophils (%) (Auto) 0 0-10 % Neutrophils # (Auto) 2.4 1.8-7.8 X 10^3 Lymphocytes # (Auto) 2.2 1.0-4.0 X 10^3 Monocytes # (Auto) 0.4 0.0-1.0 X 10^3 Eosinophils # (Auto) 0.1 0.0-0.3 10^3/uL Basophils # (Auto) 0.0 0.0-0.1 10^3/uL Sodium Level 138 144 135-145 MMOL/L Potassium Level 6.5 *H 3.5 L 3.6-5.0 MMOL/L Chloride Level 105 106 98-107 MMOL/L Carbon Dioxide Level 23 28 21-32 MMOL/L Anion Gap 10 10 5-14 MMOL/L Blood Urea Nitrogen 7 7 7-18 MG/DL Creatinine 0.81 0.80 0.60-1.30 MG/DL Estimat Glomerular Filtration Rate > 60 > 60 BUN/Creatinine Ratio 9 9 Glucose Level 98 97 70-105 MG/DL Calcium Level 9.0 9.3 8.5-10.1 MG/DL Corrected Calcium 8.6 8.9 8.5-10.1 MG/DL Total Bilirubin 0.8 0.8 0.1-1.0 MG/DL Aspartate Amino Transf (AST/SGOT) 47 H 26 5-34 U/L Alanine Aminotransferase (ALT/SGPT) 24 20 0-55 U/L Alkaline Phosphatase 77 79 40-136 U/L Total Protein 8.6 H 7.4 6.4-8.2 GM/DL Albumin 4.5 4.5 3.2-4.5 GM/DL Salicylates Level < 5.0 L < 5.0 L 5.0-20.0 MG/DL Acetaminophen Level < 10 L < 10 L 10-30 UG/ML Serum Alcohol < 10 < 10 <10 MG/DL TSH [place] Testing 0.38 0.35-4.94 UIU/ML Urine Color YELLOW Urine Clarity CLEAR Urine pH 6.0 5-9 Urine Specific [place] <=1.005 1.016-1.022 Urine Protein NEGATIVE NEGATIVE Urine Glucose (UA) NEGATIVE NEGATIVE Urine Ketones NEGATIVE NEGATIVE Urine Nitrite NEGATIVE NEGATIVE Urine Bilirubin NEGATIVE NEGATIVE Urine Urobilinogen 0.2 < = 1.0 MG/DL Urine Leukocyte Esterase NEGATIVE NEGATIVE Urine RBC (Auto) NEGATIVE NEGATIVE Urine RBC RARE /HPF Urine WBC NONE /HPF Urine Squamous Epithelial Cells RARE /HPF Urine Crystals NONE /LPF Urine Bacteria NEGATIVE /HPF Urine Casts NONE /LPF Urine Mucus NEGATIVE /LPF Urine Culture Indicated NO Urine Test NEGATIVE NEGATIVE Urine Opiates Screen NEGATIVE NEGATIVE Urine Oxycodone Screen NEGATIVE NEGATIVE Urine Methadone Screen NEGATIVE NEGATIVE Urine Propoxyphene Screen NEGATIVE NEGATIVE Urine Barbiturates Screen NEGATIVE NEGATIVE Ur Tricyclic Antidepressants Screen NEGATIVE NEGATIVE Urine Phencyclidine Screen NEGATIVE NEGATIVE Urine Amphetamines Screen POSITIVE H NEGATIVE Urine Methamphetamines Screen POSITIVE H NEGATIVE Urine Benzodiazepines Screen NEGATIVE NEGATIVE Urine Cocaine Screen NEGATIVE NEGATIVE Urine Cannabinoids Screen NEGATIVE NEGATIVE My Orders Orders - MARLON REYNOLDS MD Lorazepam Injection (Ativan Injection) (11/27/19 07:45) Ua Culture If Indicated (11/27/19 07:36) Cbc With Automated Diff (11/27/19 07:36) Comprehensive Metabolic Panel (11/27/19 07:36) Alcohol (11/27/19 07:36) Drug Screen Stat (Urine) (11/27/19 07:36) Acetaminophen (11/27/19 07:36) Salicylate (11/27/19 07:36) Ekg Tracing (11/27/19 07:36) Hcg,Qualitative Urine (11/27/19 07:36) Ed Iv/Invasive Line Start (11/27/19 07:36) Monitor-Rhythm Ecg Trace Only (11/27/19 07:36) Bh Status Checks/Observation Q15M (11/27/19 07:36) Ed Iv/Invasive Line Start (11/27/19 07:36) Lactated Ringers (Lr 1000 Ml Iv Solution (11/27/19 07:36) Lorazepam Injection (Ativan Injection) (11/27/19 07:31) Lorazepam Injection (Ativan Injection) (11/27/19 08:00) Lorazepam Injection (Ativan Injection) (11/27/19 08:45) Acetaminophen (11/27/19 08:25) Alcohol (11/27/19 08:25) Comprehensive Metabolic Panel (11/27/19 08:25) Salicylate (11/27/19 08:25) Thyroid Analyzer (11/27/19 08:25) Medications Given in ED Current Medications Medications Dose Ordered Sig/Kirill Route Start Time Stop Time Status Last Admin Dose Admin Lactated Ringer's 1,000 ml @ 0 mls/hr Q0M ONCE IV 11/27/19 07:36 11/27/19 07:37 DC 11/27/19 08:37 1,000 MLS/HR Lorazepam 1 mg ONCE ONCE IVP 11/27/19 07:45 11/27/19 07:46 DC 11/27/19 07:35 1 MG Lorazepam 2 mg ONCE ONCE IVP 11/27/19 08:00 11/27/19 08:01 DC 11/27/19 08:00 2 MG Lorazepam 2 mg ONCE ONCE IVP 11/27/19 08:45 11/27/19 08:46 DC 11/27/19 08:36 2 MG Vital Signs/I&O 11/27/19 11/27/19 07:25 07:50 Temp 36.3 Pulse 65 Resp 16 B/P (MAP) 145/97 (113) Pulse Ox 97 O2 Delivery Room Air Progress Progress Note : Progress Note Seen and evaluated. IV, labs, UA, UDS, EKG and LR 1 L bolus ordered. No obvious head injury or other injuries. Ativan 1 mg IV. Case was discussed with poison control who is recommending supportive care and did state that she may require higher doses of benzodiazepines to control movements secondary to mirtazapine overdose. We will try to get EKG when she is tolerating better. 0800: Repeat Ativan 2 mg IV. 0830: Repeat Ativan 2 mg IV. Pending EKG and UA/[place]. Patient will be admitted to the ICU. Monitor patient. 0925: We were able to finally get the remainder of the studies. Does have methamphetamine and amphetamine on the drug screen. Otherwise studies not concerning. I do believe this is overdose of her medications but likely mixed drug overdose including methamphetamine. Heart rate has been increasing to the low 100s now although seems to be going up and down. I discussed the case with Dr. Weiner and she says patient for admission, inpatient status to the ICU. We will continue Ativan when necessary. Initial ECG Impression Date: Nov 27, 2019 Initial ECG Impression Time: 08:51 Initial ECG Rate: 97 Initial ECG Rhythm: Normal Sinus Comment Sinus rhythm with normal axis. No evidence of ST elevation CT. Unchanged from previous of 01/23/19. Interpreted by me. Departure Impression Primary Impression: Drug overdose Qualified Codes: T50.904A - Poisoning by unspecified drugs, medicaments and biological substances, undetermined, initial encounter Additional Impression: Methamphetamine abuse Disposition: ADMITTED INPATIENT Condition: Stable Admissions Decision to Admit Reason: Admit from ER (General) Decision to Admit/Date: Nov 27, 2019 Time/Decision to Admit Time: 09:25 Departure-Patient Inst. Referrals: MANJULA LEWIS MD (PCP/Family) Primary Care Physician Patient Instructions: ALCOHOL AND SUBSTANCE ABUSE MARLON REYNOLDS MD Nov 27, 2019 08:40
[2019-11-27 08:52] LABS: ALANINE AMINOTRANSFERASE 20 U/L (0-55); ALBUMIN 4.5 GM/DL (3.2-4.5); ALKALINE PHOSPHATASE 79 U/L (40-136); BILIRUBIN,TOTAL 0.8 MG/DL (0.1-1.0); BUN/CREATININE RATIO 9; CALCIUM 9.3 MG/DL (8.5-10.1); CARBON DIOXIDE 28 MMOL/L (21-32); CHLORIDE 106 MMOL/L (98-107); GFR ESTIMATED > 60; GLUCOSE 97 MG/DL (70-105); POTASSIUM 3.5 MMOL/L (3.6-5.0); SALICYLATE < 5.0 MG/DL (5.0-20.0); SODIUM 144 MMOL/L (135-145); TOTAL PROTEIN 7.4 GM/DL (6.4-8.2)
[2019-11-27 08:56] LABS: ACETAMINOPHEN < 10 UG/ML (10-30)
[2019-11-27 09:03] LABS: BILIRUBIN,URINE NEGATIVE (NEGATIVE); CLARITY,URINE CLEAR; COLOR,URINE YELLOW; GLUCOSE, URINE (UA) NEGATIVE (NEGATIVE); KETONES,URINE NEGATIVE (NEGATIVE); LEUKOCYTE ESTERASE ,URINE NEGATIVE (NEGATIVE); NITRITE,URINE NEGATIVE (NEGATIVE); PROTEIN,URINE NEGATIVE (NEGATIVE)
[2019-11-27 09:12] LABS: TSH (THYROID ANALYZER) 0.38 UIU/ML (0.35-4.94)
--- NOTE | 2019-11-27 09:14 | NUR ---
RESTING IN BED. LESS RESTLESS. VSS.
[2019-11-27 09:15] LABS: AMPHETAMINE SCREEN, URINE POSITIVE (NEGATIVE); BARBITURATE SCREEN URINE NEGATIVE (NEGATIVE); BENZODIAZEPINES SCREEN URINE NEGATIVE (NEGATIVE); CANNABINOID SCREEN, URINE NEGATIVE (NEGATIVE); COCAINE SCREEN URINE NEGATIVE (NEGATIVE); HCG,QUALITATIVE URINE NEGATIVE (NEGATIVE); METHADONE STAT NEGATIVE (NEGATIVE); METHAMPHETAMINE SCREEN URINE S POSITIVE (NEGATIVE); OPIATE SCREEN URINE NEGATIVE (NEGATIVE); OXYCODONE STAT NEGATIVE (NEGATIVE); PROPOXYPHENE STAT NEGATIVE (NEGATIVE); TRICYCLIC ANTIDEPRESSANTS SCRE NEGATIVE (NEGATIVE)
[2019-11-27 09:20] LABS: BACTERIA,URINE NEGATIVE /HPF; RBC,URINE RARE /HPF; SQUAMOUS EPITHELIAL CELL,UR RARE /HPF
--- NOTE | 2019-11-27 09:38 | NUR ---
REPORT GIVEN ET ROOM BEING CLEANED AT THIS TIME.
--- NOTE | 2019-11-27 10:01 | NUR ---
CALLED ICU TO SEE IF THE ROOM IS READY ET THEY STATE TO GIVE THEM 10-15 MINUTES BEFORE BRINGING PT UP.
--- NOTE | 2019-11-27 10:22 | NUR ---
Pt arrived from ED to [facility]10. Pt moved over by RNs. Pt does not open eyes or speak. Pt does thrash about in bed during assessment and during ay intervention. Unable to complete admission assessment due to pt not responding. Bed alarm on. Call light within reach
--- NOTE | 2019-11-27 10:32 | NUR ---
Dr. Weiner notified of pt's arrival
[2019-11-27] MEDS ORDERED: LACTATED RINGERS 1,000 ML IV SCH ×2 (10:45→11:45)
[2019-11-27] MEDS ORDERED: LORazepam INJ 2 MG/ML (ATIVAN) VIAL IV PRN (10:45)
[2019-11-27] MEDS ORDERED: ONDANSETRON 4 MG/2 ML (SDV) Z0FRAN IV PRN (10:45)
--- NOTE | 2019-11-27 10:45 | NUR ---
Dr. Stevens notified of pt's arrival
--- NOTE | 2019-11-27 11:13 | Pulmonary Consultation ---
History of Present Illness History of Present Illness Date Seen by Provider: Nov 27, 2019 Time Seen by Provider: 11:08 Date of Admission History of Present Illness 38yo with hx of OD and methamphetamine use presented to ED via EMS after she called 911 then hung up. Upon EMS arrival pt was very lethargic and stated she was going to . They found multiple med bottles in her home. PT was given Ativan in ED and is now unresponsive. UDS is positive for methamphetamine. Allergies and Home Medications Allergies Coded Allergies: codeine (Unverified Allergy, Mild, PT HAS RECEIVED MORPHINE & TRAMADOL W/O ISSUE, 12/28/16) Penicillins (Unverified Allergy, Unknown, RASH, HAS HAD ANCEF W/O PROBLEMS, 12/28/16) erythromycin base (Unverified Allergy, Unknown, RASH, 12/28/16) Home Medications Alprazolam 0.25 Mg Tablet, 0.25 MG PO Q4H PRN for ANXIETY, (Reported) Ciprofloxacin HCl 500 Mg Tablet, 500 MG PO BID Prescribed by: JANA STRATTON on 01/23/191708 Docusate Sodium 100 Mg Capsule, 100 MG PO BID PRN for CONSTIPATION Prescribed by: GARETT GIRARD on 12/28/16 1610 Escitalopram Oxalate 20 Mg Tablet, 20 MG PO HS, (Reported) Fexofenadine HCl 180 Mg Tablet, 180 MG PO HS, (Reported) Gabapentin 300 Mg Capsule, 300 MG PO TID Prescribed by: BALAJI MENJIVAR on 12/14/182143 Ibuprofen 600 Mg Tablet, 600 MG PO Q6H PRN for MILD PAIN Prescribed by: GARETT GIRARD on 12/28/16 1610 Mometasone Furoate 17 Gm [place], 1 SPRAY NS HS, (Reported) Nitrofurantoin Monohyd/M-Cryst 100 Mg Capsule, 1 TAB PO BID, (Reported) Ondansetron 4 Mg Tab.rapdis, 4 MG PO Q4H Prescribed by: PAIGE ABDI on 04/29/191956 Oxycodone HCl/Acetaminophen 1 Each Tablet, 1 TAB PO Q4H PRN for MODERATE PAIN Prescribed by: GARETT GIRARD on 12/28/16 161 Phentermine HCl 37.5 Mg Tablet, 37.5 MG PO HS, (Reported) Sulfamethoxazole/Trimethoprim 1 Each Tablet, 1 EACH PO BID Prescribed by: BALAJI MENJIVAR on 05/16/19 0937 Past Rjxncgh-Kuxhvo-Cogeme Hx Past Med/Social Hx: Reviewed Nursing Past Med/Soc Hx Patient Social History Recreational Drug Use: Yes (by history) Drug of Choice: METH Type Used: Cigarettes 2nd Hand Smoke Exposure: Yes Recent Foreign Travel: No Contact w/Someone Who Travel: No Recent Infectious Disease Expo: No Recent Hopitalizations: No Immunizations Up To Date Tetanus Booster (TDap): Unknown Date of Pneumonia Vaccine: Oct 03, 2011 Seasonal Allergies Seasonal Allergies: Yes Past Medical History Surgeries: Yes Appendectomy, Bladder Surgery, Section, Gallbladder, Hysterectomy, Orthopedic, Tonsillectomy Respiratory: No Cardiac: No Neurological: Yes Headaches /Migraines 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 Disorders: Yes (MENORRHAGIA) 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 Sexually Transmitted Disease: Yes (HPV) HIV/AIDS: No Genitourinary: Yes UTI-Chronic, UTI (peds) Gastrointestinal: No Musculoskeletal: Yes Arthritis, Chronic Back Pain Endocrine: No HEENT: No Cancer: No Psychosocial: Yes (OCD; SUBSTANCE ABUSE; OVERDOSES; PSYCH ADMITS; ) Anxiety, PTSD, Suicide Attempts, Bipolar, Depression Integumentary: No Blood Disorders: No Family Medical History Reviewed Nursing Family Hx Arthritis 19 FATHER 19 MOTHER Hypertension 19 FATHER All per records due to altered mental status Review of Systems Time Seen by Provider: 07:01 Sepsis Event Evaluation Height, Weight, BMI Height: 5'5.00" Weight: 150lbs. 3.0oz. 68.637357rw; 24.00 BMI Method:Stated Exam Exam Vital Signs Date Time Temp Pulse Resp B/P (MAP) Pulse Ox O2 Delivery O2 Flow Rate FiO2 11/27/19 10:42 99 Room Air 11/27/19 10:31 74 11/27/19 10:30 87 16 103/64 (77) 100 Room Air 11/27/19 10:15 97 16 117/78 99 Room Air 11/27/19 07:50 36.3 65 16 145/97 (113) 97 Room Air 11/27/19 07:25 Height & Weight Height: 5'5.00" Weight: 150lbs. 3.0oz. 68.398247jc; 24.00 BMI Method:Stated General Appearance: No Apparent Distress, WD/WN HEENT: PERRL/EOMI, Pharynx Normal Neck: Full Range of Motion, Non Tender, Supple Respiratory: Lungs Clear, No Accessory Muscle Use, No Respiratory Distress Cardiovascular: Regular Rate, Rhythm, No Edema Capillary Refill: Less Than 3 Seconds Peripheral Pulses: 2+ Dorsalis Pedis (R), 2+ Left Dors-Pedis (L), 2+ Radial Pulses (R), 2+ Radial Pulses (L) Gastrointestinal: non tender, soft Extremity: Normal Capillary Refill, No Pedal Edema Neurologic/Psychiatric: Depressed Affect Skin: Normal Color, Warm/Dry Lymphatic: No Adenopathy Results Lab Laboratory Tests 11/27/19 07:30 11/27/19 08:25 Assessment/Plan Assessment/Plan OD plus methamphetamine use Lethargy secondary to OD and Ativan given in ED -UDS-- shows methamphetamine use -Add end tidal C02 monitor -Monitor in ICU -May need intubation for airway protection -Change IVF to D5 LR at 150 CLARISSA GROSS DO Nov 27, 2019 11:13
[2019-11-27 11:16] LABS: ABG BASE EXCESS 2.6 MMOL/L (-2.5-2.5); ABG OXYGEN SATURATION 68 % (94-100); ABG PCO2 48 MMHG (35-45); ABG PH 7.37 (7.37-7.43); ABG TCO2 29.1 MMOL/L (21.0-31.0)
[2019-11-27 11:17] LABS: ABG PO2 37 MMHG (79-93)
[2019-11-27 11:18] LABS: ALLENS TEST YES-POS; INSPIRED O2 ROOM AIR; VENTILATOR NO
--- NOTE | 2019-11-27 11:30 | NUR ---
Dr. Stevens at bedside. ABG reviewed. Pt placed on ETCO2 et reading 39-41. Pt continues not to speak and thrashing about during interventions.
--- NOTE | 2019-11-27 11:35 | History & Physical-Hospitalist ---
ANNA MARIE WEISS [facility] 11/27/19 1135: History of Present Illness HPI/Chief Complaint Information was gleaned from ER note with information obtained from the ICU nurse, due to patient being unresponsive and unarousable. Patient was brought the ER by EMS after calling 911 and hanging up, resulting in a check-up. She was found with two bottles of Remeron by her side, one being empty and the other containing 40 pills for a 30 quantity prescription. She was able to communicate with EMS, stating that 'she was going to ,'but mainly was unresponsive and disorented. After arrival to the ER, she was given a total of 5 of Ativan. Her urine analysis was also positive for methamphetamines. She has a history of drug overdose and psychosis. Source: RN/MD Date Seen 11/27/19 Time Seen by a Provider: 11:30 Attending Physician Jabier Weiner MD PCP Joana Suero MD Referring Physician Date of Admission Nov 27, 2019 at 09:41 Home Medications & Allergies Home Medications Reviewed patient Home Medication Reconciliation performed by pharmacy medication reconciliations compounding pharmacy technician and/or nursing. Patients Allergies have been reviewed. Allergies Allergies Coded Allergies codeine (Unverified Allergy, Mild, PT HAS RECEIVED MORPHINE & TRAMADOL W/O ISSUE, 12/28/16) Penicillins (Unverified Allergy, Unknown, RASH, HAS HAD ANCEF W/O PROBLEMS, 12/28/16) erythromycin base (Unverified Allergy, Unknown, RASH, 12/28/16) Past Ncnoyzi-Zolfgu-Jdurcy Hx Past Med/Social Hx: Reviewed Nursing Past Med/Soc Hx Patient Social History Recreational Drug Use: Yes (by history) Drug of Choice: METH Type Used: Cigarettes 2nd Hand Smoke Exposure: Yes Recent Foreign Travel: No Contact w/other who traveled: No Recent Hopitalizations: No Recent Infectious Disease Expo: No Immunizations Up To Date Tetanus Booster (TDap): Unknown Date of Pneumonia Vaccine: Oct 03, 2011 Seasonal Allergies Seasonal Allergies: Yes Past Medical History Surgeries: Appendectomy, Bladder Surgery, Section, Gallbladder, Hysterectomy, Orthopedic, Tonsillectomy Neurological: Headaches /Migraines 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: Yes (MENORRHAGIA) Sexually Transmitted Disease: Yes (HPV) HIV/AIDS: No Female 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 Disorders: Menstrual Problems Hysterectomy Genitourinary: UTI-Chronic, UTI (peds) Musculoskeletal: Arthritis, Chronic Back Pain Psychosocial: Anxiety, PTSD, Suicide Attempts, Bipolar, Depression History of Blood Disorders: No Family History Reviewed Nursing Family Hx Arthritis 19 FATHER 19 MOTHER Hypertension 19 FATHER All per records due to altered mental status Review of Systems ROS-Unable to Obtain: Patient was unarousable, not being able to participate for questioning Physical Exam Physical Exam Vital Signs Vital Signs - First Documented 11/27/19 07:50 Temp 36.3 Pulse 65 Resp 16 B/P (MAP) 145/97 (113) Pulse Ox 97 O2 Delivery Room Air Capillary Refill : Less Than 3 Seconds Height, Weight, BMI Height: 5'5.00" Weight: 150lbs. 3.0oz. 68.860009di; 24.00 BMI Method:Stated Respiratory: Lungs Clear, Normal Breath Sounds, No Accessory Muscle Use, No Respiratory Distress Cardiovascular: Regular Rate, Rhythm, No Edema, No Gallop, No JVD, No Murmur, Normal Peripheral Pulses Gastrointestinal: Normal Bowel Sounds, No Organomegaly, No Pulsatile Mass, Soft Extremity: Normal Capillary Refill, Normal Inspection, Normal Range of Motion, Non Tender, No Calf Tenderness, No Pedal Edema Neurologic/Psychiatric: Other (patient unresponsive ) Results Results/Procedures Labs Laboratory Tests 11/27/19 07:30 11/27/19 08:25 Patient resulted labs reviewed. Assessment/Plan Admission Diagnosis Multiple drug over dose, methamphetamine use, and AMS/unresponsive Admission Status: Inpatient Order (span 2 midnights) Reason for Inpatient Admission: AMS, Possible Multiple Drug Over doses Assessment and Plan 1. Possible Remeron OD: - Gastric Lavage with Activated Charcoal via NG tube - Monitor EKG for potential QT prolongation/arrhythmias - Monitor for possible Serotonin Syndrome and anticholinergic effects - IVF NS 125 mL/hr - Inpatient Psych eval when patient is able to interact 2. Methamphetamine Intoxication: - IVF and supportive care - Sedation for agitation - Ativan 10 - 20 mg IV - Monitor O2 - Nitro for HTN > 180/100 and rate control: CCB (Diltazem) 3. Suicide Attempt: - Psych referral 4. Hypokalemia: - IV 40 mEq at 10 mEq/hr Clinical Quality Measures DVT/VTE Risk/Contraindication: RFS Level Per Nursing on Admit: 0=No Risk/No VTE PPX JABIER WEINER MD 11/27/19 1528: Past Mucnchb-Zcdvls-Iclihi Hx Family History Arthritis 19 FATHER 19 MOTHER Hypertension 19 FATHER Review of Systems Constitutional: see HPI Physical Exam Physical Exam General Appearance: Chronically ill HEENT: PERRL/EOMI, Moist Mucous Membranes Neck: Normal Inspection, Supple Neurologic/Psychiatric: Other (patient respond to verbal stimuli incoherently, groans, sporadic movement. ) Skin: Normal Color, Warm/Dry Assessment/Plan Assessment and Plan Pt presented altered from presumed overdose. She was found with an empty remeron bottle at her bedside after she called EMS and hung up. She is quite altered and only groans when spoken to. GCS 10. She does not respond when asked about what brought her to the hospital. All information is obtained from the records. Poison control was contacted and recommend observation in the ICU for decompensation and on telemetry. She currently had an end tidal in place and protecting her airway. Will plan to consult mental health in the AM for screening hopefully in the morning. Diagnosis/Problems Diagnosis/Problems (1) Drug overdose Status: Acute Qualifiers: Encounter type: initial encounter Injury intent: undetermined intent Qualified Codes: T50.904A - Poisoning by unspecified drugs, medicaments and biological substances, undetermined, initial encounter (2) Methamphetamine abuse Status: Acute (3) Substance abuse Status: Acute (4) Hypokalemia Status: Acute Supervisory-Addendum Brief Verification & Attestation Participated in pt care: history, MDM, physical Personally performed: exam, history, MDM, supervision of care Care discussed with: Medical Student Procedures: n/a Results interpretation: Verified all documentation Verification and Attestation of Medical Student E/M Service A medical student performed and documented this service in my presence. I reviewed and verified all information documented by the medical student and made modifications to such information, when appropriate. I personally performed the physical exam and medical decision making. Jabier Weiner, Nov 27, 2019,15:17 ANNA MARIE WEISS [facility] Nov 27, 2019 11:35 JABIER WEINER MD Nov 27, 2019 15:28
[2019-11-27] MEDS: inSUlin ASPART (NovoLOG) 1 UNIT/0.01 ML (CHARGE PER UNIT) SC SCH ×3 (11:57→23:14)
[2019-11-27] MEDS ORDERED: D5 LR IV SOLUTION 1,000 ML IV SCH (12:00)
[2019-11-27] MEDS: D5 LR IV SOLUTION 1,000 ML IV SCH ×2 (12:39→18:11)
--- NOTE | 2019-11-27 13:57 | NUR ---
Pt is listed as Taoism but is currently unresponsive and no family has been present.
--- NOTE | 2019-11-27 14:21 | NUR ---
Dr. Weiner et med students at bedside.
[2019-11-28] VITALS (14 sets, daily range): BP systolic 98–126; BP diastolic 53–98
[2019-11-28] MEDS: D5 LR IV SOLUTION 1,000 ML IV SCH ×2 (01:58→08:52)
[2019-11-28 03:54] LABS: BASOPHILS % (AUTO) 0 % (0-10); EOSINOPHILS # (AUTO) 0.1 10^3/uL (0.0-0.3); EOSINOPHILS % (AUTO) 1 % (0-10); HEMATOCRIT 38 % (35-52); HEMOGLOBIN 12.6 G/DL (11.5-16.0); LYMPHOCYTES # (AUTO) 2.5 X 10^3 (1.0-4.0); LYMPHOCYTES % (AUTO) 47 % (12-44); MEAN CORPUSCULAR HEMOGLOBIN 31 PG (25-34); MEAN CORPUSCULAR HGB CONC 33 G/DL (32-36); MEAN CORPUSCULAR VOLUME 95 FL (80-99); MEAN PLATELET VOLUME 9.7 FL (7.4-10.4); MONOCYTES # (AUTO) 0.4 X 10^3 (0.0-1.0); MONOCYTES % (AUTO) 7 % (0-12); NEUTROPHILS # (AUTO) 2.4 X 10^3 (1.8-7.8); NEUTROPHILS % (AUTO) 44 % (42-75); PLATELET COUNT 222 10^3/uL (130-400); RED CELL DISTRIBUTION WIDTH 12.6 % (10.0-14.5); WHITE BLOOD COUNT 5.3 10^3/uL (4.3-11.0)
[2019-11-28 04:16] LABS: BUN/CREATININE RATIO 6; CALCIUM 8.5 MG/DL (8.5-10.1); CARBON DIOXIDE 23 MMOL/L (21-32); CHLORIDE 112 MMOL/L (98-107); CREATININE SERUM 0.72 MG/DL (0.60-1.30); GFR ESTIMATED > 60; GLUCOSE 113 MG/DL (70-105); MAGNESIUM 1.8 MG/DL (1.6-2.4); POTASSIUM 3.3 MMOL/L (3.6-5.0); SODIUM 144 MMOL/L (135-145)
--- NOTE | 2019-11-28 04:57 | Pulmonary Progress Note ---
Subjective Time Seen by a Provider: 04:53 Subjective/Events-last exam Pt wakes up easily however refuses to answer questions. Sepsis Event Evaluation Height, Weight, BMI Height: 5'5.00" Weight: 150lbs. 3.0oz. 68.641818mc; 24.00 BMI Method:Stated Exam Exam Vital Signs Date Time Temp Pulse Resp B/P (MAP) Pulse Ox O2 Delivery O2 Flow Rate FiO2 11/28/19 04:00 68 19 104/61 (75) 98 Room Air 11/28/19 03:00 71 13 99/53 (68) 96 Room Air 11/28/19 02:00 77 21 106/71 (83) 96 Room Air 11/28/19 01:00 72 15 106/69 (81) 96 Room Air 11/28/19 01:00 72 11/28/19 00:00 Room Air 11/28/19 00:00 73 111/72 (85) 97 Room Air 11/27/19 23:01 37.0 11/27/19 23:00 80 16 99/70 (80) 96 Room Air 11/27/19 22:00 75 21 98/56 (70) 96 Room Air 11/27/19 21:00 82 16 102/64 (77) 93 Room Air 11/27/19 20:00 37.0 11/27/19 20:00 72 13 106/75 (85) 99 Room Air 11/27/19 20:00 Room Air 11/27/19 19:00 65 106/76 (86) 100 Room Air 11/27/19 19:00 65 11/27/19 18:00 84 17 101/58 (72) 96 Room Air 11/27/19 17:00 81 21 129/89 (102) 100 Room Air 11/27/19 16:00 36.4 11/27/19 16:00 96 Room Air 11/27/19 16:00 81 14 129/91 (104) 99 Room Air 11/27/19 15:00 75 14 108/66 (80) 99 Room Air 11/27/19 14:00 86 15 104/59 (74) 99 Room Air 11/27/19 13:00 74 11/27/19 13:00 76 12 109/56 (73) 100 Room Air 11/27/19 12:41 98 Room Air 11/27/19 12:00 100 13 100/49 (66) 100 Room Air 11/27/19 11:42 36.2 11/27/19 11:00 98 15 96/58 (71) 98 Room Air 11/27/19 10:42 99 Room Air 11/27/19 10:31 74 11/27/19 10:30 87 16 103/64 (77) 100 Room Air 11/27/19 10:15 97 16 117/78 99 Room Air 11/27/19 07:50 36.3 65 16 145/97 (113) 97 Room Air 11/27/19 07:25 I & O 11/28/19 07:00 Intake Total 4000 ml Output Total 1770 ml Balance 2230 ml Height & Weight Height: 5'5.00" Weight: 150lbs. 3.0oz. 68.763465fm; 24.00 BMI Method:Stated General Appearance: No Apparent Distress, Chronically ill HEENT: PERRL/EOMI, Moist Mucous Membranes Neck: Normal Inspection, Supple Respiratory: Lungs Clear, Normal Breath Sounds, No Accessory Muscle Use, No Respiratory Distress Cardiovascular: Regular Rate, Rhythm, No Edema, No Gallop, No JVD, No Murmur, Normal Peripheral Pulses Capillary Refill: Less Than 3 Seconds Peripheral Pulses: 2+ Dorsalis Pedis (R), 2+ Left Dors-Pedis (L), 2+ Radial Pulses (R), 2+ Radial Pulses (L) Gastrointestinal: non tender, soft Extremity: Normal Capillary Refill, Normal Inspection, Normal Range of Motion, Non Tender, No Calf Tenderness, No Pedal Edema Neurologic/Psychiatric: Other (patient respond to verbal stimuli incoherently, groans, sporadic movement. ) Skin: Normal Color, Warm/Dry Results Lab Laboratory Tests 11/27/19 07:30 11/27/19 08:25 11/28/19 03:30 Assessment/Plan Assessment/Plan OD plus methamphetamine use Lethargy secondary to OD and Ativan given in ED -UDS-- shows methamphetamine use - end tidal C02 monitor - IVF to D5 LR at 150 Hypokalemia -replace CLARISSA GROSS DO Nov 28, 2019 04:56
[2019-11-28] MEDS: inSUlin ASPART (NovoLOG) 1 UNIT/0.01 ML (CHARGE PER UNIT) SC SCH ×2 (05:41→13:40)
[2019-11-28] MEDS ORDERED: KCL 20 MEQ TAB (K-DUR) PO SCH (06:00)
[2019-11-28] MEDS ORDERED: POTASSIUM CL 10MEQ/50ML IVPB 50 ML IV SCH (06:00)
[2019-11-28] MEDS ORDERED: MAGNESIUM 1 GM/100 ML IVPB 100 ML IV SCH (06:00)
--- NOTE | 2019-11-28 08:35 | Progress Note - Hospitalist ---
Subjective HPI/CC On Admission Date Seen by Provider: Nov 28, 2019 Time Seen by Provider: 08:20 Information was gleaned from ER note with information obtained from the ICU nurse, due to patient being unresponsive and unarousable. Patient was brought the ER by EMS after calling 911 and hanging up, resulting in a check-up. She was found with two bottles of Remeron by her side, one being empty and the other containing 40 pills for a 30 quantity prescription. She was able to communicate with EMS, stating that 'she was going to ,'but mainly was unresponsive and disorented. After arrival to the ER, she was given a total of 5 of Ativan. Her urine analysis was also positive for methamphetamines. She has a history of drug overdose and psychosis. Subjective/Events-last exam Patient was still somnolent and difficult to arouse. She was only able to mutter and groan. She attempted to indicate that her belly might be tender, but it is unclear since she couldn't blatantly state it. She denied an abdominal exam at time of visit. Review of Systems General: No Chills, No Night Sweats, No Fatigue, No Malaise, No Appetite, No Other HEENT: No Head Aches, No Visual Changes, No Eye Pain, No Ear Pain, No Dysphasia, No Sinus Congestion, No Post Nasal Drip, No Sore Throat, No Other Pulmonary: No Dyspnea, No Cough, No Pleuritic Chest Pain, No Other Cardiovascular: No: Chest Pain, Palpitations, Orthopnea, Paroxysmal Noc. Dyspnea, Edema, Lt Headedness, Other Gastrointestinal: Abdominal Pain (possible ); No: Nausea, Vomiting, Diarrhea, Constipation, Melena, Hematochezia, Other Genitourinary: No Dysuria, No Frequency, No Incontinence, No Hematuria, No Retention, No Other Musculoskeletal: No: other, neck pain, shoulder pain, arm pain, back pain, hand pain, leg pain, foot pain Neurological: No: Weakness, Numbness, Incoordination, Change in speech, Confusion, Seizures, Other Focused Exam Respiratory: Chest Non Tender, Lungs Clear, Normal Breath Sounds, No Accessory Muscle Use, No Respiratory Distress Cardiovascular: Regular Rate, Rhythm, No Edema, No Gallop, No JVD, No Murmur, Normal Peripheral Pulses Peripheral Pulses: 2+ Dorsalis Pedis (R), 2+ Left Dors-Pedis (L), 2+ Radial Pulses (R), 2+ Radial Pulses (L) Skin: normal color, warm/dry Objective Exam Vital Signs Vital Signs Date Time Temp Pulse Resp B/P (MAP) Pulse Ox O2 Delivery O2 Flow Rate FiO2 11/28/19 12:14 71 11/28/19 11:55 37.3 18 115/72 (86) 97 Room Air Capillary Refill : Less Than 3 Seconds General Appearance: WD/WN, Mild Distress Respiratory: Chest Non Tender, Lungs Clear, Normal Breath Sounds, No Accessory Muscle Use, No Respiratory Distress Cardiovascular: Regular Rate, Rhythm, No Edema, No Gallop, No JVD, No Murmur, Normal Peripheral Pulses Extremity: Normal Capillary Refill, Normal Inspection, Normal Range of Motion, Non Tender, No Calf Tenderness, No Pedal Edema Neurologic/Psychiatric: Alert, Oriented x3, No Motor/Sensory Deficits, Normal Mood/Affect, plant taxonomist II-XII Norm as Tested Skin: Normal Color, Warm/Dry Results/Procedures Lab Laboratory Tests 11/28/19 03:30 Patient resulted labs reviewed. Assessment/Plan Assessment and Plan Assess & Plan/Chief Complaint 1. Possible Remeron OD: - EKG - Monitor respiration/pulse oximetry, Temp, BP - IVF NS 125 mL/hr - Inpatient Psych evaluation when patient is able to interact and medically stable 2. Methamphetamine Intoxication: - IVF and supportive care - Sedation for agitation - Ativan 10 - 20 mg IV - Monitor O2 - Nitro for HTN > 180/100 and rate control: CCB (Diltazem) 3. Suicide Attempt: - Psych referral upon medical clearance - Mental Health Screen Referral 4. Hypokalemia: - IV 40 mEq at 10 mEq/hr Clinical Quality Measures DVT/VTE Risk/Contraindication: RFS Level Per Nursing on Admit: 0=No Risk/No VTE PPX ANNA MARIE WEISS Nov 28, 2019 08:35
[2019-11-28] MEDS ORDERED: KCL 20 MEQ TAB (K-DUR) PO ONE (09:00)
--- NOTE | 2019-11-28 10:16 | Speech Therapy Progress Note ---
Therapy Progress Note ST received orders for speech evaluation. ST attempted to assess the patient, however she was unable to alert to verbal and tactile prompts. The patient is not able to participate with speech evaluation at this time. ST will follow up in 24 hours. KRYSTINA CASAS Nov 28, 2019 10:16
--- NOTE | 2019-11-28 10:41 | NUR ---
DR COLEY ON FLOOR AND ORDERS RECEIVED TO CONSULT [facility] FOR SCREENING. THIS RN NOTIFIED [facility].
--- NOTE | 2019-11-28 11:25 | NUR ---
CM/SS: Visited with pt at to plan for discharge Plan: Plan for discharge is unknown at this time Summary: Pt is in bed with her head partially covered, pt says very little. Pt report having come from home, and would like to return home. Pt only says that she wants a drink. RN reports that a speech consult has been put in, based on making sure she can swallow ok. Pt does not want to talk, and would not answer any other questions for this worker.
--- NOTE | 2019-11-28 11:38 | NUR ---
CM/SS: [facility] notified [phone] that a screen needed to be completed Plan: Screener Chioma) from [facility], is on his way to the hospital to screen pt for possible mental health placement.
--- NOTE | 2019-11-28 12:05 | NUR ---
1155 PT TRANSFERRED TO ROOM 418 VIA BED ACCOMPANIED BY THIS RN. REPORT GIVEN TO Osman DOUGLAS RN
--- NOTE | 2019-11-28 12:05 | NUR ---
TRANSFERRED FROM ICU TO ROOM 418 PER BED. ALERT. SKIN W/D. RESP. REGULAR. HEART RATE REGULAR. LUNGS CLEAR AND DIM.
--- NOTE | 2019-11-28 12:20 | NUR ---
[facility] HERE TO TALK WITH PT.
[2019-11-28] MEDS ORDERED: MIRT15TA6 PO (13:18)
[2019-11-28] MEDS ORDERED: MELO7.5T46 PO (13:18)
[2019-11-28] MEDS ORDERED: TERB250T16 PO (13:18)
[2019-11-28] MEDS ORDERED: CARI1.5C PO (13:18)
[2019-11-28] MEDS ORDERED: GABA-490 PO (13:18)
--- NOTE | 2019-11-28 13:20 | NUR ---
OBTAINED A CURRENT FILL LIST FROM [facility] TO COMPLETE THE MED REC. PT DID NOT WANT TO ANSWER ANY QUESTIONS I HAD INCLUDING WHAT PHARMACY SHE WENT TO AND ANY OTC MEDS. I ENTERED MEDS ON THE MED REC WERE LISTED ON THE PT PROFILE FROM [facility]. I WILL ATTACH A COPY TO THE PT'S CHART. DENIES ANY OTC MEDS
--- NOTE | 2019-11-28 13:47 | NUR ---
CM/SS: [facility] screener report pt does not meet criteria for psychiatric placement Summary: Pt reports that she no longer feels like she wants to hurt or harm herself. She reports she will agree to have the follow up phone call with mental health and she signed the Alternative Community Services Plan with [facility].
--- NOTE | 2019-11-28 14:29 | NUR ---
CM/SS: Discussed with pt plan for discharge Plan: Pt will be discharge to home with and is encouraged to follow up with the plan in place with mental health. Summary: Pt does request that this worker call her mother and request for her to come and pick her up. Phone Call to Mallorie; mother of pt [phone]. She expresses some frustration and reports that she will be able to meat pickler pt within an hour. Pt is informed that her mother will meat pickler her up within the hour. Addendum: 11/28/19 at 1456 by BENNY NICHOLS SS CM/SS: Pt reports no clothes to wear home. This worker calls pt's mother Mallorie shelton [phone], and request that she bring pt some clothes as she has none. Pt's mother is ok to bring her some clothes when she picks her up.
--- NOTE | 2019-11-28 14:51 | Discharge Summary ---
ANNA MARIE WEISS [facility] 11/28/19 1451: Diagnosis/Chief Complaint Date of Admission Nov 27, 2019 at 09:41 Date of Discharge Discharge Date: Nov 28, 2019 Discharge Time: 14:35 Admission Diagnosis Possible Remeron Overdose, Methamphetamine Uses Primary Care Joana Suero MD Discharge Diagnosis Possible Remeron overdose, methamphetamine abuse, hypokalemia (1) Drug overdose Status: Resolved (2) Methamphetamine abuse Status: Acute (3) Substance abuse Status: Acute (4) Hypokalemia Status: Resolved Discharge Summary Discharge Physical Exam Allergies: Coded Allergies: codeine (Unverified Allergy, Mild, PT HAS RECEIVED MORPHINE & TRAMADOL W/O ISSUE, 12/28/16) Penicillins (Unverified Allergy, Unknown, RASH, HAS HAD ANCEF W/O PROBLEMS, 12/28/16) erythromycin base (Unverified Allergy, Unknown, RASH, 12/28/16) Vitals & I&Os Vital Signs Date Time Temp Pulse Resp B/P (MAP) Pulse Ox O2 Delivery O2 Flow Rate FiO2 11/28/19 12:14 71 11/28/19 11:55 37.3 18 115/72 (86) 97 Room Air General Appearance: Mild Distress Respiratory: Chest Non Tender, Lungs Clear, Normal Breath Sounds, No Accessory Muscle Use, No Respiratory Distress Cardiovascular: Regular Rate, Rhythm, No Edema, No Gallop, No JVD, No Murmur, Normal Peripheral Pulses Extremity: Normal Capillary Refill, Normal Inspection, Normal Range of Motion, Non Tender, No Calf Tenderness, No Pedal Edema Skin: Normal Color, Warm/Dry Hospital Course Was the Problem List Reviewed?: Yes Ms. Hill was diagnosed with a possible overdose on Remeron, Methamphetamine use, and AMS. Upon arrival she to the ER she was given Ativan due to agitation. She was then transferred to ICU where she remain sedated and unresponsive even with stimulation. Today she required no Ativan, she was less agitated, and gave short responses. She was medically cleared, and evaluated by Mental Health. She will follow up with a therapist, use the suicide hotline, and stated she wouldnt attempt this again. Labs (last 24 hrs) Laboratory Tests 11/27/19 17:44: Glucometer 101 11/27/19 22:27: Glucometer 95 11/28/19 03:30: White Blood Count 5.3, Red Blood Count 4.01L, Hemoglobin 12.6#, Hematocrit 38, Mean Corpuscular Volume 95, Mean Corpuscular Hemoglobin 31, Mean Corpuscular Hemoglobin Concent 33, Red Cell Distribution Width 12.6, Platelet Count 222, Mean Platelet Volume 9.7, Neutrophils (%) (Auto) 44, Lymphocytes (%) (Auto) 47H, Monocytes (%) (Auto) 7, Eosinophils (%) (Auto) 1, Basophils (%) (Auto) 0, Neutrophils # (Auto) 2.4, Lymphocytes # (Auto) 2.5, Monocytes # (Auto) 0.4, Eosinophils # (Auto) 0.1, Basophils # (Auto) 0.0, Sodium Level 144, Potassium Level 3.3L, Chloride Level 112H, Carbon Dioxide Level 23, Anion Gap 9, Blood Urea Nitrogen 4L, Creatinine 0.72, Estimat Glomerular Filtration Rate > 60, BUN/Creatinine Ratio 6, Glucose Level 113H, Calcium Level 8.5, Phosphorus Level 3.0, Magnesium Level 1.8 11/28/19 11:23: Glucometer 98 Patient resulted labs reviewed. Pending Labs Laboratory Tests 11/28/19 11:23: Glucometer 98 Discussion & Recommendations Discharge Planning: >30 minutes discharge planning Discharge Home Medications: Active Scripts Active Reported Meloxicam 7.5 Mg Tablet 7.5 Mg PO DAILY PRN Terbinafine HCl 250 Mg Tablet 250 Mg PO DAILY Gabapentin 400 Mg Capsule 400 Mg PO TID Mirtazapine 15 Mg Tablet 15 Mg PO HS Vraylar (Cariprazine Hydrochloride) 1.5 Mg Capsule 1.5 Mg PO DAILY Instructions to patient/family Please see electronic discharge instructions given to patient. Clinical Quality Measures DVT/VTE Risk/Contraindication: RFS Level Per Nursing on Admit: 0=No Risk/No VTE PPX JABIER WEINER MD 11/30/19 5754: Discharge Summary Discharge Physical Exam Allergies: Coded Allergies: codeine (Unverified Allergy, Mild, PT HAS RECEIVED MORPHINE & TRAMADOL W/O ISSUE, 12/28/16) Penicillins (Unverified Allergy, Unknown, RASH, HAS HAD ANCEF W/O PROBLEMS, 12/28/16) erythromycin base (Unverified Allergy, Unknown, RASH, 12/28/16) Supervisory-Addendum Brief Verification & Attestation Participated in pt care: history, MDM, physical Personally performed: exam, history, MDM, supervision of care Care discussed with: Medical Student Procedures: n/a Results interpretation: Verified all documentation Verification and Attestation of Medical Student E/M Service A medical student performed and documented this service in my presence. I reviewed and verified all information documented by the medical student and made modifications to such information, when appropriate. I personally performed the physical exam and medical decision making. Jabier Weiner, Nov 30, 2019,14:45 Problem Qualifiers (1) Drug overdose: Encounter type: initial encounter Injury intent: undetermined intent Qualified Codes: T50.904A - Poisoning by unspecified drugs, medicaments and biological substances, undetermined, initial encounter ANNA MARIE WEISS [facility] Nov 28, 2019 14:51 JABIER WEINER MD Nov 30, 2019 14:48
--- NOTE | 2019-11-28 15:20 | NUR ---
DISCHARGE PLANNING: Patient is set to discharge today...she is being tested for O2 need now. Spoke to her about her choices and she would like to use the one in the [facility] around the corner [facility] [employer].If she needs O2 order will be sent to [facility]. Addendum: 11/28/19 at 1528 by PRERNA REYNOLDS RN Patient does not qualify for Oxygen.
--- NOTE | 2019-11-28 15:41 | Discharge Inst-Simple/Standard ---
Discharge Inst-Standard Patient Instructions/Follow Up Plan of Care/Instructions/FU: Please follow up with your primary care physician. Please follow up with [facility] as recommended. Activity as Tolerated: Yes Discharge Diet: No Restrictions Return to The Hospital For: Chest pain, shortness of breath, confusion, thoughts of harming other or self harm, if you feel you are getting worse. JABIER COLEY MD Nov 28, 2019 15:41
--- NOTE | 2019-11-28 16:20 | NUR ---
MARK DE PAZ demonstrates understanding of discharge instructions and accurately returns instructions upon questioning. Copy of Post-Discharge Instructions given to pt. MARK DE PAZ is able to manage continuing needs after discharge. Patients belongings returned to pt. Patient discharged from [facility] on 11/28/19 at 1620. MARK DE PAZ left floor via w/C, accompanied by STAFF AND FAMILY PER AUTO.
== END 2019-11-28 16:20 | disposition home or self-care (01) | DRG 918 ==
LOC: EDUNIT# 07:25 → ER 07:26 → ICU 09:41 → 4TH 11-28 11:56
PROVIDERS: ADMIT Family Medicine; ATTEND Family Medicine
DX: T43.022A Poisoning by tetracyclic antidepressants, intentional self-harm, initial encounter (principal); R53.83 Other fatigue; F15.129 Other stimulant abuse with intoxication, unspecified; R40.2420 Glasgow coma scale score 9-12, unspecified time; I10 Essential (primary) hypertension; E87.6 Hypokalemia; F17.210 Nicotine dependence, cigarettes, uncomplicated; J30.2 Other seasonal allergic rhinitis; F42.9 Obsessive-compulsive disorder, unspecified; F41.9 Anxiety disorder, unspecified; F43.10 Post-traumatic stress disorder, unspecified; F31.9 Bipolar disorder, unspecified; G43.909 Migraine, unspecified, not intractable, without status migrainosus; M19.91 Primary osteoarthritis, unspecified site; M54.9 Dorsalgia, unspecified; Z91.5 Personal history of self-harm
CPT/HCPCS: 36415; 51702; 80048; 80053; 80306; 80320; 80329; 81000; 82550; 82805; 82962; 83735; 84100; 84443; 84703; 85025; 93005; 93041

== ENCOUNTER 2020-10-28 12:39 | Observation (INO) | payer BC ==
[~2020-10-28] VITALS: Ht 165.1 cm; Wt 69.7 kg
[~2020-10-28 12:39] MED LIST changes: +ALPR.25T PO; -ALPR0.254 PO; +CARI1.5C PO; -ESCI20TA45 PO; +ESCI20TA56 PO; +GABA-490 PO; +MELO7.5T46 PO; +MIRT15TA6 PO; +TERB250T16 PO; +WATER (STERILE) FOR INJECTION 10 ML ONE; +ZIPRASIDONE 20 MG INJ (GEODON) VIAL IM ONE
[2020-10-28] MEDS: ZIPRASIDONE INJECTION 20 MG in WATER (STERILE) FOR INJECTION 1.2 ML IM PRN (12:39)
--- NOTE | 2020-10-28 12:51 | ED Psychosocial ---
General Chief Complaint: Psych/Social Disorder Stated Complaint: SUICIDAL IDEATION Source: police, EMS Exam Limitations: no limitations History of Present Illness Date Seen by Provider: Oct 28, 2020 Time Seen by Provider: 12:35 Initial Comments To ER by EMS accompanied by police. They were called to [facility] where she was in her car screaming crying and had wrapped the seatbelt around her neck. She wanted to kill herself. Timing/Duration: constant Severity: moderate Allergies and Home Medications Allergies Coded Allergies: codeine (Unverified Allergy, Mild, PT HAS RECEIVED MORPHINE & TRAMADOL W/O ISSUE, 12/28/16) Penicillins (Unverified Allergy, Unknown, RASH, HAS HAD ANCEF W/O PROBLEMS, 12/28/16) erythromycin base (Unverified Allergy, Unknown, RASH, 12/28/16) Home Medications Cariprazine Hydrochloride 1.5 Mg Capsule, 1.5 MG PO DAILY, (Reported) Gabapentin 400 Mg Capsule, 400 MG PO TID, (Reported) Meloxicam 7.5 Mg Tablet, 7.5 MG PO DAILY PRN for MUSCLE SPASMS, (Reported) Mirtazapine 15 Mg Tablet, 15 MG PO HS, (Reported) Terbinafine HCl 250 Mg Tablet, 250 MG PO DAILY, (Reported) Patient Home Medication List Home Medication List Reviewed: Yes Review of Systems Constitutional: see HPI, other (Unable to obtain) Past Iornlxr-Updgxv-Burspj Hx Patient Social History Alcohol Use: Denies Use Drug of Choice: METH Smoking Status: Current Everyday Smoker Type Used: Cigarettes 2nd Hand Smoke Exposure: Yes Recent Hopitalizations: No Immunizations Up To Date Tetanus Booster (TDap): Unknown Date of Pneumonia Vaccine: Oct 03, 2011 Seasonal Allergies Seasonal Allergies: Yes Past Medical History Surgeries: Yes Appendectomy, Bladder Surgery, Section, Gallbladder, Hysterectomy, Orthopedic, Tonsillectomy Respiratory: No Cardiac: No Neurological: Yes Headaches /Migraines 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 Disorders: Yes (MENORRHAGIA) Female 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 Disorders: Menstrual Problems 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 Sexually Transmitted Disease: Yes (HPV) HIV/AIDS: No Genitourinary: Yes UTI-Chronic, UTI (peds) Gastrointestinal: No Musculoskeletal: Yes Arthritis, Chronic Back Pain Endocrine: No HEENT: No Cancer: No Psychosocial: Yes (OCD; SUBSTANCE ABUSE; OVERDOSES; PSYCH ADMITS; ) Anxiety, PTSD, Suicide Attempts, Bipolar, Depression Integumentary: No Blood Disorders: No Family Medical History Arthritis 19 FATHER 19 MOTHER Hypertension 19 FATHER All per records due to altered mental status Physical Exam Vital Signs - First Documented 10/28/20 12:39 Temp 36.2 Pulse 57 Resp 25 B/P (MAP) 147/99 (115) Pulse Ox 96 O2 Delivery Room Air Capillary Refill : Height, Weight, BMI Height: 5'5.00" Weight: 150lbs. 3.0oz. [id number]; 24.00 BMI Method:Stated General Appearance: WD/WN, other (Unkempt belligerent agitated. Throws her dr echeverria's license at [place]. Screaming. Police present. She is ambulatory into the emergency room from the ambulance. With police present she was given 20 mg of Geodon intramuscular left ventral gluteal) HEENT: PERRL/EOMI, normal ENT inspection Neck: non-tender, full range of motion Respiratory: no respiratory distress, no accessory muscle use Cardiovascular: no murmur, tachycardia Gastrointestinal: normal bowel sounds, non tender, soft Neurologic/Psychiatric: alert, normal mood/affect, oriented x 3 Appearance/Memory: denies illness, disheveled, impaired insight Behavior/Eye Contact: refused to answer, increased rate of speech, belligerent, compulsive, uncooperative Thoughts/Hallucinations: flight of ideas, persecution Skin: normal color, warm/dry Progress/Results/Core Measures Results/Orders Lab Results Laboratory Tests Test 10/28/20 12:40 10/28/20 13:14 10/28/20 14:04 Range/Units White Blood Count 8.0 4.3-11.0 10^3/uL Red Blood Count 4.78 3.80-5.11 10^6/uL Hemoglobin 15.0 11.5-16.0 g/dL Hematocrit 45 35-52 % Mean Corpuscular Volume 95 80-99 fL Mean Corpuscular Hemoglobin 31 25-34 pg Mean Corpuscular Hemoglobin Concent 33 32-36 g/dL Red Cell Distribution Width 12.1 10.0-14.5 % Platelet Count 304 130-400 10^3/uL Mean Platelet Volume 9.4 9.0-12.2 fL Immature Granulocyte % (Auto) 0 % Neutrophils (%) (Auto) 54 42-75 % Lymphocytes (%) (Auto) 35 12-44 % Monocytes (%) (Auto) 9 0-12 % Eosinophils (%) (Auto) 2 0-10 % Basophils (%) (Auto) 1 0-10 % Neutrophils # (Auto) 4.4 1.8-7.8 10^3/uL Lymphocytes # (Auto) 2.8 1.0-4.0 10^3/uL Monocytes # (Auto) 0.7 0.0-1.0 10^3/uL Eosinophils # (Auto) 0.1 0.0-0.3 10^3/uL Basophils # (Auto) 0.0 0.0-0.1 10^3/uL Immature Granulocyte # (Auto) 0.0 0.0-0.1 10^3/uL Sodium Level 140 135-145 MMOL/L Potassium Level 4.1 3.6-5.0 MMOL/L Chloride Level 103 98-107 MMOL/L Carbon Dioxide Level 28 21-32 MMOL/L Anion Gap 9 5-14 MMOL/L Blood Urea Nitrogen 10 7-18 MG/DL Creatinine 0.78 0.60-1.30 MG/DL Estimat Glomerular Filtration Rate > 60 BUN/Creatinine Ratio 13 Glucose Level 89 70-105 MG/DL Calcium Level 9.6 8.5-10.1 MG/DL Corrected Calcium 8.5-10.1 MG/DL Total Bilirubin 1.1 H 0.1-1.0 MG/DL Aspartate Amino Transf (AST/SGOT) 24 5-34 U/L Alanine Aminotransferase (ALT/SGPT) 17 0-55 U/L Alkaline Phosphatase 78 40-136 U/L Total Protein 7.8 6.4-8.2 GM/DL Albumin 4.6 H 3.2-4.5 GM/DL Serum Test, Qualitative NEGATIVE NEGATIVE Salicylates Level < 5.0 L 5.0-20.0 MG/DL Acetaminophen Level < 10 L 10-30 UG/ML Serum Alcohol < 10 <10 MG/DL Coronavirus 2019 (BENJI) Negative Negative Urine Color YELLOW Urine Clarity CLEAR Urine pH 6.5 5-9 Urine Specific [place] 1.010 L 1.016-1.022 Urine Protein NEGATIVE NEGATIVE Urine Glucose (UA) NEGATIVE NEGATIVE Urine Ketones TRACE H NEGATIVE Urine Nitrite POSITIVE H NEGATIVE Urine Bilirubin NEGATIVE NEGATIVE Urine Urobilinogen 0.2 < = 1.0 MG/DL Urine Leukocyte Esterase NEGATIVE NEGATIVE Urine RBC (Auto) NEGATIVE NEGATIVE Urine RBC NONE /HPF Urine WBC 0-2 /HPF Urine Squamous Epithelial Cells 2-5 /HPF Urine Crystals NONE /LPF Urine Bacteria MODERATE H /HPF Urine Casts NONE /LPF Urine Mucus NEGATIVE /LPF Urine Culture Indicated YES Urine Opiates Screen NEGATIVE NEGATIVE Urine Oxycodone Screen NEGATIVE NEGATIVE Urine Methadone Screen NEGATIVE NEGATIVE Urine Propoxyphene Screen NEGATIVE NEGATIVE Urine Barbiturates Screen NEGATIVE NEGATIVE Ur Tricyclic Antidepressants Screen NEGATIVE NEGATIVE Urine Phencyclidine Screen NEGATIVE NEGATIVE Urine Amphetamines Screen POSITIVE H NEGATIVE Urine Methamphetamines Screen POSITIVE H NEGATIVE Urine Benzodiazepines Screen NEGATIVE NEGATIVE Urine Cocaine Screen NEGATIVE NEGATIVE Urine Cannabinoids Screen NEGATIVE NEGATIVE My Orders Orders - VERONICA SHI APRN Covid 19 Inhouse Test (10/28/20 12:45) Cbc With Automated Diff (10/28/20 12:45) Comprehensive Metabolic Panel (10/28/20 12:45) Ua Culture If Indicated (10/28/20 12:45) Hcg,Qualitative Serum (10/28/20 12:45) Drug Screen Stat (Urine) (10/28/20 12:45) Salicylate (10/28/20 12:45) Alcohol (10/28/20 12:45) Acetaminophen (10/28/20 12:45) Ziprasidone Injection (Geodon Injection) (10/28/20 12:45) Lorazepam Injection (Ativan Injection) (10/28/20 13:05) Lorazepam Injection (Ativan Injection) (10/28/20 13:30) Ekg Tracing (10/28/20 13:28) Straight Cath (Urinary) (10/28/20 13:28) Urine Culture (10/28/20 14:04) Medications Given in ED Current Medications Medications Dose Ordered Sig/Kirill Route Start Time Stop Time Status Last Admin Dose Admin Lorazepam 2 mg ONCE ONCE IM 10/28/20 13:30 10/28/20 13:31 DC 10/28/20 13:10 2 MG Ziprasidone 20 mg/ Sterile Water 1.2 ml @ 0 mls/hr Q4H PRN IM 10/28/20 12:45 10/28/20 12:39 1.2 MLS/HR Vital Signs/I&O 10/28/20 12:39 Temp 36.2 Pulse 57 Resp 25 B/P (MAP) 147/99 (115) Pulse Ox 96 O2 Delivery Room Air Departure Communication (Admissions) 1316-patient was still agitated and belligerent. Locked herself in the bathroom. We unlocked the door and were able to get her back to her room where we gave her an additional 2 mg of intramuscular lorazepam. She is not interested in going anywhere for inpatient psych. She may need to be an involuntary admit but will defer that decision to mental health 1515-arousable to verbal stimuli. When asked if she would participate in a mental health screen via teleconference she states "what ever" and then goes back to sleep and starts snoring again. She is not able to participate in mental health screening at this time. 1802-advised the patient that she would need to get into a gown. Her pants are off from the catheter placement. When we try to remove these from her hands she swings them at us and began screaming and cursing.. She was then assisted onto the bed and given 2 mg of intramuscular Ativan again. Impression Primary Impression: Agitation Additional Impressions: Suicidal behavior Substance abuse Disposition: ADMITTED INPATIENT Condition: Stable Admissions Decision to Admit Reason: Admit from ER (General) Decision to Admit/Date: Oct 28, 2020 Time/Decision to Admit Time: 17:16 Departure-Patient Inst. Referrals: MANJULA LEWIS MD (PCP/Family) Primary Care Physician VERONICA SHI APRN Oct 28, 2020 12:51
[2020-10-28 12:52] LABS: BASOPHILS % (AUTO) 1 % (0-10); EOSINOPHILS # (AUTO) 0.1 10^3/uL (0.0-0.3); EOSINOPHILS % (AUTO) 2 % (0-10); HEMATOCRIT 45 % (35-52); LYMPHOCYTES # (AUTO) 2.8 10^3/uL (1.0-4.0); LYMPHOCYTES % (AUTO) 35 % (12-44); MEAN CORPUSCULAR HEMOGLOBIN 31 pg (25-34); MEAN CORPUSCULAR HGB CONC 33 g/dL (32-36); MEAN CORPUSCULAR VOLUME 95 fL (80-99); MEAN PLATELET VOLUME 9.4 fL (9.0-12.2); MONOCYTES # (AUTO) 0.7 10^3/uL (0.0-1.0); MONOCYTES % (AUTO) 9 % (0-12); NEUTROPHILS # (AUTO) 4.4 10^3/uL (1.8-7.8); NEUTROPHILS % (AUTO) 54 % (42-75); PLATELET COUNT 304 10^3/uL (130-400)
[2020-10-28 12:58] LABS: ALBUMIN 4.6 GM/DL (3.2-4.5); CHLORIDE 103 MMOL/L (98-107); POTASSIUM 4.1 MMOL/L (3.6-5.0); SODIUM 140 MMOL/L (135-145)
[2020-10-28 13:00] LABS: CALCIUM 9.6 MG/DL (8.5-10.1)
[2020-10-28 13:01] LABS: GLUCOSE 89 MG/DL (70-105); TOTAL PROTEIN 7.8 GM/DL (6.4-8.2)
[2020-10-28 13:02] LABS: CARBON DIOXIDE 28 MMOL/L (21-32)
[2020-10-28 13:03] LABS: BILIRUBIN,TOTAL 1.1 MG/DL (0.1-1.0)
[2020-10-28 13:05] LABS: ALKALINE PHOSPHATASE 78 U/L (40-136); CREATININE SERUM 0.78 MG/DL (0.60-1.30); GFR ESTIMATED > 60
[2020-10-28] MEDS ORDERED: LORazepam INJ 2 MG/ML (ATIVAN) VIAL ONE ×2 (13:05→17:54)
[2020-10-28 13:06] LABS: BUN/CREATININE RATIO 13
[2020-10-28 13:07] LABS: ACETAMINOPHEN < 10 UG/ML (10-30); SALICYLATE < 5.0 MG/DL (5.0-20.0)
[2020-10-28 13:08] LABS: ALANINE AMINOTRANSFERASE 17 U/L (0-55)
--- NOTE | 2020-10-28 13:20 | NUR ---
Pt unccoperative for EKG or urine sample.
[2020-10-28] MEDS ORDERED: LORazepam INJ 2 MG/ML (ATIVAN) VIAL IM ONE ×2 (13:30→18:15)
[2020-10-28 14:11] LABS: BILIRUBIN,URINE NEGATIVE (NEGATIVE); CLARITY,URINE CLEAR; COLOR,URINE YELLOW; GLUCOSE, URINE (UA) NEGATIVE (NEGATIVE); KETONES,URINE TRACE (NEGATIVE); LEUKOCYTE ESTERASE ,URINE NEGATIVE (NEGATIVE); NITRITE,URINE POSITIVE (NEGATIVE); PH,URINE 6.5 (5-9); PROTEIN,URINE NEGATIVE (NEGATIVE)
[2020-10-28 14:21] LABS: AMPHETAMINE SCREEN, URINE POSITIVE (NEGATIVE); BARBITURATE SCREEN URINE NEGATIVE (NEGATIVE); BENZODIAZEPINES SCREEN URINE NEGATIVE (NEGATIVE); CANNABINOID SCREEN, URINE NEGATIVE (NEGATIVE); COCAINE SCREEN URINE NEGATIVE (NEGATIVE); METHADONE STAT NEGATIVE (NEGATIVE); METHAMPHETAMINE SCREEN URINE S POSITIVE (NEGATIVE); OPIATE SCREEN URINE NEGATIVE (NEGATIVE); OXYCODONE STAT NEGATIVE (NEGATIVE); PROPOXYPHENE STAT NEGATIVE (NEGATIVE); TRICYCLIC ANTIDEPRESSANTS SCRE NEGATIVE (NEGATIVE)
[2020-10-28 14:27] LABS: BACTERIA,URINE MODERATE /HPF; WBC,URINE 0-2 /HPF
--- NOTE | 2020-10-28 16:30 | NUR ---
Pt sleeping in bed at this time. Will continue to monitor.
--- NOTE | 2020-10-28 17:14 | NUR ---
Pt asking for warm blanket. Pt given a blanket.
--- NOTE | 2020-10-28 17:53 | NUR ---
Jazzy 4th floor nurse, called and asked to take report on pt after discharge of another 4 floor patient.
--- NOTE | 2020-10-28 17:55 | NUR ---
Pt agitated and yelling at staff. Pt throwing clothing and bedding, refusing to get into bed. Attempted to get pt in gown; pt refusing. Pt naked in bed with blankets.
--- NOTE | 2020-10-28 18:13 | NUR ---
Pt now agreeable to get into gown.
--- NOTE | 2020-10-28 18:29 | NUR ---
REPORT TAKEN FROM VERONICA FREGOSO AT THIS TIME. THIS RN WILL ASSUME CARE WHEN PATIENT ARRIVES TO THIS FLOOR. ONE ON ONE SITTER PROVIDED FOR PATIENT.
--- NOTE | 2020-10-28 18:30 | NUR ---
Pt uncooperative for vitals at time of transfer to floor.
[2020-10-28] MEDS ORDERED: ZIPRASIDONE 20 MG INJ (GEODON) VIAL IM PRN (18:45)
[2020-10-28] MEDS ORDERED: LORazepam INJ 2 MG/ML (ATIVAN) VIAL IM PRN (18:45)
[2020-10-28 19:27] VITALS: BP 119/76
[2020-10-28] MEDS ORDERED: WATER (STERILE) FOR INJECTION 10 ML ONE (21:06)
[2020-10-28] MEDS ORDERED: IBUPROFEN 600 MG (MOTRIN) TAB PO ONE (21:26)
[2020-10-28] MEDS ORDERED: IBUPROFEN 600 MG (MOTRIN) TAB PO PRN (21:30)
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
--- NOTE | 2020-10-28 23:10 | NUR ---
pt left AMA, ativan that was pulled but not Administered was wasted with PREM Dutta
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
== END 2020-10-28 23:10 | disposition left against medical advice (07) ==
LOC: EDUNIT# 12:39 → ER 12:40 → 4TH 17:18 → UNDOADMOB 17:18 → 4TH 17:46 → UNDODISOB 23:05
PROVIDERS: ADMIT Family Medicine; ATTEND Family Medicine
DX: R45.851 Suicidal ideations (principal); F15.129 Other stimulant abuse with intoxication, unspecified; G43.909 Migraine, unspecified, not intractable, without status migrainosus; N39.0 Urinary tract infection, site not specified; F41.9 Anxiety disorder, unspecified; F32.9 Major depressive disorder, single episode, unspecified; F43.10 Post-traumatic stress disorder, unspecified; M19.90 Unspecified osteoarthritis, unspecified site; F17.210 Nicotine dependence, cigarettes, uncomplicated; Z79.899 Other long term (current) drug therapy; Z88.5 Allergy status to narcotic agent; Z88.0 Allergy status to penicillin; Z88.1 Allergy status to other antibiotic agents; Z90.710 Acquired absence of both cervix and uterus; Z20.828 Contact with and (suspected) exposure to other viral communicable diseases
CPT/HCPCS: 51701; 80053; 80306; 81000; 84703; 85025; 87077; 87088; 87186; 93005; 96372; 99284; G0378; G0480 ×3; U0002; 36415; 80320; 80329; 87635

== ENCOUNTER → 2020-12-10 | Outpatient (CLI) | payer BC ==
[~2020-12-10] MED LIST changes: -CIPR500T4 PO; +CIPR500T5 PO; +ESCI20TA39 PO; -ESCI20TA56 PO; -OXYC-471 PO; +OXYC1TAB11 PO; -WATER (STERILE) FOR INJECTION 10 ML ONE; -ZIPRASIDONE 20 MG INJ (GEODON) VIAL IM ONE
--- NOTE | 2020-12-11 10:51 | Diagnostic Imaging Report ---
INDICATION: Routine screening. No prior mammograms are available for comparison. This is a baseline study. 2-D and 3-D bilateral screening mammography was performed CAD. Both breasts are heterogeneously dense, limiting the sensitivity of mammography. No mass or malignant appearing microcalcifications are seen. Axillae are unremarkable. IMPRESSION: BI-RADS Category 1 No mammographic features suspicious for malignancy are identified. ACR BI-RADS Category 1: Negative. Result letter will be mailed to the patient. Note: At least 10% of breast cancer is not imaged by mammography. Dictated by: Dictated on workstation # [id number]
== END ==
LOC: RAD 14:49
PROVIDERS: ATTEND Nurse Practitioner
DX: Z12.31 Encounter for screening mammogram for malignant neoplasm of breast (principal)
CPT/HCPCS: 77063; 77067

== ENCOUNTER 2021-01-10 01:59 | Emergency (ER) | payer BC ==
[~2021-01-10] VITALS: Ht 165 cm; Wt 74.0 kg
[2021-01-10 02:05] VITALS: BP 125/104
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
== END 2021-01-10 03:03 | disposition home or self-care (01) ==
LOC: EDUNIT# 01:59 → ER 02:01
DX: T69.9XXA Effect of reduced temperature, unspecified, initial encounter (principal); R45.1 Restlessness and agitation; G43.909 Migraine, unspecified, not intractable, without status migrainosus; F41.9 Anxiety disorder, unspecified; F31.9 Bipolar disorder, unspecified; F43.10 Post-traumatic stress disorder, unspecified; F17.210 Nicotine dependence, cigarettes, uncomplicated; Z91.5 Personal history of self-harm; Z88.0 Allergy status to penicillin; Z88.5 Allergy status to narcotic agent; Z88.1 Allergy status to other antibiotic agents
CPT/HCPCS: 99283

== ENCOUNTER 2021-09-14 09:10 | Emergency (ER) | payer BC ==
[~2021-09-14] VITALS: Ht 165 cm; Wt 83.0 kg
[~2021-09-14 09:10] MED LIST changes: +MIRT-68 PO; -MIRT15TA6 PO; -PHEN37.53 PO; +PHEN37.58 PO; -SULF1TAB35 PO; +SULF1TAB38 PO; -TERB250T16 PO; +TERB250T88 PO
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
[2021-09-14 09:29] LABS: BASOPHILS % (AUTO) 0 % (0-10); EOSINOPHILS # (AUTO) 0.1 10^3/uL (0.0-0.3); EOSINOPHILS % (AUTO) 1 % (0-10); HEMATOCRIT 45 % (35-52); HEMOGLOBIN 15.2 g/dL (11.5-16.0); LYMPHOCYTES # (AUTO) 1.4 10^3/uL (1.0-4.0); LYMPHOCYTES % (AUTO) 17 % (12-44); MEAN CORPUSCULAR HEMOGLOBIN 32 pg (25-34); MEAN CORPUSCULAR HGB CONC 34 g/dL (32-36); MEAN CORPUSCULAR VOLUME 95 fL (80-99); MEAN PLATELET VOLUME 10.2 fL (9.0-12.2); MONOCYTES # (AUTO) 0.5 10^3/uL (0.0-1.0); MONOCYTES % (AUTO) 7 % (0-12); NEUTROPHILS % (AUTO) 75 % (42-75); PLATELET COUNT 207 10^3/uL (130-400)
[2021-09-14] MEDS ORDERED: NS IV 1000 ML 1,000 ML IV SCH (09:30)
[2021-09-14 09:38] LABS: ALBUMIN 4.4 GM/DL (3.2-4.5); CHLORIDE 106 MMOL/L (98-107); POTASSIUM 5.3 MMOL/L (3.6-5.0); SODIUM 138 MMOL/L (135-145)
[2021-09-14 09:39] LABS: CALCIUM 8.9 MG/DL (8.5-10.1)
[2021-09-14 09:40] LABS: GLUCOSE 86 MG/DL (70-105); TOTAL PROTEIN 8.1 GM/DL (6.4-8.2)
[2021-09-14 09:41] LABS: CARBON DIOXIDE 22 MMOL/L (21-32)
[2021-09-14 09:42] LABS: BILIRUBIN,TOTAL 0.6 MG/DL (0.1-1.0)
[2021-09-14 09:44] LABS: ALKALINE PHOSPHATASE 79 U/L (40-136); GFR ESTIMATED 69
[2021-09-14 09:45] LABS: BUN/CREATININE RATIO 14
[2021-09-14 09:47] LABS: ALANINE AMINOTRANSFERASE 20 U/L (0-55)
[2021-09-14 10:14] LABS: BILIRUBIN,URINE NEGATIVE (NEGATIVE); CLARITY,URINE CLEAR; COLOR,URINE YELLOW; GLUCOSE, URINE (UA) NEGATIVE (NEGATIVE); KETONES,URINE NEGATIVE (NEGATIVE); LEUKOCYTE ESTERASE ,URINE NEGATIVE (NEGATIVE); NITRITE,URINE NEGATIVE (NEGATIVE); PROTEIN,URINE NEGATIVE (NEGATIVE)
[2021-09-14 10:18] VITALS: BP_SYST 108; BP_SYST 114; BP_SYST 118; BP_DIAS 70; BP_DIAS 78
--- NOTE | 2021-09-14 10:20 | Diagnostic Imaging Report ---
PROCEDURE: CT head and CT cervical spine without contrast. TECHNIQUE: Multiple contiguous axial images were obtained through the brain and cervical spine without the use of intravenous contrast. Sagittal and coronal reformations through the cervical spine were then performed. Auto Exposure Controls were utilized during the CT exam to meet ALARA standards for radiation dose reduction. INDICATION: Trauma. Seizure. Syncope. COMPARISON: CT head without contrast 12/15/2018. FINDINGS: CT HEAD: No intracranial hemorrhage, mass effect, hydrocephalus or extra-axial fluid collections. No CT evidence of a territorial infarction. No acute osseous findings. Postoperative changes in the paranasal sinuses. The mastoids are clear. The orbits are grossly unremarkable. CT CERVICAL SPINE: Normal alignment. Vertebral body heights are preserved. No fractures. No substantial spondylotic change. Lung apices are clear. Visualized paravertebral soft tissues are unremarkable. IMPRESSION: No acute intracranial or cervical spine CT findings. Dictated by: Dictated on workstation # [id number]
[2021-09-14 10:23] LABS: BACTERIA,URINE NEGATIVE /HPF; SQUAMOUS EPITHELIAL CELL,UR 0-2 /HPF
[2021-09-14] MEDS ORDERED: ONDA4TAB11 PO (11:12)
[2021-09-14] MEDS ORDERED: BENZ100C18 PO (11:12)
[2021-09-14 11:33] VITALS: BP 123/84
== END 2021-09-14 11:35 | disposition home or self-care (01) ==
LOC: EDUNIT# 09:10 → ER 09:11
DX: U07.1 COVID-19 (principal); R55 Syncope and collapse; F41.9 Anxiety disorder, unspecified; F31.9 Bipolar disorder, unspecified; Z79.899 Other long term (current) drug therapy
CPT/HCPCS: 36415; 70450; 72125; 80053; 81000; 84484; 84703; 85025; 86141; 87636; 93005

== ENCOUNTER 2022-04-01 19:46 | Emergency (ER) | payer BC ==
[~2022-04-01] VITALS: Ht 165 cm; Wt 84.0 kg
[~2022-04-01 19:46] MED LIST changes: +BENZ100C18 PO
[2022-04-01 19:59] VITALS: BP 110/73
[2022-04-01] MEDS ORDERED: SULF-221 PO (19:59)
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
== END 2022-04-01 20:05 | disposition home or self-care (01) ==
LOC: EDUNIT# 19:46 → ER 19:48
DX: L03.115 Cellulitis of right lower limb (principal); Z88.0 Allergy status to penicillin; Z88.1 Allergy status to other antibiotic agents
CPT/HCPCS: 99281